=== PATIENT | male | born 1945 | race Caucasian/White ===

== ENCOUNTER 2020-03-20 08:08 | Outpatient (CLI) | payer MEDICARE, BC, SELFPAY ==
--- NOTE | ~2020-03-20 | CT_ITS ---
EXAMINATION:CT chest high resolution wo ga DATE: 03/20/2020 08:43 INDICATION: Interstitial lung disease. TECHNIQUE: Computed tomography (CT) of the chest was performed without intravenous contrast. Automate d exposure control and iterative reconstruction technique were employed. The dose-length product (DLP ) was 241.50 mGy-cm. COMPARISON: Chest CT 12/11/2018 FINDINGS: There is severe emphysema. There are widespread peripheral reticular opacities in the lungs . There is honeycombing in the lungs bilaterally with a lower lung predominance. There is a 6 mm nodu le in left lower lobe. There is a 4 mm nodule left major fissure. There is a 6 mm nodule in right mid dle lobe. There is a 4 mm nodule in right upper lobe. No pleural effusion. The heart size is normal. There are coronary artery calcifications. There are changes of coronary bypass grafting. No pericardi al effusion. There is mild bilateral gynecomastia. There are changes of cholecystectomy. There is a 2 .0 cm cyst in left kidney. There is thoracic dextroscoliosis and mild spondylosis. IMPRESSION: 1. Stable severe diffuse lung disease, likely a combination of emphysema and chronic interstitial kenyetta g disease in a pattern of usual interstitial pneumonia (UIP). 2. Stable pulmonary nodules, consistent with granulomatous disease. Reviewed, dictated and finalized at location A. IMPRESSION: 1. Stable severe diffuse lung disease, likely a combination of emphysema and ch ronic interstitial lung disease in a pattern of usual interstitial pneumonia (U IP). 2. Stable pulmonary nodules, consistent with granulomatous disease.
== END 2020-03-20 08:09 | disposition home or self-care (01) ==
PROVIDERS: PCP Internal Medicine; Visit Provider Nurse Practitioner Family
DX: J98.4 Other disorders of lung (principal); R91.8 Other nonspecific abnormal finding of lung field
CPT/HCPCS: 71250

== ENCOUNTER → 2020-11-02 14:52 | Outpatient (CLI) | payer MEDICARE, SELFPAY ==
--- NOTE | ~2020-11-02 | XR_ITS ---
XR hand BI arthritis min 3V DATE: 11/02/2020 15:17 INDICATION: Rheumatoid arthritis TECHNIQUE: 4 views of each hand COMPARISON: 03/22/2007 bilateral hands FINDINGS: There is mild osteoarthritis at the first carpometacarpal joint and second and third metaca rpophalangeal as well as interphalangeal joints of the right hand. Mild osteoarthritic arthritis at the left first carpometacarpal joint, third metacarpophalangeal and some interphalangeal joints. No fracture, dislocation, erosive change, periosteal reaction or bone destruction of either hand is n oted. IMPRESSION: Polyarticular mild osteoarthritis Reviewed, dictated and finalized at location A.
--- NOTE | ~2020-11-02 | XR_ITS ---
XR foot RT standing 2V DATE: 11/02/2020 15:17 INDICATION: Rheumatoid arthritis TECHNIQUE: Standing AP and lateral views COMPARISON: None FINDINGS: There is prominent hallux valgus and bunion deformity. Diffuse osteopenia. No fracture, dislocation, periosteal reaction or bone destruction. Anterior and posterior tibial artery calcifications. IMPRESSION: Osteopenia Prominent hallux valgus and bunion deformity Reviewed, dictated and finalized at location A.
--- NOTE | ~2020-11-02 | XR_ITS ---
XR foot LT standing 2V DATE: 11/02/2020 15:17 INDICATION: Rheumatoid arthritis TECHNIQUE: AP and lateral standing views COMPARISON: None FINDINGS: Anterior and posterior tibial and dorsalis pedis artery calcifications. Osteopenia. Pes planus. Plantar calcaneal enthesopathy. There is mild osteoarthritis at the first metatarsophalangeal joint. No fracture or dislocation, periosteal reaction or bone destruction is detected. IMPRESSION: Pes planus Osteopenia Plantar calcaneal enthesopathy Mild osteoarthritis at first metatarsophalangeal joint Reviewed, dictated and finalized at location A.
== END ==
PROVIDERS: PCP Internal Medicine; Visit Provider Internal Medicine
DX: M06.9 Rheumatoid arthritis, unspecified (principal); M19.041 Primary osteoarthritis, right hand; M19.042 Primary osteoarthritis, left hand; M77.32 Calcaneal spur, left foot; M19.072 Primary osteoarthritis, left ankle and foot; M85.872 Other specified disorders of bone density and structure, left ankle and foot; M20.11 Hallux valgus (acquired), right foot; M85.871 Other specified disorders of bone density and structure, right ankle and foot
CPT/HCPCS: 73130; 73620

== ENCOUNTER 2021-04-11 09:48 | Outpatient (CLI) | payer MEDICARE, SELFPAY ==
--- NOTE | ~2021-04-11 | CT_ITS ---
EXAMINATION: CT chest high resolution wo co DATE: 04/11/2021 10:26 INDICATION: Interstitial pulmonary disease TECHNIQUE: Computed tomography (CT) of the chest was performed without intravenous contrast. The dose -length product (DLP) was 225.82 mGy-cm. Automated exposure control and iterative reconstruction tech nique were employed. COMPARISON: 03/20/2020 FINDINGS: Again noted are widespread peripheral reticular opacities. Areas of honeycombing are presen t with a lower lung zone predominance, right greater than left. There is severe emphysema. There is n o pleural effusion or pneumothorax. The previously described 4 mm nodule of the left lower lobe is le ss apparent than on the comparison examination. There is a stable 6 mm nodule of the right middle lob e. No new pulmonary nodules are identified. The lungs are free of acute focal airspace opacities. Mil d bilateral gynecomastia is noted. No pathologically enlarged thoracic lymph nodes are identified. Th e heart size is normal. Changes of coronary artery bypass grafting are noted. The gallbladder is surg ically absent. There is a 2 cm cyst of the left kidney. There are bridging osteophytes at multiple le vels in the spine, consistent with diffuse idiopathic skeletal hyperostosis (DISH). IMPRESSION: 1. Stable chronic interstitial lung disease in a pattern of usual interstitial pneumonia (UIP) and em physema. Reviewed, dictated and finalized at location B. D PACKER IMPRESSION: 1. Stable chronic interstitial lung disease in a pattern of usual interstitial pneumonia (UIP) and emphysema.
== END 2021-04-11 09:49 | disposition home or self-care (01) ==
LOC: ANHIMG 09:54
PROVIDERS: PCP Internal Medicine; Visit Provider Nurse Practitioner Family
DX: J84.9 Interstitial pulmonary disease, unspecified (principal)
CPT/HCPCS: 71250

== ENCOUNTER 2021-08-13 14:54 | Emergency (ER) | payer MEDICARE, SELFPAY ==
[2021-08-13 15:12] VITALS: BP 123/74; PULSE 110; RESP 14; TEMP 37.1; O2SAT 97
[2021-08-13 15:32] LABS: Basophils Percent Auto 0.4 % (0.2-1.2); Eosinophils Absolute Auto 0.1 K/mm3 (0-0.3); Eosinophils Percent Auto 1.6 % (0-4.4); Hematocrit 42.8 % (42.0-52.0); Hemoglobin 14.3 g/dL (14.0-18.0); Immature Granulocyte Absolute 0.03 K/mm3 (0.00-0.031); Immature Granulocyte Percent A 0.4 % (0-0.5); Lymphocytes Absolute Auto 1.28 K/mm3 (0.9-3.2); Lymphocytes Percent Auto 15.6 % (18.3-44.2); Mean Corpuscular HGB Conc 33.4 g/dl (32-36); Mean Corpuscular Hemoglobin 39.4 pg (26-34); Mean Corpuscular Volume 117.9 fl (80-100); Mean Platelet Volume 10.4 fl (7.4-10.4); Monocytes Absolute Auto 0.8 K/mm3 (0.1-0.6); Monocytes Percent Auto 9.6 % (2.6-8.5); Neutrophils Percent Auto 72.4 % (45.5-73.1); Platelet Count Result 241 k/mm3 (150-375); Red Blood Count 3.63 M/mm3 (4.6-6.20); Red Cell Distribution Width 15.3 % (11.5-14.5); White Blood Count 8.2 K/mm3 (4.5-10.0)
[2021-08-13 15:42] LABS: Alanine Aminotransferase 20 U/L (4-50); Albumin Level 4.3 g/dL (3.5-5.1); Alkaline Phosphatase 43 U/L (38-126); Anion Gap 7 mmol/L (8-16); Aspartate Amino Transferase 33 U/L (17-59); Bilirubin,Total 0.9 mg/dL (0.2-1.3); Blood Urea Nitrogen 16 mg/dL (9-20); Calcium 8.1 mg/dL (8.4-10.2); Carbon Dioxide 23 mmol/L (22-30); Chloride 107 mmol/L (98-107); Estimated Glomerular Filt Rate > 60; Glucose 135 mg/dL (65-110); Lipase 22 U/L (23-300); Potassium 3.8 mmol/L (3.4-5.0); Sodium 137 mmol/L (137-145)
--- NOTE | 2021-08-13 16:46 | ED.ABDPAIN ---
HPI - Abdominal Pain General Chief Complaint: Abdominal Pain Stated Complaint: battling diverticultis Time Seen by Provider: 08/13/21 16:45 History of Present Illness HPI narrative: 76-year-old male presents the emergency room complaining of diarrhea has been present for 10 days. Patient states that he was given Levaquin for a presumptive sinus infection approximately 3 weeks ago. Following the completion of the course of Levaquin, patient began complaining of left lower quadrant pain with diarrhea. Patient called his PCP and was crisp prescribed courses of Cipro and Flagyl. Patient states the diarrhea has increased in severity and number of occurrences daily denies blood in the stool. Related Data Home Medications Medication Instructions Recorded Confirmed alendronate 70 mg tablet 70 mg PO WEEKLY 06/30/19 04/18/21 aspirin 81 mg tablet,delayed 81 mg PO DAILY 06/30/19 04/18/21 release cetirizine 10 mg capsule PO 06/30/19 04/18/21 dextromethorphan-guaifenesin 30 1 tablet PO Q12H 06/30/19 04/18/21 mg-600 mg tablet extended [id number] hr finasteride 5 mg tablet 5 mg PO DAILY 06/30/19 04/18/21 fluoxetine 20 mg capsule 20 mg PO DAILY 06/30/19 04/18/21 fluticasone furoate 50 INHALATION 06/30/19 04/18/21 mcg/actuation blister powder for inhalation lorazepam 1 mg tablet 1 mg PO DAILY PRN 06/30/19 04/18/21 ramelteon 8 mg tablet 8 mg PO ONCE 06/30/19 04/18/21 simvastatin 20 mg tablet 20 mg PO DAILY 06/30/19 04/18/21 testosterone cypionate 200 mg/mL 200 mg IM MONTHLY 06/30/19 04/18/21 intramuscular kit topiramate 50 mg tablet 50 mg PO BID 06/30/19 04/18/21 tramadol 50 mg tablet 50 mg PO Q6H PRN 06/30/19 04/18/21 calcium [calcium citrate] PO 07/27/20 04/18/21 carboxymethyl 0.5 %-glycerin 1 1 drp EACH EYE Q2-4H PRN 07/27/20 04/18/21 %-polysorb 80 0.5 %-PF eye dropperette cholecalciferol (vitamin D3) 125 125 mcg PO DAILY 07/27/20 04/18/21 mcg (5,000 unit) capsule cyanocobalamin (vitamin B-12) 500 500 mcg PO DAILY 07/27/20 04/18/21 mcg tablet latanoprost 0.005 % eye drops 1 drp EACH EYE QPM 07/27/20 04/18/21 tacrolimus 0.1 % topical ointment See Rx Instructions .ROUTE .COMPLEX 07/27/20 04/18/21 Allergies Allergy/AdvReac Type Severity Reaction Status Date / Time Cephalosporins Allergy Mild RASH Verified 04/18/21 13:02 cephalexin Allergy Unknown unk Verified 04/18/21 13:02 Penicillins Allergy Unknown unk Verified 04/18/21 13:02 Sulfa (Sulfonamide Allergy Unknown unk Verified 04/18/21 13:02 Antibiotics) sulfanilamide Allergy Unknown unk Verified 04/18/21 13:02 Review of Systems Review of Systems: CONSTITUTIONAL: Denies fever, chills, or sweats. EYES: Denies visual changes, redness, or discharge. ENT: Denies rhinorrhea, congestion, sore throat, or otalgia. CARDIOVASCULAR: Denies chest pain, palpitations, or edema. RESPIRATORY: Denies cough or dyspnea. GASTROINTESTINAL: Reports lower abdominal pain, diarrhea, occasional nausea GENITOURINARY: Denies dysuria or hematuria. SKIN: Denies rash or itching. MUSCULOSKELETAL: Denies back pain, joint pain, or myalgia. NEUROLOGIC: Denies headache, numbness, dizziness, or weakness. PSYCHIATRIC: Denies anxiety or depression. [facility] Past Medical History Medical History Anxiety CAD (coronary artery disease) Depression Diverticulosis Headache Heart attack Heart disease ILD (interstitial lung disease) Rheumatoid arthritis Skin cancer Tobacco abuse Surgical History Surgical History H/O hemorrhoidectomy H/O hernia repair H/O knee surgery History of appendectomy History of quadruple bypass Hx of cholecystectomy Family History Family History Mother Diabetes mellitus Glaucoma Cerebrovascular accident Sibling Diabetes mellitus Cancer Heart disease Hypertension Dementia Acute myoc
[2021-08-13 17:26] LABS: Add Urine Microscopic? YES; Appearance Urine Clear (Clear); Bilirubin Urine 1+ (Negative); Blood Urine Negative (Negative); Color Urine Amber (Yellow); Glucose Urine UA Negative (Negative); Ketones Urine 1+ mg/dL (Negative); Leukocyte Esterase Ur Trace LEU/UL (Negative); Mucus Urine Rare /lpf; Nitrate Urine Negative (Negative); Protein Urine Negative (Negative); RBC Urine 0-2 /hpf (0-2); Squamous Epithelial Cell Urine Rare /hpf (Few); WBC Urine 0-3 /hpf
[2021-08-13 17:39] LABS: Specific Grav Ur 1.033 (1.001-1.035)
[2021-08-13] MEDS: ONDANSETRON INJ 4 MG/2 ML VIAL IV PUSH (17:45)
[2021-08-13] MEDS: SODIUM CHLORIDE 0.9% IV 1,000 ML 999 ML IV CONT (17:45)
[2021-08-13] MEDS: DICYCLOMINE HCL INJ 20 MG/2 ML VIAL IM (18:01)
--- NOTE | 2021-08-13 19:14 | PC.NURSE ---
Pt given PO challenge. Report relief of s/s
== END 2021-08-13 19:48 | disposition home or self-care (01) ==
PROVIDERS: Emergency Medicine; Emergency Provider Nurse Practitioner Family; PCP Internal Medicine
DX: R19.7 Diarrhea, unspecified (principal); I25.10 Atherosclerotic heart disease of native coronary artery without angina pectoris; I25.2 Old myocardial infarction; J84.9 Interstitial pulmonary disease, unspecified; M06.9 Rheumatoid arthritis, unspecified; F32.A Depression, unspecified; F41.9 Anxiety disorder, unspecified; Z85.828 Personal history of other malignant neoplasm of skin; Z87.891 Personal history of nicotine dependence
CPT/HCPCS: 36415; 80053; 81001; 83690; 85025; 96361; 96372; 96374; 99284; J0500; J2405; J7030

== ENCOUNTER 2021-10-27 14:04 | Outpatient (CLI) | payer MEDICARE, SELFPAY ==
--- NOTE | ~2021-10-27 | CT_ITS ---
EXAMINATION: CT sinus wo con DATE: 10/27/2021 14:30 INDICATION: Chronic sinusitis TECHNIQUE: Computed tomography (CT) of the paranasal sinuses was performed without intravenous contra st. The dose-length product was 325.47 mGy-cm. Automated exposure control and iterative reconstructio n technique were employed. COMPARISON: CT dated 01/30/2018 FINDINGS: There is mild mucosal thickening of the maxillary sinuses. No air-fluid levels. No signific ant mucoperiosteal reaction. There is rightward nasal septal deviation. Ostiomeatal units are patent. IMPRESSION: 1. Mild maxillary sinus disease. Reviewed, dictated and finalized at location A.
== END 2021-10-27 14:05 | disposition home or self-care (01) ==
PROVIDERS: PCP Internal Medicine; Visit Provider Otolaryngology
DX: R09.82 Postnasal drip (principal); J34.89 Other specified disorders of nose and nasal sinuses; R09.81 Nasal congestion; J34.3 Hypertrophy of nasal turbinates; J34.2 Deviated nasal septum; J32.0 Chronic maxillary sinusitis
CPT/HCPCS: 70486

== ENCOUNTER 2021-11-23 12:22 | Outpatient (CLI) | payer MEDICARE, SELFPAY ==
--- NOTE | 2021-11-23 12:30 | ECG_ITS ---
Measurements Intervals [place] Rate: 85 P: 65 WA: 199 QRS: -3 QRSD: 95 T: 31 QT: 363 QTc: 432 Interpretive Statements SINUS RHYTHM MINOR RV CONDUCTION ABNORMALITY BORDERLINE ECG NO PREVIOUS ECG AVAILABLE FOR COMPARISON Electronically Signed On 11-24-2021 16:27:09 CDT by Michel Aldana M.D.
== END 2021-11-23 12:23 | disposition home or self-care (01) ==
LOC: ANHSURGERY 12:31
PROVIDERS: PCP Internal Medicine; Visit Provider Otolaryngology
DX: F17.210 Nicotine dependence, cigarettes, uncomplicated (principal); Z01.818 Encounter for other preprocedural examination; R94.31 Abnormal electrocardiogram [ECG] [EKG]
CPT/HCPCS: 93005

== ENCOUNTER 2021-12-01 01:03 | Day surgery (SDC) | payer MEDICARE, SELFPAY ==
[2021-11-20 14:52] VITALS: BMI 26.2
--- NOTE | 2021-11-20 15:12 | PC.NURSE ---
Report to the Outpatient Waiting Room, entrance under the green pavilion located off [facility], at time _0600_ on date _12/01/21_. OR Time: _0730_. - You and your visitor will be asked a series of questions to screen for COVID 19 for your protection. - Only one visitor is allowed at this time. - The patient visitor is requested to leave or wait in car when not with patient. - A mask is required within the hospital. Patients may have clear liquids (water, carbonated beverages, clear teas, apple juice) until 3 hours prior to surgery (0430 AM)with a maximum of 20 ounces. - No food from midnight until time of surgery Take the following medications with a SIP of water the morning of surgery: _LORAZEPAM, PREDNISONE, SPIRIVA INHALER, EYE DROPS, NASAL SPRAY, TRAMADOL IF NEEDED_ Medications to discontinue - _ASPIRIN PER DR. REED'S INSTRUCTIONS__ Please no make-up, nail azeri, hairspray, perfume, deodorant, or body powder the day of surgery. No jewelry (including any body piercings) or valuables the day of surgery, leave them at home. Please take a shower or bath the night before, or the morning of, surgery with an antibacterial soap. Wear comfortable, loose fitting clothing. - Jewelry must be removed prior to entering the operating room. Rings and piercings that are not removed may be cut off. - The hospital will not accept responsibility for valuables. - Please leave all valuables, including medications, at home the day of surgery. If you are going home after surgery, a licensed dedicated intermodal truck driver must drive you home. - NO public transportation without another adult. - We recommend that an adult stay with you for 24 hours following discharge. - We also recommend that you do not drive, make important decision, drink alcoholic beverages, or take any drugs that were not prescribed by your health care provider for at least 24 hours after your discharge time. Follow any additional instructions given to you from your surgeon. If you or anyone in your household have experienced Covid symptoms in the past week, please notify your surgeon or the nurse liaison at the phone number below for possible testing. Telephone instructions given to ___PT and asked if any additional questions and then verbalized understanding. Patient advised to call surgeon office or pre surgery nurse liaison [phone] if any additional questions.
--- NOTE | 2021-11-30 16:36 | PM.IMHP ---
H&P: HPI History of Present Illness Date/Time: 11/30/21 16:36 Chief Complaint: Chronic sinusitis facial pressure pain postnasal drainage Narrative: Patient presents for planned surgical procedure no change in symptoms no change in history Review of Systems Review of Systems: All systems reviewed & are unremarkable except as noted in HPI and below PMFSH Past Medical History Medical History Anxiety CAD (coronary artery disease) Chronic obstructive pulmonary disease Chronic sinusitis Depression Diverticulosis Headache Heart attack Heart disease ILD (interstitial lung disease) Rheumatoid arthritis Skin cancer Tobacco abuse Surgical History Surgical History H/O hemorrhoidectomy H/O hernia repair H/O knee surgery History of appendectomy History of quadruple bypass Hx of cholecystectomy Family History Family History Mother Diabetes mellitus Glaucoma Cerebrovascular accident Hypertension Heart disease Sibling Diabetes mellitus Cancer Heart disease Hypertension Dementia Acute myocardial infarction Alcoholism Depression Father Acute myocardial infarction Family history of respiratory disorder Malignant neoplasm of prostate Alcoholism Grandparent Cerebrovascular accident Glaucoma Grandparent Cerebrovascular accident Other Family history of cardiovascular disease Family history of malignant neoplasm of kidney Social History Social History Smoking packs per day: 0.75 Smoking cigarettes per day: 15.0 Years smoked: 50 Smoking pack-years: 37.50 Smoking status: Current every day smoker Tobacco type: cigarettes Second hand tobacco smoke exposure: Yes Smoking end date: 06/03/18 Alcohol intake: never Substance use: never Substance use type: does not use Spiritual care concerns: No Meds Home Medications and Allergies Home Medications Medication Instructions Recorded Confirmed Type alendronate 70 mg tablet (Fosamax) 70 mg PO WEEKLY 06/30/19 11/20/21 History aspirin 81 mg tablet,delayed 81 mg PO QAM 06/30/19 11/20/21 History release (Ecotrin Low Strength) cetirizine 10 mg capsule (Zyrtec) 10 mg PO QAM 06/30/19 11/20/21 History dextromethorphan-guaifenesin 30 1 tablet PO Q12H 06/30/19 11/20/21 History mg-600 mg tablet extended hr (Mucinex DM) finasteride 5 mg tablet 5 mg PO QAM 06/30/19 11/20/21 History fluoxetine 20 mg capsule 20 mg PO HS 06/30/19 11/20/21 History lorazepam 1 mg tablet See Rx Instructions .Route .COMPLEX 06/30/19 11/20/21 History ramelteon 8 mg tablet (Rozerem) 8 mg PO HS 06/30/19 11/20/21 History simvastatin 20 mg tablet 20 mg PO HS 06/30/19 11/20/21 History topiramate 50 mg tablet 50 mg PO BID 06/30/19 11/20/21 History tramadol 50 mg tablet 50 mg PO Q6H PRN Pain 06/30/19 11/20/21 History calcium [calcium citrate] 2 tab-cap PO HS 07/27/20 11/20/21 History cholecalciferol (vitamin D3) 125 125 mcg PO HS 07/27/20 11/20/21 History mcg (5,000 unit) capsule cyanocobalamin (vitamin B-12) 500 500 mcg PO HS 07/27/20 11/20/21 History mcg tablet (Vitamin B-12) latanoprost 0.005 % eye drops 1 drp EACH EYE QPM 07/27/20 11/20/21 History hydroxychloroquine 200 mg tablet 200 mg PO BID #180 tabs 08/24/21 11/20/21 Rx (Plaquenil) mupirocin 2 % topical ointment 1 applic topical BID #22 grams 10/03/21 11/20/21 Rx albuterol sulfate 90 mcg/actuation See Rx Instructions .Route 10/19/21 11/20/21 Rx aerosol inhaler .COMPLEX 1 month #8.5 grams carboxymethylcellulose sodium 1 % 2 drp EACH EYE BID PRN Dry Eye(S) 11/20/21 11/20/21 History eye liquid gel drops prednisone 1 mg tablet 1 mg PO DAILY 11/20/21 11/20/21 History tacrolimus 0.1 % topical ointment 1 applic topical BID 11/20/21 11/20/21 Histo
[2021-12-01] VITALS (10 sets, daily range): BP systolic 101–146; BP diastolic 52–88; PULSE 74–87; RESP 12–20; TEMP 36.3–36.6; O2SAT 92–100
--- NOTE | 2021-12-01 06:41 | WPDANESEPPF ---
Anes - Initial Pre Proc Eval Procedure: Operation Date: 12/01/21 07:45 Proposed Procedures p Image Guided Bilateral Maxillary Antrostomy - Johny Zuniga MD Date/Time: 12/01/21 06:41 Surgeon: Johny Zuniga MD Pre Op Diagnosis: chronic sinusitis Patient Data Age: 76 Gender: M Height: 1.68 m Weight: 73.63 kg Allergies Allergy/AdvReac Type Severity Reaction Status Date / Time Cephalosporins Allergy Mild RASH Verified 11/20/21 14:37 cephalexin Allergy Unknown Hives Verified 11/20/21 14:37 Penicillins Allergy Unknown STATES WAS Verified 11/20/21 14:37 TOLD NOT TO TAKE PCN DUE TO KEFLEX REACTION Sulfa (Sulfonamide Allergy Unknown Rash Verified 11/20/21 14:37 Antibiotics) sulfanilamide Allergy Unknown Rash Verified 11/20/21 14:37 Home Medications Medication Instructions Recorded Confirmed Type alendronate 70 mg tablet (Fosamax) 70 mg PO WEEKLY 06/30/19 11/20/21 History aspirin 81 mg tablet,delayed 81 mg PO QAM 06/30/19 11/20/21 History release (Ecotrin Low Strength) cetirizine 10 mg capsule (Zyrtec) 10 mg PO QAM 06/30/19 11/20/21 History dextromethorphan-guaifenesin 30 1 tablet PO Q12H 06/30/19 11/20/21 History mg-600 mg tablet extended [id number] hr (Mucinex DM) finasteride 5 mg tablet 5 mg PO QAM 06/30/19 11/20/21 History fluoxetine 20 mg capsule 20 mg PO HS 06/30/19 11/20/21 History lorazepam 1 mg tablet See Rx Instructions .Route .COMPLEX 06/30/19 11/20/21 History ramelteon 8 mg tablet (Rozerem) 8 mg PO HS 06/30/19 11/20/21 History simvastatin 20 mg tablet 20 mg PO HS 06/30/19 11/20/21 History topiramate 50 mg tablet 50 mg PO BID 06/30/19 11/20/21 History tramadol 50 mg tablet 50 mg PO Q6H PRN Pain 06/30/19 11/20/21 History calcium [calcium citrate] 2 tab-cap PO HS 07/27/20 11/20/21 History cholecalciferol (vitamin D3) 125 125 mcg PO HS 07/27/20 11/20/21 History mcg (5,000 unit) capsule cyanocobalamin (vitamin B-12) 500 500 mcg PO HS 07/27/20 11/20/21 History mcg tablet (Vitamin B-12) latanoprost 0.005 % eye drops 1 drp EACH EYE QPM 07/27/20 11/20/21 History hydroxychloroquine 200 mg tablet 200 mg PO BID #180 tabs 08/24/21 11/20/21 Rx (Plaquenil) mupirocin 2 % topical ointment 1 applic topical BID #22 grams 10/03/21 11/20/21 Rx albuterol sulfate 90 mcg/actuation See Rx Instructions .Route 10/19/21 11/20/21 Rx aerosol inhaler .COMPLEX 1 month #8.5 grams carboxymethylcellulose sodium 1 % 2 drp EACH EYE BID PRN Dry Eye(S) 11/20/21 11/20/21 History eye liquid gel drops prednisone 1 mg tablet 1 mg PO DAILY 11/20/21 11/20/21 History tacrolimus 0.1 % topical ointment 1 applic topical BID 11/20/21 11/20/21 History testosterone cypionate 200 mg/mL See Rx Instructions .Route .COMPLEX 11/20/21 11/20/21 History intramuscular oil tiotropium bromide 18 mcg capsule 1 cap inhalation DAILY 11/20/21 11/20/21 History with inhalation device (Spiriva with HandiHaler) fluticasone propionate 50 See Rx Instructions .Route 11/24/21 Rx mcg/actuation nasal .COMPLEX #48 mL spray,suspension Patient hx anesthesia problems: none Family hx anesthesia problems: none Results Review: All pre-operative results and documents have been reviewed as part of the pre-operative evaluation. [facility] Past Medical History Medical History Anxiety CAD (coronary artery disease) Chronic obstructive pulmonary disease Chronic sinusitis Depression Diverticulosis Headache Heart attack Heart disease ILD (interstitial lung disease) Rheumatoid arthritis Skin cancer Tobacco abuse Surgical History Surgical History H/O hemorrhoidectomy H/O hernia repair H/O knee surgery History of appendectomy History of quadruple bypass Hx of cholecystectomy Family History Family History Mother Diabetes mellitus [place]
[2021-12-01] MEDS: LACTATED RINGERS 1,000 ML 30 ML IV CONT (06:47)
[2021-12-01 06:53] LABS: Glucose Point of Care 128 mg/dl (65-105)
--- NOTE | 2021-12-01 07:14 | WPDHPUPDATE1 ---
History and Physical Update Update Date/Time: 12/01/21 07:14 History and Physical has been reviewed, including an updated exam of the patient. There are NO changes in the patient's condition. Risks, benefits, and alternatives have been discussed and questions answered. Patient agrees to proceed with procedure.
[2021-12-01] MEDS: CLINDAMYCIN 900 MG/D5W 50 ML 900 MG/50 ML PIGGYBACK 50 MG IVPB (08:09)
[2021-12-01] MEDS: OXYMETAZOLINE HCL 0.05% NAS 15 ML BTL (*BKC) 1 SPRAY NASAL (08:32)
[2021-12-01 09:13] LABS: Glucose Point of Care 131 mg/dl (65-105)
[2021-12-01] MEDS: fentaNYL CITRATE INJ (*CRX) 100 MCG/2 ML VIAL 25 MCG IV PUSH (09:14)
--- NOTE | 2021-12-01 09:18 | P.OP_ITS ---
Procedure Note - Detailed Date of Procedure 12/01/21 Pre-op Diagnosis chronic sinusitis Post-op Diagnosis Same Procedure Performed Bilateral endoscopic image guided maxillary antrostomies. Surgeon Johny Zuniga MD Anesthesia General Indications See above Findings Thickened mucosa the bilateral maxillary sinuses Description of Procedure Patient identified consent verified. Patient brought operating room time-out p erformed. General anesthesia induced endotracheal tube secured taped left lower lip. Second time-out performed. Image guidance initiated and confirmed. Afrin-soaked pledgets placed the passages allowed to sit for 5 minutes. Patient prepped and draped. Afrin-soaked pledgets removed 0 degree endoscope utilized maxillary antrostomies completed with caudal elevator, double ball tip probe, straight through cut, and backbiter as well as image guided microdebrider. Image guidance was used to confirm the location the maxillary sinuses bilateral nasal passages suction the posterior choana, this was a bilateral sinus procedure. There were no complications blood loss about 20 cc less than 25. Care the patient given over to Anesthesiology I performed all dictated portions. No complications patient taken to PACU. Estimated Blood Loss 20 Drains No Packing No Pathology None sent Complications No immediate complications Condition Stable Disposition PACU
== END 2021-12-01 11:35 | disposition home or self-care (01) ==
PROVIDERS: PCP Internal Medicine; Visit Provider Otolaryngology
PROC: (CPT 31256; principal; 2021-12-01 07:45)
DX: J32.9 Chronic sinusitis, unspecified (principal); I25.10 Atherosclerotic heart disease of native coronary artery without angina pectoris; I25.2 Old myocardial infarction; J44.9 Chronic obstructive pulmonary disease, unspecified; M06.9 Rheumatoid arthritis, unspecified; J84.9 Interstitial pulmonary disease, unspecified; F41.9 Anxiety disorder, unspecified; F32.A Depression, unspecified; Z95.1 Presence of aortocoronary bypass graft; F17.210 Nicotine dependence, cigarettes, uncomplicated; Z79.82 Long term (current) use of aspirin; Z79.51 Long term (current) use of inhaled steroids
CPT/HCPCS: 31256; 61782; 82948; 93005; A9270; J2250; J2270; J2405; J2704; J3010; J7120

== ENCOUNTER 2022-02-01 13:53 | Outpatient (CLI) | payer MEDICARE, SELFPAY | END 2022-02-01 13:54 | disposition home or self-care (01) | LOC: ANHAUDIO 13:54 | PROVIDERS: PCP Internal Medicine; Referring Provider Otolaryngology; Visit Provider Otolaryngology | DX: H90.3 Sensorineural hearing loss, bilateral (principal) | CPT/HCPCS: 92557; 92567 ==

== ENCOUNTER 2022-03-30 14:17 | Outpatient (CLI) | payer MEDICARE, SELFPAY ==
--- NOTE | ~2022-03-30 | DEXA_ITS ---
Bone Density Report Name: VENU CHAPARRO Age: 76 Sex: Male Ethnicity: White Date of : 1945 Indication: screening for osteoporosis; cancer; rheumatoid arthritis; Referring Provider: TAIWO*, SUSAN Pratt Study: Bone densitometry was performed. Exam Date: March 30, 2022 Accession number: [id number] Bone Density: Region BMD T-score Z-score Classification AP Spine(L1-L4) 1.161 0.6 1.7 Normal Femoral Neck (Left) 0.845 -0.6 0.7 Normal Total Hip (Left) 1.012 -0.1 0.7 Normal Femoral Neck (Right) 0.891 -0.3 1.0 Normal Total Hip (Right) 1.023 -0.1 0.7 Normal Total Hip Mean 1.017 -0.1 0.7 Normal World Health Organization criteria for BMD impression classify patients as: Normal (T-score at or above -1.0), Osteopenia (T-score between -1.0 and -2.5), or Osteoporosis (T-score at or below -2.5). 10-year Fracture Risk: FRAX not reported because: All T-scores for Spine Total, Hip Total, Femoral Neck at or above -1.0 Treated for osteoporosis Clinical Information Provided by Patient: Smokes Has rheumatoid arthritis Is being treated for osteoporosis Has used the following medications: Fosamax (i.e. alendronate), Vitamin D, Calcium Has the following medical conditions: Cancer Patient maximum height was 67 Drinks caffeinated beverages Impression: The patient has normal bone mass. The patient has risk factors, including: smoking. Discussion: It is important to ask patients whether they are taking their medications and to encourage continued and appropriate compliance with their osteoporosis therapies to reduce fracture risk. It is also important to review their risk factors and encourage appropriate calcium and vitamin D intakes, exercise, fall prevention and other lifestyle measures. Follow-Up: Consider repeating this study in 2 years to reassess this patient's status, or sooner if there is some new clinical indication. Reported by: KOBI on 03/30/2022 2:36:00 PM. Reviewed, dictated and finalized at location [facility] GARCIA
== END 2022-03-30 14:18 | disposition home or self-care (01) ==
PROVIDERS: PCP Internal Medicine; Visit Provider Internal Medicine
DX: M19.90 Unspecified osteoarthritis, unspecified site (principal); M81.0 Age-related osteoporosis without current pathological fracture
CPT/HCPCS: 77080

== ENCOUNTER 2022-04-17 14:09 | Outpatient (CLI) | payer MEDICARE, SELFPAY ==
--- NOTE | ~2022-04-17 | CT_ITS ---
EXAMINATION: CT chest high resolution wo ct DATE: 04/17/2022 14:31 INDICATION: Interstitial lung disease, dyspnea on exertion, tobacco use TECHNIQUE: Computed tomography (CT) of the chest was performed without intravenous contrast. The dose -length product (DLP) was 203.25 mGy-cm. 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 COMPARISON: 04/11/2021 FINDINGS: There is severe emphysema. Widespread peripheral reticular opacities persist without signif icant change. Areas of honeycombing with a lower lung zone predominance are not significantly changed . There is a stable 6 mm nodule of the right middle lobe. No pleural effusion or pneumothorax. No pat hologically enlarged thoracic lymph nodes are identified. The heart size is normal. Changes of perez ry artery bypass grafting are noted. There is mild bilateral gynecomastia. There are bridging osteoph ytes at multiple levels in the spine, consistent with diffuse idiopathic skeletal hyperostosis (DISH) . There is a 2.3 cm cyst of the left kidney upper pole. The gallbladder is surgically absent. IMPRESSION: 1. Stable chronic interstitial lung disease in a pattern of usual interstitial pneumonia (UIP) and em physema. Reviewed, dictated and finalized at location [facility]. [facility] IMPRESSION: 1. Stable chronic interstitial lung disease in a pattern of usual interstitial pneumonia (UIP) and emphysema.
== END 2022-04-17 14:10 | disposition home or self-care (01) ==
PROVIDERS: PCP Internal Medicine; Visit Provider Nurse Practitioner Family
DX: J84.9 Interstitial pulmonary disease, unspecified (principal); Z87.891 Personal history of nicotine dependence
CPT/HCPCS: 71250

== ENCOUNTER 2022-06-13 13:31 | Outpatient (CLI) | payer MEDICARE, SELFPAY ==
--- NOTE | ~2022-06-13 | MR_ITS ---
EXAMINATION: MR foot LT wo/w con, MR foot RT wo/w con DATE: 06/13/2022 16:06 INDICATION: Rheumatoid arthritis with bilateral foot pain TECHNIQUE: 1. Magnetic resonance imaging (MRI) of the left foot was performed without and with 14 mL Multihance intravenous contrast. Sequences included axial, sagittal and coronal T1-weighted FSE, sagittal fluid sensitive FSE STIR, axial T1-weighted FS FSE, and postcontrast axial, sagittal and coronal T1-weighte d FS FSE. 2. MRI of the right foot was performed without and with 14 mL Multihance intravenous contrast utilizi ng the same contrast bolus. Sequences included axial, sagittal and coronal T1-weighted FSE, sagittal fluid sensitive FSE STIR, axial T1-weighted FS FSE, and postcontrast axial, sagittal and coronal T1-w eighted FS FSE. COMPARISON: Left and right foot radiographs dated 11/02/2020 FINDINGS: Left foot: Mild hallux valgus. Normal bone marrow signal with no reactive edema, fracture or pathologic marrow r eplacing process. Mild osteoarthritis characterized by nonuniform joint space narrowing and/or small marginal osteophytes at the first metatarsophalangeal and several tarsal metatarsal and interphalange al joints. No erosions. There is increased enhancing soft tissue density partially replacing the norm al fat signal at the sinus Tarsi surrounding the otherwise intact appearing ligaments at the sinus Ta rsi. Physiologic amount fluid in the joint spaces with no other enhancing synovitis. The visualized p ortions of the stabilizing ligaments of the ankle, the Lisfranc ligament complex and the collateral l igament complex at the metatarsophalangeal and interphalangeal joints appear normal. Thickening and i ncreased signal of the central component of the proximal plantar aponeurosis with associated small to moderate-sized plantar calcaneal spur consistent with likely chronic enthesopathy without tear or en hancement to suggest an inflammatory enthesitis. The visualized portions of the flexor and extensor t endons are normal with no evident enhancing tenosynovitis. There is scattered mild fatty atrophy of s ome of the intrinsic musculature of the foot which is within normal limits for age. Mild subcutaneous edema about the ankle and extending over the dorsum of the foot. Right foot: Mild hallux valgus which appears significantly less severe than on the prior radiographs which may be due to weightbearing on the radiographs was posted nonweightbearing MR imaging. Normal bone marrow s ignal with no reactive edema, fracture or pathologic marrow replacing process. The distribution of mi ld osteoarthritis at the first metatarsophalangeal and several tarsal metatarsal and interphalangeal joints. No erosions. Physiologic amount fluid in the joint spaces with no other enhancing synovitis. The sinus Tarsi is unremarkable. The visualized portions of the stabilizing ligaments of the ankle, t he Lisfranc ligament complex and the collateral ligament complex at the metatarsophalangeal and inter phalangeal joints appear normal. Less severe mild enthesopathy at the central component of the planta r aponeurosis also without tear or enhancement. The visualized portions of the flexor and extensor te ndons are normal with no evident enhancing tenosynovitis. There is scattered mild fatty atrophy of so me of the intrinsic musculature of the foot which is within normal limits for age. Mild subcutaneous edema about the ankle and extending over the dorsum of the foot. IMPRESSION: 1. Increased enhancing soft tissue replacing normal fat signal at the sinus Tarsi of the left but not the right foot. This would be consistent with synovitis in the setting of rheumatoid arthritis with differential including other inflammatory arthritides, gout, ankylosing arthritis or prior trauma. 2. Bilateral enthesopathy of the central component of the plantar aponeurosis, right greater than lef t. No enhancement to s
== END 2022-06-13 13:32 | disposition home or self-care (01) ==
PROVIDERS: PCP Internal Medicine; Visit Provider Internal Medicine
DX: M06.9 Rheumatoid arthritis, unspecified (principal); M79.671 Pain in right foot; M79.672 Pain in left foot
CPT/HCPCS: 73720; A9577

== ENCOUNTER 2022-08-01 15:54 | Emergency (ER) | payer MEDICARE, SELFPAY ==
[2022-08-01 16:03] VITALS: BP 121/75; PULSE 105; RESP 18; TEMP 37.1; O2SAT 97
[2022-08-01 16:10] VITALS: BP 121/75; PULSE 105; RESP 18; TEMP 37.1; O2SAT 97
--- NOTE | 2022-08-01 16:26 | ED.URI ---
HPI - URI/Sore Throat General Chief Complaint: Upper Respiratory Infection Stated Complaint: SINUS DRAINAGE Time Seen by Provider: 08/01/22 16:11 Source: patient and RN notes reviewed Mode of arrival: ambulatory Limitations: no limitations History of Present Illness HPI Narrative: 77-year-old male with chronic sinusitis presents with concern for copious thick sinus drainage, cough. Reports general malaise, fatigue, chills. Reports he has been using sinus rinses and getting multi colored sputum from his sinuses. He was treated in June with Levaquin in June for sinusitis. He reports he had a pulmonary workup 1 week ago at [facility] and did not have an infection or pneumonia at that time MD elicited complaint: cough, nasal congestion and sinus pain Related Data Home Medications Medication Instructions Recorded Confirmed albuterol sulfate 90 mcg/actuation 2 inh inhalation DIRECTED 08/01/22 08/01/22 aerosol inhaler azelastine 137 mcg (0.1 %) nasal 137 mcg intranasal DIRECTED 08/01/22 08/01/22 spray aerosol cyclosporine 0.05 % eye drops in a 1 drp ophthalmic (eye) DIRECTED 08/01/22 08/01/22 dropperette (Restasis) finasteride 5 mg tablet 5 mg PO DIRECTED 08/01/22 08/01/22 fluoxetine 20 mg capsule 20 mg PO DAILY 08/01/22 08/01/22 fluticasone propionate 50 50 mcg intranasal DAILY 08/01/22 08/01/22 mcg/actuation nasal spray,suspension hydroxychloroquine 200 mg tablet 200 mg PO DAILY 08/01/22 08/01/22 latanoprost 0.005 % eye drops 1 drp ophthalmic (eye) DAILY 08/01/22 08/01/22 lorazepam 1 mg tablet 1 mg PO DIRECTED 08/01/22 08/01/22 mupirocin 2 % topical ointment 1 applic topical DIRECTED 08/01/22 08/01/22 ramelteon 8 mg tablet 8 mg PO DAILY 08/01/22 08/01/22 simvastatin 20 mg tablet 20 mg PO DAILY 08/01/22 08/01/22 testosterone cypionate 200 mg/mL 200 mg IM WEEKLY 08/01/22 08/01/22 intramuscular oil tiotropium bromide 18 mcg capsule 18 mcg inhalation DIRECTED 08/01/22 08/01/22 with inhalation device (Spiriva with HandiHaler) topiramate 50 mg tablet 50 mg PO DAILY 08/01/22 08/01/22 Allergies Allergy/AdvReac Type Severity Reaction Status Date / Time Cephalosporins Allergy Mild RASH Verified 08/01/22 16:02 cephalexin Allergy Unknown Hives Verified 08/01/22 16:02 Penicillins Allergy Unknown STATES WAS Verified 08/01/22 16:02 TOLD NOT TO TAKE PCN DUE TO KEFLEX REACTION Sulfa (Sulfonamide Allergy Unknown Rash Verified 08/01/22 16:02 Antibiotics) sulfanilamide Allergy Unknown Rash Verified 08/01/22 16:02 Review of Systems Review of Systems: CONSTITUTIONAL: Reports malaise, chills EYES: Denies visual changes, redness, or discharge. ENT: Reports rhinorrhea, congestion, sinus pain. Denies otalgia and sore throat. CARDIOVASCULAR: Denies chest pain, palpitations, or edema. RESPIRATORY: Reports productive cough. Denies dyspnea. GASTROINTESTINAL: Denies abdominal pain, nausea, vomiting, diarrhea SKIN: Denies rash or itching. MUSCULOSKELETAL: Denies myalgia. NEUROLOGIC: Denies headache. All systems reviewed & are unremarkable except as noted in HPI and below PMFSH Past Medical History Medical History Anxiety CAD (coronary artery disease) Chronic obstructive pulmonary disease Chronic sinusitis Depression Diverticulosis Foot pain, bilateral Headache Heart attack Heart disease ILD (interstitial lung disease) Rheumatoid arthritis Skin cancer Tobacco abuse Surgical History Surgical History H/O hemorrhoidectomy H/O hernia repair H/O knee surgery History of appendectomy History of quadruple bypass Hx of cholecystectomy Family History Family History Mother Diabetes mellitus Glaucoma Cerebrovascular accident Hypertension Heart disease Sibling Diabetes mellitus Cancer Heart dise
== END 2022-08-01 16:51 | disposition home or self-care (01) ==
PROVIDERS: Nurse Practitioner Family; Emergency Provider Nurse Practitioner; PCP Internal Medicine
DX: J32.9 Chronic sinusitis, unspecified (principal); I25.10 Atherosclerotic heart disease of native coronary artery without angina pectoris; J44.9 Chronic obstructive pulmonary disease, unspecified; F32.A Depression, unspecified; F41.9 Anxiety disorder, unspecified; F17.210 Nicotine dependence, cigarettes, uncomplicated; Z85.828 Personal history of other malignant neoplasm of skin; Z20.822 Contact with and (suspected) exposure to COVID-19
CPT/HCPCS: 87426; 87804; 99213; C9803; G0463

== ENCOUNTER 2022-11-01 12:39 | Outpatient (CLI) | payer MEDICARE, SELFPAY ==
--- NOTE | ~2022-11-01 | US_ITS ---
EXAMINATION: US carotid duplex BI DATE: 11/01/2022 13:23 INDICATION: Right carotid bruit. TECHNIQUE: Grayscale, color Doppler, and pulsed Doppler images of the cervical carotid arteries were obtained. The degree of vessel stenosis is placed in one of the following categories: normal, <50%, 5 0-69%, >=70% but less than near-occlusion, near-occlusion, or total occlusion. Note that percent sten osis relative to normal distal artery lumen diameter is indirectly measured from velocity measurement s as described by Jeremy, et al. Radiology 2003; 229:340-346. COMPARISON: Ultrasound 09/10/2016 FINDINGS: RIGHT: The right common carotid artery (CCA) peak systolic velocity (PSV) is 93 cm/s. The right internal car otid artery (ICA) PSV is 78 cm/s. The right ICA end-diastolic velocity (EDV) is 22 cm/s. The right IC A/CCA PSV ratio is 0.8. Grayscale and color Doppler images yield an estimate of <50% diameter reducti on from plaque in the ICA. There is antegrade flow in the right vertebral artery. LEFT: The left CCA PSV is 101 cm/s. The left ICA PSV is 63 cm/s. The left ICA EDV is 20 cm/s. The left ICA/ CCA PSV ratio is 0.6. Grayscale and color Doppler images yield an estimate of <50% diameter reduction from plaque in the ICA. There is antegrade flow in the left vertebral artery. IMPRESSION: 1. <50% stenosis in the right internal carotid artery. 2. <50% stenosis in the left internal carotid artery. Reviewed, dictated and finalized at location A.
== END 2022-11-01 12:40 | disposition home or self-care (01) ==
PROVIDERS: PCP Internal Medicine; Visit Provider Internal Medicine Cardiovascular Disease
DX: R09.89 Other specified symptoms and signs involving the circulatory and respiratory systems (principal); I65.23 Occlusion and stenosis of bilateral carotid arteries
CPT/HCPCS: 93880

== ENCOUNTER 2023-01-28 13:39 | Outpatient (CLI) | payer MEDICARE, SELFPAY ==
--- NOTE | ~2023-01-28 | XR_ITS ---
Right foot Technique: AP, oblique, and lateral views were obtained. Clinical History: Pain Findings: No acute fracture or dislocation is seen. There is hallux valgus with mild degenerative samaria nge at the first MTP joint region. Soft tissues are unremarkable. Impression: Hallux valgus with mild degenerative change at the first MTP joint region. Reviewed, dictated and finalized at location . Impression: Hallux valgus with mild degenerative change at the first MTP joint region.
--- NOTE | ~2023-01-28 | XR_ITS ---
XR_[id number] DATE: 01/28/2023 14:05 INDICATION: Right foot pain TECHNIQUE: 4 weightbearing views COMPARISON: None FINDINGS: Moderate plantar calcaneal enthesopathy without associated erosive change or periostitis. No fracture, dislocation, periosteal reaction or bone destruction is detected. IMPRESSION: Plantar calcaneal enthesopathy Reviewed, dictated and finalized at Location [facility]. Reviewed, dictated and finalized at location B.
== END 2023-01-28 13:40 | disposition home or self-care (01) ==
PROVIDERS: PCP Internal Medicine; Visit Provider Internal Medicine
DX: M77.32 Calcaneal spur, left foot (principal); M20.11 Hallux valgus (acquired), right foot; M19.071 Primary osteoarthritis, right ankle and foot
CPT/HCPCS: 73630

== ENCOUNTER 2023-02-10 10:14 | Emergency (ER) | payer MEDICARE, SELFPAY ==
--- NOTE | ~2023-02-10 | XR_ITS ---
XR hand LT min 3V DATE: 02/10/2023 10:54 INDICATION: Numbness and tingling in first and second digits following injury TECHNIQUE: 4 views COMPARISON: 11/02/2020 bilateral hands FINDINGS: Polyarticular mild osteoarthritis. No fracture or dislocation, periosteal reaction or bone destruction is detected. IMPRESSION: Mild polyarticular osteoarthritis Reviewed, dictated and finalized at location A.
[2023-02-10 10:39] VITALS: BP 120/71; PULSE 89; RESP 16; TEMP 36.8; O2SAT 97
--- NOTE | 2023-02-10 10:57 | PC.NURSE ---
Patient states he is having some weakness to the left hand/wrist. patient denies any injury and states he woke up like this . weakness and numbness localized to left wrist and hand.
--- NOTE | 2023-02-10 12:53 | ED.UPPEXIN ---
HPI - Extremity Injury (Upper) General Chief Complaint: Extremity Injury, Upper Stated Complaint: hand discomfort Time Seen by Provider: 02/10/23 12:00 History of Present Illness HPI narrative: This is a 77-year-old male, with left wrist weakness. The patient states last night, he fell asleep in his chair, leaning on his left elbow. When he woke this morning he noticed the left wrist was weak and somewhat numb. He denies other weakness/numbness, chest pain, loss of consciousness or other complaints. Related Data Home Medications Medication Instructions Recorded Confirmed albuterol sulfate 90 mcg/actuation 2 inh inhalation DIRECTED 08/01/22 08/01/22 aerosol inhaler azelastine 137 mcg (0.1 %) nasal 137 mcg intranasal DIRECTED 08/01/22 08/01/22 spray aerosol cyclosporine 0.05 % eye drops in a 1 drp ophthalmic (eye) DIRECTED 08/01/22 08/01/22 dropperette (Restasis) finasteride 5 mg tablet 5 mg PO DIRECTED 08/01/22 08/01/22 fluticasone propionate 50 50 mcg intranasal DAILY 08/01/22 08/01/22 mcg/actuation nasal spray,suspension latanoprost 0.005 % eye drops 1 drp ophthalmic (eye) DAILY 08/01/22 08/01/22 lorazepam 1 mg tablet 1 mg PO DIRECTED 08/01/22 08/01/22 mupirocin 2 % topical ointment 1 applic topical DIRECTED 08/01/22 08/01/22 ramelteon 8 mg tablet 8 mg PO DAILY 08/01/22 08/01/22 simvastatin 20 mg tablet 20 mg PO DAILY 08/01/22 08/01/22 testosterone cypionate 200 mg/mL 200 mg IM WEEKLY 08/01/22 08/01/22 intramuscular oil topiramate 50 mg tablet 50 mg PO DAILY 08/01/22 08/01/22 tramadol 50 mg tablet 50 mg PO Q6H PRN 09/11/22 09/11/22 alendronate 70 mg tablet (Fosamax) 70 mg PO WEEKLY 10/23/22 aspirin 81 mg tablet,delayed 81 mg PO DAILY 10/23/22 release (Adult Aspirin Regimen) calcium citrate 200 mg 1 tablet PO DAILY 10/23/22 calcium-vitamin D3 3.125 mcg (125 unit) tablet fluoxetine 20 mg capsule 40 mg PO DAILY 10/23/22 prednisone 1 mg tablet 1 mg PO .mwf 10/23/22 Allergies Allergy/AdvReac Type Severity Reaction Status Date / Time Cephalosporins Allergy Mild RASH Verified 01/22/23 14:29 cephalexin Allergy Unknown Hives Verified 01/22/23 14:29 Penicillins Allergy Unknown STATES WAS Verified 01/22/23 14:29 TOLD NOT TO TAKE PCN DUE TO KEFLEX REACTION Sulfa (Sulfonamide Allergy Unknown Rash Verified 01/22/23 14:29 Antibiotics) sulfanilamide Allergy Unknown Rash Verified 01/22/23 14:29 Review of Systems Review of Systems: CONSTITUTIONAL: Denies fever, chills, or sweats. CARDIOVASCULAR: Denies chest pain, palpitations, or edema. RESPIRATORY: Denies cough or dyspnea. GASTROINTESTINAL: Denies abdominal pain, nausea, vomiting, or diarrhea. SKIN: Denies rash or itching. MUSCULOSKELETAL: Denies back pain, joint pain, or myalgia. NEUROLOGIC: Left hand weakness denies headache, numbness, dizziness. PSYCHIATRIC: Denies anxiety or depression. [facility] Past Medical History Medical History Anxiety CAD (coronary artery disease) Chronic obstructive pulmonary disease Chronic sinusitis Depression Diverticulosis Foot pain, bilateral Headache Heart attack Heart disease ILD (interstitial lung disease) Rheumatoid arthritis Skin cancer Tobacco abuse Surgical History Surgical History H/O hemorrhoidectomy H/O hernia repair H/O knee surgery History of appendectomy History of quadruple bypass Hx of cholecystectomy Family History Family History Mother Diabetes mellitus Glaucoma Cerebrovascular accident Hypertension Heart disease Sibling Diabetes mellitus Cancer Heart disease Hypertension Dementia Acute myocardial infarction Alcoholism Depression Father Acute myocardial infarction Family history of respiratory disorder Malignant neoplasm of prostate Alcoholism
[2023-02-10 13:17] VITALS: BP 113/57; PULSE 82; RESP 16; TEMP 36.6; O2SAT 97
== END 2023-02-10 13:18 | disposition home or self-care (01) ==
PROVIDERS: Emergency Provider Preventive Medicine Aerospace Medicine; PCP Internal Medicine
DX: G56.32 Lesion of radial nerve, left upper limb (principal); F17.210 Nicotine dependence, cigarettes, uncomplicated; F41.9 Anxiety disorder, unspecified; I25.10 Atherosclerotic heart disease of native coronary artery without angina pectoris; J44.9 Chronic obstructive pulmonary disease, unspecified; F32.A Depression, unspecified; K57.90 Diverticulosis of intestine, part unspecified, without perforation or abscess without bleeding; I25.2 Old myocardial infarction
CPT/HCPCS: 73130; 99283

== ENCOUNTER 2023-04-05 12:17 | Emergency (ER) | payer MEDICARE, SELFPAY ==
[2023-04-05 12:35] VITALS: BP 100/65; PULSE 109; RESP 16; TEMP 37.2; O2SAT 94
--- NOTE | 2023-04-05 13:04 | ED.URI ---
HPI - URI/Sore Throat General Chief Complaint: Upper Respiratory Infection Stated Complaint: Sinus Infection;Fever;Headache Time Seen by Provider: 04/05/23 13:04 Source: patient and RN notes reviewed Mode of arrival: ambulatory Limitations: no limitations History of Present Illness HPI Narrative: 77 y/o male with hx interstitial lung disease presented for c/o nasal congestion, headache, fever/chills onset yesterday. Temp up to 101 last night. Denies cough, sob, wheezing, or vomiting. Not taking anything for symptoms. Completed a 20 day taper course of prednisone one week ago and prior to that he completed Levaquin for similar symptoms. MD elicited complaint: cough Related Data Home Medications Medication Instructions Recorded Confirmed albuterol sulfate 90 mcg/actuation 2 inh inhalation DIRECTED 08/01/22 04/05/23 aerosol inhaler azelastine 137 mcg (0.1 %) nasal 137 mcg intranasal DIRECTED 08/01/22 04/05/23 spray aerosol cyclosporine 0.05 % eye drops in a 1 drp ophthalmic (eye) DIRECTED 08/01/22 04/05/23 dropperette (Restasis) finasteride 5 mg tablet 5 mg PO DIRECTED 08/01/22 04/05/23 fluticasone propionate 50 50 mcg intranasal DAILY 08/01/22 04/05/23 mcg/actuation nasal spray,suspension latanoprost 0.005 % eye drops 1 drp ophthalmic (eye) DAILY 08/01/22 04/05/23 lorazepam 1 mg tablet 1 mg PO DIRECTED 08/01/22 04/05/23 ramelteon 8 mg tablet 8 mg PO DAILY 08/01/22 04/05/23 simvastatin 20 mg tablet 20 mg PO DAILY 08/01/22 04/05/23 testosterone cypionate 200 mg/mL 200 mg IM WEEKLY 08/01/22 04/05/23 intramuscular oil topiramate 50 mg tablet 50 mg PO DAILY 08/01/22 04/05/23 tramadol 50 mg tablet 50 mg PO Q6H PRN Sleep 09/11/22 04/05/23 alendronate 70 mg tablet (Fosamax) 70 mg PO WEEKLY 10/23/22 04/05/23 aspirin 81 mg tablet,delayed 81 mg PO DAILY 10/23/22 04/05/23 release (Adult Aspirin Regimen) calcium citrate 200 mg 1 tablet PO DAILY 10/23/22 04/05/23 calcium-vitamin D3 3.125 mcg (125 unit) tablet fluoxetine 20 mg capsule 40 mg PO DAILY 10/23/22 04/05/23 prednisone 1 mg tablet 1 mg PO .mwf 10/23/22 04/05/23 cholecalciferol (vitamin D3) 125 125 mcg PO DAILY 04/05/23 04/05/23 mcg (5,000 unit) tablet (Vitamin D3) mecobalamin (vitamin B12) 500 mcg 500 mcg PO DAILY 04/05/23 04/05/23 chewable tablet tacrolimus 0.1 % topical ointment 1 applic topical BID 04/05/23 04/05/23 triamcinolone acetonide 0.1 % 1 applic topical BID 04/05/23 04/05/23 topical cream Allergies Allergy/AdvReac Type Severity Reaction Status Date / Time Cephalosporins Allergy Mild RASH Verified 04/05/23 12:32 cephalexin Allergy Unknown Hives Verified 04/05/23 12:32 Penicillins Allergy Unknown STATES WAS Verified 04/05/23 12:32 TOLD NOT TO TAKE PCN DUE TO KEFLEX REACTION Sulfa (Sulfonamide Allergy Unknown Rash Verified 04/05/23 12:32 Antibiotics) sulfanilamide Allergy Unknown Rash Verified 04/05/23 12:32 Review of Systems Review of Systems: CONSTITUTIONAL: Endorses malaise, chills, sweats, fever EYES: Denies visual changes, redness, or discharge ENT: Reports rhinorrhea, congestion, denies otalgia, sore throat CARDIOVASCULAR: Denies chest pain, palpitations, edema RESPIRATORY: Reports cough, post nasal drainage. Denies dyspnea GASTROINTESTINAL: Denies abdominal pain, nausea, vomiting, diarrhea SKIN: Denies rash or itching MUSCULOSKELETAL: Endorses myalgia NEUROLOGIC: Endorses headache PMFSH Past Medical History Medical History Anxiety CAD (coronary artery disease) Chronic obstructive pulmonary disease Chronic sinusitis Depression Diverticulosis Foot pain, bilateral Headache Heart attack Heart disease ILD (interstitial lung disease) Rheumatoid arthritis Skin cancer Tobacco abuse Surgical History Surgical History H/O hemorrhoidectomy H/O hernia repair H/O
== END 2023-04-05 13:56 | disposition home or self-care (01) ==
PROVIDERS: Emergency Provider Nurse Practitioner Family; PCP Internal Medicine
DX: J06.9 Acute upper respiratory infection, unspecified (principal); Z20.822 Contact with and (suspected) exposure to COVID-19; Z87.891 Personal history of nicotine dependence; I25.10 Atherosclerotic heart disease of native coronary artery without angina pectoris; J44.9 Chronic obstructive pulmonary disease, unspecified; I25.2 Old myocardial infarction; M06.9 Rheumatoid arthritis, unspecified; F41.9 Anxiety disorder, unspecified; F32.A Depression, unspecified; Z85.828 Personal history of other malignant neoplasm of skin; Z95.1 Presence of aortocoronary bypass graft
CPT/HCPCS: 87426; 87804; 99213; C9803; G0463

== ENCOUNTER 2023-04-09 11:44 | Inpatient (IN) | payer MEDICARE, SELFPAY ==
[2023-04-09] VITALS (39 sets, daily range): BP systolic 104–118; BP diastolic 51–78; PULSE 100–116; RESP 12–32; TEMP 36.4–36.9; O2SAT 87–100; BMI 25.0
--- NOTE | ~2023-04-09 | CT_ITS ---
EXAMINATION: CTA chest PE protocol DATE: 04/09/2023 21:23 INDICATION: elevated d-dimer, increased O2 requirement, tachy TECHNIQUE: Computed tomography angiography (CTA) of the chest was performed with 100 mL Omnipaque-350 intravenous contrast timed to evaluate the pulmonary arteries. Coronal maximum intensity projection 3D-reconstructions were created by the technologist. The dose-length product (DLP) was 357.00 mGy-cm. Automated exposure control and iterative reconstruction technique were employed. COMPARISON: 04/17/2022. FINDINGS: Lung parenchyma and airways: Severe emphysematous change. UIP pattern of interstitial lung disease. 7 mm lingular nodule, new since the prior study. Stable right middle lobe nodule. Pleura: Unremarkable. Thoracic inlet, axillae and chest wall: Unremarkable. Thoracic aorta: Normal. Mediastinum: Normal. Heart and pericardium: Cardiomegaly. Status post CABG. Coronary artery calcifications: Moderate. Upper abdomen: Status post cholecystectomy. Simple left upper pole cyst. Bones: No acute osseous finding. Pulmonary arteries: Study quality: Motion, beam hardening and quantum mottle limited evaluation of th e segmental and subsegmental arteries. No central or occlusive segmental pulmonary emboli detected. IMPRESSION: Limited evaluation, such that small nonocclusive segmental or more distal subsegmental branch emboli could be missed. No CT evidence of acute central or occlusive segmental pulmonary embolus. 7 mm lingular pulmonary nodule, recommend CT follow-up at 6-12 months Reviewed, dictated and finalized at location K. [facility] IMPRESSION: Limited evaluation, such that small nonocclusive segmental or more distal subse gmental branch emboli could be missed. No CT evidence of acute central or occlu sive segmental pulmonary embolus. 7 mm lingular pulmonary nodule, recommend CT follow-up at 6-12 months
--- NOTE | ~2023-04-09 | XR_ITS ---
EXAMINATION: XR chest 1V portable INDICATION: Shortness of breath TECHNIQUE: Portable AP chest at 1216 hours COMPARISON: 01/30/2018 FINDINGS: The lungs are hyperinflated. Median sternotomy wires and mediastinal surgical clips are see n, likely from prior coronary artery bypass grafting. There are interstitial and airspace opacities w ith a mid and lower lung zone predominance. IMPRESSION: 1. Interstitial and airspace opacities with a mid and lower lung zone predominance, consistent with p ulmonary edema versus pneumonia versus atelectasis. Reviewed, dictated and finalized at location L. [facility] IMPRESSION: 1. Interstitial and airspace opacities with a mid and lower lung zone predomina nce, consistent with pulmonary edema versus pneumonia versus atelectasis.
--- NOTE | 2023-04-09 11:46 | ECG_ITS ---
Measurements Intervals [place] Rate: 109 P: 52 MO: 168 QRS: -12 QRSD: 93 T: 30 QT: 344 QTc: 464 Interpretive Statements SINUS TACHYCARDIA VENTRICULAR PREMATURE COMPLEX POSSIBLE LEFT ATRIAL ENLARGEMENT INCOMPLETE RIGHT BUNDLE BRANCH BLOCK ABNORMAL ECG COMPARED TO ECG 11/23/2021 12:42:41 SINUS TACHYCARDIA NOW PRESENT Electronically Signed On 04-09-2023 12:21:09 END [facility] [employer]ING [facility]MENT by Luis Christianson D.O.
[2023-04-09 12:44] LABS: Basophils Percent Auto 0.3 % (0.2-1.2); Eosinophils Absolute Auto 0.2 K/mm3 (0-0.3); Eosinophils Percent Auto 1.8 % (0-4.4); Hematocrit 32.7 % (42.0-52.0); Hemoglobin 10.6 g/dL (14.0-18.0); Immature Granulocyte Absolute 0.06 K/mm3 (0.00-0.031); Immature Granulocyte Percent A 0.6 % (0-0.5); Lymphocytes Absolute Auto 0.82 K/mm3 (0.9-3.2); Lymphocytes Percent Auto 8.9 % (18.3-44.2); Mean Corpuscular HGB Conc 32.4 g/dl (32-36); Mean Corpuscular Hemoglobin 37.2 pg (26-34); Mean Corpuscular Volume 114.7 fl (80-100); Mean Platelet Volume 12.6 fl (7.4-10.4); Monocytes Absolute Auto 0.6 K/mm3 (0.1-0.6); Monocytes Percent Auto 6.3 % (2.6-8.5); Neutrophils Absolute Auto 7.6 K/mm3 (1.3-6.7); Neutrophils Percent Auto 82.1 % (45.5-73.1); Nucleated Red Blood Cells Absolute Auto 0.1 K/mm3 (0.0-0.012); Nucleated Red Blood Cells Perc 0.9 % (0.0-0.2); Platelet Count Result 172 k/mm3 (150-375); Red Blood Count 2.85 M/mm3 (4.6-6.20); Red Cell Distribution Width 21.4 % (11.5-14.5); White Blood Count 9.3 K/mm3 (4.5-10.0)
[2023-04-09 12:53] LABS: Alanine Aminotransferase 23 U/L (6-50); Albumin Level 3.7 g/dL (3.5-5.1); Alkaline Phosphatase 46 U/L (38-126); Anion Gap 3 mmol/L (8-16); Aspartate Amino Transferase 21 U/L (17-59); Bilirubin,Total 0.9 mg/dL (0.2-1.3); Blood Urea Nitrogen 20 mg/dL (9-20); Calcium 8.3 mg/dL (8.4-10.2); Carbon Dioxide 27 mmol/L (22-30); Chloride 104 mmol/L (98-107); Estimated CRCL calculation 63 ml/min; Estimated Glomerular Filt Rate > 60; Glucose 164 mg/dL (65-110); Potassium 3.9 mmol/L (3.4-5.0); Sodium 134 mmol/L (137-145)
[2023-04-09] MEDS: IPRATROPIUM BR 0.02% INH SOLN 0.5 MG/2.5 ML VIAL INHALATION ×2 (13:08→20:57)
[2023-04-09] MEDS: ALBUTEROL SULFATE NEB 2.5 MG/3 ML INH INHALATION ×2 (13:08→20:57)
[2023-04-09 13:23] LABS: Anisocytosis 3+ (NORMAL); Macrocytosis 1+ (NORMAL); Platelet Estimate Adequate (Adequate); Schistocytes None Seen (NORMAL)
[2023-04-09] MEDS: methylPREDNISolone SOD SUCC 125 MG VIAL IV PUSH (13:29)
--- NOTE | 2023-04-09 13:45 | ED.SOB ---
HPI - SOB/Dyspnea General Chief Complaint: Shortness of Breath/Dyspnea Stated Complaint: short of breath Time Seen by Provider: 04/09/23 12:37 History of Present Illness HPI Narrative: Pt presents with worsening sob over the last 6 days. Pt went to [facility] 4 days ago and started on levaquin. Pt says he has been having intermittent fevers in spite of antibiotics. Pt has dry non productive cough. Pt has copd and i s on 3 L oxygen at night but has been satting in the 60's without oxygen today. Pt n 3 L now and sat mid 90's. Pt says he has been on several rounds oif levaquin over the last several months. Pt also complete a course of steroids recently. Pt also recently diagnosed with interstial lung disease. Related Data Home Medications Medication Instructions Recorded Confirmed albuterol sulfate 90 mcg/actuation 2 inh inhalation DIRECTED 08/01/22 04/09/23 aerosol inhaler azelastine 137 mcg (0.1 %) nasal 137 mcg intranasal DIRECTED 08/01/22 04/09/23 spray aerosol cyclosporine 0.05 % eye drops in a 1 drp ophthalmic (eye) BID 08/01/22 04/09/23 dropperette (Restasis) finasteride 5 mg tablet 5 mg PO DAILY 08/01/22 04/09/23 fluticasone propionate 50 50 mcg intranasal DAILY 08/01/22 04/09/23 mcg/actuation nasal spray,suspension latanoprost 0.005 % eye drops 1 drp ophthalmic (eye) QHS 08/01/22 04/09/23 lorazepam 1 mg tablet 1 mg PO DIRECTED 08/01/22 04/09/23 ramelteon 8 mg tablet 8 mg PO QHS 08/01/22 04/09/23 simvastatin 20 mg tablet 20 mg PO DAILY 08/01/22 04/09/23 testosterone cypionate 200 mg/mL 200 mg IM [id number] 08/01/22 04/09/23 intramuscular oil topiramate 50 mg tablet 50 mg PO BID 08/01/22 04/09/23 tramadol 50 mg tablet 50 mg PO Q6H PRN Sleep 09/11/22 04/09/23 alendronate 70 mg tablet (Fosamax) 70 mg PO WEEKLY 10/23/22 04/09/23 aspirin 81 mg tablet,delayed 81 mg PO DAILY 10/23/22 04/09/23 release (Adult Aspirin Regimen) fluoxetine 20 mg capsule 40 mg PO DAILY 10/23/22 04/09/23 prednisone 1 mg tablet 1 mg PO QMWF 10/23/22 04/09/23 cholecalciferol (vitamin D3) 125 125 mcg PO DAILY 04/05/23 04/09/23 mcg (5,000 unit) tablet (Vitamin D3) mecobalamin (vitamin B12) 500 mcg 500 mcg PO DAILY 04/05/23 04/09/23 chewable tablet tacrolimus 0.1 % topical ointment 1 applic topical BID 04/05/23 04/09/23 triamcinolone acetonide 0.1 % 1 applic topical BID 04/05/23 04/09/23 topical cream calcium citrate-vitamin D3 2 tablet PO DAILY 04/09/23 04/09/23 levofloxacin 500 mg tablet 500 mg PO DAILY 04/09/23 04/09/23 Allergies Allergy/AdvReac Type Severity Reaction Status Date / Time Cephalosporins Allergy Mild RASH Verified 04/09/23 11:45 cephalexin Allergy Unknown Hives Verified 04/09/23 11:45 Penicillins Allergy Unknown STATES WAS Verified 04/09/23 11:45 TOLD NOT TO TAKE PCN DUE TO KEFLEX REACTION Sulfa (Sulfonamide Allergy Unknown Rash Verified 04/09/23 11:45 Antibiotics) sulfanilamide Allergy Unknown Rash Verified 04/09/23 11:45 Review of Systems Review of Systems: All systems reviewed & are unremarkable except as noted in HPI and below PMFSH Past Medical History Medical History Anxiety CAD (coronary artery disease) Chronic obstructive pulmonary disease Chronic sinusitis Depression Diverticulosis Foot pain, bilateral Headache Heart attack Heart disease ILD (interstitial lung disease) Rheumatoid arthritis Skin cancer Tobacco abuse Surgical History Surgical History H/O hemorrhoidectomy H/O hernia repair H/O knee surgery History of appendectomy History of quadruple bypass Hx of cholecystectomy Family History Family History Mother Diabetes mellitus Glaucoma Cerebrovascular accident Hypertension Heart disease Sibling Diabetes mellitus Cancer Heart disease Hypert
[2023-04-09 15:40] LABS: Lactic Acid Reflex 1.3 mmol/L (0.7-2.0)
--- NOTE | 2023-04-09 17:01 | ADMGEN ---
This patient, Andre Huizar, was admitted to 2 Medical Room 260-01. Patient/family oriented to hospital policies and general routines including ID bracelet, bed and alarms, visiting hours, pain management, procedures, bathroom and other care routines, personal items, smoking policy, room service/diet, and visiting hours. Information on how to activate the Rapid Response Team has been discussed. Patient/Family are encouraged to report perceived risks to care and to ask questions if they do not understand what they are told or what they should do.
--- NOTE | 2023-04-09 18:28 | PM.IMHP ---
H&P: HPI History of Present Illness Date/Time: 04/09/23 18:28 Chief Complaint: SOB, Fever Narrative: 77 y/o M presents here with SOB and fever with PMH of COPD, interstitial lung disease, rheumatoid arthritis, prediabetes, CAD, and former smoker. Patient presents here with shortness of breath and fever that has been worsening over the last 6 days. Initially seen at [facility] on 04/05 the for these symptoms. patient was started on Levaquin, has taken 4 days worth of course without improvement in shortness of breath or fever. Also having chills and Had episode of palpitations/gasping for air when attempting to shower yesterday. States he has been on several rounds of Levaquin over the last few months. Reports decreased oxygen saturation at home, lowest seen was 60% on room air. Has intermittently used home inhalers, not regularly. Arrived 88% on room air, placed on 3L NC with improvement in saturation. Has history of COPD and interstitial lung disease, follows pulmonology at [facility] with last appointment in February. at this appointment he had a pulmonary function test done, hypoxia seen with exertion and not observed at rest. Currently uses home O2 at night and occasionally with exertion. States that he has hx recurrent sinusitis, had sinus surgery without resolution of recurrent infections and followed with ENT prior. Denies hemoptysis, chest pain, lower extremity swelling, nausea, vomiting, or diarrhea. Review of Systems Review of Systems: All systems reviewed & are unremarkable except as noted in HPI and below PMFSH Past Medical History Medical History Anxiety CAD (coronary artery disease) Chronic obstructive pulmonary disease Chronic sinusitis Depression Diverticulosis Foot pain, bilateral Headache Heart attack Heart disease ILD (interstitial lung disease) Rheumatoid arthritis Skin cancer Tobacco abuse Surgical History Surgical History H/O hemorrhoidectomy H/O hernia repair H/O knee surgery History of appendectomy History of quadruple bypass Hx of cholecystectomy Family History Family History Mother Diabetes mellitus Glaucoma Cerebrovascular accident Hypertension Heart disease Sibling Diabetes mellitus Cancer Heart disease Hypertension Dementia Acute myocardial infarction Alcoholism Depression Father Acute myocardial infarction Family history of respiratory disorder Malignant neoplasm of prostate Alcoholism Grandparent Cerebrovascular accident Glaucoma Grandparent Cerebrovascular accident Other Family history of cardiovascular disease Family history of malignant neoplasm of kidney Social History Social History (Updated 04/10/23 @ 00:22 by Lizzy Dailey APRN) Social History: Caffeine-Coffee daily Currently lives at home with his . Surrogate decision maker Aurora Huizar, spouse. Code Status: Full Code. Smoking packs per day: 0.50 Smoking cigarettes per day: 10.0 Years smoked: 50 Smoking pack-years: 25.00 Smoking status: Former smoker Tobacco type: cigarettes Second hand tobacco smoke exposure: Yes Smoking end date: 06/03/18 Alcohol intake: never Substance use: never Substance use type: painkillers Other substance usage details: tramadol Lack of Transportation: No Lack of Food: Never True Current Housing: I Have Housing Concerned About Future Housing: No Difficulty Paying Gas/Electric Bills: No Difficulty Paying for Meds: No Currently Unemployed: No Education: Master's Degree or Higher Difficulty w/ Childcare or Family Care: No Living arrangements: with family Spiritual care concerns: No Meds Home Medications and Allergies Home Medications Medication Instructions Recorded Confirmed Type albuterol sulfate 9
[2023-04-09 20:13] LABS: NT Pro B Type Natriuretic Pept 3040 pg/mL (19.9-100)
[2023-04-09 20:41] LABS: D Dimer 0.81 ug/mL (<0.48)
[2023-04-09] MEDS: TOPIRAMATE 25 MG TABLET 50 MG PO (20:48)
[2023-04-09] MEDS: LATANOPROST 0.005% OP SOLN 2.5 ML BTL 1 DROP EACH EYE (20:48)
[2023-04-09] MEDS: LORazepam (*CRX) 1 MG TABLET PO (20:48)
[2023-04-09] MEDS: cycloSPORINE 0.4 ML OPHTH SOLUTION 1 DROP EACH EYE (20:49)
[2023-04-09] MEDS: ACETAMINOPHEN 500 MG TABLET 1000 MG PO (20:51)
[2023-04-09 23:14] LABS: MRSA (PCR) NOT DETECTED (NOT DETECTE)
[2023-04-10] VITALS (18 sets, daily range): BP systolic 103–125; BP diastolic 54–60; PULSE 94–118; RESP 17–20; TEMP 36.7–37; O2SAT 92–99
--- NOTE | 2023-04-10 | ECHO_ITS ---
Patient Info Name: Andre Huizar Age: 77 years : 1945 Gender: Male Ht: 66 in Wt: 155 lbs BSA: 1.82 m2 HR: 101 bpm BP: 103 / 54 mmHg Heart Rhythm: Sinus Rhythm, Tachycardia Technical Quality: Fair Exam Date: 04/10/2023 2:48 PM Exam Location: Echo Lab Patient Status: Inpatient Admit Date: 04/10/2023 Staff Ordering Physician: Lizzy Dailey APRN Firewood Cutter: Ally August RDCS Attending Provider: Nancy Barclay DO Referring Physician: Asim VALENCIA; Exam Type: CA echo doppler color flow Study Info Indications - copd sob elevated bnp Complete two-dimensional, color flow and Doppler transthoracic echocardiogram is performed. Summary 1. Complete two-dimensional, color flow and Doppler transthoracic echocardiogram is performed. 2. Left ventricular chamber dimension is normal. 3. Left ventricular systolic function is normal, estimated at 65-70%. 4. The left ventricular diastolic function is grade I diastolic dysfunction. 5. Right ventricular systolic function is normal. 6. Flattening of the ventricular septum in mid to late diastole consistent with right ventricular volume overload. 7. Left atrial chamber dimension is mildly enlarged. 8. Right atrial chamber dimension is mildly enlarged. 9. There is mild mitral valve regurgitation. 10. There is moderate tricuspid valve regurgitation. 11. Pulmonary hypertension, estimated pulmonary arterial systolic pressure is 58 mmHg. Left Ventricle Left ventricular chamber dimension is normal. Left ventricular systolic function is normal, estimated at 65-70%. There is no increased left ventricular wall thickness. The left ventricular diastolic function is grade I diastolic dysfunction. Right Ventricle Flattening of the ventricular septum in mid to late diastole consistent with right ventricular volume overload. Right ventricular chamber dimension is normal. Right ventricular systolic function is normal. Left Atria Left atrial chamber dimension is mildly enlarged. Right Atria Right atrial chamber dimension is mildly enlarged. Atrial Septum Intact interatrial septum visualized by color flow imaging. Aortic Valve The aortic valve is probable trileaflet. There is no aortic valve stenosis. There is no aortic valve regurgitation. There is mild aortic valve calcification. Pulmonic Valve The pulmonic valve is not well visualized. There is trace pulmonic regurgitation. Mitral Valve There is mild mitral valve regurgitation. The mitral valve annulus is mildly calcified. Tricuspid Valve There is moderate tricuspid valve regurgitation. Pulmonary hypertension, estimated pulmonary arterial systolic pressure is 58 mmHg. Pericardium/Pleural There is no pericardial effusion. Inferior Vena Cava Normal inferior vena cava with >50% collapse upon inspiration consistent with normal right atrial pressure, 3 mmHg. Aorta The aortic root size at the sinus of Valsalva is normal. Left Ventricular Outflow Tract Name Value Normal LVOT 2D LVOT Diameter 2.0 cm LVOT Doppler LVOT Peak Gradient 7 mmHg LVOT Mean Gradient 4 mmHg LVOT VTI 23 cm LVOT VTI/AV VTI Rat
[2023-04-10] MEDS: IPRATROPIUM BR 0.02% INH SOLN 0.5 MG/2.5 ML VIAL INHALATION ×4 (02:26→21:39)
[2023-04-10] MEDS: ALBUTEROL SULFATE NEB 2.5 MG/3 ML INH INHALATION ×4 (02:26→21:39)
[2023-04-10 05:27] LABS: Estimated CRCL calculation 63 ml/min; Estimated Glomerular Filt Rate > 60
[2023-04-10 07:30] LABS: Hematocrit 30.9 % (42.0-52.0); Hemoglobin 9.6 g/dL (14.0-18.0); Immature Platelet Fraction Pct 10.7 % (0.9-11.2); Mean Corpuscular HGB Conc 31.1 g/dl (32-36); Mean Corpuscular Hemoglobin 36.6 pg (26-34); Mean Corpuscular Volume 117.9 fl (80-100); Platelet Count Result 152 k/mm3 (150-375); Red Blood Count 2.62 M/mm3 (4.6-6.20); Red Cell Distribution Width 22.3 % (11.5-14.5); White Blood Count 3.7 K/mm3 (4.5-10.0)
[2023-04-10 07:34] LABS: Anion Gap 8 mmol/L (8-16); Blood Urea Nitrogen 24 mg/dL (9-20); Calcium 8.3 mg/dL (8.4-10.2); Carbon Dioxide 24 mmol/L (22-30); Chloride 103 mmol/L (98-107); Glucose 263 mg/dL (65-110); Potassium 3.8 mmol/L (3.4-5.0); Sodium 135 mmol/L (137-145)
[2023-04-10] MEDS: ASPIRIN 81 MG ENTERIC TABLET PO (08:49)
[2023-04-10] MEDS: predniSONE 1 MG TABLET PO (08:50)
[2023-04-10] MEDS: SIMVASTATIN 20 MG TABLET PO (08:50)
[2023-04-10] MEDS: NICOTINE (*PBKC) 14 MG PATCH 1 PATCH TRANSDERM (08:51)
[2023-04-10] MEDS: TOPIRAMATE 25 MG TABLET 50 MG PO ×2 (08:51→17:20)
[2023-04-10] MEDS: FINASTERIDE 5 MG TABLET PO (08:52)
[2023-04-10] MEDS: LORazepam (*CRX) 0.5 MG TABLET PO ×3 (08:52→17:20)
[2023-04-10] MEDS: ENOXAPARIN 40 MG/0.4 ML SYRINGE SUB-Q (08:53)
--- NOTE | 2023-04-10 12:02 | PM.IMPN ---
Progress Note: A&P Assessment and Plan (1) Shortness of breath: Code(s): R06.02 - Shortness of breath Status: Acute (2) Rheumatoid arthritis: Qualifiers: Rheumatoid arthritis location: unspecified site Rheumatoid factor presence: unspecified presence Qualified Code(s): M06.9 - Rheumatoid arthritis, unspecified Code(s): M06.9 - Rheumatoid arthritis, unspecified Status: Acute (3) Chronic obstructive pulmonary disease: Code(s): J44.9 - Chronic obstructive pulmonary disease, unspecified Status: Acute Plan Problem List 1. shortness of breath DD: Pneumonia, COPD exacerbation, PE, CHF, worsening ILD hold on continuing fluoroquinolone since not improving, Vanc (pharm to dose) Testing for possible pathogens ordered. MRSA - negative Sputum culture Urine legionella antigen Urine pneumococcal antigen Mycoplasma IgM PFTs - 02/14/23: O2 okay at rest on RA, O2 falls to hypoxemic levels w/increase in pulse rate (97 ->106) with exercise consider consult to ID pharmacy or pulmonology if patient condition does not improve albuterol/atrovent Q6H PRN last pulm visit on 02/14/23 w/[facility]. - discussed prescribing O2, pt considered. now on 3L at night and with exertion. - palliative care offered given depression and decreased appetite r/t chronic conditions. awaiting patient decision, provide referral if he would like to proceed - was not interested in Ofev medication, was discussed previously. - smoking cessation, has quit. Continue to refrain from smoking. - follow-up in 6 months for repeat spirometry, oxygen assessment, and DLCO. discussed pulmonary rehab d-dimer: 0.81, cut off for age adjustment 0.75. obtain CT PE. CT PE 1. Limited evaluation, such that small nonocclusive segmental or more distal subsegmental branch emboli could be missed. No CT evidence of acute central or occlusive segmental pulmonary embolus. 2. 7 mm lingular pulmonary nodule, recommend CT follow-up at 6-12 months BNP: elevated, 3040 with no prior. last echo in 2019: normal left ventricular systolic function, no focal wall motion abnormalities, normal left ventricular size, EF 65%. Mitral valve leaflets appear mildly thickened, mild mitral valve regurgitation. repeat ECHO pending 2. rheumatoid arthritis continue prednisone 1 mg MWF home Plaquenil resumed - liver function panel ordered 3. COPD Hold home inhalers albuterol/atrovent Q6H PRN on O2 3/L this morning, but will titrate Home Meds/Chronic Conditions - Testosterone injections held. - All other home medications reviewed and resumed. Diet: Regular GI Prophylaxis: not indicated DVT Prophylaxis: SCDs, enoxaparin 40 Lines: pIV Code Status: Full Code Subjective Date/time seen: 04/10/23 12:02 Interval history: Patient admitted for shortness of breath and fever that has been worsening over the last 6 days.Patient started on Levaquin after being seen at the [facility] and taken 4 days worth of course without improvement in shortness of breath or fever. States he has been on several rounds of Levaquin over the last few months. He has been struggling with recurrent infections since December and feels he may have allergic triggers. He has seen a [facility] specialists in the past and ENT for which he has had several sinus surgeries with no relief. Has intermittently used home inhalers, not regularly. Has history of COPD and interstitial lung disease, follows pulmonology at [facility] with last appointment in February. Currently uses home O2 at night and occasionally with exertion. Denies hemoptysis, chest pain, lower extremity swelling, nausea, vomiting, or diarrhea. He does report some intermittent mid abdomen pain right at the umbilicus. No pain on palpation this morning. May evaluate liver function panel as he is anemic and reports occasional abdominal pain, although this could be related to diet, meds, infection. Rev
--- NOTE | 2023-04-10 14:44 | PCCCNOTE ---
On 04/10/23, the student, [Dada Mcduffie ], provided care and completed [facility] documentation on this patient. I have reviewed the student's documentation and agree with the findings.
[2023-04-10] MEDS: cefTRIAXone 2 GM/NS 100 ML 2 GM/100 ML BAG IVPB (15:56)
--- NOTE | 2023-04-10 16:11 | PHAR ---
PHARMACY VERIFIED HOME MED: *USE FROM HOME* Ramelteon 8 mg tablet TAKE 1 TABLET BY MOUTH AT BEDTIME
[2023-04-10] MEDS: cycloSPORINE 0.4 ML OPHTH SOLUTION 1 DROP EACH EYE (20:44)
[2023-04-10] MEDS: FLUoxetine HCL 20 MG CAPSULE 40 MG PO (20:45)
[2023-04-10] MEDS: ACETAMINOPHEN 500 MG TABLET 1000 MG PO (20:45)
[2023-04-10] MEDS: LORazepam (*CRX) 1 MG TABLET PO (20:45)
[2023-04-10] MEDS: LATANOPROST 0.005% OP SOLN 2.5 ML BTL 1 DROP EACH EYE (20:47)
[2023-04-11] VITALS (20 sets, daily range): BP systolic 110–116; BP diastolic 57–59; PULSE 97–119; RESP 16–20; TEMP 36.4–36.9; O2SAT 90–98
[2023-04-11] MEDS: ALBUTEROL SULFATE NEB 2.5 MG/3 ML INH INHALATION ×4 (02:37→21:28)
[2023-04-11] MEDS: IPRATROPIUM BR 0.02% INH SOLN 0.5 MG/2.5 ML VIAL INHALATION ×4 (02:37→21:27)
[2023-04-11 05:11] LABS: Hematocrit 29.3 % (42.0-52.0); Hemoglobin 9.2 g/dL (14.0-18.0); Immature Platelet Fraction Pct 10.2 % (0.9-11.2); Mean Corpuscular HGB Conc 31.4 g/dl (32-36); Mean Corpuscular Hemoglobin 36.2 pg (26-34); Mean Corpuscular Volume 115.4 fl (80-100); Mean Platelet Volume 12.3 fl (7.4-10.4); Platelet Count Result 161 k/mm3 (150-375); Red Blood Count 2.54 M/mm3 (4.6-6.20); Red Cell Distribution Width 22.3 % (11.5-14.5); White Blood Count 7.4 K/mm3 (4.5-10.0)
[2023-04-11] MEDS: diphenhydrAMINE HCl CAP 25 MG CAPSULE PO (08:18)
[2023-04-11] MEDS: CHOLECALCIFEROL 1,000 UNITS TABLET 5000 UNITS PO (09:41)
[2023-04-11] MEDS: TOPIRAMATE 25 MG TABLET 50 MG PO ×2 (09:41→17:55)
[2023-04-11] MEDS: ASPIRIN 81 MG ENTERIC TABLET PO (09:41)
[2023-04-11] MEDS: FINASTERIDE 5 MG TABLET PO (09:42)
[2023-04-11] MEDS: LORazepam (*CRX) 0.5 MG TABLET PO ×3 (09:42→17:55)
[2023-04-11] MEDS: NICOTINE (*PBKC) 14 MG PATCH 1 PATCH TRANSDERM (09:42)
[2023-04-11] MEDS: HYDROXYCHLOROQUINE SULFATE 200 MG TABLET PO ×2 (09:42→17:55)
[2023-04-11] MEDS: CYANOCOBALAMIN 500 MCG TABLET PO (09:42)
[2023-04-11] MEDS: FLUTICASONE PROPIONATE 0.05% NA SPR 16 GM BTL (*BKC) 1 SPRAY NASAL (09:43)
[2023-04-11] MEDS: cefTRIAXone 2 GM/NS 100 ML 2 GM/100 ML BAG IVPB (09:43)
[2023-04-11] MEDS: cycloSPORINE 0.4 ML OPHTH SOLUTION 1 DROP EACH EYE ×2 (09:44→20:46)
--- NOTE | 2023-04-11 11:07 | PC.NURSE ---
On 04/11/23, the student, [Denny Trevizo], provided care and completed [facility] documentation on this patient. I have reviewed the student's documentation and agree with the findings.
--- NOTE | 2023-04-11 14:42 | PM.IMPN ---
Progress Note: A&P Assessment and Plan (1) Shortness of breath: Code(s): R06.02 - Shortness of breath Status: Acute (2) Rheumatoid arthritis: Qualifiers: Rheumatoid arthritis location: unspecified site Rheumatoid factor presence: unspecified presence Qualified Code(s): M06.9 - Rheumatoid arthritis, unspecified Code(s): M06.9 - Rheumatoid arthritis, unspecified Status: Acute (3) Chronic obstructive pulmonary disease: Code(s): J44.9 - Chronic obstructive pulmonary disease, unspecified Status: Acute Plan Problem List 1. shortness of breath DD: Pneumonia, COPD exacerbation, PE, CHF, worsening ILD transitioned to Rocephin after discussing with ID pharm, this will provide better coverage and has low risk of allergic reaction Testing for possible pathogens ordered. MRSA - negative Sputum culture Urine legionella antigen Urine pneumococcal antigen Mycoplasma IgM PFTs - 02/14/23: O2 okay at rest on RA, O2 falls to hypoxemic levels w/increase in pulse rate (97 ->106) with exercise albuterol/atrovent Q6H PRN last pulm visit on 02/14/23 w/[facility]. - discussed prescribing O2, pt considered. now on 3L at night and with exertion. - palliative care offered given depression and decreased appetite r/t chronic conditions. awaiting patient decision, provide referral if he would like to proceed - was not interested in Ofev medication, was discussed previously. - smoking cessation, has quit. Continue to refrain from smoking. - follow-up in 6 months for repeat spirometry, oxygen assessment, and DLCO. Recommend pulmonary rehab outpatient to gain strength CT PE 1. Limited evaluation, such that small nonocclusive segmental or more distal subsegmental branch emboli could be missed. No CT evidence of acute central or occlusive segmental pulmonary embolus. 2. 7 mm lingular pulmonary nodule, recommend CT follow-up at 6-12 months BNP: elevated, 3040 with no prior. last echo in 2019: normal left ventricular systolic function, no focal wall motion abnormalities, normal left ventricular size, EF 65%. Mitral valve leaflets appear mildly thickened, mild mitral valve regurgitation. repeat ECHO pending report 2. rheumatoid arthritis continue prednisone 1 mg MWF home Plaquenil resumed 3. COPD Hold home inhalers albuterol/atrovent Q6H PRN on O2 3/L this morning, but will titrate Home Meds/Chronic Conditions - Testosterone injections held. - All other home medications reviewed and resumed. Diet: Regular GI Prophylaxis: not indicated DVT Prophylaxis: SCDs, enoxaparin 40 Lines: pIV Code Status: Full Code Subjective Date/time seen: 04/11/23 14:42 Interval history: Patient admitted for shortness of breath and fever that has been worsening over the last 6 days. Patient started on Levaquin after being seen at the [facility] and taken 4 days worth of course without improvement in shortness of breath or fever. States he has been on several rounds of Levaquin over the last few months. He has been struggling with recurrent infections since December and feels he may have allergic triggers. 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 Has intermittently used home inhalers, not regularly. Has history of COPD and interstitial lung disease, follows pulmonology at [facility] with last appointment in February. Currently uses home O2 at night and occasionally with exertion. Denies hemoptysis, chest pain, lower extremity swelling, nausea, vomiting, or diarrhea. He does report some intermittent mid abdomen pain right at the umbilicus. No pain on palpation this morning. He was nervous about the change to Rocephin but had lengthy conversation about low risk, offered Benadryl prior. He tolerated 2 doses fine. Awaiting his ECHO report, and monitor response to antibiotic therapy. He is full of questions, but very s
[2023-04-11] MEDS: SIMVASTATIN 20 MG TABLET PO (17:55)
[2023-04-11] MEDS: ACETAMINOPHEN 500 MG TABLET 1000 MG PO (20:46)
[2023-04-11] MEDS: FLUoxetine HCL 20 MG CAPSULE 40 MG PO (20:46)
[2023-04-11] MEDS: LORazepam (*CRX) 1 MG TABLET PO (20:47)
[2023-04-11] MEDS: LATANOPROST 0.005% OP SOLN 2.5 ML BTL 1 DROP EACH EYE (20:47)
[2023-04-12] VITALS (15 sets, daily range): BP systolic 105–107; BP diastolic 52–59; PULSE 87–115; RESP 16–20; TEMP 36.4–36.7; O2SAT 93–95
[2023-04-12] MEDS: IPRATROPIUM BR 0.02% INH SOLN 0.5 MG/2.5 ML VIAL INHALATION ×3 (03:14→13:26)
[2023-04-12] MEDS: ALBUTEROL SULFATE NEB 2.5 MG/3 ML INH INHALATION ×3 (03:15→13:26)
[2023-04-12 06:26] LABS: Hemoglobin 9.3 g/dL (14.0-18.0); Mean Corpuscular HGB Conc 32.1 g/dl (32-36); Mean Corpuscular Hemoglobin 36.9 pg (26-34); Mean Corpuscular Volume 115.1 fl (80-100); Mean Platelet Volume 11.6 fl (7.4-10.4); Platelet Count Result 184 k/mm3 (150-375); Red Blood Count 2.52 M/mm3 (4.6-6.20); Red Cell Distribution Width 22.2 % (11.5-14.5); White Blood Count 7.3 K/mm3 (4.5-10.0)
[2023-04-12 06:41] LABS: Alanine Aminotransferase 31 U/L (6-50); Albumin Level 3.3 g/dL (3.5-5.1); Alkaline Phosphatase 47 U/L (38-126); Anion Gap 4 mmol/L (8-16); Aspartate Amino Transferase 26 U/L (17-59); Bilirubin,Total 0.6 mg/dL (0.2-1.3); Blood Urea Nitrogen 25 mg/dL (9-20); Calcium 8.7 mg/dL (8.4-10.2); Carbon Dioxide 31 mmol/L (22-30); Chloride 104 mmol/L (98-107); Estimated CRCL calculation 56 ml/min; Estimated Glomerular Filt Rate > 60; Glucose 152 mg/dL (65-110); Potassium 3.7 mmol/L (3.4-5.0); Sodium 139 mmol/L (137-145)
[2023-04-12 08:11] LABS: Folic Acid 11.2 ng/mL (2.76->20)
[2023-04-12] MEDS: TOPIRAMATE 25 MG TABLET 50 MG PO (10:00)
[2023-04-12] MEDS: FINASTERIDE 5 MG TABLET PO (10:00)
[2023-04-12] MEDS: LORazepam (*CRX) 0.5 MG TABLET PO ×2 (10:00→13:47)
[2023-04-12] MEDS: CHOLECALCIFEROL 1,000 UNITS TABLET 5000 UNITS PO (10:00)
[2023-04-12] MEDS: ASPIRIN 81 MG ENTERIC TABLET PO (10:00)
[2023-04-12] MEDS: HYDROXYCHLOROQUINE SULFATE 200 MG TABLET PO (10:00)
[2023-04-12] MEDS: cycloSPORINE 0.4 ML OPHTH SOLUTION 1 DROP EACH EYE (10:01)
[2023-04-12] MEDS: diphenhydrAMINE HCl CAP 25 MG CAPSULE PO (10:01)
[2023-04-12] MEDS: NICOTINE (*PBKC) 14 MG PATCH 1 PATCH TRANSDERM (10:01)
[2023-04-12] MEDS: FLUTICASONE PROPIONATE 0.05% NA SPR 16 GM BTL (*BKC) 1 SPRAY NASAL (10:01)
[2023-04-12] MEDS: CYANOCOBALAMIN 500 MCG TABLET PO (10:01)
[2023-04-12] MEDS: cefTRIAXone 2 GM/NS 100 ML 2 GM/100 ML BAG IVPB (10:04)
[2023-04-12] MEDS: predniSONE 1 MG TABLET PO (10:11)
--- NOTE | 2023-04-12 13:20 | PCOTNOTE ---
Spoke with pt. and spouse, who declined need for occupational therapy evaluation and services at this time. Pt. and spouse aware of benefits of therapy services and are in agreement to request services if appropriate. Nursing aware. Will contact hospitalist for cancelation of orders.
--- NOTE | 2023-04-12 14:15 | PC.NURSE ---
On 04/12/23, the student, [Denny Trevizo], provided care and completed [facility] documentation on this patient. I have reviewed the student's documentation and agree with the findings.
--- NOTE | 2023-04-12 15:37 | PM.DS ---
DS: Admitting Diagnosis Discharge Date 04/12/23 Admitting Diagnosis shortness of breath DS: Discharge Diagnosis Discharge Diagnosis (1) Shortness of breath: Code(s): R06.02 - Shortness of breath Status: Acute (2) Chronic obstructive pulmonary disease: Code(s): J44.9 - Chronic obstructive pulmonary disease, unspecified Status: Acute Plan Problem List 1. shortness of breath DD: Pneumonia, COPD exacerbation, PE, CHF, worsening ILD CXR showed interstitial and airspace opacities with a mid and lower lung zone predominance, consistent with pulmonary edema versus pneumonia versus atelectasis. treated for pneumonia given recent respiratory infections, clinical picture of SOB and evening fevers discharged on 10 day course of cefdinir 300 BID as he was improving on rocephin, WBC stable Testing for possible pathogens ordered. MRSA - negative Sputum culture - unable to obtain Urine legionella antigen - pending Urine pneumococcal antigen - pending Mycoplasma IgM - pending will go home with his own portable oxygen. refused O2 home evaluation, but not able to sat above 80 on room air. Recommend he stay at 3/L NC and follow up with his paster supervisor outpatient for monitoring and adjustments. - follow-up in 6 months for repeat spirometry, oxygen assessment, and DLCO. Recommend pulmonary rehab outpatient to gain strength CT PE 1. Limited evaluation, such that small nonocclusive segmental or more distal subsegmental branch emboli could be missed. No CT evidence of acute central or occlusive segmental pulmonary embolus. 2. 7 mm lingular pulmonary nodule, recommend CT follow-up at 6-12 months repeat ECHO unchanged from 2019 2. rheumatoid arthritis continue prednisone 1 mg MWF home Plaquenil resumed 3. COPD resume home inhalers continue home oxygen at 3/L nasal canula [facility] to arrange for PT and evaluation DS: Summary Hospital Course Hospital Course: Patient is a 77 YO male admitted for shortness of breath and fever that has been worsening over the last 6 days. Patient started on Levaquin after being seen at the [facility] and taken 4 days worth of course without improvement in shortness of breath or fever. States he has been on several rounds of Levaquin over the last few months. He has been struggling with recurrent infections since December and feels he may have allergic triggers. 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 Has intermittently used home inhalers, not regularly. Has history of COPD and interstitial lung disease, follows pulmonology at [facility] with last appointment in February. Currently uses home O2 at night and occasionally with exertion. He will go home needing 3/L nasal cannula. Denies hemoptysis, chest pain, lower extremity swelling, nausea, vomiting, or diarrhea. CXR showed interstitial and airspace opacities with a mid and lower lung zone predominance, consistent with pulmonary edema versus pneumonia versus atelectasis. ECHO showed no changes from 2019. Clinical picture improving with antibiotics, treating for pneumonia. Continues to deny intermittent abdominal pain. Encouraged to follow up with primary and get scheduled colonoscopy. He tolerated Rocephin without issues, will d/c on cefdinir 10 day course total. He will have home health arranged for PT and strengthening. He is stable for d/c home today with his . Status at Discharge Functional status at discharge: uses cane/walker Overall status at discharge: patient is not back to baseline Time Spent with Patient Time attestation: Total time spent providing and/or coordinating discharge services: Exam Narrative: General: comfortable and no acute distress HENMT: Normal nares present Mouth: Yes dry mucous membranes Eyes: appearance normal, both eyes and all related structures Sclera: sclerae normal Pupils: Equal, round and reactive pupils pres
[2023-04-13 00:06] LABS: Pneumococcal Antigen Urine Not Detected (Not Detected)
[2023-04-14 02:20] LABS: Legionella pneumophila Ag Ur Not Detected (Not Detected)
[2023-04-15 14:03] LABS: Mycoplasma IgM Antibody Titer 597 U/mL (<770)
== END 2023-04-12 15:40 | disposition home health service (06) | DRG 190 ==
LOC: ANHED 15:35 → ANH2MED 16:41
PROVIDERS: Student in an Organized Health Care Education/Training Program; Admitting Provider Student in an Organized Health Care Education/Training Program; Emergency Provider Emergency Medicine; PCP Internal Medicine; Visit Provider Nurse Practitioner
DX: J44.0 Chronic obstructive pulmonary disease with (acute) lower respiratory infection (principal); J18.9 Pneumonia, unspecified organism; J44.1 Chronic obstructive pulmonary disease with (acute) exacerbation; M06.9 Rheumatoid arthritis, unspecified; R73.03 Prediabetes; I25.10 Atherosclerotic heart disease of native coronary artery without angina pectoris; K57.90 Diverticulosis of intestine, part unspecified, without perforation or abscess without bleeding; Z87.891 Personal history of nicotine dependence; Z85.828 Personal history of other malignant neoplasm of skin; Z90.49 Acquired absence of other specified parts of digestive tract; Z95.1 Presence of aortocoronary bypass graft
CPT/HCPCS: 36415; 71045; 71275; 80048; 80053; 80076; 82565; 82607; 82746; 83605; 83880; 85025; 85027; 85055; 85380; 86738; 87449; 87641; 87899; 93005; 93306; 94640; 96365; 96366; 96372; 96375; 97161; 99285; A9270; G0378; J0696; J1650; J2930; J3370; Q9967

== ENCOUNTER 2023-09-18 12:41 | Outpatient (CLI) | payer MEDICARE, SELFPAY ==
--- NOTE | 2023-09-18 | ECHO_ITS ---
Patient Info Name: Andre Huizar Age: 78 years : 1945 Gender: Male Ht: 66 in Wt: 148 lbs BSA: 1.78 m2 HR: 96 bpm BP: 106 / 61 mmHg Heart Rhythm: Tachycardia Technical Quality: Good Exam Date: 09/18/2023 1:11 PM Exam Location: Echo Lab Patient Status: Outpatient Admit Date: 09/18/2023 Staff Ordering Physician: JosephBailee MD Custom Frame Assembler: Nicolle Garza RDCS Attending Provider: MelbaBailee MD Exam Type: CA echo doppler color flow Study Info Indications - sob Complete two-dimensional, color flow and Doppler transthoracic echocardiogram is performed. Summary 1. Complete two-dimensional, color flow and Doppler transthoracic echocardiogram is performed. 2. 'D shaped' septum in both systole and diastole consistent with right ventricular volume and pressure overload. 3. Left ventricular chamber dimension is normal. 4. Left ventricular systolic function is normal, estimated at 60-65%. 5. There is no increased left ventricular wall thickness. 6. The left ventricular diastolic function is grade I diastolic dysfunction. 7. Left atrial chamber dimension is mildly enlarged. 8. The mitral valve annulus is mildly calcified. 9. There is mild mitral valve regurgitation. 10. There is moderate tricuspid valve regurgitation. 11. Severe pulmonary hypertension, estimated pulmonary arterial systolic pressure is 64 mmHg. 12. There is mild pulmonic regurgitation. Left Ventricle 'D shaped' septum in both systole and diastole consistent with right ventricular volume and pressure overload. Left ventricular chamber dimension is normal. Left ventricular systolic function is normal, estimated at 60-65%. There is no increased left ventricular wall thickness. The left ventricular diastolic function is grade I diastolic dysfunction. Right Ventricle Right ventricular chamber dimension is normal. Right ventricular systolic function is normal. Left Atria Left atrial chamber dimension is mildly enlarged. Right Atria Right atrial chamber dimension is normal. Atrial Septum Intact interatrial septum visualized by color flow imaging. Aortic Valve The aortic valve is trileaflet. There is mild aortic valve sclerosis. There is no aortic valve stenosis. There is trace aortic valve regurgitation. Pulmonic Valve The pulmonic valve is normal. There is no pulmonic valve stenosis. There is mild pulmonic regurgitation. Mitral Valve There is no mitral valve stenosis. There is mild mitral valve regurgitation. The mitral valve annulus is mildly calcified. Tricuspid Valve The tricuspid valve leaflets are normal. There is no significant tricuspid valve stenosis. There is moderate tricuspid valve regurgitation. Severe pulmonary hypertension, estimated pulmonary arterial systolic pressure is 64 mmHg. Pericardium/Pleural The pericardium appears normal. There is no pericardial effusion. Inferior Vena Cava Normal inferior vena cava with >50% collapse upon inspiration consistent with normal right atrial pressure, 10 mmHg. Aorta The aortic root size at the sinus of Valsalva is normal. Left Ventricular Outflow Tract Name Value Normal LVOT 2D LVOT Diameter 2.2 cm LVOT Doppler LVOT Peak Gradient
== END 2023-09-18 12:42 | disposition home or self-care (01) ==
PROVIDERS: PCP Internal Medicine; Visit Provider Internal Medicine Pulmonary Disease
DX: R06.02 Shortness of breath (principal); I27.20 Pulmonary hypertension, unspecified; I08.3 Combined rheumatic disorders of mitral, aortic and tricuspid valves
CPT/HCPCS: 93306

== ENCOUNTER 2023-11-26 13:30 | Outpatient (RCR) | payer MEDICARE, SELFPAY ==
[2023-10-18 15:29] VITALS: BP 100/56; PULSE 101; RESP 16; O2SAT 97
[2023-10-18 15:57] VITALS: PULSE 97
== END 2024-01-31 10:24 | disposition home or self-care (01) ==
LOC: ANHCPREHAB 13:30
PROVIDERS: PCP Internal Medicine; Visit Provider Internal Medicine Pulmonary Disease
DX: J84.9 Interstitial pulmonary disease, unspecified (principal)
CPT/HCPCS: 94625; G0239

== ENCOUNTER 2024-04-13 12:39 | Outpatient (CLI) | payer MEDICARE, SELFPAY ==
[2024-04-13 13:12] LABS: Basophils Percent Auto 0.3 % (0.2-1.2); Eosinophils Percent Auto 0.4 % (0-4.4); Hematocrit 30.1 % (42.0-52.0); Hemoglobin 9.4 g/dL (14.0-18.0); Immature Granulocyte Absolute 0.02 K/mm3 (0.00-0.031); Immature Granulocyte Percent A 0.3 % (0-0.5); Immature Reticulocyte Fraction 11.2 % (3.0-15.9); Lymphocytes Absolute Auto 0.49 K/mm3 (0.9-3.2); Lymphocytes Percent Auto 7.1 % (18.3-44.2); Mean Corpuscular HGB Conc 31.2 g/dl (32-36); Mean Corpuscular Hemoglobin 36.9 pg (26-34); Mean Platelet Volume 12.4 fl (7.4-10.4); Monocytes Absolute Auto 0.3 K/mm3 (0.1-0.6); Monocytes Percent Auto 4.9 % (2.6-8.5); Red Blood Count 2.55 M/mm3 (4.6-6.20); Red Cell Distribution Width 19.7 % (11.5-14.5); Reticulocyte Hemoglobin Conten 35.2 pg (28.2-36.6); Reticulocyte Percent 2.28 % (0.7-4.3); Reticulocytes Absolute 0.06 10^6/uL (0.02-0.10); White Blood Count 6.9 K/mm3 (4.5-10.0)
[2024-04-13 13:15] LABS: Immature Platelet Fraction Pct 8.4 % (0.9-11.2); Platelet Count Result 214 k/mm3 (150-375)
[2024-04-13 15:28] LABS: Alanine Aminotransferase 14 U/L (6-50); Albumin Level 4.7 g/dL (3.5-5.1); Alkaline Phosphatase 43 U/L (38-126); Anion Gap 8 mmol/L (4-12); Aspartate Amino Transferase 19 U/L (17-59); Blood Urea Nitrogen 29 mg/dL (9-20); Calcium 9.2 mg/dL (8.4-10.2); Carbon Dioxide 28 mmol/L (22-30); Chloride 100 mmol/L (98-107); Estimated Glomerular Filt Rate > 60; Glucose 180 mg/dL (65-110); Potassium 4.8 mmol/L (3.4-5.0); Sodium 136 mmol/L (137-145)
[2024-04-13 15:33] LABS: Immunoglobulin A 86 mg/dL (70-400); Immunoglobulin G 928 mg/dL (700-1600); Immunoglobulin M 183 mg/dL (40-230)
[2024-04-13 15:56] LABS: Thyroid Stimulating Hormone 0.643 uIU/mL (0.465-4.680)
[2024-04-13 16:27] LABS: Erythrocyte Sedimentation Rate 16 mm/hr (0-20)
[2024-04-13 16:32] LABS: Folic Acid 8.8 ng/mL (2.76->20)
[2024-04-15 03:43] LABS: Haptoglobin 29 mg/dL (43-212)
[2024-04-15 04:04] LABS: Protein, Total 6.5 g/dL (6.1-8.1)
[2024-04-15 16:29] LABS: Albumin 4.3 g/dL (3.8-4.8); Alpha 1 Globulin 0.3 g/dL (0.2-0.3); Alpha 2 Globulin 0.6 g/dL (0.5-0.9); Beta 1 Globulin 0.3 g/dL (0.4-0.6); Gamma Globulin 0.9 g/dL (0.8-1.7)
== END 2024-04-13 12:40 | disposition home or self-care (01) ==
LOC: ANHLAB 12:40
PROVIDERS: Internal Medicine; PCP Internal Medicine; Visit Provider Internal Medicine Hematology & Oncology
DX: D64.9 Anemia, unspecified (principal); R76.8 Other specified abnormal immunological findings in serum
CPT/HCPCS: 36415; 80053; 82607; 82746; 82784; 83010; 83883; 84155; 84165; 84443; 85025; 85046; 85055; 85652

== ENCOUNTER 2024-07-11 08:50 | Emergency (ER) | payer MEDICARE, SELFPAY ==
[2024-07-11 09:11] VITALS: BP 114/52; PULSE 107; RESP 18; TEMP 37.3; O2SAT 98
--- NOTE | 2024-07-11 09:23 | ED.URI ---
HPI - URI/Sore Throat General Chief Complaint: Upper Respiratory Infection Stated Complaint: SORE THROAT/DRAINAGE/SOB/FEVER Time Seen by Provider: 07/11/24 09:15 Source: patient and family Mode of arrival: ambulatory Limitations: no limitations History of Present Illness HPI Narrative: Andre is a 79-year-old male patient presenting to the clinic today with complaints of sore throat, nasal drainage, fever, and shortness of breath times 1-2 days. His has COVID at home. Patient has extensive history. Is wearing 3 L of O2. States he is not short of breath more than normal. Denies any chest pain. MD elicited complaint: fever, cough, sore throat and nasal congestion Related Data Home Medications ?Medication ?Instructions ?Recorded ?Confirmed ?Last Taken ?Type albuterol sulfate 90 mcg/actuation 2 inh inhalation DIRECTED 08/01/22 03/25/24 Unknown History aerosol inhaler finasteride 5 mg tablet 5 mg PO DAILY 08/01/22 03/25/24 Unknown History fluticasone propionate 50 50 mcg intranasal DAILY 08/01/22 03/25/24 Unknown History mcg/actuation nasal spray,suspension latanoprost 0.005 % eye drops 1 drp ophthalmic (eye) QHS 08/01/22 03/25/24 Unknown History lorazepam 1 mg tablet 1 mg PO DIRECTED 08/01/22 03/25/24 Unknown History ramelteon 8 mg tablet 8 mg PO QHS 08/01/22 03/25/24 Unknown History simvastatin 20 mg tablet 20 mg PO DAILY 08/01/22 03/25/24 Unknown History testosterone cypionate 200 mg/mL 200 mg IM [id number] 08/01/22 03/25/24 04/02/23 History intramuscular oil topiramate 50 mg tablet 50 mg PO BID 08/01/22 03/25/24 Unknown History tramadol 50 mg tablet 50 mg PO Q6H PRN Pain 09/11/22 03/25/24 Unknown History fluoxetine 20 mg capsule 40 mg PO DAILY 10/23/22 03/25/24 Unknown History cholecalciferol (vitamin D3) 125 125 mcg PO DAILY 04/05/23 03/25/24 Unknown History mcg (5,000 unit) tablet (Vitamin D3) tacrolimus 0.1 % topical ointment 1 applic topical BID 04/05/23 03/25/24 Unknown History triamcinolone acetonide 0.1 % 1 applic topical BID 04/05/23 03/25/24 Unknown History topical cream calcium citrate-vitamin D3 2 tablet PO DAILY 04/09/23 03/25/24 Unknown History aspirin 325 mg tablet,delayed 325 mg PO DAILY 05/16/23 03/25/24 Unknown History release (Ecotrin) cetirizine 10 mg tablet (Zyrtec) 10 mg PO DAILY PRN 11/06/23 03/25/24 Unknown History dextromethorphan-guaifenesin 30 2 tablet PO Q12H 11/06/23 03/25/24 Unknown History mg-600 mg tablet extended hr (Mucinex DM) mecobalamin (vitamin B12) 500 mcg 500 mcg PO DAILY 11/06/23 03/25/24 Unknown History chewable tablet mycophenolate mofetil 500 mg tablet PO 11/06/23 03/25/24 Unknown History prednisone 5 mg tablet 5 mg PO DIRECTED 11/06/23 03/25/24 Unknown History ubrogepant 100 mg tablet (Ubrelvy) 100 mg PO ONCE PRN 11/06/23 03/25/24 Unknown History Allergies Allergy/AdvReac Type Severity Reaction Status Date / Time cephalexin Allergy Mild Hives Verified 07/11/24 09:04 Cephalosporins Allergy Mild RASH Verified 07/11/24 09:04 Sulfa (Sulfonamide Allergy Mild Rash Verified 07/11/24 09:04 Antibiotics) sulfanilamide Allergy Mild Rash Verified 07/11/24 09:04 Penicillins Allergy Unknown STATES WAS Verified 07/11/24 09:04 TOLD NOT TO TAKE PCN DUE TO KEFLEX REACTION Review of Systems Review of Systems: Pertinent positives per HPI. Patient denies any fever, chills, rash, headache, visual changes, dizziness, cough, shortness of breath, chest pain, palpitations, nausea, vomiting, diarrhea, constipation, abdominal pain, or any urinary issues. ON LICENSE OF [facility] Past Medical History Medical History Anxiety CAD (coronary artery disease) Chronic obstructive pulmonary disease Chronic sinusitis Depression Diverticulosis Foot pain, bilateral Headache Heart attack Heart disease ILD (interstitial lung disease) Rheumatoid arthritis Skin cancer Tobacco abuse Surgical History Surgical History H/O knee surgery H/O hemorrhoidectomy Hx of cholecystectomy H/O hernia repair History of quadruple bypass History of appendectomy Family History Family History Mother Diabetes mellitus Glaucoma Cerebrovascular accident Hypertension Heart disease Sibling Diabetes mellitus Cancer Heart disease Hypertension Dementia Acute myocardial infarction Alcoholism Depression Father Acute myocardial infarction Family history of respiratory disorder Malignant neoplasm of prostate Alcoholism Grandparent Cerebrovascular accident Glaucoma Grandparent Cerebrovascular accident Other Family history of cardiovascular disease Family history of malignant neoplasm of kidney Social History Social History Social History: Caffeine-Coffee daily Currently lives at home with his . Surrogate decision maker Aurora Huizar, spouse. Code Status: Full Code. Smoking packs per day: 1 Smoking cigarettes per day: 20.0 Years smoked: 57 Smoking pack-years: 57.00 Smoking status: Former smoker Tobacco type: cigarettes Second hand tobacco smoke exposure: No Smoking end date: 06/03/18 Alcohol intake: never Substance use: never Substance use type: painkillers Other substance usage details: tramadol Lack of Transportation: No Lack of Food: Never True Current Housing: I Have Housing Concerned About Future Housing: No Difficulty Paying Gas/Electric Bills: No Difficulty Paying for Meds: No Currently Unemployed: No Education: Master's Degree or Higher Difficulty w/ Childcare or Family Care: No Living arrangements: with family Spiritual care concerns: No Comments At the time of my signature, I reviewed and agree with the nursing past medical, surgical, social, and family history. There is no relevant family history pertinent to the patient complaint. Exam Narrative: General: Well-developed, well nourished, in no apparent distress Head: Normocephalic, atraumatic Eyes: Pupils equally round and reactive to light bilaterally, EOM intact, sclera and conjunctive clear, no discharge, lids normal Ears: TMs intact and clear, ear canals clear, no drainage, grossly hearing normal. Nose: Nares patent, clear nasal discharge, no inflammation, no sinus tenderness. Mouth: Oral pharynx red without lesions or masses, good dentition, MMM. Postnasal drip Neck: Supple, trachea midline, no enlargement of anterior or posterior cervical nodes, no thyroid masses or goiter palpable. Cardio: Regular rate and rhythm, s1 and s2 normal, no murmur appreciated. Resp: Clear to auscultation bilaterally, no rhonchi, rales, wheezing or rubs Course Course Emergency Course: Portions of this record may have been created with voice recognition software. Level of Care: Express Care Visit Vital Signs Vital signs: Vital Signs Temperature 37.3 C 07/11/24 09:11 Pulse Rate 107 H 07/11/24 09:11 Respiratory Rate 18 07/11/24 09:11 Blood Pressure 114/52 L 07/11/24 09:11 Pulse Oximetry 98 07/11/24 09:11 Oxygen Delivery Nasal Cannula 07/11/24 09:11 Oxygen Flow Rate 4 07/11/24 09:11 Temperature 37.3 C 07/11/24 09:11 Pulse Rate 107 H 07/11/24 09:11 Respiratory Rate 18 07/11/24 09:11 Blood Pressure 114/52 L 07/11/24 09:11 Pulse Oximetry 98 07/11/24 09:11 Oxygen Delivery Nasal Cannula 07/11/24 09:11 Oxygen Flow Rate 4 07/11/24 09:11 Vital signs reviewed MDM - URI/Sore Throat MDM Narrative Medical decision making narrative: At the time of visit patient is resting comfortably on the exam table. Patient appears to be nontoxic. Labs: COVID testing was positive in the clinic today. Plan: Patient has COVID-19. Prescription for Paxlovid was sent to the pharmacy. Explained to patient that he needs to hold his Ubrelvy and simvastatin while taking this medication and he voiced understanding. Supportive measures were discussed with the patient and they voiced understanding discharge instructions and agrees to treatment plan. Return precautions reviewed Differential Diagnosis Differential diagnosis: Likely upper respiratory infection, otitis media, sinusitis, viral infection, bronchitis, influenza, pharyngitis and other (COVID) Discharge Plan Discharge Clinical Impression: COVID-19 Patient Disposition: Home, Self-Care Condition: Stable Instructions: Antibiotic Form, How to Recover from COVID-19 at Home (ED) Additional Instructions: COVID testing is positive in the clinic today. Take Paxlovid as prescribed Hold taking simvastatin and Ubrelvy as this interacts with the PACS lobe it Increase fluids and stay well hydrated Tylenol/motrin for pain/fever Flonase and OTC antihistamines as directed Vicks vapor rub to open sinuses Sinus rinses for congestion Cepacol spray, cough drops, throat lozenges, warm tea with honey/lemon, gargle salt water to soothe throat BRAT diet for diarrhea Clear liquids x 24 hours then advance as tolerated for nausea/vomiting Go to the ED if you develop a worsening in your condition- high fever not controlled by Tylenol or Motrin, dehydration, weakness, lethargy, shortness of breath, or chest pain. Follow up with your PCP in 3-5 days if symptoms persist. Patient Language: Setswana Prescriptions: New Paxlovid 300 mg (150 mg x 2)-100 mg tablets,dose pack See Rx Instructions PO .COMPLEX Qty: 30 0RF Rx Instructions: take TWO 150 mg tablets of nirmatrelvir with ONE 100 mg tablet of ritonavir twice daily for 5 days No Action latanoprost 0.005 % drops 1 drp ophthalmic (eye) QHS Rx Instructions: EACH EYE simvastatin 20 mg tablet 20 mg PO DAILY lorazepam 1 mg tablet 1 mg PO DIRECTED Rx Instructions: 1 mg 1/2 tablet x 3 daily and 1 tablet at bedtime testosterone cypionate 200 mg/mL oil 200 mg IM [id number] Rx Instructions: 2 times a month albuterol sulfate 90 mcg/actuation HFA aerosol inhaler 2 inh INHALATION DIRECTED fluticasone propionate 50 mcg/actuation spray,suspension 50 mcg INTRANASAL DAILY finasteride 5 mg tablet 5 mg PO DAILY topiramate 50 mg tablet 50 mg PO BID ramelteon 8 mg tablet 8 mg PO QHS fluoxetine 20 mg capsule 40 mg PO DAILY triamcinolone acetonide 0.1 % Cream 1 applic TOPICAL BID tacrolimus 0.1 % Ointment 1 applic TOPICAL BID cholecalciferol (vitamin D3) [Vitamin D3] 125 mcg (5,000 unit) Tablet 125 mcg PO DAILY aspirin [Ecotrin] 325 mg tablet,delayed release (DR/EC) 325 mg PO DAILY prednisone 5 mg tablet 5 mg PO DIRECTED mycophenolate mofetil 500 mg tablet PO cetirizine [Zyrtec] 10 mg tablet 10 mg PO DAILY PRN Mucinex DM 30-600 mg tablet extended release 12 hr 2 tablet PO Q12H Ubrelvy 100 mg tablet 100 mg PO ONCE PRN Rx Instructions: as a single dose; may repeat once in >=2 hours after first dose if needed mecobalamin (vitamin B12) 500 mcg tablet,chewable 500 mcg PO DAILY levofloxacin 500 mg tablet 500 mg PO DAILY Qty: 5 0RF albuterol sulfate [Ventolin HFA] 90 mcg/actuation HFA aerosol inhaler 1 inh inhalation Q4H PRN (Reason: shortness of breath or wheezing) 30 Days Qty: 8.5 2RF tramadol 50 mg tablet 50 mg PO Q6H PRN (Reason: Pain) calcium citrate-vitamin D3 500 units/400 mg tablet 2 tablet PO DAILY azelastine 137 mcg (0.1 %) aerosol,spray 137 mcg INTRANASAL BID Qty: 30 3RF tiotropium bromide [Spiriva with HandiHaler] 18 mcg capsule, w/inhalation device See Rx Instructions .ROUTE .COMPLEX Qty: 90 3RF Dose Instruction: USE 2 INHALATIONS TO INHALE THE CONTENTS OF 1 CAPSULE DAILY (PUNCTURE CAPSULE USING DEVICE INSTRUCTED) Rx Instructions: USE 2 INHALATIONS TO INHALE THE CONTENTS OF 1 CAPSULE DAILY (PUNCTURE CAPSULE USING DEVICE INSTRUCTED) Follow-up/Referrals: Kumar,Carrington rPatt MD [Primary Care Provider] - Time of Disposition: 09:26 Quality NIHSS Nursing Documentation ED NIHSS nursing documentation: reviewed/agree
[2024-07-11 09:25] LABS: EDCOVIDSCREEN Positive (Negative); EDINFLUASCREEN Negative (Negative); EDINFLUBSCREEN Negative (Negative)
[2024-07-11 10:11] LABS: EDCOVIDSCREEN Positive (Negative)
== END 2024-07-11 09:28 | disposition home or self-care (01) ==
PROVIDERS: Emergency Provider Nurse Practitioner Family; PCP Internal Medicine
DX: U07.1 COVID-19 (principal); I25.10 Atherosclerotic heart disease of native coronary artery without angina pectoris; J44.9 Chronic obstructive pulmonary disease, unspecified; I25.2 Old myocardial infarction; J84.9 Interstitial pulmonary disease, unspecified; M06.9 Rheumatoid arthritis, unspecified; F41.9 Anxiety disorder, unspecified; F32.A Depression, unspecified; Z87.891 Personal history of nicotine dependence; Z95.1 Presence of aortocoronary bypass graft; Z85.828 Personal history of other malignant neoplasm of skin
CPT/HCPCS: 87426; 87804; 99213; G0463

== ENCOUNTER 2024-10-21 00:38 | Day surgery (SDC) | payer MEDICARE, SELFPAY ==
[2024-10-20 15:00] VITALS: BMI 23.8
--- NOTE | ~2024-10-21 | BM_ITS ---
EXAMINATION: CCL bone marrow asp w bx diag ORDER COMPLETED DATE: 10/22/2024 10:06 INDICATION: Chronic anemia TECHNIQUE: A time-out was performed to verify the patient's name, date of , and procedure to b e performed. The procedure including the risks and benefits was discussed with the patient. Risks dis cussed included bleeding, infection, nerve injury and allergic reaction. The patient understood the r isks and agreed to proceed. The skin overlying the right posterior iliac spine was prepped and draped in usual sterile fashion. Anesthetic was administered with 1% lidocaine subcutaneously. Moderate co nscious sedation was achieved with 50 mcg fentanyl IV and 1 mg of Versed IV. An 11 gauge needle was i nserted into the right ilium with fluoroscopic guidance. Bone marrow was aspirated. An 8 gauge needle was then inserted into the right ilium with fluoroscopic guidance. A core bone marrow biopsy was obt ained. The needle was removed and the entry site was cleaned and dressed. There were no immediate co mplications. A total of 9 fluoroscopic images were recorded. Fluoroscopy exposure time was 0.1 minute s. Total DAP was 58.3 mGycm^2 FINDINGS: Real-time fluoroscopy demonstrates the biopsy needle tip overlying the right posterior tiffany c spine. IMPRESSION: 1. Successful fluoroscopic guided bone marrow aspiration. 2. Successful fluoroscopic guided bone marrow biopsy. Reviewed, dictated and finalized at location A.
--- OUTSIDE RECORDS SUMMARY | 2024-10-21 00:40 | XMS_ITS | Encounter Summary ---
Author Organization [facility] Address [address] [place] [address] Phone Care Team Providers Care Agricultural Crop Farm Manager Name Role Phone Carrington Heath MD Primary Care Provider Encounter Details Date Type Department Care Team (Latest Contact Info) Description 03/20/2023 Orders Only [facility] Scanning, Provider Social History Tobacco Use Types Packs/Day Years Used Date Smoking Tobacco: Former Cigarettes 0.5 52 0 12/31/1965 - 12/31/2017 Smokeless Tobacco: Never Alcohol Use Standard Drinks/Week Comments No 0 (1 standard drink = 0.6 oz pur e alcohol) Sex and Gender Information Value Date Recorded Sex Assigned at Not on file Legal Sex 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 Gender Identity Not on file Sexual Orientation Not on file documented as of this encounter Plan of Treatment Not on file documented as of this encounter Procedures Procedure Name Priority Date/Time Associated Diagnosis Comments PULMONARY - RESULT SCAN 03/20/2023 documented in this encounter Results * PULMONARY - RESULT SCAN (03/20/2023) Anatomical Region Laterality Modality Other us Provider Scanning Final Result documented in this encounter Visit Diagnoses Not on filedocumented in this encounter Care Teams Agricultural Crop Farm Manager Relationship Specialty Start Date End Date Carrington Heath MD PCP - General 08/31/16 documented as of this encounter
--- OUTSIDE RECORDS SUMMARY | 2024-10-21 00:40 | XMS_ITS | Patient Health Record ---
Author Organization [facility] ([address]) Address [address] [place] [address] Care Team Providers Care Courseware Developer Name Role Phone Carrington Heath MD Primary Care Provider Juana Tay Unavailable [phone] Mignon Carr Unavailable Unavailable [facility], Provider Unavailable Unavailab le Allergies Allergen (clinical drug ingredient) Drug/Non Drug Allergy documented on EMR Reaction Allergy Type Onset Date Status cephalexin Cephalexin hives Drug Allergy Activ e penicillin G Penicillin G Potassium rash Drug Allergy Active sulfamethoxazole / trimethoprim Sulfamethoxazole- Trimethoprim other reaction Drug Allergy Active Results Component Value Reference Range Notes S. PNEUMONIAE IGG AB, 23 SER OTYPES, S Reviewed date:12/30/2023 02:55:39 PM Interpretation:Normal Performing Lab:MY, [facility], [address] [place], [place], [address] Ankit Reyez M.D. Ph.D. Notes/Report: NON-FASTING FASTING:YES FASTING: YES INTERPRETATION Unable to quantitate serotype 20 (20) due to nonlinear dilution response of patient sample. Overall interpretation of pneumococcal antibody serology panel can be based on the reported 22 serotypes. Evaluation of the immune response following pneumococcal vaccination can be assessed by measuring serotype-specific Streptococcus pneumonia IgG antibodies. Either of the following conditions is consistent with a normal response to Streptococcus pneumonia vaccination: 1. When comparing pre and post-vaccination samples, antibody concentrations increased by at least 2-fold for either >50% of serotypes in children <6 years of age or >70% of serotypes for individuals >6 years of age. 2. In either a pre- or post-vaccination sample, antibody concentrations >=1.0 mcg/mL for either >50% of serotypes for children <6 years of age or >70% of serotypes for individuals >6 years of age. Results >=1.0 mcg/mL or those showing a >=2-fold change are consistent with an immune response, but are not necessarily sufficient to provide protection against infection. ADDITIONAL INFORMATION This test was developed and its performance characteristics determined by [facility] in a manner consistent with CLIA requirements. This test has not been cleared or approved by the U.S. Food and Drug Administration. SEROTYPE 1 (1) 0.8 >=1.0 mcg/mL SEROTYPE 2 (2) 11.2 >=1.0 mcg/mL SEROTYPE 3 (3) 0.7 >=1.0 mcg/mL SEROTYPE 4 (4) 4.7 >=1.0 mcg/mL SEROTYPE 5 (5) 0.3 >=1.0 mcg/mL SEROTYPE 8 (8) 7.2 >=1.0 mcg/mL SEROTYPE 9N (9) 18.2 >=1.0 mcg/mL SEROTYPE 12F (12) 0.2 >=1.0 mcg/mL SEROTYPE 14 (14) 22.5 >=1.0 mcg/mL SEROTYPE 17F (17) 5.3 >=1.0 mcg/mL SEROTYPE 19F (19) 20.9 >=1.0 mcg/mL SEROTYPE 20 (20) >=1.0 mcg/mL No result available due to non-linear dilution response for this serotype. See Interpretation. SEROTYPE 22F (22) 3.3 >=1.0 mcg/mL SEROTYPE 23F (23) 20.0 >=1.0 mcg/mL SEROTYPE 6B (26) 72.4 >=1.0 mcg/mL SEROTYPE 10A (34) 0.8 >=1.0 mcg/mL SEROTYPE 11A (43) 6.0 >=1.0 mcg/mL SEROTYPE 7F (51) 4.4 >=1.0 mcg/mL SEROTYPE 15B (54) 1.4 >=1.0 mcg/mL SEROTYPE 18C (56) 4.3 >=1.0 mcg/mL SEROTYPE 19A (57) 25.7 >=1.0 mcg/mL SEROTYPE 9V (68) 13.5 >=1.0 mcg/mL SEROTYPE 33F (70) 3.2 >=1.0 mcg/mL H. INFLUENZAE TYPE B AB Reviewed date:01/02/2024 08:13:48 AM Interpretation:Abnormal Performing Lab:[email or web address], [employer],, [address] [place], [address] Carolyn Velazquez MD,PhD,KARINA Notes/Report: NON-FASTING FASTING:NO FASTING: NO HAEMOPHILUS INFLUENZA TYPE B ANTIBODY (IGG) 0.56 REFERENCE RANGE: > or = 1.00 mcg/mL INTERPRETIVE CRITERIA: <0.15 mcg/mL Nonprotective Antibody Level 0.15 - 0.99 mcg/mL Indeterminate for protective antibody > or = 1.00 mcg/mL Protective Antibody Level IgG antibody to polyribosylribitol phosphate (PRP), the capsular polysaccharide of Haemophilus influenzae type b, is measured in micrograms/mL (mcg/mL), based on correlations with a reference Arnav radioimmunoprecipitation assay (BRENNAN). The exact level of antibody needed for protection from infection has not been clarified; values ranging from 0.15 mcg/mL to 1.00 mcg/mL have been reported. A four-fold increase in the PRP IgG antibody level between pre-vaccination and post-vaccination sera is considered evidence of effective immunization. H. INFLUENZAE TYPE B AB Reviewed date:05/07/2024 01:10:49 PM Interpretation:Abnormal Performing Lab:[email or web address], [employer],, [address] [place], [address] Carolyn Velazquez MD,PhD,KARINA Notes/Report: NON-FASTING HAEMOPHILUS INFLUENZA TYPE B ANTIBODY (IGG) 0.62 REFERENCE RANGE: > or = 1.00 mcg/mL INTERPRETIVE CRITERIA: <0.15 mcg/mL Nonprotective Antibody Level 0.15 - 0.99 mcg/mL Indeterminate for protective antibody > or = 1.00 mcg/mL Protective Antibody Level IgG antibody to polyribosylribitol phosphate (PRP), the capsular polysaccharide of Haemophilus influenzae type b, is measured in micrograms/mL (mcg/mL), based on correlations with a reference Arnav radioimmunoprecipitation assay (BRENNAN). The exact level of antibody needed for protection from infection has not been clarified; values ranging from 0.15 mcg/mL to 1.00 mcg/mL have been reported. A four-fold increase in the PRP IgG antibody level between pre-vaccination and post-vaccination sera is considered evidence of effective immunization. Reason For Referral No Information Medications Medication SIG (Take, Route, Frequency, Duration) Notes Start Date End Date Status ALBUTEROL (EQV-VENTOLIN HFA) 90 mcg/inh 2 puff(s) inhaled every 6 hours Active SPIRIVA HANDIHALER 18 mcg 1 cap(s) inhaled once a day Active ZYRTEC 10 mg 1 tab(s) orally once a day Active FLUTICASONE NASAL 50 mcg/inh 1 spray(s) in each nostril once a day Active VITAMIN D3 1250 mcg 1 cap(s) orally once a week Active AZELASTINE NASAL 137 mcg/inh 2 spray(s) intranasally 2 times a day for 30 days Active FINASTERIDE 5 mg 1 tab(s) orally once a day Active VITAMIN D3 1250 mcg 1 cap(s) orally once a week for 56 days Active Azelastine HCl 137 MCG/SPRAY 2 spray(s) intranasally 2 times a day for 30 days Active Spiriva HandiHaler 18 MCG 1 cap(s) inhaled once a day Active Vitamin D3 1250 MCG 1 CAP(S) ORALLY ONCE A WEEK for 56 DAYS *Please review and pick correct strength-formula tion from [employer] options. If intended option is not shown, discontinue and re-order from Quick Search* Active Fluticasone Propionate 50 MCG/ACT 1 spray(s) in each nostril once a day Active ZyrTEC Allergy 10 MG 1 tab(s) orally once a day Active ASPIRIN 81 mg 1 cap(s) orally every 24 hours Active NURTEC ODT 75 mg 1 tab(s) orally once Active TESTOSTERONE CYPIONATE cypionate 200 mg/mL as directed intramuscularly twice monthly Active MUCINEX DM 30 mg-600 mg 2 tablets orally daily Active TRIAMCINOLONE TOPICAL 0.1% 1 andria applied topically 2 times a day Active TACROLIMUS TOPICAL 0.1% 1 andria applied topically 2 times a day Active LATANOPROST OPHTHALMIC 0.005% 1 gtt in each eye once a day (in the evening) Active RESTASIS 0.05% 1 gtt in each affected eye twice a day Active OXYGEN CONCENTRATOR 3 LITER Active ROZEREM 8 mg 1 tab(s) orally once a day (at bedtime) Active SIMVASTATIN 20 mg 1 tab(s) orally once a day (in the evening) Active IPRATROPIUM NASAL 42 mcg/inh 2 spray(s) intranasally 3 times a day for 90 days Active PREDNISONE 1 mg 1 tab(s) orally once a day 1 tablet on M,W,F Active FLUOXETINE 40 mg 1 cap(s) orally once a day Active FLUoxetine HCl 40 MG 1 cap(s) orally once a day Active LORAZEPAM 1 mg 1 tab(s) orally 3 times a day 1/2 tablet 3x daily and 1 tablet at bedtime Active TRAMADOL 50 mg 1 tab(s) orally every 6 hours Active TOPIRAMATE 50 mg 1 tab(s) orally 2 times a day Active TOPIRAMATE 50 mg 1 cap(s) orally twice a day Not-Taking Mucinex DM 30-600 MG 2 tablets orally daily Active Topiramate ER 50 MG 1 cap(s) orally twice a day Not-Taking Immunizations Vaccine Route Administration Date Status Comme nts NOC Pneumovax 23 IM Intramuscular 08/08/2023 Administered NOC PedvaxHIB IM Intramuscular 07/22/2023 Administered NOC PedvaxHIB IM Intramuscular 03/02/2024 Administered Social History Tobacco Use: Social History Observation Description Date Details (start date - stop date) Former Smoker NA - NA Tobacco Control (Standard) Question Answer Notes Tobacco use: Former smoker How long has it been since you last smoked? 6-12 months Problems Problem Type SNOMED Code ICD Code Onset Dates Problem Status W/U Status Risk Notes Problem Vitamin D deficiency (00939677) Vitamin D deficiency, unspecified (E55.9) Active confirmed Problem Allergic rhinitis caused by pollen (disorder) (51211179) Allergic rhinitis due to pollen (J30.1) Active confirmed Problem Chronic rhinitis (96507679) Chronic rhinitis (J31.0) Active confirmed Problem Chronic sinusitis (62205414) Chronic sinusitis, unspecified (J32.9) Active confirmed Problem Hypertrophy of nasal turbinates (23379978) Hypertrophy of nasal turbinates (J34.3) Active confirmed Problem Chronic obstructive pulmonary disease (42645149) Chronic obstructive pulmonary disease, unspecified (J44.9) Active confirmed Problem Allergic rhinitis caused by animal hair and dander (051657911689567 ) Allergic rhinitis due to animal (cat) (dog) hair and dander (J30.81) Active confirmed Problem Chronic sinusitis (79694099) Other chronic sinusitis (J32.8) Active confirmed Vital Signs Blood pressure diastolic 56 mm Hg 03/02/2024 Rep eat HR: 94 Oximetry 97 % 03/02/2024 Repeat HR: 94 Height 66 in 03/02/2024 Repeat HR: 94 Blood pressure systolic 110 mm Hg 03/02/2024 Repe at HR: 94 Weight 155.2 lbs 03/02/2024 Repeat HR: 94 BMI 25.05 kg/m2 03/02/2024 Repeat HR: 94 Encounters Encounter Location Date Provider Diagnosis [address] [address] 11/16/2023 Provider [facility] [address] [address] 03/02/2024 Juana Arora Chronic sinusitis, unspecified J32.9 ; Vitamin D deficiency, unspecified E55.9 ; Allergic rhinitis due to pollen J30.1 ; Allergic rhinitis due to animal (cat) (dog) hair and dander J30.81 ; Chronic obstructive pulmonary disease, unspecified J44.9 and Encounter for immunization Z23 [address] [address] 12/23/2023 Juana Arora [address] [address] 12/23/2023 Juana Arora Chronic sinusitis, unspecified J32.[address] [address] 07/01/2024 Juana Arora Assessments Encounter Date Diagnosis (ICD Code) Assessment Notes Treatment Notes Treatment Clinical Notes Section Notes 12/23/2023 Chronic sinusitis, unspecified (ICD-10 - J32.9) 03/02/2024 Vitamin D deficiency, unspecified (ICD-10 - E55.9) Prior work-up showed low vitamin D, started supplementation with 50,000 IU/week x 8 weeks, followed with 5,000 IU/day x 4 weeks. Repeat vitamin D now within normal range 03/02/2024 Chronic sinusitis, unspecified (ICD-10 - J32.9) Andre reports frequent sinus infections, states he feels he is always sick. He has required 4-5 courses of oral antibiotics in the past 12 months for sinusitis, also had pneumonia in April meeting F criteria for modified PIDD work-up. - PIDD work-up showed inadequate protection to streptococcal pneumoniae and haemophilus influenzae. Recommend booster with Pneumovax and HiB booster, which Andre received. Repeat titers now show adequate protection to streptococcal pneumoniae, still inadequate protection to haemophilus influenzae, however. Due to this, recommend additional HiB booster. Will recheck titers in 4-6 weeks. If still inadequate protection, consider SADNI. - Andre also has a history of sinus surgery, performed by Dr. Zuniga in 2021. Records requested last visit, not obtained yet. One infection noted in the last 8 months. - Follow-up in two months for laboratory review 03/02/2024 Allergic rhinitis due to pollen (ICD-10 - J30.1) Andre endorses upper airway symptoms concerning for [...] to this, continue Zyrtec and Flonase, also continue Astelin BID. Previously trialed ipratropium bromide without benefit. - Consider follow-up with Dr. Zuniga, ENT, who Andre has not seen in the last year. - Modified PIDD work-up ordered, see plans above 03/02/2024 Allergic rhinitis due to animal (cat) (dog) hair and dander (ICD-10 - J30.81) See plan above 03/02/2024 Chronic obstructive pulmonary disease, unspecified (ICD-10 - J44.9) Andre has been diagnosed with COPD and interstitial lung disease by his tour production supervisor, Dr. Carr. He is also seen at [facility] for management of ILD. He reports having annual PFTs, CT scans and chest X-RAYs completed. Dr. Carr referred him here for allergy evaluation, see plan above. - Andre is wearing 3 L of oxygen for today's visit, reports he had pneumonia in April and has been on oxygen at all times since then. - Continue close management by his various pulmonologists 03/02/2024 Encounter for immunization (ICD-10 - Z23) See above 12/23/2023 Other 01/28/2024 Other 03/02/2024 Other Plan Of Treatment Pending Test Test Name Order Date HAEMOPHILUS INFLUENZAE B ANTIBODY, IGG 0 03/02/2024 Insurance Providers Payer Name Payer Address Payer Phone Subscriber Number Group Number Insured Name Patient Relationship to Insured Coverage Start Date Coverage End Date [employer] [address] [address] [place] [address] [id number] Self - patient is the insured Medical (General) History Medical History History ICD Code COPD ILD Rheumatoid Arthiritis Glaucoma Surgical History Surgery Date(Month/Year) appendectomy 1963 quadruple bypass surgery 1977 gallbladder removed hemorrhoid surgery 2010 Hospitalization History Reason Date(Month/Year) penumonia 04/09/23 infection 2018
--- OUTSIDE RECORDS SUMMARY | 2024-10-21 00:40 | XMS_ITS | Clinical Summary ---
Author Organization [facility] Address [address] [place] [address] Care Team Providers Care Sports Manager Name Role Phone Unavailable Primary Care Provider Unavailabl e Source Comments [facility],non-owned Affiliates and Associated Physician Practices is amultiple site organization consisting of ambulatory clinics and hospital sitesin [place], [place], [place] and [place]. This disclosure is being madepursuant to the Care Everywhere program and may not contain all information available regarding this patient. Last updated 18.[facility] Social History Tobacco Use Types Packs/Day Years Used Date Smoking Tobacco: Never Assessed Sex and Gender Information Value Date Recorded Sex Assigned at Not on file Legal Sex Male 1:22 PM CDT Gender Identity Not on file Sexual Orientation Not on file Plan of Treatment Health Maintenance Due Date Last Done Comments HEPATITIS C SCREENING [birth year]/29/1963 DTAP/TDAP/TD VACCINES (1 - Tdap) 1966 PNEUMOCOCCAL VACCINE 50+ (1 of 1 - PCV) 1997 ZOSTER VACCINE (1 of 2) 1997 Respiratory Syncytial Virus (RSV) Vaccine Pt: or over 60 yrs (1 - 1-dose 75+ series) 2022 COVID-19 VACCINE ( - season) 2024 09/11/2021, 02/14/2021 DEPRESSION SCREENING 2024 MEDICARE AWV CALENDAR YEAR 2024 INFLUENZA VACCINE (Season Ended) 2025 04/02/2023, 03/20/2022, 03/03/2021, Additional history exists HEPATITIS B VACCINE Aged Out No longe r eligible based on patient's age to complete this topic HIB VACCINE Aged Out No longer eligi ble based on patient's age to complete this topic HPV VACCINE Aged Out No longer eligi ble based on patient's age to complete this topic MENINGOCOCCAL (Group B) VACCINE SHARED DECISION-MAKING Aged Out No longer eligible based on patient's age to complete this topic MENINGOCOCCAL GROUPS A/C/Y/W VACCINE Aged Out No longer eligible based on patient's age to complete this topic Insurance [employer] MEDICARE ADV HMO & PPO
--- OUTSIDE RECORDS SUMMARY | 2024-10-21 00:40 | XMS_ITS | Encounter Summary ---
Author Organization [facility] Address [address] [place] [address] Phone Care Team Providers Care Welding Machine Operator Name Role Phone Carrington Heath MD Primary Care Provider Encounter Details Date Type Department Care Team (Latest Contact Info) Description 09/27/2023 Orders Only [facility] Scanning, Provider Social History Tobacco Use Types Packs/Day Years Used Date Smoking Tobacco: Former Cigarettes 0.5 52 0 12/31/1965 - 12/31/2017 Smokeless Tobacco: Never Alcohol Use Standard Drinks/Week Comments No 0 (1 standard drink = 0.6 oz pur e alcohol) Sex and Gender Information Value Date Recorded Sex Assigned at Not on file 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 Gender Identity Not on file Sexual Orientation Not on file documented as of this encounter Plan of Treatment Not on file documented as of this encounter Procedures Procedure Name Priority Date/Time Associated Diagnosis Comments CARDIOLOGY DOCUMENT SCAN 09/27/2023 documented in this encounter Results * Cardiology Document Scan (09/27/2023) Anatomical Region Laterality Modality Other us Provider Scanning CV CARDIAC SERVICES PROCEDURES Final Result documented in this encounter Visit Diagnoses Not on filedocumented in this encounter Care Teams Welding Machine Operator Relationship Specialty Start Date End Date Carrington Heath MD PCP - General 08/31/16 documented as of this encounter
--- OUTSIDE RECORDS SUMMARY | 2024-10-21 00:41 | XMS_ITS ---
Author Organization [facility] ([address]) Address [address] [place] [address] Care Team Providers Care Deboning Team Leader Name Role Phone Carrington Heath MD Primary Care Provider Juana Tay Unavailable [phone] Mignon Carr Unavailable REASON FOR VISIT Chronic [...] lung disease, managed by Dr. Carr and [facility] Pulmonology. Has X-RAYS and CT scans completed annually. Medications Medication SIG (Take, Route, Frequency, Duration) Notes Start Date End Date Status ROZEREM 8 mg 1 tab(s) orally once a day (at bedtime) Active VITAMIN D3 1250 mcg 1 cap(s) orally once a week for 56 days Active SIMVASTATIN 20 mg 1 tab(s) orally once a day (in the evening) Active IPRATROPIUM NASAL 42 mcg/inh 2 spray(s) intranasally 3 times a day for 90 days Active TOPIRAMATE 50 mg 1 [...] times a day for 30 days Active VITAMIN D3 1250 mcg [...] times a day for 30 days Active Vitamin D3 1250 MCG [...] a day (in the evening) Active Ipratropium Laotto 0.06 % 2 spray(s) intranasally 3 times a day for 90 days Active Topiramate ER 50 MG [...] Active Encounters Encounter Location Date Provider Diagnosis [facility] [address] [place] [address] 12/23/2023 Juana Arora Hypertrophy of nasal turbinates [...] COPD and interstitial lung disease by his disability coordinator, Dr. Carr. He is also seen at [facility] for management of ILD. He reports having [...] 2 times a day for 30 days VITAMIN D3 1250 mcg 1 [...] sinusitis, also had pneumonia in April meeting [facility] criteria for modified PIDD work-up. - PIDD [...] COPD and interstitial lung disease by his disability coordinator, Dr. Carr. He is also seen at [facility] for management of ILD. He reports having [...] Notes * Andre CHAPARRODOB:1945 (79 yo M)Acc No.[id number]:12/23/2023 Progress Notes Patient: Andre EDDY Provider: Lennie Arora DNP SENIOR BRANCH MANAGER-C :1945 A ge:78 Y S ex:Male Date:12/23/2023 Address:[address] [id number] Pcp:Carrington Heath MD Subjective: * Chief Complaints: [...] lung disease, managed by Dr. Carr and [facility] Pulmonology. Has X-RAYS and CT scans completed annually.. * HPI: * Introduction: I had the pleasure of seeing A santiago Chaparro, a 78-year-old male with complex past medical history of ILD, rheumatoid arthritis, and COPD who returns in consultation with his disability coordinator, Dr. Carr, for laboratory review. He is with his for today's visit. Andre has a complex history of COPD and interstitial lung disease, currently managed by Dr. Carr, as well as a team of pulmonologists at [facility]. He has been experiencing nasal congestion, drainage [...] Carr, as well as a team at [facility] for management of his interstitial lung disease. [...] day (in the evening) , Taking Ipratropium Laotto 0.06 % Solution 2 spray(s) intranasally 3 [...] Examination: G eneral examination: General appearance: p oni, well-developed, well-nourished, male, in no apparent distress, [...] COPD and interstitial lung disease by his disability coordinator, Dr. Carr. He is also seen at [facility] for management of ILD. He reports having [...] W/PT OR RE, G8482 FLU IMMUNIZE ORDER/ADMIN, 46141 HIB, [address] Single or Combination * Preventive Medicine: Counseling: [...] Management) * Billing Information: * Visit Code: 51893 Office Visit, Est Pt., Level 4. Modifiers: 25 * Procedure Codes: G8427 DOC MEDS VERIFIED W/PT OR RE. G8482 FLU IMMUNIZE ORDER/ADMIN. 45241 NOC PedvaxHIB. 56887 Immunization Administration (one vaccine). * Electronic signature of Juana Arora DNP, MONET-C on 10/21/2024 at 12:41 AM CDT Sign off status: Pending * Provider: A nna M Hagnauer, DNP SENIOR BRANCH MANAGER-C Date: 0 12/23/2023 Generated for Lesley loja/Jairo/Mahogany on: 0 10/21/2024 12:41 AM CDT History and Physical Notes * HPI (History of Present Illness) Category Sub-Category Detail Notes Category Not es *Introduction I had the pleasure o f seeing Andre Chaparro, a 78-year-old male with complex past medical history of ILD, rheumatoid arthritis, and COPD who returns in consultation with his disability coordinator, Dr. Carr, for laboratory review. He is with his for today's visit. Andre has a complex history of COPD and interstitial lung disease, currently managed by Dr. Carr, as well as a team of pulmonologists at [facility]. He has been experiencing nasal congestion, drainage [...] Carr, as well as a team at [facility] for management of his interstitial lung disease. [...]
--- OUTSIDE RECORDS SUMMARY | 2024-10-21 00:41 | XMS_ITS | Data Portability ---
Author Organization [place] [facility] [employer], Main Office Address [address] [place] [address] Assessment No assessment recorded. Plan of Treatment Reminders Order Date Submit Date Provider Last Modified By Organization Details Last Modified Time Details Appointments None recorded . Lab HbA1c (hemoglo bin A1c), blood 025 09/18/19 [email or web address] [employer] [facility], [address], [address], [place], [address], 5 13:18:28 lipid panel, serum 025 09/18/19 25 [email or web address] [employer] [facility], [address], [place], [address], 5 13:18:27 CMP, serum or plasma 025 09/18/19 25 [email or web address] [employer] [facility], [address], [address], [place], [address], 5 13:18:27 CBC w/ auto diff 025 09/18/19 25 [employer] [facility], [address], [address], [place], [address], 5 13:18:27 Referral None recorded . Procedures None recorded . Surgeries None recorded . Imaging None recorded . Medication Orders None recorded . Patient TargetsNo targets recorded. Patient Instructions Encounter Date Encounter Id Patient Instructions Last Modified By Organization Details Last Modified Time 03/19/2024 [id number] Follow-up examination for coronary artery disease, hypertension, hyperlipidemia, type 2 diabetes as well as pulmonary fibrosis likely secondary to his underlying rheumatoid arthritis. Has had some recent blood work which showed some abnormalities of immunoglobulins. Will set up with Hematology for further evaluation of this. Had slight elevation of kappa light chains as well as some increase in beta microglobulin. Will continue on current medications. Already has a follow-up appointment several months. Will recheck back in six weeks. Additional Orders - Directives - Recommendations 1. Hematology consult up at [facility] for abnormal immunoprotein is in the blood with elevated kappa light chains Follow Up: 6 Weeks Approximate Date: 04/30/2024 Portions of the record may have been created with voice recognition software. Occasional wrong-word or qxudq-n-[id number] substitutions may have occurred due to the inherent limitations of voice recognition software. Read the chart carefully and recognize, using context, where substitutions have occurred. [email or web address] Not available 03/19/2024 15:57:58 05/20/2024 [id number] Follow-up for coronary artery disease, essential hypertension, hyperlipidemia, rheumatoid arthritis, pulmonary fibrosis all clinically stable. No blood required at this time. Will continue observation follow-up in two months Follow Up: 2 Months Approximate Date: 07/19/2024 Portions of the record may have been created with voice recognition software. Occasional wrong-word or sderl-n-zhvb substitutions may have occurred due to the inherent limitations of voice recognition software. Read the chart carefully and recognize, using context, where substitutions have occurred. Created: Carrington Heaht M.D. 05.20.2024 10:57 AM [email or web address] Not available 05/20/2024 11:58:13 09/17/2024 [id number] Follow-up perez ry artery disease, essential hypertension, hyperlipidemia, type 2 diabetes idiopathic pulmonary fibrosis. Check blood work consisting of CBC, CMP, lipid and hemoglobin A1c. Continue on his current medications await the right heart catheterization Follow Up: 4 Months Approximate Date: 01/15/2025 Portions of record are template driven. When necessary additional context will be provided. Additionally some portions have been created with voice recognition software. Occasional wrong-word or qmdok-x-ztit substitutions may have occurred due to the inherent limitations of voice recognition software. Read the chart carefully and recognize, using context, where substitutions may have occurred. Created: Carrington Heath M.D. 09.17.2024 03:07 PM [email or web address] Not available 09/17/2024 16:07:33 Reason for Referral None Reported. Results Created Date Observation Date Name Description Value Unit Range Abnormal Flag Note LastModifiedBy Organization Detail LastModifiedTime 02/18/20 24 02/25/2024 PROTE IN ELECT ROPHO RESIS AND KAPPA /MORGAN DA LIGHT CHAIN S, SERUM protein, total 6.1 g/dL 6.1-8. [address], [address], 02/25/2024 23:04:13 02/18/20 24 02/25/2024 PROTE IN ELECT ROPHO RESIS AND KAPPA /MORGAN DA LIGHT CHAIN S, SERUM albumin 4.1 g/dL 3.8-4. [address], [address], 02/25/2024 23:04:13 02/18/20 24 02/25/2024 PROTE IN ELECT ROPHO RESIS AND KAPPA /MORGAN DA LIGHT CHAIN S, SERUM alpha 1 globulin 0.3 g/dL 0.2-0. [address], [address], 02/25/2024 23:04:13 02/18/20 24 02/25/2024 PROTE IN ELECT ROPHO RESIS AND KAPPA /MORGAN DA LIGHT CHAIN S, SERUM alpha 2 globulin 0.5 g/dL 0.5-0. [address], [address], 02/25/2024 23:04:13 02/18/20 24 02/25/2024 PROTE IN ELECT ROPHO RESIS AND KAPPA /MORGAN DA LIGHT CHAIN S, SERUM beta 1 globulin 0.3 g/dL 0.4-0. 6 low Not Available [address], [address], 02/25/2024 23:04:13 02/18/20 24 02/25/2024 PROTE IN ELECT ROPHO RESIS AND KAPPA /MORGAN DA LIGHT CHAIN S, SERUM beta 2 globulin 0.2 g/dL 0.2-0. 5 Not Available [facility] [address], [address], 02/25/2024 23:04:13 02/18/20 24 02/25/2024 PROTE IN ELECT ROPHO RESIS AND KAPPA /MORGAN DA LIGHT CHAIN S, SERUM gamma globulin 0.8 g/dL 0.8-1. 7 Not Available [facility] [address] [address] [place], [address], 02/25/2024 23:04:13 02/18/20 24 02/25/2024 PROTE IN ELECT ROPHO RESIS AND KAPPA /MORGAN DA LIGHT CHAIN S, SERUM interpretati on SEE NOTE Elect ropho retic studi es revea led that one or more fract ions were outsi de the refer ence inter kimberly. Pleas e inter pret these resul ts withi n the rui xt of all clini mirian and labor atory data avail able. Not Available [address] [address] [place], [address], 02/25/2024 23:04:13 02/18/20 24 02/25/2024 PROTE IN ELECT ROPHO RESIS AND KAPPA /MORGAN DA LIGHT CHAIN S, SERUM kappa 209 mg/dL 176-44 3 Not Available [address] [address] [place], [address], 02/25/2024 23:04:13 02/18/20 24 02/25/2024 PROTE IN ELECT ROPHO RESIS AND KAPPA /MORGAN DA LIGHT CHAIN S, SERUM lambda 91 mg/dL 91-240 Not Available [facility] [address] [address] [place], [address], 02/25/2024 23:04:13 02/18/20 24 02/25/2024 PROTE IN ELECT ROPHO RESIS AND KAPPA /MORGAN DA LIGHT CHAIN S, SERUM kappa/lambda ratio 2.30 1.29-2 .55 This assay provi dionna a measu remen t of the total kappa and the total lambd a light chain s, ie., the amoun t of free (unat tache d) light chain in circu latio n and the amoun t of light chain linke d to heavy chain in intac t immun oglob ulin molec ules. Assay s for serum free light chain only, kappa and lambd a with ratio , may be more usefu l in evalu ating and manag ing light chain gammo pathi es inclu ding those assoc iated with myelo ma, lymph oprol ifera tive disor ders, and amylo idosi s. Not Available [facility] [address] [address] [place], [address], 02/25/2024 23:04:13 02/18/20 24 02/25/2024 LD LD 145 U/L 120-25 0 normal Not Available [facility] [address] [place], [address], 02/25/2024 23:04:14 02/18/20 24 02/25/2024 KAPPA /MORGAN DA LIGHT CHAIN , FREE W/RAT IO,RA ND URINE kappa light chain, free, urine 84.35 mg/L <=32.9 0 high Not Available [facility] [address] [address] [place], [address], 02/25/2024 23:04:14 02/18/20 24 02/25/2024 KAPPA /MORGAN DA LIGHT CHAIN , FREE W/RAT IO,RA ND URINE lambda light chain, free, urine 13.61 mg/L <=3.79 high Not Available [address] [address] [place], [address], 02/25/2024 23:04:14 02/18/20 24 02/25/2024 KAPPA /MORGAN DA LIGHT CHAIN , FREE W/RAT IO,RA ND URINE kappa/lambda , free ratio 6.20 <=8.69 If free light chain resul ts do not agree with other clini mirian or labor atory findi ngs, repea t testi ng on a dilut ed sampl e to rule out antig en exces s may be reque sted. Not Available [facility] [address] [address] [place], [address], 02/25/2024 23:04:14 02/18/20 24 02/25/2024 IMMUN OFIXA TION, URINE jose interpretati on No monoc lonal immun oglob ulin detec case. The suppl ier of the testi ng reage nts for this assay has gilman ed. Detec tion of small monoc lonal prote ins may vary by test syste m. Not Available [facility] [address] [place], [address], 02/25/2024 23:04:15 02/18/20 24 02/25/2024 BETA 2 MICRO GLOBU SONU, SERUM beta 2 microglobuli n, serum 2.95 mg/L < or = 2.51 high Not Available [facility] [address] [address], [place], [address], 02/25/2024 23:04:15 01/20/20 MRI, lumba r spine , w/o contr ast [facility] [address] [address] Patien t Name: ANDRE HUIZAR Access ion #: [id number] Sex: M : 1945 7 Dictat ed By: Anali Leone [facility] Physic haley: STEPHANIE HEATH [facility] Physic haley: STEPHANIE HEATH CE Exam Date: 2023 13:05 PM Exam Name: MRI L SPINE WO Admitt ing Diagno sis(es ): CLINIC AL INFORM ATION: 78 years old, Male; lbp. TECHNI QUE: Multis equenc e multip lanar MRI images of the lumbar spine were obtain ed withou t contra st. COMPAR SHAILESH: No prior dedica case imagin g of the lumbar spine was availa ble for compar shailesh at the time of dictat ion. Correl ation made to CT of the abdome n and pelvis dated 2019. INTERP RETATI ON: Straig htenin g of the normal lumbar lordos is. No signif icant spondy lolist hesis Verteb ral body height s are mainta ined. Zone Maintenance Technician ior elemen ts are intact . There is abnorm al, diffus e T1 and T2 hypoin tense signal throug hout the visual ized osseou s struct ures. Visual ized spinal cord and cauda equina are within normal limits . The conus medull hernando is approp riate in signal at the T12-L1 level. Parasp inal soft tissue s are unrema rkable . Partia lly visual ized cyst in the left kidney incide ntally noted. L1-L2: Disc desicc ation. No signif icant spinal canal or neural forami nal stenos is. L2-L3: Disc desicc ation with mild diffus e disc bulge mildly indent ing the ventra l aspect of the thecal sac. No signif icant spinal canal stenos is. Facet hypert rophy with mild bilate ral neural forami nal stenos es. L3-L4: Disc desicc ation with mild-t o-mode rate disc space narrow ing and diffus e disc bulge causin g mild-t o-mode rate spinal canal stenos is. Facet hypert rophy and encroa chment of the neural forami na by the disc bulge contri butes to modera te left and modera te to severe right neural forami nal stenos es. Possib le superi mposed right forami nal disc protru tova. L4-L5: Disc desicc ation with modera te to severe disc space narrow ing. Diffus e disc bulge causin g mild indent ation of the ventra l aspect of the Page 1 [facility] [address] [place] [address] Patien t Name: ANDRE HUIZAR Access ion #: [id number] Sex: M : 1945 7 Dictat ed By: Anali rodriguez Attend ing Physic haley: MELVIN VILLARREAL Physic haley: STEPHANIE HEATH Exam Date: 2023 13:05 PM Exam Name: MRI L SPINE WO Admitt ing Diagno sis(es ): thecal sac and mild spinal canal stenos is. Partia l efface ment of the latera l recess es. Facet hypert rophy and encroa chment of the neural forami na by the disc bulge contri butes to severe bilate ral neural forami nal stenos es. L5-S1: Disc desicc ation with modera te to severe disc space narrow ing and diffus e disc bulge mildly indent ing the ventra l aspect of the thecal sac. No signif icant spinal canal stenos is. Partia l efface ment of the latera l recess es by the disc bulge. Facet hypert rophy and encroa chment of the neural forami na by the disc bulge contri butes to severe bilate ral neural forami nal stenos es. IMPRES TOVA: 1. Degene rative disc diseas e and facet diseas e in the lumbar spine with associ ated spinal canal, subart icular , and neural forami nal stenos es as detail ed above. 2. Straig htenin g of the normal lumbar lordos is. No acute fractu re or spondy lolist hesis. 3. Diffus markie abnorm al marrow signal , may be seen with extens wendy red marrow hyperp lasia/ reconv ersion . Diffus e marrow infilt ration from multip le myelom a, lympho ma, leukem ia, myelof ibrosi s, or mastoc ytosis could also have a simila r appear ance. Correl ation with clinic al findin gs and labora melissa findin gs recomm ended. 4. Additi onal findin gs as detail ed above Electr onical ly Signed by: Anali rodriguez at 2023 12:51: 18 PM Page 2 [facility] (Imaging) [address] [place], [address], 01/20/2024 17:43:42 05/05/20 24 05/04/2024 XR, knee No observ ation record ed. Not Available 2023 17:04:36 Result Notes None recorded. Problems Name Problem SNOMED Code Status Onset Date Resolution Date Notes Provider Name and Address Organization Details Recorded Time Diverticu litis of colon 248927948 Active Not Available [employer] 3 13:33:48 Bronchiec tasis 43888977 Active Not Available [facility] 3 13:33:48 Acute sinusitis 06786436 Active 2021 Not Available [employer] 3 13:33:48 Blood glucose outside reference range 698859877 Active Not Available [facility] 3 13:33:48 Insomnia 122316042 Active Not Available [facility] 3 13:33:48 Asthma 053703726 Active Not Available [employer] 3 13:33:48 Prolapsed lumbar intervert ebral disc 577812778 Active 2017 Not Available [employer] 3 13:33:48 Gastroeso phageal reflux disease 831045557 Active 2021 Not Available [employer] 3 13:33:48 Osteoarth ritis of knee 743002019 Active Not Available [employer] 3 13:33:48 Pure hyperchol esterolem ia 527414226 Active Not Available [facility] 3 13:33:48 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 136295769 Active Not Available [facility] 3 13:33:48 Disorder of prostate 11952023 Active 2021 Not Available [employer] 3 13:33:48 Current tear of medial cartilage AND/OR meniscus of knee Active Not Available [employer] 3 13:33:48 Depressiv e disorder 35540544 Active Not Available [employer] 3 13:33:48 Chronic pain syndrome 762732030 Active 2020 Not Available [employer] 3 13:33:48 Osteoarth ritis 439037418 Active 2021 Not Available [employer] 3 13:33:48 Umbilical hernia 905452727 Active Not Available [facility] 3 13:33:48 Macrocyto sis 860936926 Active 2021 Not Available [facility] 3 13:33:48 Chronic sinusitis 41428468 Active 2021 Not Available [employer] 3 13:33:48 Coronary artery bypass graft occlusion 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 3 13:33:48 Chronic recurrent sinusitis 213959353 Active 2021 Not Available [facility] 3 13:33:48 Migraine with aura 9473215 Active Not Available [facility] 3 13:33:48 Anxiety 16119855 Active 2021 Not Available [facility] 3 13:33:48 Disorder of cardiovas cular system 88803475 Completed Not Available [facility] 3 06:03:43 Coronary arteriosc lerosis 26504715 Active Not Available [facility] 3 13:33:48 Essential hypertens ion 88443041 Active 2016 Not Available [facility] 3 13:33:48 Derangeme nt of knee 56747374 Active Not Available [facility] 3 13:33:48 Rheumatoi d arthritis 98213312 Active Not Available [facility] 3 13:33:48 Varicose veins of lower extremity 44993905 Active Not Available [facility] 3 13:33:48 Diabetes mellitus 49635776 Completed Not Available [facility] 3 06:03:44 Maxillary sinusitis 00857723 Active Not Available [facility] 3 13:33:48 Fibrosis of lung 67405209 Active 2022 Not Available [facility] 3 13:33:48 Anemia 359119088 Active 2022 Not Available [facility] 3 13:33:48 Low back strain 964910983 Active 2022 Not [address] [facility] 3 13:33:48 Pneumonia 254564639 Active 2022 Carrington Heath MD [address], [facility] [address], [place], [address] , [facility] [employer] [facility] 3 15:22:19 Diarrhea 85043305 Active 2022 Sharla Ortiz CMA null, [place] [facility] 3 17:17:30 Left foot drop 59683357699 9105 Active 2022 Carrington Heath MD [address], [address], [place], [address] , [place] [facility] 3 15:29:07 Low back pain 283579779 Active 2023 Rachna Gerson bustamante, [place] [facility] 4 15:21:51 Idiopathi c pulmonary fibrosis 175876043 Active 2023 Carrington Heath MD [address], [address], [place], [address] , [place] [facility] 4 15:42:54 Urinary tract infectiou s disease 72177258 Active 2023 Carrington Heath MD [address], [address], [place], [address] , [place] [facility] 4 16:55:31 Left side sciatica 37851309189 9104 Active 2023 Carrington Heath MD [address], [address], [place], [address] , [place] [facility] 4 15:55:40 Pain of hip region 44127177 Active 2023 Sharla Ortiz COST MANAGER null, [place] [facility] 4 12:30:10 Serum total protein outside reference range 964292684 Active 2023 Carrington Heath MD [address], [address], [place], [address] , [place] [facility] 4 15:34:08 Laborator y test result abnormal 989783171 Active 2023 Rachna Delacruzalden bustamante, [facility] 4 16:42:49 COVID-19 044033974 Active 2024 Carrington Heath MD [address], [address], [place], [address] , [place] [facility] 5 11:21:06 Type 2 diabetes mellitus 92225236 Active 2024 Carrington Heath MD [address] [facility], [facility] [address], [place], [address] , [facility] [email or web address]) 5 16:00:48 Problem Notes None recorded. Procedures Surgical History Date Name Laterality Status Provider Name and Address Organization Details Recorded Time 4 Medicare Wellness CPT Code, subsequent completed Mariann Elena RN [facility] [employer] [facility] 08/06/2023 14:57:50 3 Medicare Wellness CPT Code, subsequent completed Mariann Elena RN [facility] [employer] [facility] 08/03/2022 15:22:27 Imaging Results Imaging Date Name Status LastModified by Organiz ation Details LastModified Time 01/20/2024 MRI, lumbar spine, w/o contrast completed [email or web address] [place] [address] (Imaging) [address] [place], [address], 01/20/2024 17:43:42 05/04/2024 XR, knee [place] [address] Information no t available 05/13/2024 17:04:36 Procedure Notes None recorded. Medical Equipment None Reported. Allergies Allergen ID Allergen Name Allergen Category Reaction Reaction Severity Criticality Documentation Date Start Date Code Code System Note Provider Name and Address Organization Details Recorded Time 68345 Substance with sulfonami de structure and antibacte rial mechanism of action (substanc e) medicatio n rash Not available Not available 08/01/2022 86798 8003 SNOMED Not Available Replaced by [facility] 3 06:14:41 75887 Product containin g penicilli n (product) medicatio n rash Not available Not available 08/01/2022 06807 8001 SNOMED Not Available [facility] 3 06:14:41 13636 Keflex medicatio n rash Not available Not available 08/01/202223752 7 RxNorm Not Available Replaced by [facility] 3 06:14:41 Medications Name Sig Start Date Stop Date Status Note LastModified by Organization Details LastModified Time Prescript ion - Prior Authoriza tion Request active [employer] DENIAL FOR TESTOSTE TABATHA INJECTIO N Not Available Not Available Not Available fluoxetin e 40 mg capsule TAKE 1 CAPSULE BY MOUTH EVERY DAY active Not Available Not Available No t Available cyclobenz aprine 10 mg tablet Take 1 tablet three times daily active Not Available Not Available No t Available latanopro st 0.005 % eye drops INSTILL 1 DROP INTO BOTH EYES AT BEDTIME active Not Available Not Available No t Available clotrimaz ole 10 mg tim Take 1 tablet 5 times a day by oral route. active Not Available Not Available No t Available metformin 500 mg tablet Take 1 tablet twice a day by oral route. active Not Available Not Available No t Available prednison e 10 mg tablet TAKE 1 TAB BY MOUTH FOR 4 DAYS, HALF A TAB FOR 3 DAYS 08/03 completed Not Available Not Available Not Available doxycycli ne hyclate 100 mg capsule TAKE 1 CAPSULE BY MOUTH TWICE A DAY 08/05 completed Not Available Not Available Not Available clindamyc in HCl 300 mg capsule Take 1 capsule every 6 hours by oral route for 10 days. active Not Available Not Available No t Available clarithro mycin 250 mg tablet TAKE 1 TAB BY MOUTH EVERY 12 HOURS FOR 5 DAYS STOP HYDROXYC HLOROQUI NE AND SIMVASTA TIN WHILE USING. 01/10 completed Not Available Not Available Not Available Topamax 25 mg tablet Take 1 tablet twice a day by oral route. [facility] 10-10-15 to 11-08-18 pharmacy notified Not Available Not Available Not Available azithromy nigel 250 mg tablet TAKE 2 TABLETS BY MOUTH TODAY, THEN TAKE 1 TABLET DAILY FOR 4 DAYS 05/30 completed Not Available Not Available Not Available ofloxacin 0.3 % eye drops 05/30 completed Not Available Not Available Not Available valacyclo vir 1 gram tablet TAKE 1 GRAM TABLET ONCE A DAY BY MOUTH active Not Available Not Available No t Available clarithro mycin 500 mg tablet TAKE 1 TABLET BY MOUTH EVERY 12 HOURS FOR 10 DAYS 08/05 completed Not Available Not Available Not Available hydrocodo ne 5 mg-acetam inophen 325 mg tablet TAKE 1 TABLET BY MOUTH FOUR TIMES DAILY NEEDED 09/17 completed Not Available Not Available Not Available Elidel 1 % topical cream active Not Available Not Available Not Available prednison e 20 mg tablet TAKE 3 TABS DAILY FOR 5 DAYS, 2 TABS DAILY FOR 5 DAYS, THEN 1 TAB DAILY FOR 5 DAYS. TAKE WITH FOOD. 08/05 completed Not Available Not Available Not Available alendrona te 70 mg tablet TAKE 1 TABLET BY MOUTH ONCE WEEKLY 08/05 completed Not Available Not Available Not Available prednison e 5 mg tablet PLEASE SEE ATTACHED FOR DETAILED DIRECTIO NS active Not Available Not Available No t Available metronida zole 250 mg tablet active Not Available Not Available No t Available atenolol 25 mg tablet Take 1 tablet every day by oral route. 10/22 completed Not Available Not Available Not Available clindamyc in HCl 150 mg capsule Take 1 capsule every 6 hours by oral route. active Not Available Not Available No t Available diphenoxy late-atro pine 2.5 mg-0.025 mg tablet TAKE ONE TABLET EVERY 6 HOURS NEEDED FOR DIARRHEA 08/05 completed Not Available Not Available Not Available Minocin 100 mg capsule Take 1 capsule every day by oral route. 08/28 completed Not Available Not Available Not Available Zyrtec 10 mg tablet Take 1 tablet every day by oral route. 2015 active Not Available Not Available Not Avai lable metronida zole 500 mg tablet TAKE 1 TABLET 3 TIMES A DAY BY ORAL ROUTE. active Not Available Not Available No t Available azathiopr ine 50 mg tablet Take 1 tablet twice a day by oral route. 12/11 completed Not Available Not Available Not Available Ultracet 37.5 mg-325 mg tablet Take 1 tablet every 4 hours by oral route. 2012 active Not Available Not Available Not Avai lable ciproflox acin 500 mg tablet TAKE 1 TABLET BY MOUTH TWICE A DAY active Not Available Not Available No t Available aspirin 81 mg tablet,de layed release Take 1 tablet every day by oral route. active Not Available Not Available No t Available doxycycli ne monohydra te 100 mg tablet 08/03 completed Not Available Not Available Not Available tramadol 50 mg tablet TAKE 1 TAB WITH OTC TYLENOL BY MOUTH 4 TIMES A DAY NEEDED FOR PAIN CONTROL active Not Available Not Available No t Available triamcino lone acetonide 0.1 % topical cream 08/05 completed Not Available Not Available Not Available mycopheno late mofetil 500 mg tablet TAKE 2 TABLETS BY MOUTH TWICE A DAY active Not Available Not Available No t Available triflurid ine 1 % eye drops INSTILL ONE DROP INTO LEFT EYE EVERY TWO HOURS WHILE AWAKE active Not Available Not Available No t Available oxycodone -acetamin ophen 5 mg-325 mg tablet 04/12 completed Not Available Not Available Not Available alprazola m 0.5 mg tablet TAKE 1 TABLET BY MOUTH NEEDED BEFORE PROCEDUR E. active Not Available Not Available No t Available lancets accu chek lancets to test blood sugars daily 2021 active Not Available Not Available Not Avai lable prednisol one acetate 1 % eye drops,chanda pension 05/30 completed Not Available Not Available Not Available cyanocoba evgeny (vit B-12) 500 mcg tablet Take 1 tablet every day by oral route. active Not Available Not Available No t Available dicyclomi ne 20 mg tablet TAKE 1 TABLET BY MOUTH TWICE A DAY 08/05 completed Not Available Not Available Not Available prednison e 1 mg tablet 1 MG ORALLY DAILY 08/05 completed Not Available Not Available Not Available baclofen 10 mg tablet TAKE 1 TABLET BY MOUTH FOUR TIMES A DAY 10/09 completed Not Available Not Available Not Available prednison e 2.5 mg tablet PLEASE SEE ATTACHED FOR DETAILED DIRECTIO NS 08/05 completed Not Available Not Available Not Available simvastat in 20 mg tablet take one tablet by mouth daily active Not Available Not Available No t Available erythromy nigel 5 mg/gram (0.5 %) eye ointment APPLY A SMALL AMOUNT AT BEDTIME NEEDED active Not Available Not Available No t Available tacrolimu s 0.1 % topical ointment PLEASE SEE ATTACHED FOR DETAILED DIRECTIO NS active Not Available Not Available No t Available tobramyci n 0.3 % eye drops 08/28 completed Not Available Not Available Not Available clotrimaz ole-betam ethasone 1 %-0.05 % topical cream APPLY TO AFFECTED AREA TWICE A DAY IN THE MORNING AND IN THE EVENING FOR 2 WEEKS active Not Available Not Available No t Available olopatadi ne 0.1 % eye drops Instill 1 drop twice a day by ophthalm ic route. 01/17 completed Not Available Not Available Not Available omeprazol e 20 mg capsule,d elayed release Take 1 capsule every day by oral route. 02/02 completed Not Available Not Available Not Available acetamino phen 300 mg-codein e 60 mg tablet TAKE 1 TABLET BY MOUTH EVERY 6 HOURS active Not Available Not Available No t Available mupirocin 2 % topical ointment APPLY TOPICALL Y TWICE DAILY 08/05 completed Not Available Not Available Not Available furosemid e 20 mg tablet TAKE 1 TABLET BY MOUTH EVERY DAY. TAKE A WHOLE OR HALF TAB DAILY UNTIL WEIGHT DECREASE S 5LBS active Not Available Not Available No t Available ergocalci ferol (vitamin D2) 1,250 mcg (50,000 unit) capsule 01/17 completed Not Available Not Available Not Available lorazepam 1 mg tablet TAKE 1/2 TABLET BY MOUTH 3 TIMES A DAY AND 1 TABLET AT BEDTIME active Not Available Not Available No t Available azelastin e 137 mcg (0.1 %) nasal spray SPRAY 2 SPRAYS INTRANAS ALLY TWICE A DAY active Not Available Not Available No t Available hydroxych loroquine 200 mg tablet 200 MG ORALLY TWICE A DAY 12/11 completed Not Available Not Available Not Available testoster one cypionate 200 mg/mL intramusc ular oil INJECT 1 ML INTRAMUS CULARLY EVERY OTHER WEEK active Not Available Not Available No t Available levofloxa nigel 500 mg tablet TAKE 1 TABLET BY MOUTH EVERY DAY FOR 10 DAYS 09/17 completed Not Available Not Available Not Available levofloxa nigel 750 mg tablet Take 1 tablet every day by oral route. 08/05 completed Not Available Not Available Not Available methylpre dnisolone 4 mg tablets in a dose pack TAKE 6 TABLETS ON DAY 1 DIRECTED ON PACKAGE AND DECREASE BY 1 TAB EACH DAY FOR A TOTAL OF 6 DAYS 04/28 completed Not Available Not Available Not Available albuterol sulfate HFA 90 mcg/actua tion aerosol inhaler TAKE 1 PUFF BY MOUTH EVERY 4 HOURS NEEDED FOR SHORTNES S OF BREATH/W HEEZING active Not Available Not Available No t Available ipratropi um bromide 42 mcg (0.06 %) nasal spray SPRAY 2 SPRAYS INTO EACH NOSTRIL 3 TIMES DAILY FOR 3 DAYS active Not Available Not Available No t Available ondansetr on 4 mg disintegr ating tablet DISSOLVE 1 TABLET ON TONGUE EVERY 8 HOURS 08/05 completed Not Available Not Available Not Available cefdinir 300 mg capsule 08/05 completed Not Available Not Available Not Available fluoxetin e 20 mg capsule TAKE ONE CAPSULE BY MOUTH ONCE DAILY 12/07 completed Not Available Not Available Not Available fluticaso ne propionat e 50 mcg/actua tion nasal spray,chanda pension 2 SPRAY INTRANAS AL TWICE A DAY INTO EACH NOSTRIL active Not Available Not Available No t Available doxycycli ne hyclate 100 mg tablet Take 1 tablet twice a day by oral route. active Not Available Not Available No t Available Ambien 10 mg tablet Take 1 tablet every day by oral route at bedtime. 02/26 completed Not Available Not Available Not Available finasteri de 5 mg tablet TAKE 1 TABLET BY MOUTH EVERY DAY active Not Available Not Available No t Available naproxen 500 mg tablet Take 1 tablet twice a day by oral route. 02/02 completed Not Available Not Available Not Available oxycodone 5 mg tablet TAKE 1 TABLET BY MOUTH EVERY 12 HOURS NEEDED FOR PAIN 04/12 completed Not Available Not Available Not Available neomycin 3.5 mg/g-poly myxin B 10,000 unit/g-de xameth 0.1 % eye oint active Not Available Not Available Not Available Calcium Citrate + D 315 mg-5 mcg (200 unit) tablet Take 1 tablet every day by oral route. 2017 active Not Available Not Available Not Avai lable Blood Glucose Test strips one touch ultra test strips test once daily 08/30 completed Not Available Not Available Not Available Mucinex 600 mg tablet, extended release Take 1 tablet every 12 hours by oral route. active Not Available Not Available No t Available Vitamin D3 25 mcg (1,000 unit) tablet Take 1 tablet every day by oral route. 03/04 completed Not Available Not Available Not Available cyclobenz aprine 5 mg tablet PLEASE SEE ATTACHED FOR DETAILED DIRECTIO NS 09/17 completed Not Available Not Available Not Available Restasis 0.05 % eye drops in a dropperet te INSTILL 1 DROP INTO BOTH EYES TWICE A DAY 03/19 completed Not Available Not Available Not Available moxifloxa nigel 0.5 % eye drops PLEASE SEE ATTACHED FOR DETAILED DIRECTIO NS 08/05 completed Not Available Not Available Not Available minocycli ne 100 mg tablet Take 1 tablet every day by oral route. 12/06 completed Not Available Not Available Not Available Systane (propylen e glycol) 0.4 %-0.3 % eye drops as directed 2012 active Not Available Not Available Not Avai lable topiramat e 50 mg tablet TAKE 1 TABLET BY MOUTH TWICE A DAY active Not Available Not Available No t Available Spiriva with [employer] r 18 mcg and inhalatio n capsules Inhale 2 capsules 4 times a day by inhalati on route. active Not Available Not Available No t Available Mucinex DM 30 mg-600 mg tablet,ex tended release 12 hr Take 1 tablet every 12 hours by oral route. active Not Available Not Available No t Available sildenafi l (pulmonar y hypertens ion) 20 mg tablet TAKE 1 TABLET BY MOUTH EVERY DAY active Not Available Not Available No t Available ramelteon 8 mg tablet TAKE 1 TABLET AT BEDTIME 2024 active Not Available Not Available Not Avai lable Clobex 0.05 % topical spray active Not Available Not Available Not Available blood-glu cose meter accu chek meter to test blood sugars daily 08/30 completed Not Available Not Available Not Available hydroxych loroquine 09/26 completed Not Available Not Available Not Available calcium citrate malate-vi t D3 daily 03/04 completed Not Available Not Available Not Available Reclast 5 mg/100 mL intraveno us piggyback ANNUAL INFUSION S 12/11 completed Not Available Not Available Not Available cholecalc iferol (vitamin D3) 1,250 mcg (50,000 unit) capsule TAKE 1 CAPSULE BY MOUTH ONCE A WEEK 56 DAYS active Not Available Not Available No t Available OneTouch Delica Lancets 33 gauge ONE TOUCH DELICA 33 GAUGE EXTRA FINE LANCETS TEST ONCE DAILY 02/02 completed Not Available Not Available Not Available Zirgan 0.15 % eye gel active Not Available Not Available Not Available Vitamin D3 125 mcg (5,000 unit) tablet Take 1 tablet every day by oral route. 2017 active Not Available Not Available Not Avai lable Vimovo 500 mg-20 mg tablet,im mediate and delay release Take 1 tablet twice a day by oral route. 08/28 completed Not Available Not Available Not Available Atrapro Hydrogel topical active Not Available Not Available Not Available prednison e 2 mg tablet,de layed release Take 1 tablet every day by oral route. 09/26 completed Not Available Not Available Not Available Luzu 1 % topical cream active Not Available Not Available Not Available Anoro Ellipta 62.5 mcg-25 mcg/actua tion powder for inhalatio n Inhale 1 puff every day by inhalati on route. 03/04 completed Not Available Not Available Not Available Spiriva Respimat 2.5 mcg/actua tion solution for inhalatio n Inhale 2 puffs every day by inhalati on route. 08/05 completed Not Available Not Available Not Available tadalafil 20 mg tablet (pulmonar y hypertens ion) TAKE 1 TABLET BY MOUTH EVERY OTHER DAY NEEDED 02/02 completed Not Available Not Available Not Available Accu-Chek Guide Glucose Meter ACCUCHEK METER TO TEST BLOOD SUGARS DAILY active Not Available Not Available No t Available Refresh Optive Jaime-3 (PF) 0.5 %-1 %-0.5 % eye drops in a dropperet te daily 08/05 completed Not Available Not Available Not Available Fluzone High-Dose (PF) 180 mcg/0.5 mL intramusc ular syringe TO BE ADMINIST ERED BY truedash FOR IMMUNIZA TION 10/22 completed Not Available Not Available Not Available Trelegy Ellipta 100 mcg-62.5 mcg-25 mcg powder for inhalatio n INHALE 1 PUFF BY MOUTH EVERY 24 HOURS 10/09 completed Not Available Not Available Not Available OneTouch Ultra Blue Test Strip USE TO TEST BLOOD SUGAR ONCE DAILY DX E11.9 08/29 completed Not Available Not Available Not Available Fluzone High-Dose (PF) 180 mcg/0.5 mL intramusc ular syringe TO BE ADMINIST ERED BY truedash FOR IMMUNIZA TION 08/02 completed Not Available Not Available Not Available Ubrelvy 100 mg tablet TAKE 1 TABLET (100 MG) BY ORAL ROUTE ONCE MAY REPEAT DOSE ONCE AFTER 2 HOURS IF NEEDED, NOT TO EXCEED 200 MG IN 24 HOURS active Not Available Not Available No t Available Flowflex COVID-19 Antigen Home Test kit USE DIRECTED 10/09 completed Not Available Not Available Not Available Paxlovid 300 mg (150 mg x 2)-100 mg tablets in a dose pack Take two of the 150mg tablets and one of the 100mg tablets twice daily for five days 09/17 completed Not Available Not Available Not Available latanopro st (PF) 0.005 % eye drops in a dropperet te INSTILL 1 DROP INTO AFFECTED EYE(S) BY OPHTHALM IC ROUTE ONCE DAILY INTHE EVENING active Not Available Not Available No t Available Vitals Date Recorded Body height Provider Name an d Address Organization Details Last Updated DateTime 02/11/2024 165.1 cm Carrington Heath MD [address] [facility], [facility] [address], [place], [address], [facility] [employer] 02/11/2024 16:28:58 Date Recorded Body height Body mass index (BMI) Body weight Heart rate Body temperature Oxygen saturation Oxygen saturation in Arterial blood by Pulse oximetry Inhaled oxygen flow rate Systolic blood pressure Diastolic blood pressure Provider Name and Address Organization Details Last Updated DateTime 4 165.1 cm 25.8 kg/m2 78449.8 2 g 104 /min 97 [degF] 96 % 96 % 3 L/min 118 mm[Hg] 60 mm[Hg] HARIKA Agrawal [facility] [employer] 4 15:26:57 Date Recorded Body height Body mass index (BMI) Body weight Heart rate Body temperature Oxygen saturation Oxygen saturation in Arterial blood by Pulse oximetry Inhaled oxygen flow rate Systolic blood pressure Diastolic blood pressure Provider Name and Address Organization Details Last Updated DateTime 4 165.1 cm 25.1 kg/m2 98630.4 5 g 104 /min 97 [degF] 95 % 95 % 4 L/min 116 mm[Hg] 58 mm[Hg] Grazyna Wellington [facility] [employer] 4 15:54:12 Date Recorded Body height Body weight Heart rate Body temperature Oxygen saturation Oxygen saturation in Arterial blood by Pulse oximetry Inhaled oxygen flow rate Systolic blood pressure Diastolic blood pressure Provider Name and Address Organization Details Last Updated DateTime 4 165.1 cm 19271.7 8 g 98 /min 97 [degF] 97 % 97 % 4 L/min 112 mm[Hg] 60 mm[Hg] HARIKA Agrawal [place] - [facility] [employer] 4 11:34:45 Date Recorded Body height Body mass index (BMI) Body weight Heart rate Body temperature Oxygen saturation Oxygen saturation in Arterial blood by Pulse oximetry Inhaled oxygen flow rate Systolic blood pressure Diastolic blood pressure Provider Name and Address Organization Details Last Updated DateTime 5 165.1 cm 25 kg/m2 25166.6 5 g 101 /min 97 [degF] 99 % 99 % 4 L/min 118 mm[Hg] 60 mm[Hg] Grazyna [place] - [facility] [employer] 5 15:38:39 Social History Question Answer Notes LastModified by Organization Details LastModified Time Tobacco Smoking Status Current Every Day Smoker Not Available [facility] 08/01/[facility] 05:54:01 Do You Have An Advance Directive? No They Are Working On It Information not available 08/06/2023 Are You Blind Or Do You Have Difficulty Seeing? No [email or web address] Information not available 08/06/2023 Are You Deaf Or Do You Have Serious Difficulty Hearing? Yes [email or web address] Information not available 08/03/2022 What Type Of Diet Are You Following? REGULAR [id number] Information not available 08/01/2022 Have There Been Any Changes To Your Family Or Social Situation? Yes [email or web address] Information not available 08/06/2023 What Is The Fluoride Status Of Your Home? Unknown [email or web address] Information not available 08/03/2022 Are There Any Guns Present In Your Home? Yes [id number] [id number] Information not available 08/01/2022 Do You Use Insect Repellent Routinely? Yes MIGRATION.[id number] [id number] Information not available 08/01/2022 Where Do You Live? [place]House MIGRATION.[id number] [id number] Information not available 08/01/2022 Guns Present In The Home? Yes [email or web address] Information not available 08/06/2023 Are You Able To Care For Yourself? Yes [email or web address] Information not available 08/06/2023 Are You Blind Or Do Yo Have Difficulty Seeing? No Information not available 08/06/2023 Are You Deaf Or Do You Have Serious Difficulty Hearing? Yes [email or web address] Information not available 08/06/2023 Live Alone Of With Others? With Others [email or web address] Information not available 08/06/2023 Do You Have A Medical Power Of Director Of Instruction? No [email or web address].[id number] [id number] Information not available 08/01/2022 What Was The Date Of Your Most Recent Tobacco Screening? 08/06/2023 [email or web address] Information not available 08/06/2023 Do You Have Any Pets? Yes MIGRATION.[id number] [id number] Information not available 08/01/2022 What Is Your Relationship Status? MIGRATION.0301 [id number] Information not available 08/01/2022 Do You Use Your Seat Belt Or Car Seat Routinely? Yes MIGRATION.0301 [id number] Information not available 08/01/2022 Do You Have Smoke And Carbon Monoxide Detectors In Your Home? Yes MIGRATION.0301 [id number] Information not available 08/01/2022 At What Age Did You Start Smoking Tobacco? 18 Has Quit In Between Several Times [email or web address].[id number] [id number] Information not available 08/01/2022 How Much Tobacco Do You Smoke? 0.5 PPD MIGRATION.0301 [id number] Information not available 08/01/2022 Do You Use Sunscreen Routinely? Yes MIGRATION.0301 [id number] Information not available 08/01/2022 Have You Recently Traveled Abroad? No MIGRATION.0301 [id number] Information not available 08/01/2022 Do You Have Difficulty Walking Or Climbing Stairs? No MIGRATION.0301 [id number] Information not available 08/01/2022 Do You Have Any Dietary Restrictions? No MIGRATION.0301 [id number] Information not available 08/01/2022 Sex: Unknown Functional Status Question Answer Note LastModified by Organizat ion Details LastModified Time What is your level of alcohol consumption? None [email or web address] Information not available 08/06/2023 Do you have transportation difficulties? No [id number] Information not available 08/01/2022 Are you able to walk? YESWOREST MIGRATION.[id number] Information not available 08/01/2022 Do you have difficulty doing errands alone? No MIGRATION.[id number] Information not available 08/01/2022 Are you able to care for yourself? Yes MIGRATION.[id number] Information not available 08/01/2022 Do you have difficulty dressing or bathing? No MIGRATION.[id number] Information not available 08/01/2022 What is your exercise level? None bad back MIGRATION.[id number] Information not available 08/01/2022 Mental Status Question Answer Note LastModified by Organizat ion Details LastModified Time Do you have difficulty concentrating, remembering or making decisions? No [id number] Information not available 08/01/2022 Family History Nothing Reported Notes:Mother 80 yea rs old Father 85 years old 7 Brothers 2 Living 3 Sisters 2 Living Mother Hx: DM, CVA, HTN Father Hx: ASHD Sister Hx: (1) one has dementia Brother Hx: DM (1) , ASHD (1) , Ca of Kidney (1) , Suicide (2) Infirmities(1) Medical History Condition Response NERVE DISEASE N BLINDNESS N RHEUMATIC FEVER N KIDNEY STONES N BLADDER PROBLEMS N OTHER # 1 N POLIO N LUNG DISEASE/DISORDER N RADIATION / CHEMOTHERAPY N COPD Y Other # 2 N BLOOD DISEASES N SURGERY N EAR OR HEARING PROBLEMS N MUMPS N BOWEL PROBLEMS N DEPRESSION (INCLUDING POST ) Y STROKE/TIA N ULCERS N BENIGN PROSTATIC HYPERPLASIA Y MEASLES N MYOCARDIAL INFARCTION N OBESITY N GERD/NAUSEA N ANEURYSM N URINARY/BLADDER/KIDNEY PROBLEMS N INPATIENT PSYCH CARE N CORONARY ARTERY DISEASE (CAD) Y ADDICTION CONCERNS N Impotence N ENDOMETRIOSIS N USE OF BLOOD THINNERS N SKIN PROBLEMS N GASTROINTESTINAL DISORDER N PERIPHERAL VASCULAR DISEASE N MUSCLE,JOINT OR BONE PROBLEMS N GASTROINTESTINAL BLEEDING N BLOOD CLOTS N ASTHMA Y CATARACTS N ERECTILE DYSFUNCTION N VARICOSITIES Y GI PROBLEMS Y Low Testosterone N INFERTILITY N AIDS/HIV N LIVER DISEASE N MALE HYPOGONADISM N HYPERTENSION Y Deficiency N ANXIETY DISORDER Y BLOOD TRANSFUSION N ANEMIA/BLOOD DISORDER N CHRONIC EAR INFECTIONS N BRONCHITIS N TUBERCULOSIS N GLAUCOMA N DIVERTICULITIS N SLEEP APNEA N CHICKENPOX N INFECTIOUS DISEASE N PROSTATE N HEART ARRHYTHMIA N INSOMNIA Y HIGH CHOLESTEROL / HYPERLIPIDEMIA Y EYE PROBLEMS N HYPERTHYROIDISM N NEUROLOGICAL PROBLEMS N EDEMA N CHRONIC PAIN SYNDROME N HYPOTHYROIDISM N CONSTIPATION N CAROTID BLOCKAGE N BACK / NECK PROBLEMS N HAVE YOU BEEN HOSPITALIZED OR SEEN IN [facility] IN THE PAST YEAR ? N ATHEROSCLEROSIS N BREAST PROBLEMS N DIALYSIS N ECZEMA N OSTEOPOROSIS N ARTHRITIS Y NO SIGNIFICANT PAST MEDICAL HISTORY N APPENDICITIS N DIABETES, TYPE Y BAD TEETH N ENT N HEARTBURN / REFLUX N AUTISM SPECTRUM DISORDER (ASD) N HEPATITIS / LIVER DISEASE N PULMONARY DISEASE N GOUT N SLEEP DISORDER N ALZHEIMER'S DISEASE N Brain Problems N DEMENTIA N HERPES N SEIZURES/EPILEPSY N HEADACHES/MIGRAINES N VASCULAR DISEASE N PACEMAKER N Blood Disorder N DIZZINESS N HEART DISEASE/HEART PROBLEMS Y KIDNEY DISEASE N MULTIPLE SCLEROSIS N CANCER: SPECIFY N CARDIAC ARRHYTHMIA N ANESTHESIA COMPLICATIONS N ATRIAL FIBRILLATION N Gall Stones N PULMONARY EMBOLISM N AUTOIMMUNE DISEASE N Immunizations Vaccine Type Date Status Note Provider Nam e and Address Organization Details Recorded Time influenza, unspecified formulation 2 completed Grazyna Slecka null, [facility] [employer] [facility] 08/03/2022 15:17:25 influenza, unspecified formulation 3 completed Grazyna Slecka null, [facility] [employer] [facility] 04/11/2023 17:23:26 Influenza, adjuvanted, trivalent, PF 4 completed HARIKA Agrawal null, [facility] [employer] [facility] 03/16/2024 15:43:54 SARS-COV-2 (COVID-19) vaccine, UNSPECIFIED 1 completed Not Available Replaced by [facility] 08/01/2022 06:14:18 Influenza, high-dose, trivalent, PF 7 completed Not Available Replaced by [facility] 08/01/2022 06:14:19 Influenza, high-dose, trivalent, PF 3 completed Not Available Replaced by [facility] 08/01/2022 06:14:19 COVID-19, mRNA, LNP-S, PF, 30 mcg/0.3 mL dose 2 completed Not Available Replaced by [facility] 08/01/2022 06:14:19 Influenza, split virus, quadrivalent, preservative 1 completed Not Available Replaced by [facility] 08/01/2022 06:14:19 COVID-19, mRNA, LNP-S, PF, 30 mcg/0.3 mL dose 1 completed Not Available Replaced by [facility] 08/01/2022 06:14:19 SARS-COV-2 (COVID-19) vaccine, UNSPECIFIED 1 completed Not Available Replaced by [facility] 08/01/2022 06:14:19 Pneumococcal conjugate PCV 13 5 completed Not Available [facility] 08/01/2022 06:14:20 Pneumococcal conjugate PCV 13 5 completed Not Available [facility] 08/01/2022 06:14:20 Influenza, high-dose, quadrivalent, PF 0 completed Not Available [facility] 08/01/2022 06:14:20 Influenza, high-dose, trivalent, PF 8 completed Not Available [facility] 08/01/2022 06:14:20 Influenza, high-dose, trivalent, PF 5 completed Not Available [facility] 08/01/2022 06:14:20 Influenza, high-dose, trivalent, PF 4 completed Not Available Replaced by [facility] 08/01/2022 06:14:20 pneumococcal polysaccharide PPV23 3 completed Not Available [facility] 08/01/2022 06:14:21 Pneumococcal conjugate PCV20, polysaccharide NFG187 conjugate, adjuvant, PF 4 completed HARIKA Agrawal, [place] [employer] [facility] 05/20/2024 14:02:28 Past Encounters Encounter ID Performer Location Encounter Start Date Encounter Closed Date Diagnosis/Indication Diagnosis SNOMED-CT Code Diagnosis ICD10 Code Diagnosis Note [id number] Carrington Heath MD [facility] Internal [facility] [place] [facility] [employer] [address], [place] [address] 08/02/2020 00:00:00 08/02/2020 16:57:44 [id number] Carrington Heath MD [facility] [place] [facility] [place] [address] [address] 10/04/2020 00:00:00 10/04/2020 15:26:45 [id number] Carrington Heath MD [facility] Internal [place] [address] [place] [address] [place] [address] 12/06/2020 00:00:00 12/06/2020 15:30:15 [id number] Carrington Heath MD [facility] Internal [place] [address] [place] [address] [place] [address] 01/31/2021 00:00:00 01/31/2021 14:39:22 [id number] Carrington Heath MD [facility] Internal [place] [address] [place] [address] [place] [address] 05/30/2021 00:00:00 05/30/2021 16:41:38 [id number] Carrington Heath MD [facility] Internal [place] [address] [place] [address] [place] [address] 08/15/2021 00:00:00 08/15/2021 11:15:19 [id number] Carrington Heath MD [facility] Internal [facility] [place] [address] [place] [address] [place] [address] 09/26/2021 00:00:00 09/26/2021 16:09:26 [id number] Carrington Heath MD [facility] Internal Med [place] [address] [place] [address] [place] [address] 02/02/2022 00:00:00 02/02/2022 16:11:16 [id number] Carrington Heath MD [facility] Internal Med [place] [address] [place] [address] [place] [address] 08/03/2022 14:45:59 08/03/2022 16:02:18 Adult health examination 210361261 Z00.00 Screening for disorder 884304022 Z13.9 Coronary arteriosclerosis 46682587 I25.10 Essential hypertension 62971390 I10 Pure hypercholesterolemia 418852764 E78.00 Type 2 lito betes mellitus without complication 694207860 E11.9 Rheumatoid arthritis 698 98494 M06.9 Fibrosis of lung 0621230 1 J84.10 [id number] Carrington Heath MD [facility] [facility] [place] [address] [place] [address] [place] [address] 10/09/2022 14:56:21 12/06/2022 16:50:05 [id number] Carrington Heath MD [facility] [place] [address] [place] [address] y , [place] [address] 12/07/2022 14:38:56 12/07/2022 15:16:55 Coronary arteriosclerosis 06975553 I25.10 Essential hypertension 56361581 I10 Pure hypercholesterolemia 981514109 E78.00 Type 2 lito betes mellitus without complication 881703445 E11.9 Chronic pain syndrome 37 0276787 G89.4 Bronchiectasis 77173369 J47.9 [id number] Carrington Heath MD [facility] Internal Med [facility] 24 [address] [facility], [facility] 24 [place] [address] 01/10/2023 11:14:58 01/10/2023 11:51:41 Acute sinusitis 86230616 J01.90 [id number] Carrington Heath MD [facility] Internal Med [address] [place] [address] 03/12/2023 14:22:47 03/12/2023 15:07:17 Coronary arteriosclerosis 95563942 I25.10 Essential hypertension 67507177 I10 Pure hypercholesterolemia 661127365 E78.00 Type 2 lito betes mellitus without complication 239563267 E11.9 Fibrosis of lung 0671854 1 J84.10 Disorder of prostate 302 56073 N42.9 [id number] Carrington Heath MD [facility] Internal Med [address] [place] [address] 04/16/2023 14:53:38 04/16/2023 15:40:18 Pneumonia 276264010 J18.9 Coronary arteriosclerosis 58159425 I25.10 Essential hypertension 38116958 I10 Pure hypercholesterolemia 200397464 E78.00 [id number] Carrington Heath MD [facility] [address] [place] [address] [place] [address] 05/14/2023 14:33:43 05/14/2023 15:42:11 Coronary arteriosclerosis 97186572 I25.10 Essential hypertension 08386735 I10 Pure hypercholesterolemia 336649534 E78.00 Fibrosis of lung 2916243 1 J84.10 Left foot drop 396690465 1 61981 M21.570 [id number] Carrington Heath MD [facility] Internal [facility] [place] [address] [facility] y , [place] [address] 06/07/2023 14:23:07 06/07/2023 15:23:54 Coronary arteriosclerosis 27124305 I25.10 Pure hypercholesterolemia 531291770 E78.00 Rheumatoid arthritis 698 17540 M06.9 Type 2 lito betes mellitus without complication 370895842 E11.9 Asthma 055760568 J45.90 [id number] Carrington Heath MD [facility] Internal [facility] [place] [address] [facility] y , [place] [address] 08/06/2023 14:49:05 08/07/2023 08:40:31 Adult health examination 833935320 Z00.00 Screening for disorder 191991121 Z13.9 Coronary arteriosclerosis 24830264 I25.10 Essential hypertension 15887796 I10 Fibrosis of lung 7381276 1 J84.10 Pure hypercholesterolemia 968330361 E78.00 Type 2 lito betes mellitus without complication 747151313 E11.9 Rheumatoid arthritis 698 80202 M06.9 [id number] Carrington Heath MD [facility] Internal [facility] [place] [address] [place] [address] y , [place] [address] 10/15/2023 14:57:00 10/15/2023 15:53:51 Coronary arteriosclerosis 94238763 I25.10 Essential hypertension 90440350 I10 Pure hypercholesterolemia 682170957 E78.00 Type 2 lito betes mellitus without complication 699508285 E11.9 Hereditary hemochromatosis 70998232 E83.110 Idiopathic pulmonary fibrosis 691964394 J84.344 [id number] Carrington Heath MD [facility] [place] [address] [place] [address] [place] [address] 12/12/2023 15:13:20 12/12/2023 16:04:22 Left side sciatica 9896804348 63360 M54.32 Coronary arteriosclerosis 24798608 I25.10 Essential hypertension 61334825 I10 Type 2 lito betes mellitus without complication 940586974 E11.9 Pure hypercholesterolemia 823164508 E78.00 Fibrosis of lung 4839371 1 J84.10 [id number] Carrington Heath MD [facility] [place] [address] [facility] y , [place] [address] 02/11/2024 15:07:51 02/11/2024 16:29:39 [id number] Carrington Heath MD [facility] [place] [address] [facility] , [place] [address] 03/19/2024 15:15:51 03/19/2024 16:12:28 Coronary arteriosclerosis 54297022 I25.10 Essential hypertension 27763062 I10 Pure hypercholesterolemia 088300753 E78.00 Rheumatoid arthritis 698 20336 M06.9 Idiopathic pulmonary fibrosis 513840598 J84.521 [id number] Carrington Heath MD [facility] Primary [facility] 101 [facility] 140 [place] [address] 04/28/2024 15:28:19 04/28/2024 16:48:46 [id number] Carrington Heath MD [facility] Internal Med [facility] 24 [address]43 [facility] 24 [place] [address] 05/20/2024 11:25:09 05/20/2024 14:52:39 Coronary arteriosclerosis 18229423 I25.10 Essential hypertension 52546123 I10 Idiopathic pulmonary fibrosis 269411491 J84.112 Pure hypercholesterolemia 033866842 E78.00 Rheumatoid arthritis 698 48051 M06.9 [id number] Carrington Heath MD [facility] 101 [facility] 140 [place] [address] 09/17/2024 15:21:57 09/17/2024 16:14:45 Coronary arteriosclerosis 72548308 I25.10 Essential hypertension 22077455 I10 Idiopathic pulmonary fibrosis 498960268 J84.112 Pure hypercholesterolemia 868278208 E78.00 Type 2 lito betes mellitus 53709149 E11.9 Health Concerns Section Related Observation LastModified by Organization Detai ls LastModified Time None Recorded Concern Status LastModified by Organization Details LastModified Time None Recorded Advance Directives Directive N: they are working on it Payers Encounter Date Sequence Insurance Name Policy Number Policy Miller Covered Member ID Miller Member ID Guarantor Name 02/11/2024 1 [employer] (MEDICARE REPLACEMENT/A DVANTAGE - PPO) Andre Huizar [id number] Andre Huizar 03/19/2024 1 [employer] (MEDICARE REPLACEMENT/A DVANTAGE - PPO) Andre Huizar [id number] Andre Huizar 04/28/2024 1 [employer] (MEDICARE REPLACEMENT/A DVANTAGE - PPO) Andre Huizar [id number] Andre Huizar 05/20/2024 1 [employer] (MEDICARE REPLACEMENT/A DVANTAGE - PPO) Andre Huizar [id number] Andre Huizar 09/17/2024 1 [employer] (MEDICARE REPLACEMENT/A DVANTAGE - PPO) Andre Mosher Bhupendra [id number] Andre Nomi Bhupendra Notes Date Note Type Note Provider Name and Address Organization Details Recorded Time 03/19/2024 text/html Patient Name: Tien kaur BhupendraDate Of Service: March ( 03.19.2024 ): 1945 Age: 78 There has been approximately a 2 lb weight gain since 12/12/2023. This represents approximately a 1.3% change in weight. Weight change attributable to lifestyle changes. Vital Signs:Blood Pressure: Sitting Rt. Arm 187/60Pulse: Sitting 100 /min and RegularRespiratory Rate: 16Height 65 in or 1.7 mWeight 155 lb or 70.3 kgBMI 25.8Temperature: 97 F or 36.1 CPulse Oximetry: 96 % at rest on no oxygen Chief Complaint: Addressed in HPI Problems or conditions discussed in the HPI were the only ones reviewed during the encounter.Only social and family history addressed in the HPI were reviewed during this encounter. Attendant(s): WifeConstitutional and Systemic Symptoms:none, chills, night sweats, anorexia, weight loss, weight gain, generalized fatigue, myalgia and arthralgia Medication Reconciliation: from medication list. Zalyjjcawri26/01/2023: Carotid doppler <50% stenosis 04-10-2023: Echocardiogram left ventricular ejection fraction 65-70%. Right ventricular systolic function normal. The right atrial chamber is mildly enlarged. There is mild mitral valve regurgitation. There is mild tricuspid regurgitation. Pulmonary hypertension estimated at 58 mmHg. 01-20-2024: MRI of the lumbar spine shows multiple decrease in disc height with some mild in dentition on the ventral thecal sac with zbki-hr-pgbyvjdu stenosis noted at multiple levels. No suggestion of any serious lesions that require possible surgical intervention. History of Present Illness #1. Coronary Artery Disease: There has been no change in frequency - duration - intensity in frequency, duration or intensity of chest pain. Other Complaints: none The frequency of anginal attacks is several times per week. Additional Symptoms: none Therapy reviewed regarding cardiovascular management includes Aspirin Ec and Zocor #2. Essential Hypertension: Stage: Stage I Interval Neurological Complaints dizziness. No shortness of breath, orthopnea or cardiovascular symptoms. No other symptoms related to end organ damage. Pressure has been under excellent control. Currently normal. No other end organ symptoms or findings. Therapy reviewed regarding management of hypertension and includes salt restriction. #3. Type II Hypercholesterolaemia: Currently taking medication and tolerating well. No interval complaints of any muscle pain or arthralgia. No significant liver changes with medications. Last lipid panel: excellent control. Therapy reviewed regarding treatment of cholesterol management and include diet and Zocor. #4. Type II Diabetes: Has had no polyuria polyphagia or polydipsia. Has had no hypoglycemic like responses. No new history of any numbness, tingling, weakness or visual problems. No nausea, anorexia or other constitutional symptoms. There has been no foot problems or non healing lesions. The last HAIC was [facility] HAIC: 6.0 Calculated MB mg%. CGM: No. Average blood sugars unknown. Checking sugars : several times a week. Medication Types Include: diet Secondary complications include none. Macro-vascular complications include ASHD. Therapy reviewed regarding diabetic management and include diet only Compliance: excellent Renal Protection: not required at this stage Lipid management: statins Urinary microalbumin: A1 . Ophthalmological: has seen eye doctor within the last year. Control: Below 6.2 #5. Hx of rheumatoid arthritis. Currently stable. No additional joint swelling or deformities noted. Synovial thickening as noted below. Physical activity status unchanged. Followed by Antisqueak Chalker: Yes. Tolerating medications well. Medications currently consistent of Prednisone. Active Medication ListFinasteride 5 MG (TABLET - ORAL) QdAspirin Ec 81 MG TABLET, DELAYED RELEASE One DailyProzac 40 MG CAPSULE One DailyAtivan 1 MG (TABLET - ORAL) One Half Tab. Three Times A Day And One Tab. At HsFlonase 0.05 MG/SPRAY Two Sprays Each Nostril Once DailyZocor 20 MG (TABLET - ORAL) Once DailyPrednisone 5 MG TABLET One Tablet Daily With Option To Increase To 15 Mg DailyTopamax 50 MG (CAPSULE - ORAL) Twcie A DayZyrtec 10 MG (TABLET - ORAL) One Daily For AllergiesUltram 50 MG (TABLET - ORAL) Four Times A DayTacrolimus 0.1% (OINTMENT - TOPICAL) Twice A Day As NeededVitamin D D3 5000 Units DailyRefresh Tears Optive Jaime 3 One Drop Three Times A DayLatanoprost Daily Each Eye At NightUbrelvy As Needed For MigraineMucinex Dm One Twice A DayVentolin Hfa 2 Puffs Four Times A Day As NeededVitamin B12 DailyCaltrate Plus D3 DailyRozerem 8 MG (TABLET - ORAL) One @ HsTestosterone 200 MG/ ML (INJECTABLE - INJECTION) One Ml Q 2 WeeksSpiriva 18 UG CAPSULE Once Daily Adverse Drug Reactions ReviewedSulfa Drugs Hives RashKeflex RashPenicillin Rash Vaccination and Immunization( ) 2012- PNEUMOVAX( ) 2023- INFLUENZA(X) 2014- PREVNAR 13 GC PREVNAR 20 Needed(X) 2020- COVID LOGIC DEVICES Surgical Jnyjtxs6039-19 Qorpkhzxcodzjnrjy7079-4 3 Lap Tpnmgryyyjcertk6162-96 Umbilical Fwwdpy7598-47 SWGQ3710-62 Appendectomy Preventative Testing( ) 02/18/2024 Albumin 4.1 G/DL( ) 08/30/2023 Ophthalmology( ) 08/19/2023 HAIC 6.0 % OF TOTAL HGB H( ) 03/26/2023 PSA 0.60 NG/ML N 03/26/2025( ) 03/26/2023 Micro Albumin 0.4 MG/DL N(X) 04/17/2022 LDCT 04/17/2023( ) 03/30/2022 DEXA Scan (Normal)( ) 03/17/2021 Optometry( ) 03/20/2020 CT Thorax(X) 07/13/2016 Colonoscopy (5 Years) 07/13/2021 Social HistorySmoking Hx: 3 of cigarettes per day for 20 years. Quit 1996Drinking Hx: 6 Cups of coffee per day, < 6 cans of soft drinksper day.Exercise: WeeklySexual Hx: Sexually Active Family HistoryMother 80 years oldFather 85 years old7 Brothers 2 Living3 Sisters 2 LivingMother Hx: DM, CVA, HTNFather Hx: ASHDSister Hx: Infant (1) one has dementiaBrother Hx: DM (1) , ASHD (1) , Ca of Kidney (1) , Suicide (2) Infirmities(1) Carrington Heath MD [address] [facility], [facility] [address], [place], [address], [place] [employer] 03/19/2024 15:58:12 05/20/2024 text/html Patient Name: Tien kaur ReiterDate Of Service: Saturday ( 05.20.2024 ): 1945 Age: 78 There has been approximately a 5 lb weight gain since 03/19/2024. This represents approximately a 3.2% change in weight. Weight change attributable to lifestyle changes. Vital Signs:Blood Pressure: Sitting Rt. Arm 112/60Pulse: Sitting 98 /min and RegularRespiratory Rate: 18Height 65 in or 1.7 mWeight 160 lb or 72.6 kgBMI 26.6Temperature: 97 F or 36.1 CPulse Oximetry: 97 % at rest on oxygen Chief Complaint: Addressed in HPI Problems or conditions discussed in the HPI were the only ones reviewed during the encounter.Only social and family history addressed in the HPI were reviewed during this encounter. Attendant(s): WifeConstitutional and Systemic Symptoms:none Medication Reconciliation: from medication list. Kxpsdkgbaus40/01/2023: Carotid doppler <50% stenosis 04-10-2023: Echocardiogram left ventricular ejection fraction 65-70%. Right ventricular systolic function normal. The right atrial chamber is mildly enlarged. There is mild mitral valve regurgitation. There is mild tricuspid regurgitation. Pulmonary hypertension estimated at 58 mmHg. 01-20-2024: MRI of the lumbar spine shows multiple decrease in disc height with some mild in dentition on the ventral thecal sac with agsb-om-zugvvdqv stenosis noted at multiple levels. No suggestion of any serious lesions that require possible surgical intervention. History of Present Illness #1. Coronary Artery Disease: There has been no change in frequency - duration - intensity in frequency, duration or intensity of chest pain. Other Complaints: none The frequency of anginal attacks is none at all. Additional Symptoms: none Therapy reviewed regarding cardiovascular management includes Aspirin Ec and Zocor #2. Essential Hypertension: Stage: Stage I Interval Neurological Complaints no headaches, dizziness, weakness, visual changes, ataxia, aphasia and apraxia. No shortness of breath, orthopnea or cardiovascular symptoms. No other symptoms related to end organ damage. Pressure has been under excellent control. Currently normal. No other end organ symptoms or findings. Therapy reviewed regarding management of hypertension and includes salt restriction. #3. Type II Hypercholesterolaemia: Currently taking medication and tolerating well. No interval complaints of any muscle pain or arthralgia. No significant liver changes with medications. Last lipid panel: fair control. Therapy reviewed regarding treatment of cholesterol management and include diet and Zocor. #4. Hx of rheumatoid arthritis. Currently stable. No additional joint swelling or deformities noted. Synovial thickening as noted below. Physical activity status unchanged. Followed by Antisqueak Chalker: Yes. Tolerating medications well. Medications currently consistent of Prednisone. #5. History of idiopathic pulmonary fibrosis etiology which cords by definition unknown. The patient has had no change in overall exercise tolerance although has become quite weak with ambulatory skills and exertional tolerance as well as with balance at times. Consider seeing the patient up with physical therapy to work with strengthening and helping with balance therapy.: Active Medication ListFinasteride 5 MG (TABLET - ORAL) QdAspirin Ec 81 MG TABLET, DELAYED RELEASE One DailyProzac 40 MG CAPSULE One DailyAtivan 1 MG (TABLET - ORAL) One Half Tab. Three Times A Day And One Tab. At HsFlonase 0.05 MG/SPRAY Two Sprays Each Nostril Once DailyZocor 20 MG (TABLET - ORAL) Once DailyPrednisone 5 MG TABLET One Tablet Daily With Option To Increase To 15 Mg DailyTopamax 50 MG (CAPSULE - ORAL) Twcie A DayZyrtec 10 MG (TABLET - ORAL) One Daily For AllergiesUltram 50 MG (TABLET - ORAL) Four Times A DayTacrolimus 0.1% (OINTMENT - TOPICAL) Twice A Day As NeededVitamin D D3 5000 Units DailyRefresh Tears Optive Jaime 3 One Drop Three Times A DayLatanoprost Daily Each Eye At NightUbrelvy As Needed For MigraineMucinex Dm One Twice A DayVentolin Hfa 2 Puffs Four Times A Day As NeededVitamin B12 DailyCaltrate Plus D3 DailyRozerem 8 MG (TABLET - ORAL) One @ HsTestosterone 200 MG/ ML (INJECTABLE - INJECTION) One Ml Q 2 WeeksSpiriva 18 UG CAPSULE Once Daily Adverse Drug Reactions ReviewedSulfa Drugs Hives RashKeflex RashPenicillin Rash Vaccination and Immunization( ) 2012- PNEUMOVAX( ) 2023- INFLUENZA(X) 2014-08 PREVNAR 13 GC PREVNAR 20 Needed(X) 2020- COVDigitalTangible Surgical Akuolpv0890-28 Cneegmvlifgijyqxr3753-0 3 Lap Wofxglzpebxzwwx9819-36 Umbilical Fqdxco4756-83 AJKH5296-48 Appendectomy Preventative Testing( ) 03/09/2024 Optometry( ) 02/18/2024 Albumin 4.1 G/DL( ) 08/30/2023 Ophthalmology( ) 08/19/2023 HAIC 6.0 % OF TOTAL HGB H( ) 03/26/2023 PSA 0.60 NG/ML N 03/26/2025( ) 03/26/2023 Micro Albumin 0.4 MG/DL N(X) 04/17/2022 LDCT 04/17/2023( ) 03/30/2022 DEXA Scan (Normal)( ) 03/20/2020 CT Thorax(X) 07/13/2016 Colonoscopy (5 Years) 07/13/2021 Social HistorySmoking Hx: 3 of cigarettes per day for 20 years. Quit 1996Drinking Hx: 6 Cups of coffee per day, < 6 cans of soft drinksper day.Exercise: WeeklySexual Hx: Sexually Active Family HistoryMother 80 years oldFather 85 years old7 Brothers 2 Living3 Sisters 2 LivingMother Hx: DM, CVA, HTNFather Hx: ASHDSister Hx: Infant (1) one has dementiaBrother Hx: DM (1) , ASHD (1) , Ca of Kidney (1) , Suicide (2) Infirmities(1) Carrington Heath MD [address] [facility], [address], [place], [address], [place] [employer] 05/20/2024 11:58:28 09/17/2024 text/html Patient Name: Tien kaur ReiterDate Of Service: September ( 09.17.2024 ): 1945 Age: 79 There has been approximately a 9.5 lb weight loss since 05/20/2024. This represents approximately a 5.9% change in weight. Weight change attributable to lifestyle changes. Vital Signs:Blood Pressure: Sitting Rt. Arm 118/60Pulse: Sitting 100 /min and RegularRespiratory Rate: 22Height 65 in or 1.7 mWeight 150.5 lb or 68.3 kgBMI 25.0Temperature: 97 F or 36.1 CPulse Oximetry: 99 % at rest on oxygen 4 liters Chief Complaint: Addressed in HPI Problems or conditions discussed in the HPI were the only ones reviewed during the encounter.Only social and family history addressed in the HPI were reviewed during this encounter. Attendant(s): WifeConstitutional and Systemic Symptoms:generalized fatigue Medication Reconciliation: from medication list. Grwcnvmuxbj63/01/2023: Carotid doppler <50% stenosis 04-10-2023: Echocardiogram left ventricular ejection fraction 65-70%. Right ventricular systolic function normal. The right atrial chamber is mildly enlarged. There is mild mitral valve regurgitation. There is mild tricuspid regurgitation. Pulmonary hypertension estimated at 58 mmHg. 01-20-2024: MRI of the lumbar spine shows multiple decrease in disc height with some mild in dentition on the ventral thecal sac with spmb-sp-ivptyxpk stenosis noted at multiple levels. No suggestion of any serious lesions that require possible surgical intervention. History of Present Illness #1. Coronary Artery Disease: There has been no change in frequency - duration - intensity in frequency, duration or intensity of chest pain. Other Complaints: shortness of breath The frequency of anginal attacks is none at all. Additional Symptoms: none Therapy reviewed regarding cardiovascular management includes Aspirin Ec and Zocor #2. Essential Hypertension: Stage: Stage I Interval Neurological Complaints no headaches, dizziness, weakness, visual changes, ataxia, aphasia and apraxia. No shortness of breath, orthopnea or cardiovascular symptoms. No other symptoms related to end organ damage. Pressure has been under excellent control. Currently normal. No other end organ symptoms or findings. Therapy reviewed regarding management of hypertension and includes salt restriction and weight loss. #3. Type II Hypercholesterolaemia: Currently taking medication and tolerating well. No interval complaints of any muscle pain or arthralgia. No significant liver changes with medications. Last lipid panel: fair control. Therapy reviewed regarding treatment of cholesterol management and include diet and Zocor. #4. Type II Diabetes: Has had no polyuria polyphagia or polydipsia. Has had no hypoglycemic like responses. No new history of any numbness, tingling, weakness or visual problems. No nausea, anorexia or other constitutional symptoms. There has been no foot problems or non healing lesions. The last HAIC was none done recently. CGM: No. Average blood sugars unknown. Checking sugars : several times a week. Medication Types Include: diet Secondary complications include none. Macro-vascular complications include none. Therapy reviewed regarding diabetic management and include diet only Compliance: excellent Renal Protection: not required at this stage Lipid management: statins Urinary microalbumin: A1 . Ophthalmological: has seen eye doctor within the last year. Control: Good Control 6.2 - 7.0 #5. History of fibrosis of the lung probably is a complication of his rheumatoid arthritis etc.. Pulmonary is wanting to consider doing a right heart sided heart catheterization to check pulmonary pressures. Clinically stable at this time. Seems to be doing fairly well considering. Does have some peripheral edema consistent with some right-sided heart failure.: Active Medication ListFinasteride 5 MG (TABLET - ORAL) QdAspirin Ec 81 MG TABLET, DELAYED RELEASE One DailyProzac 40 MG CAPSULE One DailyAtivan 1 MG (TABLET - ORAL) One Half Tab. Three Times A Day And One Tab. At HsFlonase 0.05 MG/SPRAY Two Sprays Each Nostril Once DailyZocor 20 MG (TABLET - ORAL) Once DailyPrednisone 5 MG TABLET One Tablet Daily With Option To Increase To 15 Mg DailyTopamax 50 MG (CAPSULE - ORAL) Twcie A DayZyrtec 10 MG (TABLET - ORAL) One Daily For AllergiesUltram 50 MG (TABLET - ORAL) Four Times A DayTacrolimus 0.1% (OINTMENT - TOPICAL) Twice A Day As NeededVitamin D D3 5000 Units DailyRefresh Tears Optive Jaime 3 One Drop Three Times A DayLatanoprost Daily Each Eye At NightUbrelvy As Needed For MigraineMucinex Dm One Twice A DayVentolin Hfa 2 Puffs Four Times A Day As NeededVitamin B12 DailyCaltrate Plus D3 DailyRozerem 8 MG (TABLET - ORAL) One @ HsTestosterone 200 MG/ ML (INJECTABLE - INJECTION) One Ml Q 2 WeeksSpiriva 18 UG CAPSULE Once Daily Adverse Drug Reactions ReviewedSulfa Drugs Hives RashKeflex RashPenicillin Rash Vaccination and Immunization( ) 2012- PNEUMOVAX( ) 2023- INFLUENZA(X) 2014- PREVNAR 13 GC PREVNAR 20 Needed(X) 2020- COVID LOGIC DEVICES Surgical Dnrtkez1756-04 Wjdyqchpkhshenzhj3759-0 3 Lap Wwtqhkvlsjeevxd3043-94 Umbilical Malpua4924-69 MVEO6151-23 Appendectomy Preventative Testing( ) 08/03/2024 Ophthalmology( ) 06/18/2024 Optometry( ) 02/18/2024 Albumin 4.1 G/DL( ) 08/19/2023 HAIC 6.0 % OF TOTAL HGB H( ) 03/26/2023 PSA 0.60 NG/ML N 03/26/2025( ) 03/26/2023 Micro Albumin 0.4 MG/DL N(X) 04/17/2022 LDCT 04/17/2023( ) 03/30/2022 DEXA Scan (Normal)( ) 03/20/2020 CT Thorax(X) 07/13/2016 Colonoscopy (5 Years) 07/13/2021 Social HistorySmoking Hx: 3 of cigarettes per day for 20 years. Quit 1996Drinking Hx: 6 Cups of coffee per day, < 6 cans of soft drinksper day.Exercise: WeeklySexual Hx: Sexually Active Family HistoryMother 80 years oldFather 85 years old7 Brothers 2 Living3 Sisters 2 LivingMother Hx: DM, CVA, HTNFather Hx: ASHDSister Hx: Infant (1) one has dementiaBrother Hx: DM (1) , ASHD (1) , Ca of Kidney (1) , Suicide (2) Infirmities(1) Carrington Heath MD [address] [facility], [address], [place], [address], [place] [facility] 09/17/2024 16:07:51
--- OUTSIDE RECORDS SUMMARY | 2024-10-21 00:41 | XMS_ITS | CONTINUITY OF CARE DOCUMENT ---
Author Name freedom loja Address Unknown Organization [facility] Address [address] [place] [address] [address] [place] [address] Phone [phone] Care Team Providers Care Spiral Weaver Name Role Phone freedom loja Unavailable Unavailable
--- OUTSIDE RECORDS SUMMARY | 2024-10-21 00:41 | XMS_ITS | Clinical Summary ---
Author Organization [facility] Alireza Rahman Address [address] [place] [address] Care Team Providers Care Chicken Cleaner Name Role Phone Carrington Heath MD Primary Care Provider [phone] Allergies Active Allergy Reactions Criticality Noted Date Comments Cephalexin Hives,Rash High 10/06/2008 Penicillins Rash Medium 03/08/2023 Sulfa (Sulfonamide Antibiotics) Rash Medium 10/06/2008 Sulfamethoxazole-Trimet hoprim Other (See Comments) Low 08/16/2023 Lesions on genitals Medications FLUoxetine (PROzac) 20 mg capsule Take 1 Capsule (20 mg) by mouth daily. 90 Capsule 3 3 2:35 PM CDT 05/04/20 22 Active aspirin (ECOTRIN EC) 81 mg Tablet, Delayed Release (E.C.) Take 81 mg by mouth daily. Active ramelteon (ROZEREM) 8 mg Tablet Take 8 mg by mouth daily at bedtime. Active cetirizine (ZyrTEC) 10 mg tablet Take 10 mg by mouth daily. Active predniSONE (DELTASONE) 5 mg tablet Take 5 mg by mouth daily. Active fluticasone propionate (FLOVENT DISKUS) 50 mcg/actuation Disk with Device Take 1 Puff by inhalation daily. Active mycophenolate mofetil (CELLCEPT) 500 mg tablet Take 1,500 mg by mouth 2 times daily. Active topiramate (TOPAMAX) 50 mg tablet Take 50 mg by mouth 2 times daily. Active traMADoL (ULTRAM) 50 mg tablet Take 50 mg by mouth every 6 hours as needed for Pain. Active finasteride (PROSCAR) 5 mg tablet Take 5 mg by mouth daily. Active dextromethorph an-guaiFENesin (MUCINEX DM) 30-600 mg Tablet Sustained Release 12HR Take 1 Tablet by mouth every 12 hours. Active testosterone cypionate (DEPO-TESTOSTE TABATHA) 200 mg/mL Oil Inject 200 mg by intramuscular injection one time only. Active azelastine (ASTELIN) 137 mcg/actuation nasal spray Administer 2 Sprays in each nostril 2 times daily. Active ubrogepant (Ubrelvy) 100 mg tablet Take 100 mg by mouth one time only. Active cycloSPORINE (RESTASIS) 0.05 % emulsion 1 Drop 2 times daily. Active LATANOPROST OP by Ophthalmic route. Active tiotropium (SPIRIVA) 18 mcg capsule Take 18 mcg by inhalation daily. Active albuterol (VENTOLIN INHALATION) Take by inhalation. Active tacrolimus (PROTOPIC) 0.1 % Ointment Apply to affected area 2 times daily. Active cyanocobalamin (VITAMIN B-12) 500 mcg tablet Take 500 mcg by mouth daily. Active azaTHIOprine (IMURAN) 50 mg tablet Take 50 mg by mouth daily. Active CHOLECALCIFERO L, VITAMIN D3, ORAL Take by mouth daily. 50,000 IU- 1 tab 1x a week for 4 weeks then 5,000 IU 1x a day for 4 weeks Active CALCIUM CITRATE-VITAMI N D3 ORAL Take by mouth daily. Calcium-400mg, D3-500 IU Active simvastatin (ZOCOR) 20 mg tablet Take 1 Tablet (20 mg) by mouth daily at bedtime. 90 Tablet 1 5 2:01 PM CDT 07/02/19 25 Active simvastatin (ZOCOR) 20 mg tablet Take 1 Tablet (20 mg) by mouth daily. 90 Tablet 1 07/02/19 25 Active valACYclovir (VALTREX) 1 gram tablet Take 1 Gram by mouth daily. 06/22/19 25 Active LORazepam (ATIVAN) 1 mg tabletIndicati ons:Anxiety state Take 1 tablet by mouth 30 minutes prior to Biopsy. 1 Tablet 10/15/19 25 Active LORazepam (ATIVAN) 1 mg tablet Take 1 mg by mouth every 6 hours as needed for Anxiety. 025 Discontinu ed(Alterna te therapy prescribed ) triamcinolone acetonide (KENALOG) 0.1 % Cream Apply to affected area 2 times daily. 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 Encounters Date Type Department Care Team Description 10/14/2024 Refill [facility] Oncology and Hematology [facility] [address] [place] [address] Gilmar Cassidy MD Anxiety state (Primary Dx) 10/14/2024 Telephone [facility] Oncology and Hematology [facility] [address] [place] [address] Gilmar Cassidy MD Anxiety 10/13/2024 2:00 PM CDT Office Visit [facility] Oncology and Hematology [facility] [address] [place] [address] Gilmar Cassidy MD Chronic anemia (Primary Dx) 08/19/2024 External Device Data ST[facility] ABSTRACTION Provider, Abstract 08/08/2024 External Device Data [facility] ABSTRACTION Provider, Abstract 08/08/2024 External Device Data [facility] ABSTRACTION Provider, Abstract from Last 3 Months Family History Medical History Relation Name Comments No Known Problems Brother 1 Uterine Cancer Brother 2 Diabetes Brother 3 Heart Disease Brother 3 Prostate Cancer Brother 4 No Known Problems Brother 5 No Known Problems Brother 6 No Known Problems Brother 7 COPD Father Heart Disease Father Diabetes Mother Stroke Mother No Known Problems Sister 1 Cancer Sister 2 Stomach Cancer Sister 2 No Known Problems Sister 3 Relation Name Status Comments Brother 1 Brother 2 Brother 3 Brother 4 Alive Brother 5 Brother 6 Brother 7 Father Mother Sister 1 Sister 2 Sister 3 Social History Tobacco Use Types Packs/Day Years Used Date Smoking Tobacco: Former Cigarettes 2 40 Q uit: 08/01/2021 Tobacco Cessation:Counseling Given: Not Answered Alcohol Use Standard Drinks/Week Comments Not Currently 0 (1 standard drink = 0.6 oz pur e alcohol) once a year or so Sex and Gender Information Value Date Recorded Sex Assigned at Not on file Legal Sex Male 3:27 PM CDT Gender Identity Not on file Sexual Orientation Not on file Last Filed Vital Signs Vital Sign Reading Time Taken Comments Blood Pressure 111/60 10/13/2024 2:09 PM CDT Pulse 107 10/13/2024 2:09 PM CDT Temperature 36.9 C (98.5 F) 10/13/2024 2:09 PM CDT Respiratory Rate 15 10/13/2024 2:09 PM CDT Oxygen Saturation 94% 10/13/2024 2:09 PM CDT Inhaled Oxygen Concentration - - Weight 67 kg (147 lb 12.8 oz) 10/13/2024 2:09 PM CDT Height 167.6 cm (5' 6 ) 04/13/2024 11:30 AM SPORTS MEDICINE SPECIALIST Body Mass Index 23.86 04/13/2024 11:30 AM SPORTS MEDICINE SPECIALIST Plan of Treatment Upcoming Encounters Date Type Department Care Team (Late st Contact Info) Description 10/29/2024 11:30 AM CDT Office Visit [facility] Oncology and Hematology [facility] [address] [facility] [address] [place] [address] Gilmar Cassidy MD [address] [facility] [address] [place] [address] Health Maintenance Due Date Last Done Comments DIABETES ANNUAL FOOT EXAM 1965 DIABETES ANNUAL RETINAL EXAM 1965 DIABETES MICROALBUMIN ANNUAL SCREEN 1965 LDL CHOLESTEROL ANNUAL 1965 DTAP/TDAP/TD VACCINES (1 - Tdap) 1966 Lung Cancer Screening 1997 ZOSTER VACCINE (1 of 2) 1997 DIABETES HBA1C Q 6 MONTHS 07/31/2018 01/28/2018 RSV VACCINE (60+ or ) (1 - 1-dose 75+ series) 2022 PNEUMOCOCCAL VACCINE 50+ YEARS Completed 0 08/10/2014, 08/01/2014, 04/17/2013 INFLUENZA VACCINE Completed 03/14/2024, , 03/04/2020, Additional history exists Procedures Procedure Name Priority Date/Time Associated Diagnosis Comments IMMUNOFIXATION Routine 09/22/2024 1:27 PM CDT CBC WITH DIFFERENTIAL Routine 09/22/2024 1:27 PM CDT VITAMIN B12 AND FOLATE Routine 1:27 PM CDT Chronic anemia PROTEIN ELECTROPHORESIS W/REFLEX,SERUM Routine 09/22/2024 1:27 PM CDT Elevated serum immunoglobulin free light chains KAPPA/LAMBDA LIGHT CHAINS Routine 09/22/2024 1:27 PM CDT Elevated serum immunoglobulin free light chains IRON, TIBC, AND PERCENT SATURATION Routine 09/22/2024 1:27 PM CDT Chronic anemia IMMUNOGLOBULINS IGG IGA IGM Routine 09/22/2024 1:27 PM CDT Elevated serum immunoglobulin free light chains FERRITIN Routine 09/22/2024 1:27 PM CDT Chronic anemia from Last 3 Months Results * VITAMIN B12 AND FOLATE (09/22/2024 1:27 PM CDT) Pathologist [facility] VITAMIN B12 525 200 - 1100 pg/mL [facility] FOLATE, SERUM 8.7 ng/mL [facility] Comment: Reference Range Low: <3.4 Borderline: 3.4-5.4 Normal: >5.4 FASTING:NO FASTING: NO Test Performed at: [facility] [id number] [place] [phone] Jona George MD Blood 09/22/2024 1:27 PM CDT 09/22/2024 1:28 PM CDT us Gilmar Cassidy MD CHEMISTRY ORDERABLES Final Resu lt [facility] [phone] [facility] [address] [place] [address] * IMMUNOFIXATION (09/22/2024 1:27 PM CDT) [facility] IMMUNOFIXATION INTER [facility] Comment: Normal pattern. No monoclonal proteins detected. FASTING:NO FASTING: NO Test Performed at: [facility] [address], [place] [address] Jona George MD 09/22/2024 1:27 PM CDT 09/22/2024 1:28 PM CDT Gilmar Cassidy MD CHEMISTRY ORDERABLES Final Resu lt Performing Organization Address [facility]/ZIP Co de Phone Number [facility] [phone] [facility] [place] [address] * KAPPA/LAMBDA, FREE LIGHT CHAINS (09/22/2024 1:27 PM CDT) KAPPA FREE LIGHT CHAIN 17.1 3.3 - 19.4 mg/L [facility] LAMBDA FREE LIGHT CHAIN 11.5 5.7 - 26.3 mg/L [facility] KAPPA/LAMBDA LIGHT CHAIN RATIO 1.49 0.26 - 1.65 [facility] Comment: Free kappa/lambda ratio in serum of normal individuals is 0.26-1.65. Excess production of free kappa or lambda chains can alter this ratio. Monoclonal free light chains are found in serum of patients with multiple myeloma, Waldenstrom's macroglobulinemia, mu-heavy chain disease, primary amyloidosis, light chain deposition disease, monoclonal gammopathy of undetermined significance, and lymphoproliferative disorders. Measurement of free light chain concentration in serum is useful for diagnosis, prognosis, monitoring disease activity and following response to therapy of these disorders. FASTING:NO FASTING: NO Test Performed at: [facility] [address], [place] [address] Jona George MD Blood 09/22/2024 1:27 PM CDT 09/22/2024 1:28 PM CDT us Gilmar Cassidy MD CHEMISTRY ORDERABLES Final Resu lt [facility] [phone] [facility] [address] [place] [address] * (ABNORMAL) IRON, TIBC, AND PERCENT SATURATION (09/22/2024 1:27 PM CDT) [facility] IRON 211(H) 50 - 180 mcg/dL [facility] TIBC 224(L) 250 - 425 mcg/dL (calc) [facility] IRON % SATURATION 94(H) 20 - 48 % (calc) [facility] Comment: FASTING:NO FASTING: NO Test Performed at: [facility] [address] Jona George MD Blood 09/22/2024 1:27 PM CDT 09/22/2024 1:28 PM CDT Gilmar Cassidy MD CHEMISTRY ORDERABLES Final Resu lt [facility] [phone] [facility] [address] * (ABNORMAL) CBC WITH DIFFERENTIAL (09/22/2024 1:27 PM CDT) [facility] WBC 8.6 3.8 - 10.8 Thousand/u L [facility] RBC 2.02(L) 4.20 - 5.80 Million/uL [facility] HEMOGLOBIN 7.5(L) 13.2 - 17.1 g/dL [facility] HEMATOCRIT 22.9(L) 38.5 - 50.0 % [facility] MCV 113.4(H) 80.0 - 100.0 fL [facility] MCH 37.1(H) 27.0 - 33.0 pg [facility] MCHC 32.8 32.0 - 36.0 g/dL [facility] Comment: For adults, a slight decrease in the calculated MCHC value (in the range of 30 to 32 g/dL) is most likely not clinically significant; however, it should be interpreted with caution in correlation with other red cell parameters and the patient's clinical condition. RDW 19.6(H) 11.0 - 15.0 % [facility] PLATELETS 190 140 - 400 Thousand/u L [facility] MPV 13.0(H) 7.5 - 12.5 fL [facility] NEUTROPHIL ABSOLUTE 7,645 1,500 - 7,800 cells/uL [facility] LYMPHOCYTE ABSOLUTE 421(L) 850 - 3,900 cells/uL [facility] MONOCYTE ABSOLUTE 456 200 - 950 cells/uL [facility] EOSINOPHIL ABSOLUTE 52 15 - 500 cells/uL [facility] BASOPHILS ABSOLUTE 26 0 - 200 cells/uL [facility] NEUTROPHIL 88.9 % [facility] LYMPHOCYTES 4.9 % [facility] MONOCYTE 5.3 % [facility] EOSINOPHILS 0.6 % [facility] BASOPHILS 0.3 % [facility] Comment: FASTING:NO FASTING: NO Test Performed at: [facility] [address] [place] [phone] Jona George MD 09/22/2024 1:27 PM CDT 09/22/2024 1:28 PM CDT us Gilmar Cassidy MD HEMATOLOGY ORDERABLES Final Res ult [facility] [phone] [facility] [address] * IMMUNOGLOBULINS IGG IGA IGM (09/22/2024 1:27 PM CDT) IGA 70 70 - 320 mg/dL [facility] IGG 790 600 - 1540 mg/dL [facility] IGM 111 50 - 300 mg/dL [facility] Comment: FASTING:NO FASTING: NO Test Performed at: [facility] [address] [facility] [place] [address] Jona George MD Blood 09/22/2024 1:27 PM CDT 09/22/2024 1:28 PM CDT us Gilmar Cassidy MD CHEMISTRY ORDERABLES Final Resu lt [facility] [phone] [facility] [address] [facility] [place] [address] * (ABNORMAL) PROTEIN ELECTROPHORESIS W/REFLEX,SERUM (09/22/2024 1:27 PM CDT) TOTAL PROTEIN 6.1 6.1 - 8.1 g/dL [facility] ALBUMIN SPE 4.0 3.8 - 4.8 g/dL [facility] ALPHA 1 GLOBULIN SPE 0.3 0.2 - 0.3 g/dL [facility] ALPHA 2 GLOBULIN SPE 0.5 0.5 - 0.9 g/dL [facility] Beta 1 Globulin 0.3(L) 0.4 - 0.6 g/dL [facility] Beta 2 Globulin 0.2 0.2 - 0.5 g/dL [facility] GAMMA GLOBULIN 0.8 0.8 - 1.7 g/dL [facility] ABNORMAL PROTEIN BAND SPE 0.1(H) NONE DETECTED g/dL [facility] SPE INTERP [facility] Comment: Poorly defined band (possible M-spike) migrating in the gamma region. Consider serum immunofixation to rule out a monoclonal protein if clinically indicated. FASTING:NO FASTING: NO Test Performed at: [facility] [address] [facility] [place] [address] Jona George MD Blood 09/22/2024 1:27 PM CDT 09/22/2024 1:28 PM CDT us Gilmar Cassidy MD CHEMISTRY ORDERABLES Final Resu lt [facility] [phone] [facility] [address] [place] [address] [place] [address] * FERRITIN (09/22/2024 1:27 PM CDT) FERRITIN 250 24 - 380 ng/mL [facility] Comment: Test Performed at: [facility] [address] [place] [address] Jona George MD Blood 09/22/2024 1:27 PM CDT 09/22/2024 1:28 PM CDT us Gilmar Cassidy MD CHEMISTRY ORDERABLES Final Resu lt [facility] [phone] [facility] [address] [place] [address] from Last 3 Months Insurance RX Mineralist Medicare Part D [facility] [facility] Care Teams Chicken Cleaner Relationship Specialty Start Date End Date Carrington Heath MD [address] [facility] [address] [place] [address] PCP - General Internal Medicine 04/13/24
--- OUTSIDE RECORDS SUMMARY | 2024-10-21 00:41 | XMS_ITS | Encounter Summary ---
Author Organization [facility] Address [address] [place] [address] Phone Care Team Providers Care Surgical Services Tech Name Role Phone Carrington Heath MD Primary Care Provider Encounter Details Date Type Department Care Team (Latest Contact Info) Description 10/16/2023 Orders Only [facility] Scanning, Provider Social History Tobacco Use Types Packs/Day Years Used Date Smoking Tobacco: Former Cigarettes 0.5 52 0 12/31/1965 - 12/31/2017 Smokeless Tobacco: Never Alcohol Use Standard Drinks/Week Comments No 0 (1 standard drink = 0.6 oz pur e alcohol) Sex and Gender Information Value Date Recorded Sex Assigned at Not on file Legal Sex Male 9:04 PM EDI COORDINATOR Gender Identity Not on file Sexual Orientation Not on file documented as of this encounter Plan of Treatment Not on file documented as of this encounter Procedures Procedure Name Priority Date/Time Associated Diagnosis Comments CARDIOLOGY DOCUMENT SCAN 024 10:37 AM CDT documented in this encounter Results * Cardiology Document Scan (10/16/2023 10:37 AM CDT) Anatomical Region Laterality Modality Other us Provider Scanning CV CARDIAC SERVICES PROCEDURES Final Result documented in this encounter Visit Diagnoses Not on filedocumented in this encounter Care Teams Surgical Services Tech Relationship Specialty Start Date End Date Carrington Heath MD PCP - General 08/31/16 documented as of this encounter
--- OUTSIDE RECORDS SUMMARY | 2024-10-21 00:41 | XMS_ITS | Continuity of Care Document ---
Author Organization [employer] Address [address] [place] [address] Dr [address] [place] [phone] Phone Care Team Providers Care Development Rep Name Role Phone Ryan Cruz Unavailable Unavailable Procedures Procedure Date Office/outpatient Visit, Est Office/outpatient Visit, Est Fundus Photography W/ Report Visual Field Examination(s) Vision Svcs Frames Purchases Progressive Lens, Polycarb Tint Photochromatic, Polycarb 9 Anti-reflective Coating Tax - Medical Eye Exam & Treatment Refraction Eye Exam Established Pt Office/outpatient Visit, Est Eye Exam Established Pt Office/outpatient Visit, Est Office/outpatient Visit, Est Office/outpatient Visit, Est Fundus Photography W/ Report Eye Exam Established Pt Visual Field Examination(s) Office/outpatient Visit, Est Eye Exam & Treatment Refraction Office/outpatient Visit, Est Office/outpatient Visit, Est Office/outpatient Visit, Est Vision Svcs Frames Purchases Progressive Lens, Polycarb Tint Photochromatic, Polycarb 7 Anti-reflective Coating Polycarb Lens Per Lens Eye Exam & Treatment Refraction Fundus Photography W/ Report Advance Directives Directive Yes / No Effective Date File Name No Information Encounters Encounter Description Practice Location Reason(s) For Visit Diagnoses Date Provider Providers Copied on Encounter Office/outpat ient Visit, [facility], [address], [place], [place], [id number], tel:[phone] [facility] No Information 0-201 0 Nancy Davis. [facility] , [address], [place], [place], [facility], [place]. tel:[phone] Office/outpat ient Visit, [facility], [address] [place] [address] [address], [place], [place], [address], tel:[phone] [facility] No Information 6-201 0 Nancy Davis. [facility] [address], [address], [place], [place], [facility], [place]. tel:[phone] Referring Provider: Suad Edmond [facility] [address], [place], [facility]. tel:[phone] [facility], [address] [place] [address] [address], [place], [place], [address], [place] tel:[phone] [facility] No Information 6-201 0 Nancy Davis. [facility] [address], [address], [place], [facility], [place]. tel:[phone] Referring Provider: Suad Edmond [facility] [address], [place], [facility]. tel:[phone] [facility], [address] [place] [address] [address], [place], [place], [address], [place] tel:[phone] [facility] No Information Nov-2 3-200 9 [facility] [employer] . [address] [facility], [address], [place], [place], [address], [place]. tel:[phone] Referring Provider: Ryan Hogue, [address] [facility] [address], [place], [address]. tel:[phone] ayers Provider: Arabella Wang, [address] [facility], [place], [address]. tel:[phone] [facility], [address], [place], [place], [address], [place] tel:[phone] [facility] No Information Oct-2 2-200 9 Nancy Davis. [address] [facility] , [address], [place], [facility], [place]. tel:[phone] [facility], [address], [place], [place], [address], [place] tel:[phone] [facility] No Information Sep-1 8-200 9 Granados OD Juan M. [address] [facility] , [address], [place], [facility], [place]. tel:[phone] Office/outpat ient Visit, [facility], [address] [place] [address] [address], [place], [place], [address], [place] tel:[phone] [facility] No Information Aug-0 7-200 9 Granados OD Juan M. [address] [facility] , [address], [place], [address], [place]. tel:[phone] [facility], [address] [place] [address] [address], [place], [place], [address], [place] tel:[phone] [facility] No Information Ravi-3 1-200 9 Granados OD Juan M. [address] [facility] , [address], [place], [address], [place]. tel:[phone] Office/outpat ient Visit, [facility], [address], [place], [place], [address], [place] tel:[phone] [facility] No Information 8200 9 Nancy Davis. [address] , [address], [place], [facility], [place]. tel:[phone] Office/outpat ient Visit, [facility], [address], [place], [place], [address], [place] tel:[phone] [facility] No Information 9200 9 Nancy Davis. [address] , [address], [place], [facility], [place]. tel:[phone] Office/outpat ient Visit, [facility], [address], [place], [place], [address], [place] tel:[phone] [facility] No Information 9 Granados OD Juan M. [address] , [address], [place], [facility], [place]. tel:[phone] Referring Provider: Juan M Hogue, [facility] [address], [place], [facility]. tel:[phone] [facility], [address], [place], [place], [address], [place] tel:[phone] [facility] No Information 200 8 Nancy Davis. [address] , [address], [place], [facility], [place]. tel:[phone] [facility], [address], [place], [place], [address], [place] tel:[phone] [facility] No Information 7200 8 Nancy Davis. [address] [facility] , [address], [place], [facility], [place]. tel:[phone] Referring Provider: Ryan Hogue, [address] [facility] [address], [place], [address]. tel:[phone] Office/outpat ient Visit, [facility], [address] [place] [address] [address], [place], [place], [address], [place] tel:[phone] [facility] No Information Dec-2 3-200 8 Doisy Edward. [address] [facility] , [address], [place], [facility], [place]. tel:[phone] [facility], [address] [place] [address] [address], [place], [place], [address], [place] tel:[phone] [facility] [place] No Information Jun-2 1-200 8 Doi Edward. [address] , [address], [place], [facility], . tel:[phone] Office/outpat ient Visit, [facility], [address] [place] [address] [address], [place], [place], [address], [place] tel:[phone] [facility] No Information Nov-1 0-200 7 Granados OD Juan M. [address] , [address], [place], [address], [place]. tel:[phone] Office/outpat ient Visit, [facility], [address] [place] [address] [address], [place], [place], [address], [place] tel:[phone] [facility] No Information Oct-2 9-200 7 [facility]. [address] [facility], [address], [place], [place], [address], [place]. tel:[phone] Office/outpat ient Visit, [facility], [address] [place] [address] [address], [place], [place], [address], [place] tel:[phone] [facility] No Information Oct-2 7-200 7 Granados OD Juan M. [address] , [address], [place], [address], [place]. tel:[phone] [facility], [address], [place], [place], [address], [place] tel:[phone] [facility] No Information 3200 7 [facility] [employer] . [address] [facility], [address], [place], [place], [address], [place]. tel:[phone] Referring Provider: Ryan Hogue, [address] [place] [address] [address], [place], [address]. tel:[phone] ayers Provider: Arabella Wang, [address] [facility], [place], [address]. tel:[phone] [facility], [address], [place], [place], [address], [place] tel:[phone] [facility] No Information 7 Nancy Davis. [address] [place] [address] , [address], [place], [address], [place]. tel:[phone] Referring Provider: Ryan Hogue [facility] [address], [place], [address]. tel:[phone] Family History Family Member Type Diagnosis Age At Onset No Information Payers Payer name Insurance type Covered republican ID Authoriza tion(s) No Information Social History Type Description Quantity Date Captured Comments Sex Male Smoking Status No Information Chief Complaint And Reason For Visit No Information Reason For Referral Reason For Referral No Information History Of Present Illness Encounter Date Complaint History Of Prese nt Illness No Information Functional Status Date Functional Assessmen t No Information Instructions Date Instruction Additional Infor mation No Information Assessments Type Assessment Date No Information Patient Care Teams Name Effective Dates (start - stop) Status Members No Information
--- OUTSIDE RECORDS SUMMARY | 2024-10-21 00:41 | XMS_ITS | Encounter Summary ---
Author Organization [facility] Address [address] [place] [address] Phone Care Team Providers Care Water Engineer Name Role Phone Carrington Heath MD Primary Care Provider Encounter Details Date Type Department Care Team (Latest Contact Info) Description 09/20/2023 Orders Only [facility] Scanning, Provider Social History Tobacco Use Types Packs/Day Years Used Date Smoking Tobacco: Former Cigarettes 0.5 52 0 12/31/1965 - 12/31/2017 Smokeless Tobacco: Never Alcohol Use Standard Drinks/Week Comments No 0 (1 standard drink = 0.6 oz pur e alcohol) Sex and Gender Information Value Date Recorded Sex Assigned at Not on file Legal Sex Male 9:04 PM [employer] Gender Identity Not on file Sexual Orientation Not on file documented as of this encounter Plan of Treatment Not on file documented as of this encounter Procedures Procedure Name Priority Date/Time Associated Diagnosis Comments CARDIOLOGY DOCUMENT SCAN 09/20/2023 documented in this encounter Results * Cardiology Document Scan (09/20/2023) Anatomical Region Laterality Modality Other us Provider Scanning CV CARDIAC SERVICES PROCEDURES Final Result documented in this encounter Visit Diagnoses Not on filedocumented in this encounter Care Teams Water Engineer Relationship Specialty Start Date End Date Carrington Heath MD PCP - General 08/31/16 documented as of this encounter
--- OUTSIDE RECORDS SUMMARY | 2024-10-21 00:41 | XMS_ITS ---
Author Organization [employer] [facility] [place] ([address]) Address [address] [place] [address] Care Team Providers Care Window Display Designer Name Role Phone Carrington Heath MD Primary Care Provider Juana Tay Unavailable [phone] Mignon Carr Unavailable REASON FOR VISIT Chronic [...] lung disease, managed by Dr. Carr and [facility] Pulmonology. Has X-RAYS and CT scans [...] times a day for 30 days Active FLUoxetine HCl 40 MG 1 cap(s) orally onc e a day Active LORazepam 1 MG 1 tab(s) orally 3 times a day 1/2 tablet 3x daily and 1 tablet at bedtime Active Rozerem 8 MG 1 tab(s) orally once a day (at bedtime) Active Simvastatin 20 MG 1 tab(s) orally once a day (in the evening) Active Ipratropium [place] 0.06 % 2 spray(s) intranasally 3 times a day for 90 days Active Topiramate 50 MG 1 tab(s) orally 2 times a day Active Hydroxychloroquine Sulfate 200 MG 1 tab(s) orally twice a day Active predniSONE 1 MG 1 tab(s) orally once a day 1 tablet on M,W,F Active Alendronate Sodium 70 MG 1 tab(s) [...] once a week for 56 days Active Spiriva HandiHaler 18 MCG [...] Active Encounters Encounter Location Date Provider Diagnosis [facility] [address] [place] [address] 01/28/2024 Juana Arora Hypertrophy of nasal turbinates [...] COPD and interstitial lung disease by his softball player, Dr. Carr. He is also seen at [facility] for management of ILD. He reports [...] sinusitis, also had pneumonia in April meeting [facility] criteria for modified PIDD work-up. - [...] COPD and interstitial lung disease by his softball player, Dr. Carr. He is also seen at [facility] for management of ILD. He reports [...] Notes * Andre CHAPARRODOB:1945 (79 yo M)Acc No.[id number]:01/28/2024 Progress Notes Patient: Andre EDDY Provider: Lennie Arora DNP ANIMAL HANDLER-C :1945 A ge:78 Y S ex:Male Date:01/28/2024 Address:[address] [id number] Pcp:Carrington Heath MD Subjective: * Chief Complaints: [...] lung disease, managed by Dr. Carr and [facility] Pulmonology. Has X-RAYS and CT scans completed annually.. * HPI: * Introduction: I had the pleasure of seeing A santiago Chaparro, a 78-year-old male with complex past medical history of ILD, rheumatoid arthritis, and COPD who returns in consultation with his softball player, Dr. Carr, for laboratory review. He is with his for today's visit. Andre has a complex history of COPD and interstitial lung disease, currently managed by Dr. Carr, as well as a team of pulmonologists at [facility]. He has been experiencing nasal congestion, [...] Carr, as well as a team at [facility] for management of his interstitial lung [...] , Notes to Pharmacist: 1 tablet on ,W,, Taking FLUOXETINE 40 mg capsule 1 cap(s) [...] day (in the evening) , Taking Ipratropium [place] 0.06 % Solution 2 spray(s) intranasally 3 times a day , Taking Azelastine HCl 137 MCG/SPRAY Solution 2 spray(s) intranasally 2 times a day , Taking Vitamin D3 1250 MCG CAPSULE 1 CAP(S) ORALLY ONCE A WEEK , Notes to Pharmacist: *Please review and pick correct strength-formulation from Aylaspan options. 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 Carr. He is also seen at [facility] for management of ILD. He reports [...] W/PT OR RE, G8482 FLU IMMUNIZE ORDER/ADMIN, [address] H[place], [address] Single or Combination * Preventive Medicine: Counseling: [...] Management) * Billing Information: * Visit Code: 39455 Office Visit, Est Pt., Level 4. Modifiers: 25 * Procedure Codes: G8427 DOC MEDS VERIFIED W/PT OR RE. G8482 FLU IMMUNIZE ORDER/ADMIN. 24604 NOC PedvaxHIB. 33906 Immunization Administration (one vaccine). * Electronic signature of Juana Arora DNP, ANIMAL HANDLER-C on 10/21/2024 at 12:41 AM CDT Sign off status: Pending * Provider: Lennie Arora DNP [employer]C Date: 01/28/2024 Generated for Lesley loja/Jairo/Mahogany on: 0 10/21/2024 12:41 AM CDT History and Physical Notes * HPI (History of Present Illness) Category Sub-Category Detail Notes Category Not es *Introduction I had the pleasure o f seeing Andre Chaparro, a 78-year-old male with complex past medical history of ILD, rheumatoid arthritis, and COPD who returns in consultation with his softball player, Dr. Carr, for laboratory review. He is with his for today's visit. Andre has a complex history of COPD and interstitial lung disease, currently managed by Dr. Carr, as well as a team of pulmonologists at [facility]. He has been experiencing nasal congestion, [...] Carr, as well as a team at [facility] for management of his interstitial lung [...]
--- OUTSIDE RECORDS SUMMARY | 2024-10-21 00:41 | XMS_ITS | Clinical Summary ---
Author Organization [facility] [address] Address [address] [place] [address] Care Team Providers Care Inside B2B Sales Name Role Phone Carrington Heath MD Primary Care Provider Allergies Active Allergy Reactions Criticality Noted Date Comments Cephalexin Rash Medium 10/06/2008 Penicillins Rash Medium 03/08/2023 Sulfa (Sulfonamide Antibiotics) Rash Medium 11/2008 Sulfamethoxazole-Trimethoprim Other (See comments) Low 08/16/2023 Medications simvastatin (ZOCOR) 20 mg tablet Take 1 tablet (20 mg total) by mouth nightly Active aspirin 81 mg tablet Take 1 tablet (81 mg total) by mouth every morning Active ramelteon (ROZEREM) 8 mg tabletIndicatio ns:Sleep-Onset Insomnia Take 1 tablet (8 mg total) by mouth nightly Active LORazepam (ATIVAN) 1 mg tablet Take 0.5 tablets (0.5 mg total) by mouth 3 (three) times a day Active fluticasone (FLONASE) 50 mcg/actuation nasal spray Administer 2 sprays into each nostril every morning Active traMADol (ULTRAM) 50 mg tablet Take 1 tablet (50 mg total) by mouth every 6 (six) hours as needed for pain Active alendronate (FOSAMAX) 70 mg tabletIndicatio ns:usually takes on Saturday Take 1 tablet (70 mg total) by mouth every 7 days Take in the morning with a full glass of water, on an empty stomach, and do not take anything else by mouth or lie down for the next 30 min. Active latanoprost (XALATAN) 0.005 % ophthalmic solution Administer 1 drop into both eyes nightly Active albuterol HFA (PROVENTIL HFA,VENTOLIN HFA,PROAIR HFA) 90 mcg/actuation inhaler Inhale 2 puffs as needed for wheezing Activ e tacrolimus (PROTOPIC) 0.1 % ointment Apply 1 application topically 2 (two) times a day Active cholecalciferol (VITAMIN D-3) 1,000 unit Take 1 tablet/capsule (1,000 Units total) by mouth daily before dinner Active finasteride (PROSCAR) 5 mg tablet Take 1 tablet (5 mg total) by mouth daily 5 07/20/19 19 Active testosterone cypionate (DEPO-TESTOTERO NE) 200 mg/mL injection INJECT 1 ML INTRAMUSCULARLY EVERY OTHER WEEK 07/18/19 20 Active cetirizine (ZyrTEC) 10 mg tablet 10/07/19 09 Active guaifenesin/dex tromethorphan (MUCINEX DM ORAL) Take 600 mg by mouth Take 2 tablets daily Active cyanocobalamin (Vitamin B-12) 500 mcg tabletIndicatio ns:Prevention of Vitamin B12 Deficiency Take 1 tablet (500 mcg total) by mouth daily Active predniSONE (DELTASONE) 5 mg tablet Take 1 tablet (5 mg) by mouth daily 01/12/20 21 Active Spiriva with HandiHaler 18 mcg per inhalation capsule 11/24/19 21 Active hydrOXYchloroQU INE (PLAQUENIL) 200 mg tablet Take 1 tablet (200 mg total) by mouth 2 (two) times a day 01/23/20 21 Active blood-glucose meter [facility] Accu-Chek Guide Glucose Meter ACCUCHEK METER TO TEST BLOOD SUGARS DAILY Active lancets [facility] Accu-Chek Softclix Lancets USE TO TEST BLOOD SUGARS DAILY Active blood glucose diagnostic (glucose blood) strip Blood Glucose Test strips accu chek test strips test blood sugars daily Active calcium citrate-vitamin D3 (CITRACAL+D) 315 mg-5 mcg (200 unit) per tablet Calcium Citrate + D 315 mg-5 mcg (200 unit) tablet Take 1 tablet every day by oral route. 03/04/20 18 Active rimegepant (Nurtec ODT) tablet,disinteg rating Take 1 tablet (75 mg total) by mouth daily as needed (migraine) Do not take more than one dose in 24 hours. 16 tablet 01/10/20 22 Active Additional Information Patient not taking.Reported on 08/17/2024 azelastine (ASTELIN) 137 mcg (0.1 %) nasal spray azelastine 137 mcg (0.1 %) nasal spray aerosol SPRAY 1 SPRAY INTO EACH NOSTRIL EVERY DAY TO TWICE A DAY Active cycloSPORINE (RESTASIS) 0.05 % ophthalmic emulsion Restasis 0.05 % eye drops in a dropperette INSTILL 1 DROP INTO BOTH EYES TWICE A DAY Active guaiFENesin ER (Mucinex) 600 mg 12 hr tablet Mucinex 600 mg tablet, extended release Take 1 tablet every 12 hours by oral route. Active FLUoxetine (PROzac) 40 mg capsule Take by mouth daily 12/08/19 23 Active mupirocin (BACTROBAN) 2 % ointment Apply topically 2 (two) times a day 01/12/20 23 Active cyclobenzaprine (FLEXERIL) 10 mg tablet Take 1 tablet (10 mg total) by mouth 3 (three) times a day Active moxifloxacin (VIGAMOX) 0.5 % ophthalmic solution Active carboxymethyl-g xt-hxee75-BC (Refresh Optive Jaime-3, PF,) 0.5-1-0.5 % dropperette daily 01/18/20 18 Active peg 400-propylene glycol (Systane, propylene glycoL,) 0.4-0.3 % ophthalmic solution as directed 04/17/20 13 Active ipratropium (ATROVENT) 42 mcg (0.06 %) nasal spray every 8 hours Acti ve ubrogepant (Ubrelvy) 100 mg tablet TAKE 1 TABLET (100 MG) BY ORAL ROUTE ONCE MAY REPEAT DOSE ONCE AFTER 2 HOURS IF NEEDED, NOT TO EXCEED 200 MG IN 24 HOURS Active zoledronic huvp-chflgqpK-i ater (zoledronic acid) 5 mg/100 mL piggyback Active mycophenolate mofetil (CELLCEPT) 500 mg tablet Take 2 tablets (1,000 mg total) by mouth 2 (two) times a day 10/02/19 24 Active topiramate (TOPAMAX) 50 mg tabletIndicatio ns:Migraine with aura and without status migrainosus, not intractable TAKE 1 TABLET TWICE DAILY 180 tablet 3 11/08/19 24 Active metroNIDAZOLE (FLAGYL) 500 mg tablet TAKE 1 TABLET 3 TIMES A DAY BY ORAL ROUTE. 12/12/19 24 Active valACYclovir (VALTREX) 1 gram tablet Take by mouth daily 06/22/19 25 Active Active Problems Problem Noted Date Diagnosed Date Left hand weakness 08/16/2023 Reactive depression 02/15/2023 UIP (usual interstitial pneumonitis) 02/14/2023 Tobacco use 09/12/2022 Former smoker 09/19/2021 Migraine with aura and witho ut status migrainosus, not intractable 01/25/2020 Assessment & Plan (01/24/2021 2:22 PM CDT): Patient continues on topiramate 50 mg b.i.d. for migraine with aura prophylaxis with good tolerability and successful reduction in headache frequency and severity. He is requesting renewal of medication at this time. I have renewed his topiramate 50 mg b.i.d. for the upcoming year. He will follow-up in neurology clinic in 1 year or sooner on an as-needed basis. Assessment & Plan (01/25/2020 3:13 PM CDT): Patient continues on topiramate 50 mg b.i.d. for migraine prophylaxis with good symptomatic relief and good tolerability. He has only experience for migraine headaches over the past year each of which was symptomatic leaves with supplemental kuvx-awu-rlsgfwo acetaminophen. I have renewed his topiramate 50 mg b.i.d., and I will plan on seeing him back on a yearly or as needed basis. Chronic midline low back pain 08/15/2019 Coronary artery disease invo lving [place] coronary artery of [place] heart without angina pectoris 08/13/2018 Hyperlipidemia associated with type 2 diabetes m kathia 08/13/2018 Lumbar stenosis with neurogenic claudication 02/2018 Overview (01/09/2018): Added automatically from request for surgery [id number] Right carotid bruit 08/31/2016 Overview (10/26/2016): Right carotid bruit Centrilobular emphysema 08/08/2015 Overview (09/06/2016): Chronic obstructive pulmonary disease, unspecified Type 2 diabetes mellitus 08/08/2015 Overview (09/06/2016): Mixed hyperlipidemia due to type 2 diabetes mellitus History of coronary artery bypass surgery 2015 Overview (09/06/2016): Hx of CABG Essential hypertension 08/08/2015 Overview (09/06/2016): Essential hypertension Rheumatoid arthritis 08/08/2015 Overview (09/06/2016): Rheumatoid arthritis, involving unspecified site, unspecified rheumatoid factor presence Resolved Problems Problem Noted Date Diagnosed Date Resolved Date ILD (interstitial lung disease) 08/15/2019 09/01/2023 Preoperative cardiovascular examination 08/13/2018 09/19/2021 Current smoker 08/08/2015 09/19/2021 Overview (09/06/2016): Smoker Encounters Date Type Department Care Team Description 08/17/2024 2:00 PM CDT Office Visit [facility] [address] [place] [address] Sadaf Sanches NP Coronary artery disease involving [place] coronary artery of [place] heart without angina pectoris (Primary Dx) from Last 3 Months Surgical History Surgery Date Site/Laterality Comments CHOLECYSTECTOMY APPENDECTOMY HEMORROIDECTOMY CORONARY ARTERY BYPASS GRAFT 1996 - 06/02/1997 HERNIA REPAIR CATARACT EXTRACTION 2020 Medical History Medical History Date Comments COPD (chronic obstructive pulmonary disease) (HC C) Lumbar stenosis Chronic interstitial lung disease (HCC) Bronchiectasis (HCC) Rheumatoid arthritis (HCC) CAD (coronary artery disease) Dyslipidemia Myocardial infarct, old Diabetes mellitus (HCC) diet con trolled Glaucoma Anxiety Skin cancer Migraine Cataract surgery Depression Heart disease Emphysema of lung (HCC) COPD Autoimmune disease R.A. Family History Medical History Relation Name Comments Diabetes Brother 1 Heart attack Brother 1 Diabetes Brother 2 Roby Suicide Completion Brother 2 Roby No Known Problems Brother 3 Suicide Completion Brother 4 Cancer Brother 5 [place] Stroke Brother 6 Hypertension Brother 7 Gaetano V Alcohol abuse Brother 8 Jose Francisco Alcohol abuse Father Cole Heart attack Father Cole Prostate cancer Father Cole Diabetes Mother [place] Hypertension Mother [place] Stroke Mother [place] Cancer Sister 1 Jacki Dementia Sister 2 Bad water Sister 3 Relation Name Status Comments Brother 1 Brother 2 Roby Brother 3 Brother 4 Brother 5 Abran Brother 6 Brother 7 Gaetano V Alive Brother 8 Jose Francisco Alive Father Cole Mother Eveline Sister 1 Jacki Sister 2 Sister 3 Social History Tobacco Use Types Packs/Day Years Used Date Smoking Tobacco: Former Cigarettes 0.5 52 0 12/31/1965 - 12/31/2017 Smokeless Tobacco: Never Tobacco Cessation:Counseling Given: Not Answered Alcohol Use Standard Drinks/Week Comments No 0 (1 standard drink = 0.6 oz pur e alcohol) Sex and Gender Information Value Date Recorded Sex Assigned at Not on file Legal Sex Male 9:[address] RADIO TECHNICIAN Gender Identity Not on file Sexual Orientation Not on file Obstetrics History Last Filed Vital Signs Vital Sign Reading Time Taken Comments Blood Pressure 98/50 08/17/2024 2:12 PM CDT Pulse 82 08/17/2024 2:12 PM CDT Temperature 36.8 C (98.2 F) 05/04/2024 2:[address] RADIO TECHNICIAN Respiratory Rate 18 05/04/2024 2:[address] RADIO TECHNICIAN Oxygen Saturation 97% 08/17/2024 2:12 PM CDT Inhaled Oxygen Concentration - - Weight 67.6 kg (149 lb) 08/17/2024 2:12 PM CDT Height 167.6 cm (5' 6 ) 08/17/2024 2:12 PM CDT Body Mass Index 24.05 08/17/2024 2:12 PM CDT Plan of Treatment Health Maintenance Due Date Last Done Comments Albumin Creatinine Ratio, Urine 1947 Depression Screening 1947 Fall Risk Assessment 1947 Hepatitis C Screening 1945 Dilated Eye Exam 1947 Foot Exam 1947 DTaP/Tdap/Td Vaccine (1 - Tdap) 1958 Hepatitis B Screening 1965 Zoster Vaccine (1 of 2) 1966 Lung Cancer Screening 1997 Abdominal Aortic Aneurysm (A AA) Screen 2012 Well Visit 65+ 2012 Hemoglobin A1C 07/31/2018 01/28/2018 Lipid Panel 09/12/2023 09/11/2022, 09/01, 04/04/2020, Additional history exists eGFR 08/28/2024 08/29/2023, 01/28/2018 Pneumococcal vaccine 65+ Completed 015, 08/01/2014, 04/17/2013 Influenza Vaccine Completed 03/14/2024, , 03/20/2022, Additional history exists Procedures Procedure Name Priority Date/Time Associated Diagnosis Comments EGFR STAT 08/29/2023 2:00 PM CDT UIP (usual interstitial pneumonitis) (HCC) LIPID PANEL Routine 09/11/2022 HEMOGLOBIN A1C Routine 01/28/2018 4:36 PM CDT Preop testing from Last 3 Months or Most Recently Relevant to Health Maintenance Results * eGFR (08/29/2023 2:00 PM CDT) eGFR 71 >=60 mL/min/1. 73 m2 Comment: Interpretive Data Reference Interval Normal >/= 90 mL/min/1.73m2 Mildly decreased* 60 - 89 mL/min/1.73m2 Mildly to moderately decreased 45 - 59 mL/min/1.73m2 Moderately to severely decreased 30 - 44 mL/min/1.73m2 Severely decreased 15 - 29 mL/min/1.73m2 Kidney Failure < 15 mL/min/1.73m2 *Relative to young adult level Estimated glomerular filtration rate is determined by the 2020 CKD-EPI equation recommended by the National Kidney Foundation (A Unifying Approach to GFR Estimation: Recommendations of the NKF-ASK Task Force on Reassessing the Inclusion of Race in Diagnosing Kidney Disease, JASN 2020). The CKD-EPI equation should not be used for patients with unstable renal function and has not been validated in children and those over 70. Current interpretive data was last reviewed 2021. Blood 08/29/2023 2:00 PM CDT 08/29/2023 2:20 PM CDT us Bailee Ruiz MD LAB BLOOD ORDERABLES Final R esult [facility] [address] [address] [facility] Department [place] [address] * Lipid panel (09/11/2022) SCRIBED Cholesterol, Total 85 <200 [facility] SCRIBED HDL 52 >40 [facility] SCRIBED LDL 20 <100 [facility] SCRIBED Triglycerides 51 <150 [facility] Blood Historical Provider LAB BLOOD ORDERABLES Tori l Result Performing Organization Address City/[facility]/ZIP Co de Phone Number [facility] * (ABNORMAL) Hemoglobin A1c (01/28/2018 4:36 PM CDT) Hgb A1C 6.2(H) 4.0 - 5.6 % [facility] Estimated Average Glucose 131 mg/dL [facility] Comment: The ADA recommends reporting an estimated Average Glucose (eAG) with all Hemoglobin A1c results using the equation derived from a study of 507 normal and diabetic adults. Minority populations were underrepresented and children were not included. (Diabetes Care 31:4416-1546, 2008). The eAG is not equivalent to a fasting glucose. Blood specimen (specimen) 01/28/2018 4:36 PM CDT 01/28/2018 4:36 PM CDT Narrative [facility] - 01/28/2018 5:09 PM CDT Sadaf Marques NP LAB BLOOD ORDERABLES Fin al Result [facility] [address] Department [place] [address] from Last 3 Months or Most Recently Relevant to Health Maintenance Insurance [employer] CHOICE MEDICARE PPO [employer]ICE MEDICARE PPO [employer] MEDICARE PPO Care Teams Inside B2B Sales Relationship Specialty Start Date End Date Carrington Heath MD PCP - General 08/31/16
--- OUTSIDE RECORDS SUMMARY | 2024-10-21 00:41 | XMS_ITS | Referral Summary ---
Author Organization [facility] [address] [place] [address] [address] [place] [address] Care Team Providers Care Agile Qa Tester Name Role Phone Carrington Heath MD Primary Care Provider Encounters Date Type Department Care Team Description 08/17/2024 2:00 PM CDT Office Visit [facility] Cardiology [address] [place] [address] Sadaf Sanches NP Coronary artery disease involving [place] coronary artery of [place] heart without angina pectoris (Primary Dx) from Last 3 Months Allergies Active Allergy Reactions Criticality Noted Date [...] a day 01/23/20 21 Active blood-glucose meter [facility] Accu-Chek Guide Glucose Meter ACCUCHEK METER TO TEST BLOOD SUGARS DAILY Active lancets [facility] Accu-Chek Softclix Lancets USE TO TEST BLOOD [...] (VIGAMOX) 0.5 % ophthalmic solution Active carboxymethyl-g qc-rdff57-AF (Refresh Optive Jaime-3, PF,) 0.5-1-0.5 % dropperette [...] 200 MG IN 24 HOURS Active zoledronic gfku-kttsmznA-w ater (zoledronic acid) 5 mg/100 mL piggyback [...] of which was symptomatic leaves with supplemental hytc-iju-vuwojwb acetaminophen. I have renewed his topiramate 50 mg b.i.d., and I will plan on seeing him back on a yearly or as needed basis. Chronic midline low back pain 08/15/2019 Coronary artery disease invo lving [place] coronary artery of [place] heart without angina pectoris 08/13/2018 Hyperlipidemia associated with type 2 diabetes m kathia 08/13/2018 Lumbar stenosis with neurogenic claudication 02/2018 Overview (01/09/2018): Added automatically from request for surgery [id number] Right carotid bruit 08/31/2016 Overview (10/26/2016): Right [...] Current smoker 08/08/2015 09/19/2021 Overview (09/06/2016): Smoker Social History Tobacco Use Types Packs/Day Years Used Date Smoking Tobacco: Former Cigarettes 0.5 52 0 12/31/1965 - 12/31/2017 Smokeless Tobacco: Never Tobacco Cessation:Counseling Given: Not Answered Alcohol Use Standard Drinks/Week Comments No 0 (1 standard drink = 0.6 oz pur e alcohol) Sex and Gender Information Value Date Recorded Sex Assigned at Not on file Legal Sex Male 9:04 PM 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 Gender Identity Not on file Sexual Orientation Not on file Last Filed Vital Signs Vital Sign Reading Time Taken Comments Blood Pressure 98/50 08/17/2024 2:12 PM CDT Pulse 82 08/17/2024 2:12 PM CDT Temperature 36.8 C (98.2 F) 05/04/2024 2:31 PM PRIVATE WEALTH ADVISOR Respiratory Rate 18 05/04/2024 2:31 PM PRIVATE WEALTH ADVISOR Oxygen Saturation 97% 08/17/2024 2:12 PM CDT Inhaled Oxygen Concentration - - Weight 67.6 kg (149 lb) 08/17/2024 2:12 PM CDT Height 167.6 cm (5' 6 ) 08/17/2024 2:12 PM CDT Body Mass Index 24.05 08/17/2024 2:12 PM CDT Plan of Treatment Not on file Procedures Procedure Name Priority Date/Time Associated Diagnosis [...] LAB BLOOD ORDERABLES Final R esult [facility] Department [place] [address] * Lipid panel (09/11/2022) SCRIBED Cholesterol, Total 85 <200 [facility] SCRIBED HDL 52 >40 [facility] SCRIBED LDL 20 <100 [facility] SCRIBED Triglycerides 51 <150 [facility] Blood Historical Provider LAB BLOOD ORDERABLES Tori l Result Performing Organization Address [facility] de Phone Number [facility] * (ABNORMAL) Hemoglobin A1c (01/28/2018 4:36 PM CDT) Hgb A1C 6.2(H) 4.0 - 5.6 % [facility] Estimated Average Glucose 131 mg/dL [facility] Comment: The ADA recommends reporting an estimated Average Glucose (eAG) with all Hemoglobin A1c results using the equation derived from a study of 507 normal and diabetic adults. Minority populations were underrepresented and children were not included. (Diabetes Care 31:3158-9887, 2008). The eAG is not equivalent to a fasting glucose. Blood specimen (specimen) 01/28/2018 4:36 PM CDT 01/28/2018 4:36 PM CDT Narrative [facility] - 01/28/2018 5:09 PM CDT Sadaf Marques NP LAB BLOOD ORDERABLES Fin al Result Performing Organization Address [facility] Co de Phone Number [facility] [address] Department [place] [address] from Last 3 Months or Most Recently Relevant to Health Maintenance Insurance [employer] CHOICE MEDICARE PPO [employer] MEDICARE PPO Care Teams Agile Qa Tester Relationship Specialty Start Date End Date Carrington Heath MD PCP - General 08/31/16
[2024-10-21 07:45] VITALS: BP 108/62; PULSE 100; RESP 16; TEMP 36.4; O2SAT 100
[2024-10-21 07:59] LABS: Basophils Percent Auto 0.3 % (0.2-1.2); Eosinophils Absolute Auto 0.1 K/mm3 (0-0.3); Hematocrit 23.6 % (42.0-52.0); Immature Granulocyte Absolute 0.04 K/mm3 (0.00-0.031); Immature Granulocyte Percent A 0.6 % (0-0.5); Lymphocytes Absolute Auto 0.78 K/mm3 (0.9-3.2); Mean Corpuscular HGB Conc 29.7 g/dl (32-36); Mean Corpuscular Hemoglobin 35.9 pg (26-34); Mean Platelet Volume 11.9 fl (7.4-10.4); Monocytes Absolute Auto 0.5 K/mm3 (0.1-0.6); Monocytes Percent Auto 7.3 % (2.6-8.5); Neutrophils Absolute Auto 5.6 K/mm3 (1.3-6.7); Neutrophils Percent Auto 78.8 % (45.5-73.1); Nucleated Red Blood Cells Perc 0.8 % (0.0-0.2); Platelet Count Result 175 k/mm3 (150-375); Red Blood Count 1.95 M/mm3 (4.6-6.20); Red Cell Distribution Width 24.1 % (11.5-14.5); White Blood Count 7.1 K/mm3 (4.5-10.0)
[2024-10-21 08:22] LABS: INR 1.2; Prothrombin Time 15.7 Seconds (11.1-14.7)
[2024-10-21 08:25] LABS: Anisocytosis 3+
[2024-10-21 08:26] LABS: Platelet Estimate Adequate (Adequate)
[2024-10-21 08:27] LABS: Ovalocytes 1+; Target Cells 1+
[2024-10-21 08:30] LABS: Hypochromasia 1+
[2024-10-21 08:33] LABS: Schistocytes 1+
[2024-10-21 08:34] LABS: Polychromasia 1+
[2024-10-21 08:35] LABS: Large Platelets Present
--- NOTE | 2024-10-21 09:05 | P.SEDATION_ITS ---
Moderate Sedation Note-Pt Data Patient Data Diagnosis: macrocytic anemia Present Complaint: macrocytic anemia Procedure to be performed/Plan: bone marrow biopsy Allergies Allergy/AdvReac Type Severity Reaction Status Date / Time cephalexin Allergy Mild Hives Verified 10/21/24 07:42 Cephalosporins Allergy Mild RASH Verified 10/21/24 07:42 Sulfa (Sulfonamide Allergy Mild Rash Verified 10/21/24 07:42 Antibiotics) sulfanilamide Allergy Mild Rash Verified 10/21/24 07:42 Penicillins Allergy Unknown STATES WAS Verified 10/21/24 07:42 TOLD NOT TO TAKE PCN DUE TO KEFLEX REACTION Home Medications ?Medication ?Instructions ?Recorded ?Confirmed ?Type finasteride 5 mg tablet 5 mg PO DAILY 08/01/22 10/20/24 History fluticasone propionate 50 50 mcg intranasal DAILY 08/01/22 10/20/24 History mcg/actuation nasal spray,suspension latanoprost 0.005 % eye drops 1 drp ophthalmic (eye) QHS 08/01/22 10/20/24 History lorazepam 1 mg tablet 1 mg PO DIRECTED 08/01/22 10/21/24 History ramelteon 8 mg tablet 8 mg PO QHS 08/01/22 10/20/24 History simvastatin 20 mg tablet 20 mg PO DAILY 08/01/22 10/20/24 History testosterone cypionate 200 mg/mL 200 mg IM [id number] 08/01/22 10/20/24 History intramuscular oil topiramate 50 mg tablet 50 mg PO BID 08/01/22 10/20/24 History tramadol 50 mg tablet 50 mg PO Q6H PRN Pain 09/11/22 10/20/24 History fluoxetine 20 mg capsule 40 mg PO DAILY 10/23/22 10/20/24 History tacrolimus 0.1 % topical ointment 1 applic topical BID 04/05/23 10/20/24 History triamcinolone acetonide 0.1 % 1 applic topical BID 04/05/23 10/20/24 History topical cream calcium citrate-vitamin D3 2 tablet PO DAILY 04/09/23 10/20/24 History cetirizine 10 mg tablet (Zyrtec) 10 mg PO DAILY PRN allergy symptoms 11/06/23 10/20/24 History dextromethorphan-guaifenesin 30 2 tablet PO Q12H 11/06/23 10/20/24 History mg-600 mg tablet extended [id number] hr (Mucinex DM) prednisone 5 mg tablet 5 mg PO DIRECTED 11/06/23 10/20/24 History tiotropium bromide 18 mcg capsule See Rx Instructions .Route 06/04/24 10/20/24 Rx with inhalation device (Spiriva .COMPLEX #90 caps with HandiHaler) albuterol sulfate 90 mcg/actuation 1 inh inhalation Q4H PRN shortness 09/28/24 10/20/24 Rx aerosol inhaler (Ventolin HFA) of breath or wheezing 1 month #8.5 grams aspirin 81 mg tablet,delayed 81 mg PO DAILY 09/28/24 10/20/24 History release (Adult Low Dose Aspirin) mecobalamin (vitamin B12) 500 mcg 1,000 mcg PO DAILY 09/28/24 10/20/24 History chewable tablet mycophenolate mofetil 500 mg tablet 1,000 mg PO BID 09/28/24 10/20/24 History Sedation/Anesthesia: No previous sedation/anesthesia problems (including family history). [facility] Past Medical History Medical History Foot pain, bilateral Chronic sinusitis Diverticulosis Heart attack CAD (coronary artery disease) Anxiety Heart disease Headache Depression Skin cancer Chronic obstructive pulmonary disease ILD (interstitial lung disease) Rheumatoid arthritis Tobacco abuse Surgical History Surgical History H/O knee surgery H/O hemorrhoidectomy Hx of cholecystectomy H/O hernia repair History of quadruple bypass History of appendectomy Family History Family History Mother Diabetes mellitus Glaucoma Cerebrovascular accident Hypertension Heart disease Sibling Diabetes mellitus Cancer Heart disease Hypertension Dementia Acute myocardial infarction Alcoholism Depression Father Acute myocardial infarction Family history of respiratory disorder Malignant neoplasm of prostate Alcoholism Grandparent Cerebrovascular accident Glaucoma Grandparent Cerebrovascular accident Other Family history of cardiovascular disease Family history of malignant neoplasm of kidney Social History Social History Social History: Caffeine-Coffee daily Currently lives at home with his . Surrogate decision maker Aurora Huizar, spouse. Code Status: Full Code. Smoking packs per day: 1 Smoking cigarettes per day: 20.0 Years smoked: 57 Smoking pack-years: 57.00 Smoking status: Former smoker Tobacco type: cigarettes Second hand tobacco smoke exposure: No Smoking end date: 06/03/18 Alcohol intake: never Substance use: never Substance use type: painkillers Other substance usage details: tramadol Lack of Transportation: No Lack of Food: Never True Current Housing: I Have Housing Concerned About Future Housing: No Difficulty Paying Gas/Electric Bills: No Difficulty Paying for Meds: No Currently Unemployed: No Education: Master's Degree or Higher Difficulty w/ Childcare or Family Care: No Living arrangements: with family Spiritual care concerns: No Mod Sed Physical Exam Physical Exam Pre Procedural Exam: Normal: Appearance, Throat, Lungs, Heart Rate and Heart Rhythm Hours since solid foods: 12 Hours since liquid intake: 12 Mallampati Classification: class II Internal Medicine - PN: Obj Da Vital Signs Vital Signs: Vital Signs - 24 hr 10/21/24 07:45 Temperature 97.6 F Pulse Rate 100 Respiratory Rate 16 Blood Pressure 108/62 Pulse Oximetry 100 Oxygen Delivery Nasal Cannula Oxygen Flow Rate 3 Labs 10/21/24 07:48 Labs: Laboratory Results - last 24 hr 10/21/24 07:48 WBC 7.1 RBC 1.95 L Hgb 7.0 L Hct 23.6 L MCV 121.0 H MCH 35.9 H MCHC 29.7 L RDW 24.1 H Plt Count 175 MPV 11.9 H Immature Gran % (Auto) 0.6 H Neut % (Auto) 78.8 H Lymph % (Auto) 11.0 L Mills % (Auto) 7.3 Eos % (Auto) 2.0 Baso % (Auto) 0.3 Lymph # (Auto) 0.78 L Mills # (Auto) 0.5 Eos # (Auto) 0.1 Baso # (Auto) 0.0 Abs Immat Gran (auto) 0.04 H Absolute Neuts (auto) 5.6 Absolute Nucleated RBC 0.060 H Band Neutrophils % Not Reportable Nucleated RBC % 0.8 H Platelet Estimate Adequate Large Platelets Present Polychromasia 1+ Hypochromasia 1+ Anisocytosis 3+ Target Cells 1+ Ovalocytes 1+ Schistocytes 1+ PT 15.7 H INR 1.2 ASA Classification/Sedation ASA Classification/Sedation ASA Class: III Emergent: No Risks: Risks, benefits and alternatives explained and patient/family accepted plan for sedation. Patient re-evaluated immediately prior to sedation.
[2024-10-21 09:40] VITALS: BP 106/67; PULSE 87; RESP 20; O2SAT 100
[2024-10-21 09:55] VITALS: BP 112/65; PULSE 91; RESP 18; O2SAT 100
[2024-10-21 10:10] VITALS: BP 102/65; PULSE 88; RESP 18; O2SAT 100
[2024-10-21 10:25] VITALS: BP 114/63; PULSE 91; RESP 18; O2SAT 99
[2024-10-21 10:40] VITALS: BP 111/61; PULSE 86; RESP 21; O2SAT 100
== END 2024-10-21 10:55 | disposition home or self-care (01) ==
PROVIDERS: PCP Internal Medicine; Referring Provider Radiology Diagnostic Radiology; Visit Provider Internal Medicine Hematology & Oncology
DX: D53.9 Nutritional anemia, unspecified (principal)
CPT/HCPCS: 36415; 38222; 85025; 85610; 88305; 88311; 88313; J2003; J2250; J3010; J7040

== ENCOUNTER 2024-10-29 12:10 | Outpatient (CLI) | payer MEDICARE, SELFPAY ==
--- OUTSIDE RECORDS SUMMARY | 2024-10-29 12:13 | XMS_ITS | Encounter Summary ---
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
--- OUTSIDE RECORDS SUMMARY | 2024-10-29 12:13 | XMS_ITS | Encounter Summary ---
Author Organization [facility] Address [address] [place] [address] Phone Care Team Providers Care Data Communications Engineer Name Role Phone Carrington Heath MD Primary Care Provider Encounter Details Date Type Department Care Team (Late st Contact Info) Description 10/28/2024 Telephone [place] [id number] [facility] 8th [place] [address] [place] [address] Ana Calhoun, HU Social History Tobacco Use Types Packs/Day Years Used Date Smoking Tobacco: Former Cigarettes 0.5 52 0 12/31/1965 - 12/31/2017 Smokeless Tobacco: Never Alcohol Use Standard Drinks/Week Comments No 0 (1 standard drink = 0.6 oz pur e alcohol) Sex and Gender Information Value Date Recorded Sex Assigned at Not on file 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 PT can be seen in any [facility] or [facility] ILD clinic. Please make sure pt is echeverria of date, times and location. Thank You Ana ----- Message from Surekha Garcia sent at 10/27/2024 12:28 PM CDT ----- Regarding: vm called from # [phone] requesting a call back to reschedule appt documented in this encounter Plan of Treatment Not on file documented as of this encounter Visit Diagnoses Not on filedocumented in this encounter Care Teams Data Communications Engineer Relationship Specialty Start Date End Date Carrington Heath MD PCP - General 08/31/16 documented as of this encounter
--- OUTSIDE RECORDS SUMMARY | 2024-10-29 12:13 | XMS_ITS | Encounter Summary ---
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
--- OUTSIDE RECORDS SUMMARY | 2024-10-29 12:14 | XMS_ITS | Clinical Summary ---
Author Organization [facility] [address] Address [address] [place] [address] Care Team Providers Care Clinical Specialist Vascular Name Role Phone Carrington Heath MD Primary [...] every morning Active ramelteon (ROZEREM) 8 mg tabletIndicati ons:Sleep-Onse t Insomnia Take 1 tablet (8 mg total) [...] for pain Active alendronate (FOSAMAX) 70 mg tabletIndicati ons:usually takes on Saturday Take 1 tablet (70 [...] Inhale 2 puffs as needed for wheezing Active tacrolimus (PROTOPIC) 0.1 % ointment Apply 1 application topically 2 (two) times a day Active cholecalcifero l (VITAMIN D-3) 1,000 unit Take 1 tablet/capsule (1,000 Units total) by mouth daily before dinner Active finasteride (PROSCAR) 5 mg tablet Take 1 tablet (5 mg total) by mouth daily 5 Active testosterone cypionate (DEPO-TESTOTER ONE) 200 mg/mL injection INJECT 1 ML INTRAMUSCULARLY EVERY OTHER WEEK Active cetirizine (ZyrTEC) 10 mg tablet Active guaifenesin/de xtromethorphan (MUCINEX DM ORAL) Take 600 mg by mouth Take 2 tablets daily Active cyanocobalamin (Vitamin B-12) 500 mcg tabletIndicati ons:Prevention of Vitamin B12 Deficiency Take 1 tablet (500 mcg total) by mouth daily Active predniSONE (DELTASONE) 5 mg tablet Take 1 tablet (5 mg) by mouth daily Active Spiriva with HandiHaler 18 mcg per inhalation capsule Active hydrOXYchloroQ UINE (PLAQUENIL) 200 mg tablet Take 1 tablet (200 mg total) by mouth 2 (two) times a day Active blood-glucose meter [facility] Accu-Chek Guide Glucose Meter ACCUCHEK METER TO TEST BLOOD SUGARS DAILY Active lancets [facility] Accu-Chek Softclix Lancets USE TO TEST BLOOD SUGARS DAILY Active blood glucose diagnostic (glucose blood) strip Blood Glucose Test strips accu chek test strips test blood sugars daily Active calcium citrate-vitami n D3 (CITRACAL+D) 315 mg-5 mcg (200 unit) per tablet Calcium Citrate + D 315 mg-5 mcg (200 unit) tablet Take 1 tablet every day by oral route. Active rimegepant (Nurtec ODT) tablet,disinte grating Take 1 tablet (75 mg total) by mouth daily as needed (migraine) Do not take more than one dose in 24 hours. 16 tablet 022 Active Additional Information Patient not taking.Reported on [...] 40 mg capsule Take by mouth daily 023 Active mupirocin (BACTROBAN) 2 % ointment Apply topically 2 (two) times a day 023 Active cyclobenzaprin e (FLEXERIL) 10 mg tablet Take 1 tablet (10 mg total) by mouth 3 (three) times a day Active moxifloxacin (VIGAMOX) 0.5 % ophthalmic solution Active carboxymethyl- xsw-wcqu08-FJ (Refresh Optive Jaime-3, PF,) 0.5-1-0.5 % dropperette daily 018 Active peg 400-propylene glycol (Systane, propylene glycoL,) 0.4-0.3 % ophthalmic solution as directed 013 Active ipratropium (ATROVENT) 42 mcg (0.06 %) nasal spray every 8 hours Acti ve ubrogepant (Ubrelvy) 100 mg tablet TAKE 1 TABLET (100 MG) BY ORAL ROUTE ONCE MAY REPEAT DOSE ONCE AFTER 2 HOURS IF NEEDED, NOT TO EXCEED 200 MG IN 24 HOURS Active zoledronic acid-mannitoL- water (zoledronic acid) 5 mg/100 mL piggyback Active mycophenolate mofetil (CELLCEPT) 500 mg tablet Take 2 tablets (1,000 mg total) by mouth 2 (two) times a day 024 Active metroNIDAZOLE (FLAGYL) 500 mg tablet TAKE 1 TABLET 3 TIMES A DAY BY ORAL ROUTE. 024 Active valACYclovir (VALTREX) 1 gram tablet Take by mouth daily 025 Active topiramate (TOPAMAX) 50 mg tabletIndicati ons:Migraine with aura and without status migrainosus, not intractable TAKE 1 TABLET TWICE DAILY 180 tablet 3 025 Active topiramate (TOPAMAX) 50 mg tabletIndicati ons:Migraine with aura and without status migrainosus, not intractable TAKE 1 TABLET TWICE DAILY 180 tablet 3 024 2024 Discontinued Active Problems Problem Noted Date Diagnosed Date [...] of which was symptomatic leaves with supplemental xudn-ltg-ahxtswv acetaminophen. I have renewed his topiramate 50 mg b.i.d., and I will plan on seeing him back on a yearly or as needed basis. Chronic midline low back pain 08/15/2019 Coronary artery disease invo lving cherokee coronary artery of cherokee heart without angina pectoris 08/13/2018 Hyperlipidemia associated with type 2 diabetes m kathia 08/13/2018 Lumbar stenosis with neurogenic claudication 02/2018 Overview (01/09/2018): Added automatically from request for surgery [id number] Right carotid bruit 08/31/2016 Overview (10/26/2016): Right [...] Encounters Date Type Department Care Team Description 10/28/2024 Telephone [facility] Pulmonary [address] [facility] 8th [place] [address] [place] [address] Ana Calhoun, HU 08/17/2024 2:00 PM CDT Office Visit [facility] [address] [place] [address] Sadaf Sanches NP Coronary artery disease involving cherokee coronary artery of cherokee heart without angina pectoris (Primary Dx) from [...] Suicide Completion Brother 4 Cancer Brother 5 Abran Stroke Brother 6 Hypertension Brother 7 Gaetano V Alcohol abuse Brother 8 Jose Francisco Alcohol abuse Father Cole Heart attack Father Cole Prostate cancer Father Cole Diabetes Mother [place] Hypertension Mother [place] Stroke Mother [place] Cancer Sister 1 Jacki Dementia Sister 2 Bad water Sister 3 Relation Name Status Comments Brother 1 Brother 2 Roby Brother 3 Brother 4 Brother 5 Abran Brother 6 Brother 7 Gaetano V Alive Brother 8 Jose Francisco Alive Father Cole Mother [place] Sister 1 Jacki Sister 2 Sister 3 [...] on file 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 Gender Identity Not on file Sexual Orientation Not on file Obstetrics History Last Filed Vital Signs Vital Sign Reading Time Taken Comments Blood Pressure 98/50 08/17/2024 2:12 PM CDT Pulse 82 08/17/2024 2:12 PM CDT Temperature 36.8 C (98.2 F) 05/04/2024 2:31 PM BALLOON TESTER Respiratory Rate 18 05/04/2024 2:31 PM BALLOON TESTER Oxygen Saturation 97% 08/17/2024 2:12 PM CDT Inhaled Oxygen Concentration - - Weight 67.6 kg (149 lb) 08/17/2024 2:12 PM CDT Height 167.6 cm (5' 6) 08/17/2024 2:12 PM CDT Body Mass Index [...] 2:00 PM CDT 08/29/2023 2:20 PM CDT Bailee Ruiz MD LAB BLOOD ORDERABLES Final R esult Performing Organization Address [facility] Co de Phone Number [facility] [address] Department [place] [address] * Lipid panel (09/11/2022) SCRIBED Cholesterol, Total 85 <200 [facility] SCRIBED HDL 52 >40 [facility] SCRIBED LDL 20 <100 [facility] SCRIBED Triglycerides 51 <150 [facility] Blood Rob Poe MD LAB BLOOD ORDERABLES Tori l Result Performing Organization Address [facility] de Phone Number [facility] * (ABNORMAL) Hemoglobin A1c (01/28/2018 4:36 PM CDT) Hgb A1C 6.2(H) 4.0 - 5.6 % [facility] Estimated Average Glucose 131 mg/dL [facility] Comment: The ADA recommends reporting an estimated Average Glucose (eAG) with all Hemoglobin A1c results using the equation derived from a study of 507 normal and diabetic adults. Minority populations were underrepresented and children were not included. (Diabetes Care 31:8676-1092, 2008). The eAG is not equivalent to a fasting glucose. Blood specimen (specimen) 01/28/2018 4:36 PM CDT 01/28/2018 4:36 PM CDT Narrative [facility] - 01/28/2018 5:09 PM CDT Sadaf Marques NP LAB BLOOD ORDERABLES Fin al Result Performing Organization Address [facility] Co de Phone Number [facility] [address] [place] [address] from Last 3 Months or Most Recently Relevant to Health Maintenance Insurance [employer] CHOICE MEDICARE PPO HU[employer] CHOICE MEDICARE PPO [employer]ICE MEDICARE PPO Care Teams Clinical Specialist Vascular Relationship Specialty Start Date End Date Carrington Heath MD PCP - General 08/31/16
--- OUTSIDE RECORDS SUMMARY | 2024-10-29 12:14 | XMS_ITS ---
Author Organization [employer] [place] ([address]) Address [address] [place] [address] Care Team Providers Care Core Extruder Name Role Phone Carrington Heath MD Primary Care Provider Juana Tay Unavailable [phone] Mignon Carr Unavailable REASON FOR VISIT Chronic [...] lung disease, managed by Dr. Carr and [facility] Pulmonology. Has X-RAYS and CT [...] a day (in the evening) Active Ipratropium [place] 0.06 % 2 spray(s) intranasally 3 times [...] Active Encounters Encounter Location Date Provider Diagnosis [facility] [address] [place] [address] 01/28/2024 Juana Arora Hypertrophy of nasal turbinates [...] COPD and interstitial lung disease by his tactical air control party, Dr. Carr. He is also seen at [facility] for management of ILD. He [...] sinusitis, also had pneumonia in April meeting [facility] criteria for modified PIDD work-up. - [...] COPD and interstitial lung disease by his tactical air control party, Dr. Carr. He is also seen at [facility] for management of ILD. He [...] Notes * Andre CHAPARRODOB:1945 (79 yo M)Acc No.[id number]:01/28/2024 Progress Notes Patient: Andre EDDY Provider: Lennie Arora DNP NET APPLICATIONS DEVELOPER-C :1945 A ge:78 Y S ex:Male Date:01/28/2024 Address:[address] [id number] Pcp:Carrington Heath MD Subjective: * Chief Complaints: [...] lung disease, managed by Dr. Carr and [facility] Pulmonology. Has X-RAYS and CT scans completed annually.. * HPI: * Introduction: HPI: Lennie Chaparro, a 78-year-old male with complex past medical history of ILD, rheumatoid arthritis, and COPD who returns in consultation with his tactical air control party, Dr. Carr, for laboratory review. He is with his for today's visit. Andre has a complex history of COPD and interstitial lung disease, currently managed by Dr. Carr, as well as a team of pulmonologists at [facility]. He has been experiencing nasal [...] Carr, as well as a team at [facility] for management of his interstitial [...] , Notes to Pharmacist: 1 tablet on ,W,F, Taking FLUOXETINE 40 mg capsule 1 cap(s) [...] day (in the evening) , Taking Ipratropium [place] 0.06 % Solution 2 spray(s) intranasally 3 [...] COPD and interstitial lung disease by his tactical air control party, Dr. Carr. He is also seen at [facility] for management of ILD. He [...] W/PT OR RE, G8482 FLU IMMUNIZE ORDER/ADMIN, 49957 HIB, [address] Single or Combination * Preventive Medicine: Counseling: [...] Management) * Billing Information: * Visit Code: 99691 Office Visit, Est Pt., Level 4. Modifiers: 25 * Procedure Codes: G8427 DOC MEDS VERIFIED W/PT OR RE. G8482 FLU IMMUNIZE ORDER/ADMIN. 00543 NOC PedvaxHIB. 90808 Immunization Administration (one vaccine). 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 Carr, for laboratory review. He is with his for today's visit. Andre has a complex history of COPD and interstitial lung disease, currently managed by Dr. Carr, as well as a team of pulmonologists at [facility]. He has been experiencing nasal [...] Carr, as well as a team at [facility] for management of his interstitial [...]
--- OUTSIDE RECORDS SUMMARY | 2024-10-29 12:14 | XMS_ITS | Continuity of Care Document ---
Author Organization [facility] Address [address] [place] [address] Dr Mons[address] [place] [phone] Phone Care Team Providers Care Flight Nurse Name Role Phone Ryan Cruz Unavailable Unavailable [...] Providers Copied on Encounter Office/outpat ient Visit, [facility], [address], [place], [place], [address], tel:[phone] [facility] No Information 0-201 0 Nancy Davis. [facility] , [address], [place], [place], [facility], [place]. tel:[phone] Office/outpat ient Visit, [facility], [address] [place] [address] [address], [place], [place], [address], tel:[phone] [facility] No Information 6-201 0 Nancy Davis. [facility] [address] Pat[address], [address], [place], [place], [facility], [place]. tel:[phone] Referring Provider: Suad Edmond [facility] [address], [place], [facility]. tel:[phone] [facility], [address] [place] [address] [address], [place], [place], [address], [place] tel:[phone] [facility] No Information 6-201 0 Nancy Davis. [facility] [address] Patel, [address], [place], [facility], [place]. tel:[phone] Referring Provider: Suad Edmond [facility] [address], [place], [facility]. tel:[phone] [facility], [address] [place] [address] [address], [place], [place], [address], [place] tel:[phone] [facility] No Information Nov-2 3-200 9 [facility] . [address] [facility], [address], [place], [place], [address], [place]. tel:[phone] Referring Provider: Ryan Hogue, [address] [facility] [address], [place], [address]. tel:[phone] ayers Provider: Arabella Wang, [address] [facility], [place], [address]. tel:[phone] [facility], [address], [place], [place], [address], [place] tel:[phone] [facility] No Information Oct-2 2-200 9 Nancy Davis. [address] [facility] , [address], [place], [facility], [place]. tel:[phone] [facility], [address], [place], [place], [address], [place] tel:[phone] [facility] No Information Sep-1 8-200 9 Granados OD Juan M. [address] [facility] , [address], [place], [facility], [place]. tel:[phone] Office/outpat ient Visit, [facility], [address] [place] [address] [address], [place], [place], [address], [place] tel:[phone] [facility] No Information Aug-0 7-200 9 Granados OD Juan M. [address] [facility] , [address], [place], [address], [place]. tel:[phone] [facility], [address] [place] [address] [address], [place], [place], [address], [place] tel:[phone] [facility] No Information Ravi-3 1-200 9 Granados OD Juan M. [address] [facility] , [address], [place], [address], [place]. tel:[phone] Office/outpat ient Visit, [facility], [address], [place], [place], [address], [place] tel:[phone] [facility] No Information 8200 9 Nancy Davis. [address] , [address], [place], [facility], [place]. tel:[phone] Office/outpat ient Visit, [facility], [address], [place], [place], [address], [place] tel:[phone] [facility] No Information 9200 9 Nancy Davis. [address] , [address], [place], [facility], [place]. tel:[phone] Office/outpat ient Visit, [facility], [address], [place], [place], [address], [place] tel:[phone] [facility] No Information 9 Granados OD Juan M. [address] , [address], [place], [facility], [place]. tel:[phone] Referring Provider: Juan M Hogue, [facility] [address], [place], [facility]. tel:[phone] [facility], [address], [place], [place], [address], [place] tel:[phone] [facility] No Information 200 8 Nancy Davis. [address] , [address], [place], [facility], [place]. tel:[phone] [facility], [address], [place], [place], [address], [place] tel:[phone] [facility] No Information 7200 8 Nancy Davis. [address] [facility] , [address], [place], [facility], [place]. tel:[phone] Referring Provider: Ryan Hogue, [address], [place], [address]. tel:[phone] Office/outpat ient Visit, [facility], [address] [place] [address] [address], [place], [place], [address], [place] tel:[phone] [facility] No Information Dec-2 3-200 8 Doisy Edward. [address] [facility] , [address], [place], [facility], [place]. tel:[phone] [facility], [address] [place] [address] [address], [place], [place], [address], [place] tel:[phone] [facility] [place] No Information Jun-2 1-200 8 Doi Edward. [address] , [address], [place], [facility], . tel:[phone] Office/outpat ient Visit, [facility], [address] [place] [address] [address], [place], [place], [address], [place] tel:[phone] [facility] No Information Nov-1 0-200 7 Granados OD Juna M. [address] , [address], [place], [address], [place]. tel:[phone] Office/outpat ient Visit, [facility], [address] [place] [address] [address], [place], [place], [address], [place] tel:[phone] [facility] No Information Oct-2 9-200 7 [facility] Worthington. [address] [facility], [address], [place], [place], [address], [place]. tel:[phone] Office/outpat ient Visit, [facility], [address] [place] [address] [address], [place], [place], [address], [place] tel:[phone] [facility] No Information Oct-2 7-200 7 Granados OD Juan M. [address] , [address], [place], [address], [place]. tel:[phone] [facility], [address], [place], [place], [address], [place] tel:[phone] [facility] No Information 3200 7 [facility] [employer] . [address] [facility], [address], [place], [place], [address], [place]. tel:[phone] Referring Provider: Ryan Hogue, [address] [place] [address] [address], [place], [address]. tel:[phone] ayers Provider: Arabella Wang, [address] [facility], [place], [address]. tel:[phone] [facility], [address], [place], [place], [address], [place] tel:[phone] [facility] No Information 7 Nancy Davis. [address] [place] [address] , [address], [place], [address], [place]. tel:[phone] Referring Provider: Ryan Hogue [facility] [place] [address], [place], [address]. tel:[phone] Family History Family Member Type Diagnosis Age At Onset No Information Payers Payer name Insurance type Covered alliance party ID Authoriza tion(s) No Information Social History [...]
--- OUTSIDE RECORDS SUMMARY | 2024-10-29 12:14 | XMS_ITS | Encounter Summary ---
Author Organization [facility] Address [address] [facility] [place] [address] Care Team Providers Care Resource Manager Forester Name Role Phone Unavailable Primary Care Provider Unavailabl e Encounter Details Date Type Department Care Team (Late st Contact Info) Description 10/21/2024 Lab Requisition [facility] - Pathology Lab [address] [place] [address] Karsten Guido MD [address] [address] Iron deficiency anemia secondary to blood loss (chronic) Social History Tobacco Use Types Packs/Day Years [...] Procedure Name Priority Date/Time Associated Diagnosis Comments FLOW CYTOMETRY BONE MARROW Routine 10/21/2024 9:00 AM CDT Iron deficiency anemia secondary to blood loss (chronic) documented in this encounter Results * FLOW CYTOMETRY BONE MARROW (10/21/2024 9:00 AM CDT) Case Report Flow Cytometry Case: [id number] Authorizing Provider: Karsten Guido MD Collected: 10/21/2024 09:00 AM Ordering Location: [facility] - Received: 10/21/2024 03:37 PM Pathology Lab Pathologist: Nida Navarrete MD Specimen: Bone Marrow 10/22/2024 10:28 AM CDT [facility] Final Diagnosis Bone marrow, flow cytometric immunophenotypic analysis: - No evidence of a monoclonal B-cell population or increase in blasts - See interpretation 10/22/2024 10:28 AM [facility] PATHOLOGY LAB at 1028 CDT Flow Cytometry Interpretation Viability: 80% B-cells: polytypic, kappa:lambda ratio 1.5:1 Blasts: 2.5% of events Numerous erythroid progenitors are present. Plasma cells: no definitive population is identified. A bone marrow aspirate smear prepared from the flow cytometry specimen has been reviewed for manager quality compliance purposes. 10/22/2024 10:28 AM [facility] PATH[facility] LAB Flow Cytometry Results Differential Result Comment Flow Cell Count /uL 246,000 Total Viability % 80.0 Lymphocytes % 14 Dim CD45 Region % 25 Monocytes % 5 Granulocytes % 55 10/22/2024 10:28 AM [facility] PATH[facility] Reason for test Iron deficiency anemia secondary to blood loss (chronic) 280.0 10/22/2024 10:28 AM [facility] PATH[facility] Client Specimen ID # [id number] 10/22/2024 10:28 AM [facility] PATH[facility] LAB Number of markers 17 were performed. A-2 Flow CD10 A-3 Flow CD13 A-5 Flow CD20 A-13 Flow CD117 A-14 FLOW CD138 A-16 Flow CD117 A-1 Flow CD5 A-4 Flow CD19 A-6 Flow CD33 A-7 Flow CD34 A-8 Flow CD45 A-11 Flow CD38 A-12 Flow CD56 A-15 Flow CD41 A-17 Flow CD42b A-18 Flow PV162c A-9 Scott+CD19+ A-10 Lambda+CD19+ 10/22/2024 10:28 AM [facility] PATH[facility] LAB Pathologist Location at [facility] 10/22/2024 10:28 AM [facility] PATH[facility] LAB Disclaimer Test performed at [facility], [address] [place] [address], [address]. *The established laboratory minimum viability is 70%. Values below the minimum may result in the failure to find an abnormal population of cells. This test was developed and its performance characteristics determined by the Flow Cytometry Laboratory. It has not been cleared by the [place] Food and Drug Administration (FDA). The FDA has determined that such clearance or approval is not necessary. This test is used for clinical purposes. It should not be regarded as investigational or for research. This laboratory is regulated under the Clinical Laboratory Improvement Amendments of 1998 (CLIA) as a qualified to perform high complexity clinical testing. 10/22/2024 10:[address] [facility] Embedded Images 10:[address] [facility] Pathology/Cytolo gy BONE MARROW SPECIMEN / Unknown 10/21/2024 9:00 AM CDT 10/21/2024 3:37 PM CDT Karsten Guido MD LAB - PATHOLOGY/CYTOLOGY ORDERAB LES Final Result [facility] LAB [address] [facility] [place] [address], [facility] [phone] documented in this encounter Visit Diagnoses Diagnosis Iron deficiency anemia secondary to blood loss (chronic) documented in this encounter
--- OUTSIDE RECORDS SUMMARY | 2024-10-29 12:14 | XMS_ITS | Encounter Summary ---
Author Organization [facility] Address [address] [place] [address] Care Team Providers Care Features Reporter Name Role Phone Carrington Haeth MD Primary Care Provider [phone] Encounter Details Date Type Department Care Team (Late st Contact Info) Description 10/27/2024 External Device Data [facility] ABSTRACTION Provider, Abstract NO ADDRESS ON FILE Social History Tobacco Use Types Packs/Day Years Used Date Smoking Tobacco: Former Cigarettes 2 40 Q uit: 08/01/2021 Alcohol Use Standard Drinks/Week Comments Not Currently 0 (1 standard drink = 0.6 oz pur e alcohol) once a year or so Sex and Gender Information Value Date Recorded Sex Assigned at Not on file Legal Sex Male 3:27 PM CDT Gender Identity Not on file Sexual Orientation Not on file documented as of this encounter Plan of Treatment Upcoming Encounters Date Type Department Care Team (Late st Contact Info) Description 11/12/2024 4:30 PM CDT Telephone Check Up [facility] Oncology and Hematology - Nate [address] [facility] [address] [place] [address] Gilmar Cassidy MD [address] [facility] [address] [place] [address] documented as of this encounter Visit Diagnoses Not on filedocumented in this encounter Care Teams Features Reporter Relationship Specialty Start Date End Date Carrington Heath MD [address] [facility] [address] [place] [address] PCP - General Internal Medicine 11/11/24 documented as of this encounter
--- OUTSIDE RECORDS SUMMARY | 2024-10-29 12:14 | XMS_ITS | Patient Health Record ---
Author Organization [employer] [facility] [address]) Address [address] [place] [address] Care Team Providers Care Sizing Machine Operator Name Role Phone Carrington Heath MD Primary Care Provider Juana Tay Unavailable [phone] Mignon Carr Unavailable Unavailable [facility], Provider Unavailable [...] Reviewed date:12/30/2023 02:55:39 PM Interpretation:Normal Performing Lab:[place], [facility], [address] [place], [place], [address] Ankit Reyez M.D. Ph.D. Notes/Report: NON-FASTING FASTING:YES [...] developed and its performance characteristics determined by [facility] in a manner consistent with CLIA [...] AB Reviewed date:01/02/2024 08:13:48 AM Interpretation:Abnormal Performing Lab:[facility],, [address] [place], [address] Carolyn Velazquez MD,PhD,KARINA Notes/Report: NON-FASTING FASTING:NO FASTING: [...] AB Reviewed date:05/07/2024 01:10:49 PM Interpretation:Abnormal Performing Lab:[facility], [facility],, [address] [place], [address] Carolyn Velazquez MD,PhD,KARINA Notes/Report: NON-FASTING HAEMOPHILUS INFLUENZA [...] review and pick correct strength-formula tion from [employer] options. If intended option is not shown, [...] Route Administration Date Status Comme nts NOC PedvaxHIB IM Intramuscular 07/22/2023 Administered NOC PedvaxHIB IM Intramuscular 03/02/2024 Administered NOC Pneumovax 23 IM Intramuscular 08/08/2023 Administered Social History Tobacco Use: Social History Observation Description Date Details (start date - stop date) Former Smoker NA - NA Tobacco Control (Standard) Question Answer Notes Tobacco use: Former smoker How long has it been since you last smoked? 6-12 months Problems Problem Type SNOMED Code ICD Code Onset Dates Problem Status W/U Status Risk Notes Problem Vitamin D deficiency (40120758) Vitamin D deficiency, unspecified (E55.9) Active confirmed Problem Allergic rhinitis caused by pollen (disorder) (83001785) Allergic rhinitis due to pollen (J30.1) Active confirmed Problem Chronic rhinitis (01575223) Chronic rhinitis (J31.0) Active confirmed Problem Chronic sinusitis (42239932) Chronic sinusitis, unspecified (J32.9) Active confirmed Problem Hypertrophy of nasal turbinates (01753434) Hypertrophy of nasal turbinates (J34.3) Active confirmed Problem Chronic obstructive pulmonary disease (12702736) Chronic obstructive pulmonary disease, unspecified (J44.9) Active confirmed Problem Allergic rhinitis caused by animal hair and dander (409340942019469 ) Allergic rhinitis due to animal (cat) (dog) hair and dander (J30.81) Active confirmed Problem Chronic sinusitis (38392240) Other chronic sinusitis (J32.8) Active confirmed Vital [...] 94 Encounters Encounter Location Date Provider Diagnosis [address] [address] 11/16/2023 Provider [facility] [address] [address] 03/02/2024 Juana Arora Chronic sinusitis, unspecified J32.9 ; Vitamin D deficiency, unspecified E55.9 ; Allergic rhinitis due to pollen J30.1 ; Allergic rhinitis due to animal (cat) (dog) hair and dander J30.81 ; Chronic obstructive pulmonary disease, unspecified J44.9 and Encounter for immunization Z23 [address] [address] 12/23/2023 Juana Arora [address] [address] 12/23/2023 Juana Arora Chronic sinusitis, unspecified J32.[address] [address] 07/01/2024 Juana Arora Assessments Encounter Date Diagnosis [...] COPD and interstitial lung disease by his cloth dye range operator, Dr. Carr. He is also seen at [facility] for management of ILD. He reports [...] Coverage End Date [employer] [address] [address] [place] [address] [id number] BhupendraAndre Self - patient is the insured Medical (General) History Medical History History ICD Code COPD ILD Rheumatoid Arthiritis Glaucoma Surgical History Surgery Date(Month/Year) appendectomy 1963 quadruple bypass surgery 1977 gallbladder removed hemorrhoid surgery 2010 Hospitalization History Reason Date(Month/Year) penumonia 04/09/23 infection 2018
--- OUTSIDE RECORDS SUMMARY | 2024-10-29 12:14 | XMS_ITS | Encounter Summary ---
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
--- OUTSIDE RECORDS SUMMARY | 2024-10-29 12:14 | XMS_ITS | Referral Summary ---
Author Organization [facility] [address] [facility] [address] Address [address] [place] [address] Care Team Providers Care Mortgage Sales Manager Name Role Phone Carrington Heath MD Primary Care Provider Encounters Date Type Department Care Team Description 10/28/2024 Telephone [facility] Pulmonary [address] [facility] 8th [place] [address] [place] [phone] Ana Calhoun RN 08/17/2024 2:00 PM CDT Office Visit [facility] Cardiology [address] [place] [address] Sadaf Sanches NP Coronary artery disease involving [place] coronary artery of [place] heart without angina pectoris (Primary Dx) from [...] (5 mg total) by mouth daily 5 019 Active testosterone cypionate (DEPO-TESTOTER ONE) 200 mg/mL injection INJECT 1 ML INTRAMUSCULARLY EVERY OTHER WEEK 020 Active cetirizine (ZyrTEC) 10 mg tablet 009 Active guaifenesin/de xtromethorphan (MUCINEX DM ORAL) Take 600 mg by mouth Take 2 tablets daily Active cyanocobalamin (Vitamin B-12) 500 mcg tabletIndicati ons:Prevention of Vitamin B12 Deficiency Take 1 tablet (500 mcg total) by mouth daily Active predniSONE (DELTASONE) 5 mg tablet Take 1 tablet (5 mg) by mouth daily 021 Active Spiriva with HandiHaler 18 mcg per inhalation capsule 021 Active hydrOXYchloroQ UINE (PLAQUENIL) 200 mg tablet Take 1 tablet (200 mg total) by mouth 2 (two) times a day 021 Active blood-glucose meter [facility] Accu-Chek Guide Glucose Meter ACCUCHEK METER TO TEST BLOOD SUGARS DAILY Active lancets [facility] Accu-Chek Softclix Lancets USE TO TEST BLOOD SUGARS DAILY Active blood glucose diagnostic (glucose blood) strip Blood Glucose Test strips accu chek test strips test blood sugars daily Active calcium citrate-vitami n D3 (CITRACAL+D) 315 mg-5 mcg (200 unit) per tablet Calcium Citrate + D 315 mg-5 mcg (200 unit) tablet Take 1 tablet every day by oral route. 018 Active rimegepant (Nurtec ODT) tablet,disinte grating Take [...] (VIGAMOX) 0.5 % ophthalmic solution Active carboxymethyl- alx-mjdv50-JB (Refresh Optive Jaime-3, PF,) 0.5-1-0.5 % dropperette [...] mouth 2 (two) times a day Active metroNIDAZOLE (FLAGYL) 500 mg tablet TAKE 1 TABLET 3 TIMES A DAY BY ORAL ROUTE. Active valACYclovir (VALTREX) 1 gram tablet Take by mouth daily Active topiramate (TOPAMAX) 50 mg tabletIndicati ons:Migraine [...] of which was symptomatic leaves with supplemental uodf-lsh-xgpxpdm acetaminophen. I have renewed his topiramate 50 mg b.i.d., and I will plan on seeing him back on a yearly or as needed basis. 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 Gender Identity Not on file Sexual Orientation Not on file Last Filed Vital Signs Vital Sign Reading Time Taken Comments Blood Pressure 98/50 08/17/2024 2:12 PM CDT Pulse 82 08/17/2024 2:12 PM CDT Temperature 36.8 C (98.2 F) 05/04/2024 2:31 PM PROPERTY COORDINATOR Respiratory Rate 18 05/04/2024 2:31 PM PROPERTY COORDINATOR Oxygen Saturation 97% 08/17/2024 2:12 PM CDT [...] MD LAB BLOOD ORDERABLES Final R esult [facility] Department [place] [address] * Lipid panel (09/11/2022) SCRIBED Cholesterol, Total 85 <200 [facility] SCRIBED HDL 52 >40 [facility] SCRIBED LDL 20 <100 [facility] SCRIBED Triglycerides 51 <150 [facility] Blood Rob Poe MD LAB BLOOD ORDERABLES Tori l Result Performing Organization Address [facility] Co de Phone Number [facility] * (ABNORMAL) Hemoglobin A1c (01/28/2018 4:36 PM CDT) Hgb A1C 6.2(H) 4.0 - 5.6 % [facility] Estimated Average Glucose 131 mg/dL [facility] Comment: The ADA recommends reporting an estimated Average Glucose (eAG) with all Hemoglobin A1c results using the equation derived from a study of 507 normal and diabetic adults. Minority populations were underrepresented and children were not included. (Diabetes Care 31:6367-9062, 2008). The eAG is not equivalent to a fasting glucose. Blood specimen (specimen) 01/28/2018 4:36 PM CDT 01/28/2018 4:36 PM CDT Narrative [facility] - 01/28/2018 5:09 PM CDT Sadaf Marques NP LAB BLOOD ORDERABLES Fin al Result [facility] [address] [place] [address] from Last 3 Months or Most Recently Relevant to Health Maintenance Insurance [employer] MEDICARE PPO [employer] MEDICARE PPO [employer] MEDICARE PPO Care Teams Mortgage Sales Manager Relationship Specialty Start Date End Date Carrington Heath MD PCP - General 08/31/16
--- OUTSIDE RECORDS SUMMARY | 2024-10-29 12:14 | XMS_ITS | Encounter Summary ---
Author Organization [facility] Address [address] [place] [address] Phone Care Team Providers Care Chief Engineering Division Name Role Phone Carrington Heath MD Primary [...] on file Legal Sex Male 9:04 PM JERSEY KNITTER Gender Identity Not on file Sexual Orientation [...] on filedocumented in this encounter Care Teams Chief Engineering Division Relationship Specialty Start Date End Date Carrington Heath MD PCP - General 08/31/16 documented as of this encounter
--- OUTSIDE RECORDS SUMMARY | 2024-10-29 12:14 | XMS_ITS | Encounter Summary ---
Author Organization [facility] Address [address] [place] [address] Care Team Providers Care Wet Process Miller Head Name Role Phone Unavailable Primary Care Provider Unavailabl e Encounter Details Date Type Department Care Team (Late st Contact Info) Description 10/22/2024 Lab Requisition [facility] - Pathology Lab [address] [place] [address] Karsten Guido MD [address] [address] Illness, unspecified Social History Tobacco Use Types Packs/Day Years [...] Procedure Name Priority Date/Time Associated Diagnosis Comments BONE MARROW BIOPSY (STL) Routine 10/21/2024 9:00 AM CDT Illness, unspecified documented in this encounter Results * BONE MARROW BIOPSY (STL) (10/21/2024 9:00 AM CDT) Case Report Bone Marrow Patholog y Report Case: [id number] Authorizing Provider: Karsten Guido MD Collected: 10/21/2024 09:00 AM Ordering Location: [facility] - Received: 10/22/2024 05:00 PM Pathology Lab Pathologist: Nida Navarrete MD Specimens: A) - Bone Marrow Clot B) - Bone Marrow Core 10/23/2024 3:26 PM CDT [facility] Final Diagnosis Bone marrow, aspirate, clot section, and core biopsy: - Hypercellular marrow with trilineage dyspoiesis and no increase in blasts - Ring sideroblasts identified - No evidence of lymphoma or a plasma cell dyscrasia - See description Peripheral blood smear: - Macrocytic anemia - See description 10/23/2024 3:26 PM [facility] at 1526 CDT AP Comment Overall, the bone marrow specimen is hypercellular for age with trilineage dyspoiesis and no increase in blasts. Ring sideroblasts are frequently noted. Non-clonal causes of dysplastic morphology and ring sideroblasts should first be excluded, but if they are, and/or if a cytogenetic/molecular abnormality is detected, this process is best classified as a low-grade myelodysplastic syndrome (MDS), such as MDS with multilineage dysplasia and ring sideroblasts. Correlation with clinical findings and relevant cytogenetic/molecular testing is required for further classification. 10/23/2024 3:26 PM [facility] Peripheral Smear Description CBC Data: WBC - 7.1, Hgb - 7, MCV - 121, MCHC - 29.7, and Platelets - 175. Manual Differential Count (100 cells): 88% neutrophils, 8% lymphocytes, 3% monocytes, and 1% eosinophils. Leukocyte number: normal. Granulocyte morphology: normal. Lymphocyte morphology: normal. Erythrocyte number: decreased. Erythrocyte morphology: macrocytic. Anisopoikilocytosis: mild. Polychromasia: mild. Platelet number: normal. Platelet morphology: normal. 10/23/2024 3:26 PM [facility] Bone Marrow Aspirate Differential count (200 cells): 50.5% maturing myeloid precursors, 47% erythroid progenitors, 0.5% monocytes, 1.5% eosinophils, 0.5% lymphocytes, and 0.5% plasma cells. Specimen quality: adequate. Spicules: present. Trilineage Hematopoiesis: present. Myeloid:Erythroid ratio: 1.1:1. Myeloid Maturation: dyspoietic with hypogranular cytoplasm. Erythroid Maturation: dyspoietic with megaloblastic changes and occasional fine cytoplasmic vacuoles. Megakaryocyte morphology: hypolobate. Storage iron (by special stain): adequate. Sideroblastic iron (by special stain): ring sideroblasts present. Control is appropriately reactive. 10/23/2024 3:26 PM [facility] Bone Marrow Core Biopsy and Clot Section Description Specimen quality: The decalcified bone marrow core biopsy is adequate for evaluation. Cellularity: hypercellular, nearly 100%. Trilineage Hematopoiesis: present. Myeloid to Erythroid ratio: decreased, erythroid hyperplasia. Myeloid maturation and localization: normal. Erythroid maturation and localization: megaloblastic. Megakaryocyte number: increased and hypolobate. Megakaryocyte distribution: small, loose clusters. Lymphoid aggregates: few, very small. Core biopsy iron (by special stain): ring sideroblasts are identified. Clot section marrow particles: present. Clot section morphology: similar to core biopsy. Clot section iron (by special stain): frequent ring sideroblasts are seen. Immunohistochemistry is performed on the core biopsy to further define the cellular populations in the context of their architectural distribution. All controls are appropriately reactive. CD34 shows that blasts comprise less than 5% of the marrow cellularity, and CD117 similarly confirms no increase in immaturity. Myeloperoxidase and e-cadherin confirm an erythroid hyperplasia, with e-cadherin demonstrating the megaloblastic erythroid progenitors. CD20 and CD3 show scattered B-cells and T-cells, respectively, including within the few small lymphoid aggregates. CD138 shows less than 5% plasma cells that are negative for CD56 and mixed in expression of kappa and lambda light chains. 10/23/2024 3:26 PM [facility] Flow Cytometry Summary Concurrent flow cytometry ([id number]) shows no evidence of a monoclonal B-cell population or increase in blasts. 10/23/2024 3:26 PM [facility] Clinical History 79 year old man with macrocytic anemia and elevated serum light chains. 10/23/2024 3:26 PM [facility] Materials Received Received are 22 slides labeled [id number] along with a copy of the outside pathology report. [place] [address]. All original materials are returned to the referring institution, along with a copy of our final report. 10/23/2024 3:26 PM [facility] Pathologist Location at [facility] 10/23/2024 3:26 PM [facility] Disclaimer The performance characteristics of all immunohistochemical and indirect immunofluorescence stains (if any) cited in this report were determined by the Histopathology Laboratory of [facility]. Some of these tests were developed by our own laboratory and have not been cleared or approved by the US Food and Drug Administration. The FDA does not require this test to go through premarket FDA review. These tests are used for clinical purposes. They should not be regarded as investigational or for research. This laboratory is certified under the Clinical Laboratory Improvement Amendments (CLIA) as qualified to perform high complexity clinical laboratory testing. This case has been personally reviewed and interpreted by the attending (teaching) pathologist. 10/23/2024 3:26 PM CDT [facility] Embedded Images 10/23/2024 3:26 PM CDT [facility] Pathology/Cytology BONE MARROW SPECIMEN / Unknown 10/21/2024 9:00 AM CDT 10/22/2024 5:00 PM CDT Miscellaneous samples (specimen) BONE MARROW SPECIMEN / Unknown 10/21/2024 9:00 AM CDT 10/22/2024 5:00 PM CDT us Karsten Guido MD LAB - PATHOLOGY/CYTOLOGY ORDERAB LES Final Result [facility] [address] [facility] [place] [address], [facility] [phone] documented in this encounter Visit Diagnoses Diagnosis Illness, unspecified documented in this encounter
--- OUTSIDE RECORDS SUMMARY | 2024-10-29 12:14 | XMS_ITS | Clinical Summary ---
Author Organization [facility] Address [address] [place] [address] Care Team Providers Care Automotive General Sales Manager Name Role Phone Unavailable Primary Care Provider Unavailabl e Source Comments [facility],non-owned Affiliates and Associated Physician Practices is amultiple site organization consisting of ambulatory clinics and hospital sitesin [place], [place], [place] and [place]. This disclosure is being madepursuant to the Care Everywhere program and may not contain all information available regarding this patient. Last updated 18.[facility] Encounters Date Type Department Care Team Description 10/22/2024 Lab Requisition [facility] - Pathology Lab [facility] [place] [address] Karsten Guido MD Illness, unspecified 10/21/2024 Lab Requisition [facility] - Pathology Lab [facility] [place] [address] Karsten Guido MD Iron deficiency anemia secondary to blood loss (chronic) from Last 3 Months Social History Tobacco Use Types Packs/Day Years [...] - 1-dose 75+ series) 2022 COVID-19 VACCINE (3 - 2024-25 season) 2024 09/11/2021, 02/14/2021 DEPRESSION SCREENING 2024 [...] on patient's age to complete this topic Procedures Procedure Name Priority Date/Time Associated Diagnosis Comments BONE MARROW BIOPSY (STL) Routine 10/21/2024 9:00 AM CDT Illness, unspecified FLOW CYTOMETRY BONE MARROW Routine 10/21/2024 9:00 AM CDT Iron deficiency anemia secondary to blood loss (chronic) from Last 3 Months Results * FLOW CYTOMETRY BONE MARROW (10/21/2024 9:00 AM CDT) Case Report Flow Cytometry Case: [id number] Authorizing Provider: Karsten Guido MD Collected: 10/21/2024 09:00 AM Ordering Location: [facility] - Received: 10/21/2024 03:37 PM Pathology Lab Pathologist: Nida Navarrete MD Specimen: Bone Marrow 10/22/2024 10:28 AM CDT [facility] Final Diagnosis Bone marrow, flow cytometric immunophenotypic analysis: - No evidence of a monoclonal B-cell population or increase in blasts - See interpretation 10/22/2024 10:28 AM CDT [facility] at 1028 CDT Flow Cytometry Interpretation Viability: 80% B-cells: polytypic, kappa:lambda ratio 1.5:1 Blasts: 2.5% of events Numerous erythroid progenitors are present. Plasma cells: no definitive population is identified. A bone marrow aspirate smear prepared from the flow cytometry specimen has been reviewed for quality process engineer purposes. 10/22/2024 10:28 AM [facility] Flow Cytometry Results Differential Result Comment Flow Cell Count /uL 246,000 Total Viability % 80.0 Lymphocytes % 14 Dim CD45 Region % 25 Monocytes % 5 Granulocytes % 55 10/22/2024 10:28 AM [facility] Reason for test Iron deficiency anemia secondary to blood loss (chronic) 280.0 10/22/2024 10:28 AM [facility] Client Specimen ID # [id number] 10/22/2024 10:28 AM [facility] Number of markers 17 were performed. A-2 Flow CD10 A-3 Flow CD13 A-5 Flow CD20 A-13 Flow CD117 A-14 FLOW CD138 A-16 Flow CD117 A-1 Flow CD5 A-4 Flow CD19 A-6 Flow CD33 A-7 Flow CD34 A-8 Flow CD45 A-11 Flow CD38 A-12 Flow CD56 A-15 Flow CD41 A-17 Flow CD42b A-18 Flow PR362q A-9 Valliant+CD19+ A-10 Lambda+CD19+ 10/22/2024 10:28 AM [facility] Pathologist Location at [facility] 10/22/2024 10:28 AM [facility] Disclaimer Test performed at [facility], [address] [place] [address], [id number]. *The established laboratory minimum viability is 70%. [...] high complexity clinical testing. 10/22/2024 10:28 AM [facility] Embedded Images 10:28 AM [facility] Pathology/Cytolo gy BONE MARROW SPECIMEN / Unknown 10/21/2024 9:00 AM CDT 10/21/2024 3:37 PM CDT Karsten Guido MD LAB - PATHOLOGY/CYTOLOGY ORDERAB LES Final Result [facility] [address] [place] [address], [facility] [phone] * BONE MARROW BIOPSY (STL) (10/21/2024 9:00 AM CDT) Case Report Bone Marrow Patholog y Report Case: [id number] Authorizing Provider: Karsten Guido MD Collected: 10/21/2024 09:00 AM Ordering Location: [facility] - Received: 10/22/2024 05:00 PM Pathology Lab Pathologist: Nida Navarrete MD Specimens: A) - Bone Marrow Clot B) - Bone Marrow Core 10/23/2024 3:26 PM CDT [facility] Final Diagnosis Bone marrow, aspirate, clot section, and core biopsy: - Hypercellular marrow with trilineage dyspoiesis and no increase in blasts - Ring sideroblasts identified - No evidence of lymphoma or a plasma cell dyscrasia - See description Peripheral blood smear: - Macrocytic anemia - See description 10/23/2024 3:26 PM CDT [facility] at 1526 CDT AP Comment [...] required for further classification. 10/23/2024 3:26 PM CDT [facility] Peripheral Smear Description CBC Data: [...] normal. Platelet morphology: normal. 10/23/2024 3:26 PM [facility] Bone Marrow Aspirate Differential count [...] Control is appropriately reactive. 10/23/2024 3:26 PM [facility] Bone Marrow Core Biopsy and [...] and lambda light chains. 10/23/2024 3:26 PM [facility] Flow Cytometry Summary Concurrent flow cytometry ([id number]) shows no evidence of a monoclonal B-cell population or increase in blasts. 10/23/2024 3:26 PM [facility] Clinical History 79 year old man with macrocytic anemia and elevated serum light chains. 10/23/2024 3:26 PM [facility] Materials Received Received are 22 slides labeled [id number] along with a copy of the outside pathology report. [place] [address]. All original materials are returned to the referring institution, along with a copy of our final report. 10/23/2024 3:26 PM [facility] Pathologist Location at [facility] 10/23/2024 3:26 PM [facility] Disclaimer The performance characteristics of all immunohistochemical and indirect immunofluorescence stains (if any) cited in this report were determined by the Histopathology Laboratory of [facility]. Some of these tests were developed by [...] the attending (teaching) pathologist. 10/23/2024 3:26 PM [facility] Embedded Images 10/23/2024 3:26 PM [facility] Pathology/Cytology BONE MARROW SPECIMEN / Unknown 10/21/2024 9:00 AM CDT 10/22/2024 5:00 PM CDT Miscellaneous samples (specimen) BONE MARROW SPECIMEN / Unknown 10/21/2024 9:00 AM CDT 10/22/2024 5:00 PM CDT us Karsten Guido MD LAB - PATHOLOGY/CYTOLOGY ORDERAB LES Final Result [facility] [address] [place] [address], [facility] [phone] from Last 3 Months Insurance [facility] MEDICARE ADV HMO & PPO
--- OUTSIDE RECORDS SUMMARY | 2024-10-29 12:14 | XMS_ITS ---
Author Organization [employer] [place] ([address]) Address [address] [place] [address] Care Team Providers Care Phthalic Acid Purifier Name Role Phone Carrington Heath MD Primary Care Provider Juana Tay Unavailable [phone] Mignon Carr Unavailable REASON FOR VISIT Chronic [...] lung disease, managed by Dr. Carr and [facility] Pulmonology. Has X-RAYS and CT [...] a day (in the evening) Active Ipratropium [place] 0.06 % 2 spray(s) intranasally 3 times [...] Center [address] [place] [address] 12/23/2023 Juana Arora Hypertrophy of nasal turbinates [...] 12/23/2023 Chronic sinusitis, unspecified (ICD-10 - J32.9) Anrde reports frequent sinus infections, states he feels [...] COPD and interstitial lung disease by his roper operator, Dr. Carr. He is also seen at [facility] for management of ILD. He [...] sinusitis, also had pneumonia in April meeting [facility] criteria for modified PIDD work-up. - PIDD [...] COPD and interstitial lung disease by his roper operator, Dr. Carr. He is also seen at [facility] for management of ILD. He [...] Notes * Andre CHAPARRODOB:1945 (79 yo M)Acc No.[id number]:12/23/2023 Progress Notes Patient: Andre EDDY Provider: Lennie Arora DNP TUBE WASHER-C :1945 A ge:78 Y S ex:Male Date:12/23/2023 Address:[address] [id number] Pcp:Carrington Heath MD Subjective: * Chief Complaints: [...] lung disease, managed by Dr. Carr and [facility] Pulmonology. Has X-RAYS and CT scans completed annually.. * HPI: * Introduction: HPI: Lennie Chaparro, a 78-year-old male with complex past medical history of ILD, rheumatoid arthritis, and COPD who returns in consultation with his roper operator, Dr. Carr, for laboratory review. He is with his for today's visit. Andre has a complex history of COPD and interstitial lung disease, currently managed by Dr. Carr, as well as a team of pulmonologists at [facility]. He has been experiencing nasal [...] Carr, as well as a team at [facility] for management of his interstitial [...] day (in the evening) , Taking Ipratropium [place] 0.06 % Solution 2 spray(s) intranasally 3 [...] COPD and interstitial lung disease by his roper operator, Dr. Carr. He is also seen at [facility] for management of ILD. He [...] W/PT OR RE, G8482 FLU IMMUNIZE ORDER/ADMIN, 94261 HIB, [address]50 Single or Combination * Preventive Medicine: Counseling: Rayray iet a s tolerated. M edication instruction: [...] Management) * Billing Information: * Visit Code: 21019 Office Visit, Est Pt., Level 4. Modifiers: 25 * Procedure Codes: G8427 DOC MEDS VERIFIED W/PT OR RE. G8482 FLU IMMUNIZE ORDER/ADMIN. 58831 NOC PedvaxHIB. 29066 Immunization Administration (one vaccine). * Electronic signature of Juana Arora DNP, TUBE WASHER-C on 10/29/2024 at 12:14 PM CDT Sign off status: Pending * Provider: Lennie Arora DNP TUBE WASHER-C Date: 0 12/23/2023 Generated for Lesley loja/Jairo/Augieitting on: 0 10/29/2024 12:14 PM CDT History and Physical Notes * HPI (History of Present Illness) Category Sub-Category Detail Notes Category Not es *Introduction HPI: Andre Chaparro, a 78-year-old male with complex past medical history of ILD, rheumatoid arthritis, and COPD who returns in consultation with his roper operator, Dr. Carr, for laboratory review. He is with his for today's visit. Andre has a complex history of COPD and interstitial lung disease, currently managed by Dr. Carr, as well as a team of pulmonologists at [facility]. He has been experiencing nasal [...] Carr, as well as a team at [facility] for management of his interstitial [...]
--- OUTSIDE RECORDS SUMMARY | 2024-10-29 12:14 | XMS_ITS | Encounter Summary ---
Author Organization [facility] Address [address] [place] [address] Care Team Providers Care Blueprinting And Photocopy Supervisor Name Role Phone Carrington Heath MD Primary Care Provider [phone] Encounter Details Date Type Department Care Team (Late st Contact Info) Description 10/29/2024 11:30 AM CDT Office Visit [facility] - [place] [address] [place] [address] Gilmar Cassidy MD [address] [place] [address] Chronic anemia (Primary Dx); Elevated serum immunoglobulin free light chains Social History Tobacco Use Types Packs/Day Years [...] on file documented as of this encounter Last Filed Vital Signs Vital Sign Reading Time Taken Comments Blood Pressure 101/61 10/29/2024 11:35 AM CDT Pulse 104 10/29/2024 11:35 AM CDT Temperature 36.8 C (98.2 F) 10/29/2024 11:35 AM CDT Respiratory Rate 15 10/29/2024 11:35 AM CDT Oxygen Saturation 96% 10/29/2024 11:35 AM CDT Inhaled Oxygen Concentration - - Weight 68.7 kg (151 lb 6.4 oz) 10/29/2024 11:35 AM CDT Height - - Body Mass Index 24.44 04/13/2024 11:30 AM 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 documented in this encounter Plan of Treatment Upcoming Encounters Date Type Department Care Team (Late st Contact Info) Description 11/12/2024 4:30 PM CDT Telephone Check Up [facility] - [place] [address] [facility] [address] [place] [address] Gilmar Cassidy MD [address] [facility] [facility] [address] [place] [address] Scheduled Orders Name Type Priority Associated Diagnoses Orde r Schedule MISCELLANEOUS LAB TEST Lab Routine Chronic anemia Elevated serum immunoglobulin free light chains Expected: 10/29/2024, Expires: 10/29/2025 ERYTHROPOIETIN LEVEL Lab Routine Chronic anemia Expected: 10/29/2024, Expires: 10/29/2025 documented as of this encounter Visit Diagnoses Diagnosis Chronic anemia- Primary Anemia, unspecified Elevated serum immunoglobulin free light chains Other nonspecific findings on examination of blood documented in this encounter Care Teams Blueprinting And Photocopy Supervisor Relationship Specialty Start Date End Date Carrington Heath MD [address] [facility] [address] [place] [id number] PCP - General Internal Medicine 04/13/24 documented as of this encounter
--- OUTSIDE RECORDS SUMMARY | 2024-10-29 12:14 | XMS_ITS | Data Portability ---
Author Organization [place] - [facility], Main Office Address [address] [place] [address] Assessment No assessment recorded. Plan of Treatment Reminders Order Date Submit Date Provider Last Modified By Organization Details Last Modified Time Details Appointments None recorded . Lab HbA1c (hemoglo bin A1c), blood 025 09/18/19 [id number] [employer], [address], [address], [place], [address], 5 13:18:28 lipid panel, serum 025 09/18/19 25 [email or web address] [employer], [address], [place], [address], 5 13:18:27 CMP, serum or plasma 025 09/18/19 25 [employer], [address], [address], [place], [address], 5 13:18:27 CBC w/ auto diff 025 09/18/19 25 [employer], [address], [address], [place], [address], 5 13:18:27 Referral None recorded . Procedures None recorded . Surgeries None recorded . Imaging None recorded . Medication Orders None recorded . Patient TargetsNo targets recorded. Patient Instructions Encounter Date Encounter Id Patient Instructions Last Modified By Organization Details Last Modified Time 03/19/2024 [id number] Follow-up examination for coronary artery disease, hypertension, [...] - Recommendations 1. Hematology consult up at [facility] for abnormal immunoprotein is in the blood with elevated kappa light chains Follow Up: 6 Weeks Approximate Date: 04/30/2024 Portions of the record may have been created with voice recognition software. Occasional wrong-word or vmdwl-s-kcan substitutions may have occurred due to the inherent limitations of voice recognition software. Read the chart carefully and recognize, using context, where substitutions have occurred. Not available 03/19/2024 15:57:58 05/20/2024 [id number] Follow-up for coronary artery disease, essential hypertension, hyperlipidemia, rheumatoid arthritis, pulmonary fibrosis all clinically stable. No blood required at this time. Will continue observation follow-up in two months Follow Up: 2 Months Approximate Date: 07/19/2024 Portions of the record may have been created with voice recognition software. Occasional wrong-word or grgkv-w-wtso substitutions may have occurred due to the inherent limitations of voice recognition software. Read the chart carefully and recognize, using context, where substitutions have occurred. Created: Carrington Heath M.D. 05.20.2024 10:57 AM [email or web address] Not available 05/20/2024 11:58:13 09/17/2024 [id number] Follow-up perez ry artery disease, essential hypertension, [...] with voice recognition software. Occasional wrong-word or yaaqt-e-kaiz substitutions may have occurred due to the inherent limitations of voice recognition software. Read the chart carefully and recognize, using context, where substitutions may have occurred. Created: Carrington Heath M.D. 09.17.2024 03:07 PM [email or web address] Not available 09/17/2024 16:07:33 Reason for Referral None Reported. Results Created Date Observation Date Name Description Value Unit Range Abnormal Flag Note LastModifiedBy Organization Detail LastModifiedTime 02/18/20 24 02/25/2024 PROTE IN ELECT ROPHO RESIS AND KAPPA /MORGAN DA LIGHT CHAIN S, SERUM protein, total 6.1 g/dL 6.1-8. 1 Not Available [address], [address], 02/25/2024 23:04:13 02/18/20 24 02/25/2024 PROTE IN ELECT ROPHO RESIS AND KAPPA /MORGAN DA LIGHT CHAIN S, SERUM albumin 4.1 g/dL 3.8-4. 8 Not Available [address], [address], 02/25/2024 23:04:13 02/18/20 24 02/25/2024 PROTE IN ELECT ROPHO RESIS AND KAPPA /MORGAN DA LIGHT CHAIN S, SERUM alpha 1 globulin 0.3 g/dL 0.2-0. 3 Not Available [address], [address], 02/25/2024 23:04:13 02/18/20 24 02/25/2024 PROTE IN ELECT ROPHO RESIS AND KAPPA /MORGAN DA LIGHT CHAIN S, SERUM alpha 2 globulin 0.5 g/dL 0.5-0. 9 Not Available [address], [address], 02/25/2024 23:04:13 02/18/20 24 02/25/2024 PROTE IN ELECT ROPHO RESIS AND KAPPA /MORGAN DA LIGHT CHAIN S, SERUM beta 1 globulin 0.3 g/dL 0.4-0. 6 low Not Available [address], [address], 02/25/2024 23:04:13 02/18/20 24 02/25/2024 PROTE IN ELECT ROPHO RESIS AND KAPPA /MORGAN DA LIGHT CHAIN S, SERUM beta 2 globulin 0.2 g/dL 0.2-0. 5 Not Available [employer] [address], [address], 02/25/2024 23:04:13 02/18/20 24 02/25/2024 PROTE IN ELECT ROPHO RESIS AND KAPPA /MORGAN DA LIGHT CHAIN S, SERUM gamma globulin 0.8 g/dL 0.8-1. 7 Not Available [facility] [address] [address] [place], [address], 02/25/2024 23:04:13 02/18/20 24 02/25/2024 PROTE IN [...] labor atory data avail able. Not Available [address] [address] [place], [address], 02/25/2024 23:04:13 02/18/20 24 02/25/2024 PROTE IN ELECT ROPHO RESIS AND KAPPA /MORGAN DA LIGHT CHAIN S, SERUM kappa 209 mg/dL 176-44 3 Not Available [address] [address] [place], [address], 02/25/2024 23:04:13 02/18/20 24 02/25/2024 PROTE IN ELECT ROPHO RESIS AND KAPPA /MORGAN DA LIGHT CHAIN S, SERUM lambda 91 mg/dL 91-240 Not Available [facility] [address] [address] [place], [address], 02/25/2024 23:04:13 02/18/20 24 02/25/2024 PROTE IN [...] ders, and amylo idosi s. Not Available [employer] [address] [address] [place], [address], 02/25/2024 23:04:13 02/18/20 24 02/25/2024 LD LD 145 U/L 120-25 0 normal Not Available [facility] [address] [place], [address], 02/25/2024 23:04:14 02/18/20 24 02/25/2024 KAPPA /MORGAN DA LIGHT CHAIN , FREE W/RAT IO,RA ND URINE kappa light chain, free, urine 84.35 mg/L <=32.9 0 high Not Available [facility] [address] [address] [place], [address], 02/25/2024 23:04:14 02/18/20 24 02/25/2024 KAPPA /MORGAN DA LIGHT CHAIN , FREE W/RAT IO,RA ND URINE lambda light chain, free, urine 13.61 mg/L <=3.79 high Not Available [address] [address] [place], [address], 02/25/2024 23:04:14 02/18/20 24 02/25/2024 KAPPA /MORGAN DA LIGHT CHAIN , FREE W/RAT IO,RA ND URINE kappa/lambda , free ratio 6.20 <=8.69 If free light chain resul ts do not agree with other clini mirian or labor atory findi ngs, repea t testi ng on a dilut ed sampl e to rule out antig en exces s may be reque sted. Not Available [employer] [facility] [address] [address] [place], [address], 02/25/2024 23:04:14 02/18/20 24 02/25/2024 IMMUN OFIXA TION, URINE jose interpretati on No monoc lonal immun oglob ulin detec case. The suppl ier of the testi ng reage nts for this assay has gilman ed. Detec tion of small monoc lonal prote ins may vary by test syste m. Not Available [address] [address] [place], [address], 02/25/2024 23:04:15 02/18/20 24 02/25/2024 BETA 2 MICRO GLOBU SONU, SERUM beta 2 microglobuli n, serum 2.95 mg/L < or = 2.51 high Not Available [address] [address] [place], [address], 02/25/2024 23:04:15 10/29/1910/29/2024 LIPID PANEL , STAND OTONIEL cholesterol, total 80 mg/dL <200 normal Not Available [facility] [address] [address] [place], [address], 10/29/2024 08:11:12 10/29/1910/29/2024 LIPID PANEL , STAND OTONIEL HDL cholesterol 55 mg/dL > or = 40 normal Not Available [address] [address] [place], [address], 10/29/2024 08:11:12 10/29/1910/29/2024 LIPID PANEL , STAND OTONIEL triglyceride s 45 mg/dL <150 normal Not Available [employer] [facility] [address] [address] [place], [address], 10/29/2024 08:11:12 10/29/1910/29/2024 LIPID PANEL , STAND OTONIEL LDL-choleste rol 12 mg/dL _(mirian c) normal Refer ence range : <100 Meagahn able range <100 mg/dL for prima ry preve ntion ; <70 mg/dL for patie nts with CHD or diabe tic patie nts with > or = 2 CHD risk facto rs. LDL-C is now calcu lated using the Otilia n-Hop kins luz elena acosta n, which is a valid ated novel ileana young than the Fried ted marlonat ion in the estim ation of LDL-C . Otilia manuel SS et al. SANTOS. 2013; 310(1 9): 2061- 2068 (http ://ed ucati on.Qu Dawn Xopik. com/f aq/FA Q164) Not Available [facility] [address] [place], [address], 10/29/2024 08:11:12 10/29/1910/29/2024 LIPID PANEL , STAND OTONIEL chol/HDLC ratio 1.5 (calc ) <5.0 normal Not Available [employer] [facility] [address] [address] [place], [address], 10/29/2024 08:11:12 10/29/1910/29/2024 LIPID PANEL , STAND OTONIEL non HDL cholesterol 25 mg/dL _(mirian c) <130 normal For patie nts with diabe clarke plus 1 major ASCVD risk facto r, treat ing to a non-H DL-C goal of <100 mg/dL (LDL- C of <70 mg/dL ) is consi dered a thera peuti c optio n. Not Available [facility] [address] [address] [place], [address], 10/29/2024 08:11:12 10/29/1910/29/2024 COMPR EHENS MONA METAB OLIC PANEL , PLASM A glucose 157 mg/dL 65-99 high Fasti ng refer ence inter kimberly For someo ne witho ut known diabe clarke, a gluco se value >125 mg/dL indic ates that they may have diabe clarke and this shoul d be confi rmed with a follo w-up test. Not Available [facility] [address] [address] [place], [address], 10/29/2024 08:11:13 10/29/1910/29/2024 COMPR EHENS MONA METAB OLIC PANEL , PLASM A urea nitrogen (BUN) 24 mg/dL 7-25 normal Not Available [address], [address], 10/29/2024 08:11:13 10/29/1910/29/2024 COMPR EHENS MONA METAB OLIC PANEL , PLASM A creatinine 0.87 mg/dL 0.70-1 .28 normal Not Available [address], [address], 10/29/2024 08:11:13 10/29/1910/29/2024 COMPR EHENS MONA METAB OLIC PANEL , PLASM A eGFR 89 mL/mi n/1.7 3m2 > or = 60 normal Not Available [address], [address], 10/29/2024 08:11:13 10/29/1910/29/2024 COMPR EHENS MONA METAB OLIC PANEL , PLASM A BUN/creatini ne ratio SEE NOTE: (calc ) 6-22 Not Repor case: BUN and Creat inine are withi n refer ence range . Not Available [address], [address], 10/29/2024 08:11:13 10/29/1910/29/2024 COMPR EHENS MONA METAB OLIC PANEL , PLASM A sodium 140 mmol/ L 135-14 6 normal Not Available [address], [address], 10/29/2024 08:11:13 10/29/1910/29/2024 COMPR EHENS MONA METAB OLIC PANEL , PLASM A potassium 4.2 mmol/ L 3.4-4. 8 normal Not Available [address], [address], 10/29/2024 08:11:13 10/29/1910/29/2024 COMPR EHENS MONA METAB OLIC PANEL , PLASM A chloride 108 mmol/ L 98-110 normal Not Available [address], [address], 10/29/2024 08:11:13 10/29/1910/29/2024 COMPR EHENS MONA METAB OLIC PANEL , PLASM A carbon dioxide 25 mmol/ L 20-32 normal Not Available [address], [address], 10/29/2024 08:11:13 10/29/1910/29/2024 COMPR EHENS MONA METAB OLIC PANEL , PLASM A calcium 8.3 mg/dL 8.6-10 .3 low Not Available [address], [address], 10/29/2024 08:11:13 10/29/1910/29/2024 COMPR EHENS MONA METAB OLIC PANEL , PLASM A protein, total 6.3 g/dL 6.4-8. 4 low Not Available [address], [address], 10/29/2024 08:11:13 10/29/1910/29/2024 COMPR EHENS MONA METAB OLIC PANEL , PLASM A albumin 4.1 g/dL 3.6-5. 1 normal Not Available [facility] [address], [address], 10/29/2024 08:11:13 10/29/1910/29/2024 COMPR EHENS MONA METAB OLIC PANEL , PLASM A globulin 2.2 g/dL_ (calc ) 2.2-4. 0 normal Not Available [address], [address], 10/29/2024 08:11:13 10/29/1910/29/2024 COMPR EHENS MONA METAB OLIC PANEL , PLASM A albumin/glob ulin ratio 1.9 (calc ) 0.9-2. 3 normal Not Available [address], [address], 10/29/2024 08:11:13 10/29/1910/29/2024 COMPR EHENS MONA METAB OLIC PANEL , PLASM A bilirubin, total 0.9 mg/dL 0.2-1. 2 normal Not Available [address], [address], 10/29/2024 08:11:13 10/29/1910/29/2024 COMPR EHENS MONA METAB OLIC PANEL , PLASM A alkaline phosphatase 42 U/L 35-144 normal Not Available [address], [address], 10/29/2024 08:11:13 10/29/1910/29/2024 COMPR EHENS MONA METAB OLIC PANEL , PLASM A AST 9 U/L 10-35 low Not Available [address], [address], 10/29/2024 08:11:13 10/29/1910/29/2024 COMPR EHENS MONA METAB OLIC PANEL , PLASM A ALT 7 U/L 9-46 low Not Available [address], [address], 10/29/2024 08:11:13 10/29/1910/29/2024 CBC (INCL UDES DIFF/ PLT) white blood cell count 7.1 thous and/u L 3.8-10 .8 normal Not Available [address], [address], 10/29/2024 08:11:14 10/29/1910/29/2024 CBC (INCL UDES DIFF/ PLT) red blood cell count 1.97 jose on/uL 4.20-5 .80 low Not Available [address], [address], 10/29/2024 08:11:14 10/29/1910/29/2024 CBC (INCL UDES DIFF/ PLT) hemoglobin 7.2 g/dL 13.2-1 7.1 low Not Available [facility] [address], [address], 10/29/2024 08:11:14 10/29/1910/29/2024 CBC (INCL UDES DIFF/ PLT) hematocrit 22.9 % 38.5-5 0.0 low Not Available [facility] [address], [address], 10/29/2024 08:11:14 10/29/1910/29/2024 CBC (INCL UDES DIFF/ PLT) MCV 116.2 fL 80.0-1 00.0 high Not Available [address], [address], 10/29/2024 08:11:14 10/29/1910/29/2024 CBC (INCL UDES DIFF/ PLT) MCH 36.5 pg 27.0-3 3.0 high Not Available [address], [address], 10/29/2024 08:11:14 10/29/1910/29/2024 CBC (INCL UDES DIFF/ PLT) MCHC 31.4 g/dL 32.0-3 6.0 low For adult s, a sligh t decre ase in the calcu lated MCHC value (in the range of 30 to 32 g/dL) is most likel y not clini lisa moorei harry t; mary er, it shoul d be inter prete d with cauti on in corre latio n with other red cell tonny eters and the patie nt's clini mirian condi tion. Not Available [facility] [address], [address], 10/29/2024 08:11:14 10/29/1910/29/2024 CBC (INCL UDES DIFF/ PLT) RDW 20.4 % 11.0-1 5.0 high Not Available [address], [address], 10/29/2024 08:11:14 10/29/1910/29/2024 CBC (INCL UDES DIFF/ PLT) platelet count 216 thous and/u L 140-40 0 normal Not Available [address], [address], 10/29/2024 08:11:14 10/29/1910/29/2024 CBC (INCL UDES DIFF/ PLT) MPV 12.9 fL 7.5-12 .5 high Not Available [address], [address], 10/29/2024 08:11:14 10/29/1910/29/2024 CBC (INCL UDES DIFF/ PLT) absolute neutrophils 5495 cells /uL 1500-7 800 normal Not Available [address], [address], 10/29/2024 08:11:14 10/29/1910/29/2024 CBC (INCL UDES DIFF/ PLT) absolute lymphocytes 831 cells /uL 850-39 00 low Not Available [address], [address], 10/29/2024 08:11:14 10/29/1910/29/2024 CBC (INCL UDES DIFF/ PLT) absolute monocytes 533 cells /uL 200-95 0 normal Not Available [address], [address], 10/29/2024 08:11:14 10/29/1910/29/2024 CBC (INCL UDES DIFF/ PLT) absolute eosinophils 220 cells /uL 15-500 normal Not Available [address], [address], 10/29/2024 08:11:14 10/29/1910/29/2024 CBC (INCL UDES DIFF/ PLT) absolute basophils 21 cells /uL 0-200 normal Not Available [address], [address], 10/29/2024 08:11:14 10/29/1910/29/2024 CBC (INCL UDES DIFF/ PLT) neutrophils 77.4 % normal Not Available [address], [address], 10/29/2024 08:11:14 10/29/1910/29/2024 CBC (INCL UDES DIFF/ PLT) lymphocytes 11.7 % normal Not Available [address], [address], 10/29/2024 08:11:14 10/29/1910/29/2024 CBC (INCL UDES DIFF/ PLT) monocytes 7.5 % normal Not Available [address], [address], 10/29/2024 08:11:14 10/29/1910/29/2024 CBC (INCL UDES DIFF/ PLT) eosinophils 3.1 % normal Not Available [address], [address], 10/29/2024 08:11:14 10/29/1910/29/2024 CBC (INCL UDES DIFF/ PLT) basophils 0.3 % normal Not Available [address], [address], 10/29/2024 08:11:14 10/29/1910/29/2024 CBC MORPH OLOGY CBC morphology normal normal Acant hocyt es 1 + Aniso cytos is 2 + Macro cytos is 2 + Ovalo cytes 1 + Not Available [facility] [address] [place], [address], 10/29/2024 08:11:16 10/29/19 25 10/29/2024 HEMOG LOBIN A1C hemoglobin A1C 5.7 %_of_ total _HGB <5.7 high For someo ne witho ut known diabe clarke, a hemog lobin A1c value betwe en 5.7% and 6.4% is consi stent with predi abete s and shoul d be confi rmed with a follo w-up test. For someo ne with known diabe clarke, a value <7% indic ates that their diabe clarke is well contr olled . A1c targe ts shoul d be indiv idual ized based on durat ion of diabe clarke, age, comor bid condi tions , and other consi derat ions. This assay resul t is consi stent with an incre ased risk of diabe clarke. Curre ntly, no conse nsus exist s regar ding use of hemog lobin A1c for diagn osis of diabe clarke for child kimberly. Not Available [facility] [address] [place], [address], 10/29/2024 08:11:16 01/20/20 24 MRI, lumba r spine , w/o contr ast [facility] [address] [address] Patien t Name: ANDRE HUIZAR Access ion #: [id number] Sex: M : 1945 7 Dictat ed By: Anali rodriguez Attend [facility] Physic haley: STEPHANIE HEATH Orderi Physic haley: STEPHANIE HEATH CE Exam Date: [...] ral body height s are mainta ined. Pay Agent ior elemen ts are intact . There [...] ventra l aspect of the Page 1 [facility] [address] [place] [address] Patien t Name: ANDRE HUIZAR Access ion #: [id number] Sex: M : 1945 [facility] #: [id number] Dictat ed By: Anali rodriguez Attend [...] signal , may be seen with extens mona red marrow hyperp lasia/ reconv ersion . [...] at 2023 12:51: 18 PM Page [address] (Imaging) [address] [place], [address], 01/20/2024 17:43:42 05/05/20 24 05/04/2024 XR, knee No observ ation record ed. [email or web address] Not Available 2023 17:04:36 10/23/19 25 10/21/2024 bone marro w aspir ation proce dure (PROC ) No observ ation record ed. [email or web address] [facility] [address], [place], [address], 10/22/2024 14:08:32 Result Notes None recorded. Problems Name Problem SNOMED Code Status Onset Date Resolution Date Notes Provider Name and Address Organization Details Recorded Time Diverticu litis of colon 038879317 Active Not Available [facility] 3 13:33:48 Bronchiec tasis 00579712 Active Not Available [employer] 3 13:33:48 Acute sinusitis 08569470 Active 2021 Not Available [facility] 3 13:33:48 Blood glucose outside reference range 941427050 Active Not Available [facility] 3 13:33:48 Insomnia 270534358 Active Not Available [facility] 3 13:33:48 Asthma 247877932 Active Not Available [facility] 3 13:33:48 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 2017 Not Available [facility] 3 13:33:48 Gastroeso phageal reflux disease 071130370 Active 2021 Not Available [facility] 3 13:33:48 Osteoarth ritis of knee 370013708 Active Not Available [facility] 3 13:33:48 Pure hyperchol esterolem ia 551184154 Active Not Available [facility] 3 13:33:48 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 252380563 Active Not Available [facility] 3 13:33:48 Disorder of prostate 26880346 Active 2021 Not Available [facility] 3 13:33:48 Current tear of medial cartilage AND/OR meniscus of knee Active Not Available [facility] 3 13:33:48 Depressiv e disorder 30102265 Active Not Available [facility] 3 13:33:48 Chronic pain syndrome 005617558 Active 2020 Not Available [facility] 3 13:33:48 Osteoarth ritis 601159283 Active 2021 Not Available [facility] 3 13:33:48 Umbilical hernia 915919864 Active Not Available [facility] 3 13:33:48 Macrocyto sis 060709458 Active 2021 Not Available [facility] 3 13:33:48 Chronic sinusitis 12810954 Active 2021 Not Available [facility] 3 13:33:48 Coronary artery bypass graft occlusion 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 Active Not Available [facility] 3 13:33:48 Polyneuro kiley 00841494 Active Not Available [facility] 3 13:33:48 Chronic recurrent sinusitis 158439646 Active 2021 Not Available [facility] 3 13:33:48 Migraine with aura 1456167 Active Not Available [facility] 3 13:33:48 Anxiety 26492639 Active 2021 Not Available [facility] 3 13:33:48 Disorder of cardiovas cular system 31727115 Completed Not Available [facility] 3 06:03:43 Coronary arteriosc lerosis 32409743 Active Not Available [facility] 3 13:33:48 Essential hypertens ion 55907477 Active 2016 Not Available [facility] 3 13:33:48 Derangeme nt of knee 95853650 Active Not Available [facility] 3 13:33:48 Rheumatoi d arthritis 89810620 Active Not Available [facility] 3 13:33:48 Varicose veins of lower extremity 94989748 Active Not Available [facility] 3 13:33:48 Diabetes mellitus 94776601 Completed Not Available [facility] 3 06:03:44 Maxillary sinusitis 34627544 Active Not Available [facility] 3 13:33:48 Fibrosis of lung 07970432 Active 2022 Not Available [facility] 3 13:33:48 Anemia 391255339 Active 2022 Not Available [facility] 3 13:33:48 Low back strain 514219789 Active 2022 Not Available [facility] 3 13:33:48 Pneumonia 532413743 Active 2022 Carrington Heath MD [address], [address], [place], [address] , [place] [facility] 3 15:22:19 Diarrhea 12545320 Active 2022 Sharla Ortiz CMA null, [place] [facility] 3 17:17:30 Left foot drop 05808442280 9105 Active 2022 Carrington Heath MD [address], [address], [place], [address] , [place] [facility] 3 15:29:07 Low back pain 044901907 Active 2023 Rachna bustamante, [place] [facility] 4 15:21:51 Idiopathi c pulmonary fibrosis 300571056 Active 2023 Carrington Heath MD [address], [address], [place], [address] , [place] [facility] 4 15:42:54 Urinary tract infectiou s disease 94312728 Active 2023 Carrington Heath MD [address], [address], [place], [address] , [place] [facility] 4 16:55:31 Left side sciatica 49976578885 9104 Active 2023 Carrington Heath MD [address], [address], [place], [address] , [place] [facility] 4 15:55:40 Pain of hip region 91964807 Active 2023 Sharla Ortiz CMA null, [place] [facility] [employer] [facility] 4 12:30:10 Serum total protein outside reference range 810769870 Active 2023 Carrington Heath MD [address], [address], [place], [address] , [facility] [employer] [facility] 4 15:34:08 Laborator y test result abnormal 466998389 Active 2023 Rachna Nieto null, [place] [employer] [employer] [facility] 4 16:42:49 COVID-19 860834561 Active 2024 Carrington Heath MD [address], [address], [place], [address] , [employer] [facility] [employer] [facility] 5 11:21:06 Type 2 diabetes mellitus 86976526 Active 2024 Carrington Heath MD [address], [address], [place], [address] , [employer] [facility] [employer] 5 16:00:48 Problem Notes None recorded. Procedures Surgical History Date Name Laterality Status Provider Name and Address Organization Details Recorded Time 4 Medicare Wellness CPT Code, subsequent completed Mariann Elena RN [facility] [employer] [facility] 08/06/2023 14:57:50 3 Medicare Wellness CPT Code, subsequent completed Mariann Elena RN [facility] [employer] [facility] 08/03/2022 15:22:27 Imaging Results None recorded. Procedure Notes None recorded. Medical Equipment None Reported. Allergies Allergen ID Allergen Name Allergen Category Reaction Reaction Severity Criticality Documentation Date Start Date Code Code System Note Provider Name and Address Organization Details Recorded Time 45388 Substance with sulfonami de structure and antibacte rial mechanism of action (substanc e) medicatio n rash Not available Not available 08/01/2022 03095 8003 SNOMED Not Available [facility] 3 06:14:41 21056 Product containin g penicilli n (product) medicatio n rash Not available Not available 08/01/2022 83764 8001 SNOMED Not Available [facility] 3 06:14:41 63889 Keflex medicatio n rash Not available Not available 08/01/202224306 7 RxNorm Not Available [facility] 3 06:14:41 Medications Name Sig Start Date Stop Date Status Note LastModified by Organization Details LastModified Time Prescript ion - Prior Authoriza tion Request active [employer] DENIAL FOR TESTOSTE TABATHA MORALES N Not Available Not Available Not Available [...] twice a day by oral route. active insuranc e approved 10-10-15 to 11-08-18 pharmacy notified [...] A DAY AND 1 TABLET AT BEDTIME 2024 active Not Available Not Available Not Avai lable azelastin e 137 mcg (0.1 %) nasal [...] ular syringe TO BE ADMINIST ERED BY [employer] FOR IMMUNIZA TION 10/22 completed Not Available [...] ular syringe TO BE ADMINIST ERED BY [employer] FOR IMMUNIZA TION 08/02 completed Not Available [...] t Available Vitals Date Recorded Body height Body mass index (BMI) Body weight Heart rate Body temperature Oxygen saturation Oxygen saturation in Arterial blood by Pulse oximetry Inhaled oxygen flow rate Systolic blood pressure Diastolic blood pressure Provider Name and Address Organization Details Last Updated DateTime 5 165.1 cm 25 kg/m2 39672.6 5 g 101 /min 97 [degF] 99 % 99 % 4 L/min 118 mm[Hg] 60 mm[Hg] Grazyna Wellington [employer] 5 15:38:39 Date Recorded Body height Provider Name an d Address Organization Details Last Updated DateTime 02/11/2024 165.1 cm Carrington Heath MD [address] [facility], [facility] [address], [place], [address], [employer] 02/11/2024 16:28:58 Date Recorded Body height Body mass index (BMI) Body weight Heart rate Body temperature Oxygen saturation Oxygen saturation in Arterial blood by Pulse oximetry Inhaled oxygen flow rate Systolic blood pressure Diastolic blood pressure Provider Name and Address Organization Details Last Updated DateTime 4 165.1 cm 25.8 kg/m2 18461.8 2 g 104 /min 97 [degF] 96 % 96 % 3 L/min 118 mm[Hg] 60 mm[Hg] HARIKA Agrawal [employer] 4 15:26:57 Date Recorded Body height Body mass index (BMI) Body weight Heart rate Body temperature Oxygen saturation Oxygen saturation in Arterial blood by Pulse oximetry Inhaled oxygen flow rate Systolic blood pressure Diastolic blood pressure Provider Name and Address Organization Details Last Updated DateTime 4 165.1 cm 25.1 kg/m2 67263.4 5 g 104 /min 97 [degF] 95 % 95 % 4 L/min 116 mm[Hg] 58 mm[Hg] Grazyna Wellington [facility] [employer] [facility] 4 15:54:12 Date Recorded Body height Body weight Heart rate Body temperature Oxygen saturation Oxygen saturation in Arterial blood by Pulse oximetry Inhaled oxygen flow rate Systolic blood pressure Diastolic blood pressure Provider Name and Address Organization Details Last Updated DateTime 4 165.1 cm 29866.7 8 g 98 /min 97 [degF] 97 % 97 % 4 L/min 112 mm[Hg] 60 mm[Hg] HARIKA Agrawal [place] [employer] [facility] [employer] [facility] 4 11:34:45 Social History Question Answer Notes LastModified by Organization Details LastModified Time Tobacco Smoking Status Current Every Day Smoker Not Available [facility] 08/01/2022 05:54:01 Do You Have An Advance Directive? No They Are Working On It [email or web address] Information not available 08/06/2023 Are You Blind Or Do You Have Difficulty Seeing? No [email or web address] Information not available 08/06/2023 Are You Deaf Or Do You Have Serious Difficulty Hearing? Yes [email or web address] Information not available 08/03/2022 What Type Of Diet Are You Following? REGULAR [id number] Information not available 08/01/2022 Have There Been Any Changes To Your Family Or Social Situation? Yes Information not available 08/06/2023 What Is The Fluoride Status Of Your Home? Unknown [email or web address] Information not available 08/03/2022 Are There Any Guns Present In Your Home? Yes [email or web address].[id number] Information not available 08/01/2022 Do You Use Insect Repellent Routinely? Yes MIGRATION.[id number] Information not available 08/01/2022 Where Do You Live? [place]House MIGRATION.[id number] Information not available 08/01/2022 Guns Present In The Home? Yes [email or web address] Information not available 08/06/2023 Are You Able To Care For Yourself? Yes [email or web address] Information not available 08/06/2023 Are You Blind Or Do Yo Have Difficulty Seeing? No [email or web address] Information not available 08/06/2023 Are You Deaf Or Do You Have Serious Difficulty Hearing? Yes Information not available 08/06/2023 Live Alone Of With Others? With Others [email or web address] Information not available 08/06/2023 Do You Have A Medical Power Of Cable Tv Installer? No MIGRATION.0301 [id number] Information not available 08/01/2022 What Was The Date Of Your Most Recent Tobacco Screening? 08/06/2023 [email or web address] Information not available 08/06/2023 Do You Have Any Pets? Yes MIGRATION.0301 [id number] Information not available 08/01/2022 What Is Your Relationship Status? MIGRATION.0301 404253 Information not available 08/01/2022 Do You Use Your Seat Belt Or Car Seat Routinely? Yes MIGRATION.0301 168676 Information not available 08/01/2022 Do You Have Smoke And Carbon Monoxide Detectors In Your Home? Yes MIGRATION.0301 985399 Information not available 08/01/2022 At What Age Did You Start Smoking Tobacco? 18 Has Quit In Between Several Times MIGRATION.0301 279862 Information not available 08/01/2022 How Much Tobacco Do You Smoke? 0.5 PPD MIGRATION.0301 616286 Information not available 08/01/2022 Do You Use Sunscreen Routinely? Yes MIGRATION.0301 930449 Information not available 08/01/2022 Have You Recently Traveled Abroad? No MIGRATION.0301 390060 Information not available 08/01/2022 Do You Have Difficulty Walking Or Climbing Stairs? No MIGRATION.0301 723926 Information not available 08/01/2022 Do You Have Any Dietary Restrictions? No MIGRATION.0301 482701 Information not available 08/01/2022 Sex: Unknown Functional Status Question Answer Note LastModified by Organizat ion Details LastModified Time What is your level of alcohol consumption? None [email or web address] Information not available 08/06/2023 Do you have transportation difficulties? No MIGRATION.493686 7295 Information not available 08/01/2022 Are you able to walk? YESWOREST MIGRATION.066026 8483 Information not available 08/01/2022 Do you have difficulty doing errands alone? No MIGRATION.028010 5551 Information not available 08/01/2022 Are you able to care for yourself? Yes MIGRATION.733079 3626 Information not available 08/01/2022 Do you have difficulty dressing or bathing? No MIGRATION.627905 7945 Information not available 08/01/2022 What is your exercise level? None bad back MIGRATION.157506 9170 Information not available 08/01/2022 Mental Status Question Answer Note LastModified by Organizat ion Details LastModified Time Do you have difficulty concentrating, remembering or making decisions? No MIGRATION.[id number] 6 Information not available 08/01/2022 Family History Nothing Reported Notes:Mother 80 yea rs old Father 85 years old 7 Brothers 2 Living 3 Sisters 2 Living Mother Hx: DM, CVA, HTN Father Hx: ASHD Sister Hx: Infant (1) one has dementia Brother Hx: DM (1) , ASHD (1) , Ca of Kidney (1) , Suicide (2) Infirmities(1) Medical History Condition Response BLINDNESS N NERVE DISEASE N RHEUMATIC FEVER N BLADDER PROBLEMS N KIDNEY STONES N OTHER # 1 N POLIO N [...] ARTERY DISEASE (CAD) Y ADDICTION CONCERNS N ENDOMETRIOSIS N Impotence N USE OF BLOOD THINNERS N SKIN [...] APNEA N CHICKENPOX N INFECTIOUS DISEASE N HEART ARRHYTHMIA N PROSTATE N INSOMNIA Y HIGH CHOLESTEROL / HYPERLIPIDEMIA Y HYPERTHYROIDISM N EYE PROBLEMS N NEUROLOGICAL PROBLEMS N EDEMA N CHRONIC PAIN SYNDROME N HYPOTHYROIDISM N CAROTID BLOCKAGE N CONSTIPATION N BACK / NECK PROBLEMS N HAVE YOU BEEN HOSPITALIZED OR SEEN IN [facility] IN THE PAST YEAR ? N ATHEROSCLEROSIS N BREAST PROBLEMS N DIALYSIS N ECZEMA N OSTEOPOROSIS N ARTHRITIS Y NO SIGNIFICANT PAST MEDICAL HISTORY N APPENDICITIS N DIABETES, TYPE Y BAD TEETH N ENT N HEARTBURN / REFLUX N AUTISM SPECTRUM DISORDER (ASD) N HEPATITIS / LIVER DISEASE N PULMONARY DISEASE N GOUT N SLEEP DISORDER N ALZHEIMER'S DISEASE N Brain Problems N HERPES N DEMENTIA N HEADACHES/MIGRAINES N SEIZURES/EPILEPSY N VASCULAR DISEASE N PACEMAKER N Blood Disorder N DIZZINESS N HEART DISEASE/HEART PROBLEMS Y KIDNEY DISEASE N MULTIPLE SCLEROSIS N CARDIAC ARRHYTHMIA N CANCER: SPECIFY N ANESTHESIA COMPLICATIONS N ATRIAL FIBRILLATION N Gall Stones N PULMONARY EMBOLISM N AUTOIMMUNE DISEASE N Immunizations Vaccine Type Date Status Note Provider Nam e and Address Organization Details Recorded Time influenza, unspecified formulation 2 completed Grazyna Wellington null, [facility] [employer] [facility] [employer] 08/03/2022 15:17:25 influenza, unspecified formulation 3 completed Grazyna bustamante, [facility] [employer] [facility] 04/11/2023 17:23:26 Influenza, adjuvanted, trivalent, PF 4 completed HARIKA Agrawal, [facility] [employer] [facility] 03/16/2024 15:43:54 SARS-COV-2 (COVID-19) vaccine, UNSPECIFIED 1 completed Not Available [facility] 08/01/2022 06:14:18 Influenza, high-dose, trivalent, PF 7 completed Not Available [facility] 08/01/2022 06:14:19 Influenza, high-dose, trivalent, PF 3 completed Not Available [facility] 08/01/2022 06:14:19 COVID-19, mRNA, LNP-S, PF, 30 mcg/0.3 mL dose 2 completed Not Available [facility] 08/01/2022 06:14:19 Influenza, split virus, quadrivalent, preservative 1 completed Not Available [facility] 08/01/2022 06:14:19 COVID-19, mRNA, LNP-S, PF, 30 mcg/0.3 mL dose 1 completed Not Available [facility] 08/01/2022 06:14:19 SARS-COV-2 (COVID-19) vaccine, UNSPECIFIED 1 completed Not Available [facility] 08/01/2022 06:14:19 Pneumococcal conjugate PCV 13 5 completed Not Available [facility] 08/01/2022 06:14:20 Pneumococcal conjugate PCV 13 5 completed Not Available [facility] 08/01/2022 06:14:20 Influenza, high-dose, quadrivalent, PF 0 completed Not Available [facility] 08/01/2022 06:14:20 Influenza, high-dose, trivalent, PF 8 completed Not Available [facility] 08/01/2022 06:14:20 Influenza, high-dose, trivalent, PF 5 completed Not Available [facility] 08/01/2022 06:14:20 Influenza, high-dose, trivalent, PF 4 completed Not Available [facility] 08/01/2022 06:14:20 pneumococcal polysaccharide PPV23 3 completed Not Available [facility] 08/01/2022 06:14:21 Pneumococcal conjugate PCV20, polysaccharide QVY804 conjugate, adjuvant, PF 4 completed HARIKA Agrawal, [place] [facility] Prior Knowledge 05/20/2024 14:02:28 Past Encounters Encounter ID Performer Location Encounter Start Date Encounter Closed Date Diagnosis/Indication Diagnosis SNOMED-CT Code Diagnosis ICD10 Code Diagnosis Note [id number] Carrington Heath MD [facility] Internal [place] [address] [place] [address] [place] [address] 08/02/2020 00:00:00 08/02/2020 16:57:44 [id number] MD [facility] Internal [place] [address] [place] [address] [place] [address] 10/04/2020 00:00:00 10/04/2020 15:26:45 [id number] Carrington Heath MD [facility] Internal Med [place] [address] [place] [address] [place] [address] 12/06/2020 00:00:00 12/06/2020 15:30:15 [id number] Carrington Heath MD [facility] Internal Med [place] [address] [place] [address] [place] [address] 01/31/2021 00:00:00 01/31/2021 14:39:22 [id number] Carrington Heath MD [facility] Internal [facility] [place] [address] [place] [address] [place] [address] 05/30/2021 00:00:00 05/30/2021 16:41:38 [id number] Carrington Haeth MD [facility] Internal Med [place] [address] [place] [address] [place] [address] 08/15/2021 00:00:00 08/15/2021 11:15:19 [id number] Carrington Heath MD [facility] Internal Med [place] [address] [place] [address] [place] [address] 09/26/2021 00:00:00 09/26/2021 16:09:26 [id number] Carrington Heath MD [facility] Internal [facility] [place] [address] [place] [address] [place] [address] 02/02/2022 00:00:00 02/02/2022 16:11:16 [id number] Carrington Heath MD [facility] Internal Med [place] [address] [place] [address] [place] [address] 08/03/2022 14:45:59 08/03/2022 16:02:18 Adult health examination 238843638 Z00.00 Screening for disorder 821526495 Z13.9 Coronary arteriosclerosis 01487852 I25.10 Essential hypertension 56589382 I10 Pure hypercholesterolemia 444199821 E78.00 Type 2 lito betes mellitus without complication 395337826 E11.9 Rheumatoid arthritis 698 06055 M06.9 Fibrosis of lung 0682723 1 J84.10 [id number] Carrington Heath MD [facility] Internal Med [place] [address] [facility] [place] [address] 10/09/2022 14:56:21 12/06/2022 16:50:05 [id number] Carrington Heath MD [facility] Internal Med [place] [address] [facility] [place] [address] 12/07/2022 14:38:56 12/07/2022 15:16:55 Coronary arteriosclerosis 68485624 I25.10 Essential hypertension 52488787 I10 Pure hypercholesterolemia 323250519 E78.00 Type 2 lito betes mellitus without complication 085835991 E11.9 Chronic pain syndrome 37 6653801 G89.4 Bronchiectasis 56713192 J47.9 [id number] Carrington Heath MD [facility] Internal Med [facility] [address] [facility], [facility] [address] [place] [address] 01/10/2023 11:14:58 01/10/2023 11:51:41 Acute sinusitis 84200218 J01.90 [id number] Carrington Heath MD [facility] Internal Med [place] [address] [facility] y , [place] [address] 03/12/2023 14:22:47 03/12/2023 15:07:17 Coronary arteriosclerosis 60930495 I25.10 Essential hypertension 62704761 I10 Pure hypercholesterolemia 708151468 E78.00 Type 2 lito betes mellitus without complication 785355068 E11.9 Fibrosis of lung 7357410 1 J84.10 Disorder of prostate 302 82997 N42.9 [id number] Carrington Heath MD [facility] Internal Med [place] [address] [facility] [place] [address] 04/16/2023 14:53:38 04/16/2023 15:40:18 Pneumonia 616489020 J18.9 Coronary arteriosclerosis 61922317 I25.10 Essential hypertension 22658453 I10 Pure hypercholesterolemia 718195217 E78.00 [id number] Carrington Heath MD [facility] Internal Med [place] [address] [place] [address] [place] [address] 05/14/2023 14:33:43 05/14/2023 15:42:11 Coronary arteriosclerosis 42780331 I25.10 Essential hypertension 09676898 I10 Pure hypercholesterolemia 655465228 E78.00 Fibrosis of lung 0476902 1 J84.10 Left foot drop 435934180 1 47739 M21.241 [id number] Carrington Heath MD [facility] Internal Med [place] [address] [place] [address] [place] [address] 06/07/2023 14:23:07 06/07/2023 15:23:54 Coronary arteriosclerosis 74220378 I25.10 Pure hypercholesterolemia 074277449 E78.00 Rheumatoid arthritis 698 68228 M06.9 Type 2 lito betes mellitus without complication 586917135 E11.9 Asthma 481228959 J45.90 9 [id number] Carrington Heath MD [facility] Internal Med [place] [address] [place] [address] [place] [address] 08/06/2023 14:49:05 08/07/2023 08:40:31 Adult health examination 621085659 Z00.00 Screening for disorder 920739325 Z13.9 Coronary arteriosclerosis 34604411 I25.10 Essential hypertension 65641515 I10 Fibrosis of lung 4238841 1 J84.10 Pure hypercholesterolemia 163346959 E78.00 Type 2 lito betes mellitus without complication 784784003 E11.9 Rheumatoid arthritis 698 03595 M06.9 [id number] Carrington Heath MD 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 Internal Med [place] [address] [place] [address] [place] [address] 12/12/2023 15:13:20 12/12/2023 16:04:22 Left side sciatica 4387500231 50315 M54.32 Coronary arteriosclerosis 34763590 I25.10 Essential hypertension 03714826 I10 Type 2 lito betes mellitus without complication 425622413 E11.9 Pure hypercholesterolemia 104654362 E78.00 Fibrosis of lung 5055516 1 J84.10 [id number] Carrington Heath MD [facility] Internal Med [place] [address] [place] [address] [place] [address] 02/11/2024 15:07:51 02/11/2024 16:29:39 [id number] Carrington Heath MD [facility] Internal Med [place] [address] [place] [address] [place] [address] 03/19/2024 15:15:51 03/19/2024 16:12:28 Coronary arteriosclerosis 62242043 I25.10 Essential hypertension 71633142 I10 Pure hypercholesterolemia 485825013 E78.00 Rheumatoid arthritis 698 77412 M06.9 Idiopathic pulmonary fibrosis 707101638 J84.427 [id number] Carrington Heath MD [facility] Primary [facility] [place] [address] [facility] [address] [place] [address] 04/28/2024 15:28:19 04/28/2024 16:48:46 [id number] Carrington Heath MD [facility] Internal Med [facility] 24 [address] [facility] [address] [place] [address] 05/20/2024 11:25:09 05/20/2024 14:52:39 Coronary arteriosclerosis 69281849 I25.10 Essential hypertension 08108228 I10 Idiopathic pulmonary fibrosis 284739447 J84.112 Pure hypercholesterolemia 213782886 E78.00 Rheumatoid arthritis 698 45040 M06.9 [id number] Carrington Heath MD [facility] Primary [facility] [place] [address] [facility] [address] [place] [address] 09/17/2024 15:21:57 09/17/2024 16:14:45 Coronary arteriosclerosis 90252950 I25.10 Essential hypertension 06442201 I10 Idiopathic pulmonary fibrosis 091024114 J84.112 Pure hypercholesterolemia 630388426 E78.00 Type 2 lito betes mellitus 52336011 E11.9 Health Concerns Section Related Observation LastModified by Organization Detai ls LastModified Time None Recorded Concern Status LastModified by Organization Details LastModified Time None Recorded Advance Directives Directive N: they are working on it Payers Encounter Date Sequence Insurance Name Policy Number Policy Miller Covered Member ID Miller Member ID Guarantor Name 02/11/2024 1 [employer] (MEDICARE REPLACEMENT/A DVANTAGE - PPO) Andre Huizar [id number] Andre Huizar 03/19/2024 1 [employer] (MEDICARE REPLACEMENT/A DVANTAGE - PPO) Andre Huizar [id number] Andre Huizar 04/28/2024 1 [employer] (MEDICARE REPLACEMENT/A DVANTAGE - PPO) Andre Huizar [id number] Andre Huizar 05/20/2024 1 [employer] (MEDICARE REPLACEMENT/A DVANTAGE - PPO) Andre Huizar [id number] Andre Huizar 09/17/2024 1 [employer] (MEDICARE REPLACEMENT/A DVANTAGE - PPO) Andre Huizar [id number] Andre Huizar Notes Date Note Type Note Provider Name and Address Organization Details Recorded Time 03/19/2024 text/html Patient Name: Tien kaur JoannaericDate Of Service: March ( 03.19.2024 ): 1945 [...] and arthralgia Medication Reconciliation: from medication list. Gajieiohsmo78/01/2023: Carotid doppler <50% stenosis 04-10-2023: Echocardiogram left ventricular ejection fraction 65-70%. Right ventricular systolic function normal. The right atrial chamber is mildly enlarged. There is mild mitral valve regurgitation. There is mild tricuspid regurgitation. Pulmonary hypertension estimated at 58 mmHg. 01-20-2024: MRI of the lumbar spine shows multiple decrease in disc height with some mild in dentition on the ventral thecal sac with mftl-jq-hokezdho stenosis noted at multiple levels. No suggestion [...] non healing lesions. The last HAIC was DCCT HAIC: 6.0 Calculated MB mg%. CGM: No. [...] below. Physical activity status unchanged. Followed by [employer]: Yes. Tolerating medications well. Medications currently consistent [...] 13 GC PREVNAR 20 Needed(X) 2020- COVID [employer] Pgutssv6316-83 Czmkuomntbqvwytje8960-1 3 Lap Slrirjxsngupifu9308-04 Umbilical Hyfvbt3992-92 UGXX2805-73 Appendectomy Preventative Testing( ) 02/18/2024 Albumin 4.1 [...] cigarettes per day for 20 years. Quit 1997Drinking Hx: 6 Cups of coffee per day, < 6 cans of soft drinksper day.Exercise: WeeklySexual Hx: Sexually Active Family HistoryMother 80 years oldFather 85 years old7 Brothers 2 Living3 Sisters 2 LivingMother Hx: DM, CVA, HTNFather Hx: ASHDSister Hx: Infant (1) one has dementiaBrother Hx: DM (1) , ASHD (1) , Ca of Kidney (1) , Suicide (2) Infirmities(1) Carrington Heath MD [address] [facility], [facility] [address], [place], [address], [facility] Prior Knowledge 03/19/2024 15:58:12 05/20/2024 text/html Patient Name: Tien [...] Systemic Symptoms:none Medication Reconciliation: from medication list. Ctrcyjwchtn37/01/2023: Carotid doppler <50% stenosis 04-10-2023: Echocardiogram left ventricular ejection fraction 65-70%. Right ventricular systolic function normal. The right atrial chamber is mildly enlarged. There is mild mitral valve regurgitation. There is mild tricuspid regurgitation. Pulmonary hypertension estimated at 58 mmHg. 01-20-2024: MRI of the lumbar spine shows multiple decrease in disc height with some mild in dentition on the ventral thecal sac with dxmk-zz-mdetqqcg stenosis noted at multiple levels. No suggestion [...] below. Physical activity status unchanged. Followed by [employer]: Yes. Tolerating medications well. Medications currently consistent [...] Vaccination and Immunization( ) 2012- PNEUMOVAX( ) 2024-03 INFLUENZA(X) 2014-08 PREVNAR 13 GC PREVNAR 20 Needed(X) 2020- COVID [employer] Inmwnwq8679-96 Vunlqnmvrumalkgii2639-1 3 Lap Adrhwxrffsmevxh1942-36 Umbilical Msswlp7158-23 IIIL0051-49 Appendectomy Preventative Testing( ) 03/09/2024 Optometry( ) [...] Suicide (2) Infirmities(1) Carrington Heath MD [address] [facility], [facility] [address], [place], [address], [place] [facility] 05/20/2024 11:58:28 09/17/2024 text/html Patient Name: Tien [...] Symptoms:generalized fatigue Medication Reconciliation: from medication list. Rxwqgmkhkua82/01/2023: Carotid doppler <50% stenosis 04-10-2023: Echocardiogram left ventricular ejection fraction 65-70%. Right ventricular systolic function normal. The right atrial chamber is mildly enlarged. There is mild mitral valve regurgitation. There is mild tricuspid regurgitation. Pulmonary hypertension estimated at 58 mmHg. 01-20-2024: MRI of the lumbar spine shows multiple decrease in disc height with some mild in dentition on the ventral thecal sac with urwb-qp-zesggrdl stenosis noted at multiple levels. No suggestion [...] PREVNAR 13 GC PREVNAR 20 Needed(X) 2020- [facility] Mtwodou4170-50 Vhpnuusbyeabumhvc2947-8 3 Lap Nwzmyhylctnszxy1683-20 Umbilical Mlbjnt5059-73 WPZI9234-74 Appendectomy Preventative Testing( ) 08/03/2024 Ophthalmology( ) [...] Suicide (2) Infirmities(1) Carrington Heath MD [address] [facility], [facility] [address], [place], [address], [place] [facility] 09/17/2024 16:07:51
--- OUTSIDE RECORDS SUMMARY | 2024-10-29 12:14 | XMS_ITS | Encounter Summary ---
Author Organization [facility] Address [address] [place] [address] Care Team Providers Care Supervisor Braiding Name Role Phone Carrington Heath MD Primary Care Provider [phone] Encounter Details Date Type Department Care Team (Late Contact Info) Description 10/27/2024 Orders Only [facility] [address] [place] [address] Gilmar Cassidy MD [facility] [address] [place] [phone] Social History Tobacco Use Types Packs/Day Years [...] Encounters Date Type Department Care Team (Late Contact Info) Description 11/12/2024 4:30 PM CDT Telephone Check Up [facility] - [address] [place] [address] Gilmar Cassidy MD [address] [place] [phone] documented as of this encounter Procedures Procedure Name Priority Date/Time Associated Diagnosis Comments BONE MARROW ASPIRATION & BIOPSY Routine 10/21/2024 1:03 PM CDT documented in this encounter Results * BONE MARROW ASPIRATION AND BIOPSY (10/21/2024 1:03 PM CDT) Bone marrow us Gilmar Cassidy MD PATH/CYTO ORDERABLES COM Final Result documented in this encounter Visit Diagnoses Not on filedocumented in this encounter Care Teams Supervisor Braiding Relationship Specialty Start Date End Date Carrington Heath MD [address] [facility] [address] [place] [address] PCP - General Internal Medicine 04/13/24 documented as of this encounter
--- OUTSIDE RECORDS SUMMARY | 2024-10-29 12:14 | XMS_ITS | Clinical Summary ---
Author Organization [facility] Alireza Rahman Address [address] [place] [address] Care Team Providers Care Educational/Development Assistant Name Role Phone Carrington Heath MD Primary Care Provider [phone] Allergies Active Allergy Reactions Criticality Noted Date [...] Encounters Date Type Department Care Team Description 10/29/2024 11:30 AM CDT Office Visit [facility] [address] [place] [address] Gilmar Cassidy MD Chronic anemia (Primary Dx); Elevated serum immunoglobulin free light chains 10/27/2024 External Device Data STL ABSTRACTION Provider, Abstract 10/27/2024 Orders Only [facility] [address] [place] [address] Gilmar Cassidy MD 10/21/2024 External Device Data STL ABSTRACTION Provider, Abstract 10/21/2024 External Device Data STL ABSTRACTION Provider, Abstract 10/14/2024 Refill [facility] [address] [place] [address] Gilmar Cassidy MD Anxiety state (Primary Dx) 10/14/2024 Telephone [facility] [address] [place] [address] Gilmar Cassidy MD Anxiety 10/13/2024 2:00 PM CDT Office Visit [facility] [address] [place] [address] Gilmar Cassidy MD Chronic anemia (Primary Dx) [...] 6.4 oz) 10/29/2024 11:35 AM CDT Height 167.6 cm (5' 6) 04/13/2024 11:30 AM CORPORATE COMPLIANCE MANAGER Body Mass Index 24.44 04/13/2024 11:30 AM CORPORATE COMPLIANCE MANAGER Plan of Treatment Upcoming Encounters Date Type Department Care Team (Late st Contact Info) Description 11/12/2024 4:30 PM CDT Telephone Check Up [facility] - [place] [address] [facility] [address] [place] [address] Gilmar Cassidy MD [address] [facility] [address] [place] [address] Health Maintenance Due Date Last Done Comments DIABETES ANNUAL FOOT EXAM 1965 DIABETES ANNUAL RETINAL EXAM 1965 DIABETES MICROALBUMIN ANNUAL SCREEN 1965 LDL CHOLESTEROL ANNUAL 1965 DTAP/TDAP/TD VACCINES (1 - Tdap) 1966 Lung Cancer Screening 1997 ZOSTER VACCINE (1 of 2) 1997 DIABETES HBA1C Q 6 MONTHS 07/31/2018 01/28/2018 RSV VACCINE (60+ or ) (1 - 1-dose 75+ series) 2022 [place] Preventative Visit/Annual Wellness Visit 2024 08/06/2023, 08/03/2022 PNEUMOCOCCAL VACCINE 50+ YEARS Completed 1 07/21/2023, 08/10/2014, 08/01/2014, Additional history exists INFLUENZA VACCINE Completed 03/14/2024, , 03/04/2020, Additional history exists Procedures Procedure Name Priority Date/Time Associated Diagnosis Comments BONE MARROW ASPIRATION & BIOPSY Routine 10/21/2024 1:03 PM CDT IMMUNOFIXATION Routine 09/22/2024 1:27 PM CDT CBC [...] anemia from Last 3 Months Results * BONE MARROW ASPIRATION AND BIOPSY (10/21/2024 1:03 PM CDT) Bone marrow us Gilmar Cassidy MD PATH/CYTO ORDERABLES COM Final Result * VITAMIN B12 AND FOLATE (09/22/2024 1:27 PM CDT) Pathologist [facility] VITAMIN B12 525 200 - 1100 pg/mL [facility] FOLATE, SERUM 8.7 ng/mL [facility] Comment: Reference Range Low: <3.4 Borderline: 3.4-5.4 Normal: >5.4 FASTING:NO FASTING: NO Test Performed at: [facility] [address] [place] [phone] MalinaEugenia George MD Blood 09/22/2024 1:27 PM CDT 09/22/2024 1:28 PM CDT Gilmar Cassidy MD CHEMISTRY ORDERABLES Final Resu lt Performing Organization Address [facility]/ZIP Co de Phone Number [facility] [phone] [facility] [place] [address] [place] [phone] * IMMUNOFIXATION (09/22/2024 1:27 PM CDT) Pathologist [facility] IMMUNOFIXATION INTERP [facility] Comment: Normal pattern. No monoclonal proteins detected. FASTING:NO FASTING: NO Test Performed at: [facility] [address] [place] [phone] MalinaEugenia George MD 09/22/2024 1:27 PM CDT 09/22/2024 1:28 PM CDT Gilmar Cassidy MD CHEMISTRY ORDERABLES Final Resu lt Performing Organization Address [facility]/ZIP Co de Phone Number [facility] [phone] [facility] [address] [place] [phone] * KAPPA/LAMBDA, FREE LIGHT CHAINS (09/22/2024 1:27 PM CDT) [facility] KAPPA FREE LIGHT CHAIN 17.1 3.3 - 19.4 mg/L [facility] [place] LAMBDA FREE LIGHT CHAIN 11.5 5.7 - 26.3 mg/L [facility] [place] KAPPA/LAMBDA LIGHT CHAIN RATIO 1.49 0.26 - 1.65 [facility] [place] Comment: Free kappa/lambda ratio in serum of [...] disorders. FASTING:NO FASTING: NO Test Performed at: [facility] [place] [place] [address] Jona George MD Blood 09/22/2024 1:27 PM CDT 09/22/2024 1:28 PM CDT Gilmar Cassidy MD CHEMISTRY ORDERABLES Final Resu lt [facility] [phone] [facility] [place] [address] * (ABNORMAL) IRON, TIBC, AND PERCENT SATURATION (09/22/2024 1:27 PM CDT) Pathologist [facility] IRON 211(H) 50 - 180 mcg/dL [facility] TIBC 224(L) 250 - 425 mcg/dL (calc) [facility] IRON % SATURATION 94(H) 20 - 48 % (calc) [facility] Comment: FASTING:NO FASTING: NO Test Performed at: [facility] [place] [address] Jona George MD Blood 09/22/2024 1:27 PM CDT 09/22/2024 1:28 PM CDT Gilmar Cassidy MD CHEMISTRY ORDERABLES Final Resu lt [facility] [phone] [facility] [address] [address] * (ABNORMAL) CBC WITH DIFFERENTIAL (09/22/2024 1:27 PM CDT) WBC 8.6 3.8 - 10.8 Thousand/u L [...] Comment: FASTING:NO FASTING: NO Test Performed at: [facility] [address] [place] [address] Jona George MD 09/22/2024 1:27 PM CDT 09/22/2024 1:28 PM CDT Gilmar Cassidy MD HEMATOLOGY ORDERABLES Final Res ult Performing Organization Address [facility] Co de Phone Number [facility] [phone] [facility] [address] [place] [phone] * IMMUNOGLOBULINS IGG IGA IGM (09/22/2024 1:27 PM CDT) Pathologist [facility] IGA 70 70 - 320 mg/dL [facility] IGG 790 600 - 1540 mg/dL [facility] IGM 111 50 - 300 mg/dL [facility] Comment: FASTING:NO FASTING: NO Test Performed at: [facility] [address] [place] [address] Jona George MD Blood 09/22/2024 1:27 PM CDT 09/22/2024 1:28 PM CDT Gilmar Cassidy MD CHEMISTRY ORDERABLES Final Resu lt Performing Organization Address [facility] Co de Phone Number [facility] [phone] [facility] [address] [place] [phone] * (ABNORMAL) PROTEIN ELECTROPHORESIS W/REFLEX,SERUM (09/22/2024 1:27 PM CDT) Pathologist [facility] TOTAL PROTEIN 6.1 6.1 - 8.1 g/dL [facility] [place] ALBUMIN SPE 4.0 3.8 - 4.8 g/dL [facility] [place] ALPHA 1 GLOBULIN SPE 0.3 0.2 - 0.3 g/dL [facility] [place] ALPHA 2 GLOBULIN SPE 0.5 0.5 - 0.9 g/dL [facility] [place] Beta 1 Globulin 0.3(L) 0.4 - 0.6 g/dL [facility] [place] Beta 2 Globulin 0.2 0.2 - 0.5 g/dL [facility] [place] GAMMA GLOBULIN 0.8 0.8 - 1.7 g/dL [facility] [place] ABNORMAL PROTEIN BAND SPE 0.1(H) NONE DETECTED g/dL [facility] [place] SPE INTERP [facility] [place] Comment: Poorly defined band (possible M-spike) migrating in the gamma region. Consider serum immunofixation to rule out a monoclonal protein if clinically indicated. FASTING:NO FASTING: NO Test Performed at: [facility] [address] [place] [address] Jona George MD Blood 09/22/2024 1:27 PM CDT 09/22/2024 1:28 PM CDT Gilmar Cassidy MD CHEMISTRY ORDERABLES Final Resu lt [facility] [phone] [facility] [address] [place] [address] [place] [address] * FERRITIN (09/22/2024 1:27 PM CDT) FERRITIN 250 24 - 380 ng/mL [facility] Comment: Test Performed at: [facility] [place] [address] [facility] [place] [address] Jona George MD Blood 09/22/2024 1:27 PM CDT 09/22/2024 1:28 PM CDT Gilmar Cassidy MD CHEMISTRY ORDERABLES Final Resu lt [facility] [phone] [facility] [address] [place] [address] [place] [address] from Last 3 Months Insurance RX [employer] Medicare Part D [facility] [facility] Care Teams Educational/Development Assistant Relationship Specialty Start Date End Date Carrington Heath MD [address] [facility] [address] [place] [phone] PCP - General Internal Medicine 04/13/24
[2024-10-29 14:17] LABS: Kit Draw Collected
== END 2024-10-29 12:11 | disposition home or self-care (01) ==
LOC: ANHLAB 12:12
PROVIDERS: PCP Internal Medicine; Visit Provider Internal Medicine Hematology & Oncology
DX: D64.9 Anemia, unspecified (principal)
CPT/HCPCS: 36415

== ENCOUNTER 2024-11-03 10:04 | Outpatient (RCR) | payer MEDICARE, SELFPAY ==
[2024-11-03 10:34] LABS: Hematocrit 24.7 % (42.0-52.0); Hemoglobin 7.5 g/dL (14.0-18.0); Mean Corpuscular HGB Conc 30.4 g/dl (32-36); Mean Corpuscular Hemoglobin 35.4 pg (26-34); Mean Corpuscular Volume 116.5 fl (80-100); Platelet Count Result 277 k/mm3 (150-375); Red Blood Count 2.12 M/mm3 (4.6-6.20); White Blood Count 8.4 K/mm3 (4.5-10.0)
[2024-11-03] MEDS: diphenhydrAMINE HCl CAP 25 MG CAPSULE PO (10:50)
[2024-11-03] MEDS: ACETAMINOPHEN 325 MG TABLET 650 MG PO (10:50)
[2024-11-03] MEDS: SODIUM CHLORIDE 0.9% IV 250 ML 30 ML IV CONT (10:52)
[2024-11-03 11:20] VITALS: BP 97/63; PULSE 86; RESP 18; TEMP 36.6; O2SAT 97
[2024-11-03 11:33] VITALS: BP 102/61; PULSE 85; RESP 17; TEMP 36.5; O2SAT 99
[2024-11-03 12:35] VITALS: BP 107/52; PULSE 84; RESP 16; TEMP 36.6; O2SAT 98
[2024-11-03 13:22] VITALS: BP 94/55; PULSE 89; RESP 17; TEMP 36.7; O2SAT 98
[2024-11-04 15:04] LABS: Erythropoietin (EPO). 218.5
== END 2025-02-01 23:59 | disposition home or self-care (01) ==
LOC: ANHCPCTRAN 10:04
PROVIDERS: PCP Internal Medicine; Visit Provider Internal Medicine Hematology & Oncology
DX: D64.9 Anemia, unspecified (principal)
CPT/HCPCS: 36415; 36430; 82668; 85027; 86850; 86900; 86901; 86920; A9270; J7050; P9016

== ENCOUNTER 2024-12-31 11:16 | Emergency (ER) | payer MEDICARE, SELFPAY ==
--- NOTE | ~2024-12-31 | XR_ITS ---
XR hip RT 2V w AP pelvis 12/31/2024 12:57 Indication: Status post fall. Hip pain. Procedure: AP pelvis and 2 views right hip Comparison: No prior studies for comparison. Findings: Mild osteoarthritis of the hips. Pelvic rings intact. There is lower lumbar spondylosis. Th ere is extensive atherosclerosis. No acute fracture or traumatic malalignment. Impression: 1: Mild bilateral symmetric osteoarthritis of the hips. Reviewed, dictated and finalized at location B. Impression: 1: Mild bilateral symmetric osteoarthritis of the hips.
[2024-12-31 11:19] VITALS: BP 115/71; PULSE 84; RESP 18; TEMP 36.7; O2SAT 95
[2024-12-31 12:31] VITALS: BP 106/71; PULSE 94; RESP 23; O2SAT 97
--- NOTE | 2024-12-31 12:54 | ED.FALL ---
HPI - Fall General Chief Complaint: Fall Stated Complaint: glf Time Seen by Provider: 12/31/24 12:09 History of Present Illness HPI Narrative: Patient lost his balance and fell, scraping his right arm on the door hinge, bumping his right hip on the floor, he did not hit his head, he has no pain to his back, just his right hip. Had scheduled appointment for left hip injection today. Related Data Home Medications ?Medication ?Instructions ?Recorded ?Confirmed ?Last Taken ?Type finasteride 5 mg tablet 5 mg PO DAILY 08/01/22 12/03/24 10/20/24 History fluticasone propionate 50 50 mcg intranasal DAILY 08/01/22 12/03/24 10/20/24 History mcg/actuation nasal spray,suspension latanoprost 0.005 % eye drops 1 drp ophthalmic (eye) QHS 08/01/22 12/03/24 10/20/24 History lorazepam 1 mg tablet 1 mg PO DIRECTED 08/01/22 12/03/24 10/21/24 History ramelteon 8 mg tablet 8 mg PO QHS 08/01/22 12/03/24 10/19/24 History simvastatin 20 mg tablet 20 mg PO DAILY 08/01/22 12/03/24 10/12/24 History testosterone cypionate 200 mg/mL 200 mg IM [id number] 08/01/22 12/03/24 10/06/24 History intramuscular oil topiramate 50 mg tablet 50 mg PO BID 08/01/22 12/03/24 10/20/24 History tramadol 50 mg tablet 50 mg PO Q6H PRN Pain 09/11/22 12/03/24 Unknown History fluoxetine 20 mg capsule 40 mg PO DAILY 10/23/22 12/03/24 10/20/24 History tacrolimus 0.1 % topical ointment 1 applic topical BID 04/05/23 12/03/24 Unknown History calcium citrate-vitamin D3 2 tablet PO DAILY 04/09/23 12/03/24 10/16/24 History cetirizine 10 mg tablet (Zyrtec) 10 mg PO DAILY PRN allergy symptoms 11/06/23 12/03/24 10/20/24 History dextromethorphan-guaifenesin 30 2 tablet PO Q12H 11/06/23 12/03/24 10/20/24 History mg-600 mg tablet extended [id number] hr (Mucinex DM) prednisone 5 mg tablet 5 mg PO DIRECTED 11/06/23 12/03/24 10/20/24 History aspirin 81 mg tablet,delayed 81 mg PO DAILY 09/28/24 12/03/24 10/14/24 History release (Adult Low Dose Aspirin) mecobalamin (vitamin B12) 500 mcg 1,000 mcg PO DAILY 09/28/24 12/03/24 10/16/24 History chewable tablet mycophenolate mofetil 500 mg tablet 1,000 mg PO BID 09/28/24 12/03/24 10/20/24 History Allergies Allergy/AdvReac Type Severity Reaction Status Date / Time cephalexin Allergy Mild Hives Verified 12/24/24 09:51 Cephalosporins Allergy Mild RASH Verified 12/24/24 09:51 Sulfa (Sulfonamide Allergy Mild Rash Verified 12/24/24 09:51 Antibiotics) sulfanilamide Allergy Mild Rash Verified 12/24/24 09:51 Penicillins Allergy Unknown STATES WAS Verified 12/24/24 09:51 TOLD NOT TO TAKE PCN DUE TO KEFLEX REACTION Review of Systems Review of Systems: All systems reviewed & are unremarkable except as noted in HPI and below PMFSH Past Medical History Medical History Foot pain, bilateral Chronic sinusitis Diverticulosis Heart attack CAD (coronary artery disease) Anxiety Heart disease Headache Depression Skin cancer Chronic obstructive pulmonary disease ILD (interstitial lung disease) Rheumatoid arthritis Tobacco abuse Surgical History Surgical History H/O knee surgery H/O hemorrhoidectomy Hx of cholecystectomy H/O hernia repair History of quadruple bypass History of appendectomy Family History Family History Mother Diabetes mellitus Glaucoma Cerebrovascular accident Hypertension Heart disease Sibling Diabetes mellitus Cancer Heart disease Hypertension Dementia Acute myocardial infarction Alcoholism Depression Father Acute myocardial infarction Family history of respiratory disorder Malignant neoplasm of prostate Alcoholism Grandparent Cerebrovascular accident Glaucoma Grandparent Cerebrovascular accident Other Family history of cardiovascular disease Family history of malignant neoplasm of kidney Social History Social History Social History: Caffeine-Coffee daily Currently lives at home with his . Surrogate decision maker Aurora Huizar, spouse. Code Status: Full Code. Smoking packs per day: 2.5 Smoking cigarettes per day: 50.0 Years smoked: 50 Smoking pack-years: 125.00 Smoking status: Current every day smoker Tobacco type: cigarettes Second hand tobacco smoke exposure: No Smoking end date: 06/03/18 Alcohol intake: never Substance use: never Substance use type: painkillers Other substance usage details: tramadol Lack of Transportation: No Lack of Food: Never True Current Housing: I Have Housing Concerned About Future Housing: No Difficulty Paying Gas/Electric Bills: No Difficulty Paying for Meds: No Currently Unemployed: No Education: Master's Degree or Higher Difficulty w/ Childcare or Family Care: No Living arrangements: with family Spiritual care concerns: No Exam Narrative: EXAMINATION OF ORGAN SYSTEMS/BODY AREAS: Constitutional: Vital signs per nursing GENERAL:[No acute distress, non-toxic appearing.] HEAD: Normal with no signs of head trauma. EYES: EOMI, conjunctiva normal ENT: Hearing grossly intact LUNGS: Nonlabored breathing. CTAB HEART: [Regular rate and rhythm] ABD: [Soft], [nontender to palpation]; no rib tenderness BACK: No midline tenderness; no rib tenderness EXT: Normal range of motion; large skin tear to R forearm; some tenderness to the R hip SKIN: Skin tear R forearm NEURO: [Alert and oriented x 3. No gross focal sensory or strength deficits.] PSYCH: Normal affect Course Vital Signs Vital signs: Vital Signs Temperature 98.1 F 12/31/24 11:19 Pulse Rate 84 12/31/24 11:19 Respiratory Rate 18 12/31/24 11:19 Blood Pressure 115/71 12/31/24 11:19 Pulse Oximetry 95 12/31/24 11:19 Oxygen Delivery Room Air 12/31/24 11:19 Temperature 98.1 F 12/31/24 11:19 Pulse Rate 94 12/31/24 12:31 Respiratory Rate 23 H 12/31/24 12:31 Blood Pressure 106/71 12/31/24 12:31 Pulse Oximetry 97 12/31/24 12:31 Oxygen Delivery Room Air 12/31/24 11:19 Procedures Laceration Laceration 1: Date: 12/31/24 Site: upper extremity Side (If applicable): right Size (cm): 6 Description: flap Depth: simple, single layer Pre-repair: wound explored, irrigated, deep structures intact and wound margins revised ====== Skin Level ====== Skin layer closed with: steri strips ====== Subcutaneous Layer ====== ====== Muscle Layer ====== ====== Tendon Layer ====== MDM - Fall MDM Narrative Medical decision making narrative: Patient presents here after falling, does have large skin tear, did not hit his head. He does have some pain to his right hip, x-ray thankfully without acute fracture. The wound is cleaned, dressed, he was able to walk to the bathroom, he and family comfortable with outpatient management and strict return precautions Discharge Plan Discharge Clinical Impression: Accident due to mechanical fall without injury, Acute hip pain, Skin tear Patient Disposition: Home Condition: Stable Instructions: Head Injury (ED), Skin Tear (ED) Additional Instructions: Please follow up with your doctor; you can always return for any further issues. Please keep the cut keep clean. Patient Language: Ethiopian Prescriptions: No Action latanoprost 0.005 % drops 1 drp ophthalmic (eye) QHS Rx Instructions: EACH EYE simvastatin 20 mg tablet 20 mg PO DAILY lorazepam 1 mg tablet 1 mg PO DIRECTED Rx Instructions: 1 mg 1/2 tablet x 3 daily and 1 tablet at bedtime testosterone cypionate 200 mg/mL oil 200 mg IM [id number] Rx Instructions: 2 times a month fluticasone propionate 50 mcg/actuation spray,suspension 50 mcg INTRANASAL DAILY finasteride 5 mg tablet 5 mg PO DAILY Patient Comments: .. topiramate 50 mg tablet 50 mg PO BID ramelteon 8 mg tablet 8 mg PO QHS fluoxetine 20 mg capsule 40 mg PO DAILY tacrolimus 0.1 % Ointment 1 applic TOPICAL BID prednisone 5 mg tablet 5 mg PO DIRECTED cetirizine [Zyrtec] 10 mg tablet 10 mg PO DAILY PRN (Reason: allergy symptoms) Mucinex DM 30-600 mg tablet extended release 12 hr 2 tablet PO Q12H mecobalamin (vitamin B12) 500 mcg tablet,chewable 1,000 mcg PO DAILY mycophenolate mofetil 500 mg tablet 1,000 mg PO BID tramadol 50 mg tablet 50 mg PO Q6H PRN (Reason: Pain) aspirin [Adult Low Dose Aspirin] 81 mg tablet,delayed release (DR/EC) 81 mg PO DAILY albuterol sulfate [Ventolin HFA] 90 mcg/actuation HFA aerosol inhaler 1 inh inhalation Q4H PRN (Reason: shortness of breath or wheezing) 30 Days Qty: 8.5 2RF calcium citrate-vitamin D3 500 units/400 mg tablet 2 tablet PO DAILY tiotropium bromide [Spiriva with HandiHaler] 18 mcg capsule, w/inhalation device See Rx Instructions .ROUTE .COMPLEX Qty: 90 3RF Dose Instruction: USE 2 INHALATIONS TO INHALE THE CONTENTS OF 1 CAPSULE DAILY (PUNCTURE CAPSULE USING DEVICE INSTRUCTED) Rx Instructions: USE 2 INHALATIONS TO INHALE THE CONTENTS OF 1 CAPSULE DAILY (PUNCTURE CAPSULE USING DEVICE INSTRUCTED) Follow-up/Referrals: UNKNOWN,DOCTOR [Primary Care Provider] -
--- OUTSIDE RECORDS SUMMARY | 2024-12-31 13:01 | XMS_ITS | Encounter Summary ---
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
--- OUTSIDE RECORDS SUMMARY | 2024-12-31 13:01 | XMS_ITS | Encounter Summary ---
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
--- OUTSIDE RECORDS SUMMARY | 2024-12-31 13:01 | XMS_ITS | Encounter Summary ---
Author Organization [facility] Address [address] [place] [address] Care Team Providers Care Ethics Officer Name Role Phone Carrington Heath MD Primary Care Provider Encounter Details Date Type Department Care Team (Late Contact Info) Description 12/28/2024 Orders Only [facility] [address] [place] [address] Gilmar Cassidy MD [facility] [employer] [address] [place] [address] Myelodysplastic syndrome (CMS/HCC) Social History Tobacco Use Types Packs/Day Years [...] Department Care Team (Late Contact Info) Description 01/14/2025 1:00 PM CDT Office Visit [facility] - [address] [place] [address] Gilmar Cassidy MD [address] [place] [address] documented as of this encounter Visit Diagnoses Diagnosis Myelodysplastic syndrome (CMS/HCC) Myelodysplastic syndrome, unspecified documented in this encounter Care Teams Ethics Officer Relationship Specialty Start Date End Date Carrington Heath MD [address] [facility] [address] [place] [address] PCP - General Internal Medicine 04/13/24 documented as of this encounter
--- OUTSIDE RECORDS SUMMARY | 2024-12-31 13:01 | XMS_ITS | Encounter Summary ---
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
--- OUTSIDE RECORDS SUMMARY | 2024-12-31 13:02 | XMS_ITS | Clinical Summary ---
Author Organization [facility] Address [address] [place] [address] Care Team Providers Care Crop Adjuster Name Role Phone Unavailable Primary Care Provider Unavailabl e Source Comments [facility],non-owned Affiliates and Associated Physician Practices is amultiple site organization consisting of ambulatory clinics and hospital sitesin [place], [place], [place] and [place]. This disclosure is being madepursuant to the Care Everywhere program and may not contain all information available regarding this patient. Last updated 18.[facility] Encounters Date Type Department Care Team Description 10/22/2024 Lab Requisition [facility] - Pathology Lab [facility] [place] [address] Karsten Guido MD Illness, unspecified 10/21/2024 Lab Requisition [facility] - Pathology Lab [facility] [place] [address] Karsten Guido MD Iron deficiency anemia secondary [...] MEDICARE AWV CALENDAR YEAR 2024 INFLUENZA VACCINE (#1) 2025 , 03/20/2022, 03/03/2021, Additional history exists HEPATITIS B [...] AM CDT) Case Report Flow Cytometry Case: [id number] Authorizing Provider: Karsten Guido MD Collected: 10/21/2024 09:00 AM Ordering Location: [facility] - Received: 10/21/2024 03:37 PM Pathology Lab Pathologist: Nida Navarrete MD Specimen: Bone Marrow 10/22/2024 10:28 AM CDT [facility] Final Diagnosis Bone marrow, flow cytometric immunophenotypic analysis: - No evidence of a monoclonal B-cell population or increase in blasts - See interpretation 10/22/2024 10:28 AM CDT [facility] at 1028 CDT Flow Cytometry Interpretation Viability: 80% B-cells: polytypic, kappa:lambda ratio 1.5:1 Blasts: 2.5% of events Numerous erythroid progenitors are present. Plasma cells: no definitive population is identified. A bone marrow aspirate smear prepared from the flow cytometry specimen has been reviewed for research quality assurance specialist purposes. 10/22/2024 10:28 AM [facility] Flow Cytometry Results Differential Result Comment Flow Cell Count /uL 246,000 Total Viability % 80.0 Lymphocytes % 14 Dim CD45 Region % 25 Monocytes % 5 Granulocytes % 55 10/22/2024 10:28 AM [facility] Reason for test Iron deficiency anemia secondary to blood loss (chronic) 280.0 10/22/2024 10:28 AM [facility] Client Specimen ID # [id number] 10/22/2024 10:28 AM [facility] Number of markers 17 were performed. A-2 Flow CD10 A-3 Flow CD13 A-5 Flow CD20 A-13 Flow CD117 A-14 FLOW CD138 A-16 Flow CD117 A-1 Flow CD5 A-4 Flow CD19 A-6 Flow CD33 A-7 Flow CD34 A-8 Flow CD45 A-11 Flow CD38 A-12 Flow CD56 A-15 Flow CD41 A-17 Flow CD42b A-18 Flow YS712e A-9 Landrum+CD19+ A-10 Lambda+CD19+ 10/22/2024 10:28 AM [facility] Pathologist Location at [facility] 10/22/2024 10:28 AM [facility] Disclaimer Test performed at [facility], [address] [place] [address], [id number]. *The established laboratory minimum viability is 70%. [...] high complexity clinical testing. 10/22/2024 10:28 AM [facility] Embedded Images 10:28 AM [facility] Pathology/Cytolo gy BONE MARROW SPECIMEN / Unknown 10/21/2024 9:00 AM CDT 10/21/2024 3:37 PM CDT Karsten Guido MD LAB - PATHOLOGY/CYTOLOGY ORDERAB LES Final Result [facility] [address] [place] [address], [facility] [phone] * BONE MARROW BIOPSY (STL) (10/21/2024 9:00 AM CDT) Case Report Bone Marrow Patholog y Report Case: [id number] Authorizing Provider: Karsten Guido MD Collected: 10/21/2024 09:00 AM Ordering Location: [facility] - Received: 10/22/2024 05:00 [...] - See description 10/23/2024 3:26 PM CDT [facility] at 1526 CDT AP [...] for further classification. 10/23/2024 3:26 PM CDT [facility] Peripheral Smear Description CBC [...] normal. Platelet morphology: normal. 10/23/2024 3:26 PM [facility] Bone Marrow Aspirate Differential count [...] Control is appropriately reactive. 10/23/2024 3:26 PM [facility] Bone Marrow Core Biopsy and [...] and lambda light chains. 10/23/2024 3:26 PM [facility] Flow Cytometry Summary Concurrent flow cytometry ([id number]) shows no evidence of a monoclonal B-cell population or increase in blasts. 10/23/2024 3:26 PM [facility] Clinical History 79 year old man with macrocytic anemia and elevated serum light chains. 10/23/2024 3:26 PM [facility] Materials Received Received are 22 slides labeled [id number] along with a copy of the outside pathology report. [place] [address]. All original materials are returned to the referring institution, along with a copy of our final report. 10/23/2024 3:26 PM [facility] Pathologist Location at [facility] 10/23/2024 3:26 PM [facility] Disclaimer The performance characteristics of all immunohistochemical and indirect immunofluorescence stains (if any) cited in this report were determined by the Histopathology Laboratory of [facility]. Some of these tests were developed by [...] the attending (teaching) pathologist. 10/23/2024 3:26 PM [facility] Embedded Images 10/23/2024 3:26 PM [facility] Pathology/Cytology BONE MARROW SPECIMEN / Unknown 10/21/2024 9:00 AM CDT 10/22/2024 5:00 PM CDT Miscellaneous samples (specimen) BONE MARROW SPECIMEN / Unknown 10/21/2024 9:00 AM CDT 10/22/2024 5:00 PM CDT us Karsten Guido MD LAB - PATHOLOGY/CYTOLOGY ORDERAB LES Final Result [facility] [address] [place] [address], [facility] [phone] from Last 3 Months Insurance [facility] MEDICARE ADV HMO & PPO
--- OUTSIDE RECORDS SUMMARY | 2024-12-31 13:02 | XMS_ITS | Patient Health Record ---
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 Name Role Phone SUSAN CHARLES MD Primary Care Provider Marline Field Unavailable [phone] Javan Cano Unavailable [phone] Allergies Allergen (clinical drug ingredient) Drug/Non Drug Allergy documented on EMR Reaction Allergy Type Onset Date Status Substance with sulfonamide structure and antibacterial mechanism of action (substance) Sulfa Antibiotics Unknown Drug Allergy Active Penicillin Unknown Drug Allergy Active Keflex Unknown Drug Allergy Active Reason For Referral No Information Medications Medication SIG (Take, Route, Frequency, Duration) Notes Start Date End Date Status Finasteride 5 MG 1 tablet Orally Once a day Active traMADol HCl 50 MG 1 tablet as needed O rally every 6 hours PRN Active Topiramate 50 MG 1 tablet Orally BID Active Mycophenolate Mofetil 500 MG 2 tablets Orally Twice a day Active Ubrelvy 100 MG 1 tablet may take se cond dose at least 2 hours after first dose as needed Orally Once a day Active Azelastine HCl 0.1 % 1 puff in each nost ril Nasally Twice a day Active Testosterone Cypionate 200 MG/ML 1 mL Intramuscular Twice per month Active Mucinex DM 30-600 MG 1 tablet as needed Orally every 12 hrs Active Fluticasone Propionate 50 MCG/ACT 1 spray in each nostril Nasally Once a day Active predniSONE 5 MG 1 tablet Orally Once a day, with options to increase to 10mg or 15mg PRN Active FLUoxetine HCl 40 MG 1 capsule Orally On ce a day Active Calcium Citrate + D3 315-6.25 MG-MCG 1 tablet Orally Twice a day Active Simvastatin 20 MG 1 tablet in the even ing Orally Once a day Active Triamcinolone Acetonide 0.1 % 1 application Externally Two times a Week Active Tacrolimus 0.1 % 1 application Filler And Trimmer ally Once a day Active Ventolin HFA 108 (90 Base) MCG/ACT 1 puff as needed Inhalation every 4 hrs Active LORazepam 1 MG 1/2 tablet Orally TI D, and 1 tablet at bedtime Active azaTHIOprine 50 MG as directed Orally BID Active ZyrTEC Allergy 10 MG 1 tablet Orally Once a day Active Vitamin B12 100 MCG as directed Orally Active Rozerem 8 MG 1 tablet at bedtime as needed Orally Once a day Active Vitamin D3 125 MCG (5000 UT) 1 tablet on the tongue and allow to dissolve Orally Once a day Active Ecotrin Low Strength 81 MG 1 tablet Orally Once a day Active Spiriva HandiHaler 18 MCG 1 capsule by i nhaling the contents of the capsule using the HandiHaler device Inhalation Once a day Active Latanoprost 0.005 % 1 drop into affected eye in the evening Ophthalmic Once a day Active Restasis 0.05 % 1 drop into affected eye Ophthalmic Twice a day Active Social History Tobacco Use: Social History Observation Description Date Details (start date - stop date) Former Smoker NA - NA Alcohol Screening Question Answer Notes Alcoholic drink in the past year Yes Frequency Two to four times a month (2 poi nts) Points 2 Interpretation Negative Screening Question Answer Notes Are you a current smoker? former smoker How long has it been since you last smoked? 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) Active confirmed Problem Spinal stenosis, lumbar region with neurogenic claudication (M48.062) Active confirmed Vital Signs Height 66 in 01/30/2024 Weight 153 lbs 01/30/2024 BMI 24.69 kg/m2 01/30/2024 Encounters Encounter Location Date Provider Diagnosis [facility]- [address] [address] 03/31/2024 Marline Toro Sacroiliitis, not elsewhere classified M46.1 [facility]- [address] [address] 01/30/2024 Cano Ahmed Sacroiliitis, not elsewhere classified M46.1 ; Lumbar radiculopathy M54.16 ; Spinal stenosis, lumbar region with neurogenic claudication M48.062 and Localized osteoarthrosis of left hip M16.12 [facility] [address] [place] [address] 02/21/2024 Marline Christopher Lumbar radiculopathy M54.16 and Spinal stenosis, lumbar region with neurogenic claudication M48.062 [facility]- [address] [address] 04/16/2024 Cano Ahmed Lumbar radiculopathy M54.16 ; Sacroiliitis, not elsewhere classified M46.1 and Spinal stenosis, lumbar region with neurogenic claudication M48.062 [facility]- [address] [address] 06/18/2024 Cano Ahmed Lumbar radiculopathy M54.16 ; Spinal stenosis, lumbar region with neurogenic claudication M48.062 ; Sacroiliitis, not elsewhere classified M46.1 and Postherpetic trigeminal neuralgia B02.22 [facility]- [address] [address] 08/11/2024 Marline Christopher Lumbar radiculopathy M54.16 and Spinal stenosis, lumbar region with neurogenic claudication M48.062 [facility] [address] [place] [address] 09/01/2024 Marline Christopher Sacroiliitis, not elsewhere classified M46.1 [facility] [address] [place] [address] 11/12/2024 Cano Ahmed Lumbar radiculopathy M54.16 ; Spinal stenosis, lumbar region with neurogenic claudication M48.062 and Sacroiliitis, not elsewhere classified M46.1 [facility] [address] [place] [address] 03/12/2024 Marline Toro Assessments Encounter Date Diagnosis (ICD Code) Assessment Notes Treatment Notes Treatment Clinical Notes Section Notes 03/31/2024 Sacroiliitis, not elsewhere classified (ICD-10 - M46.1) 01/30/2024 Sacroiliitis, not elsewhere classified (ICD-10 - M46.1) IMPRESSION: 1. Low back pain radiating to the left posterior lower extremity to the ankle. 2. Sacroiliitis on the left. 3. Hip osteoarthritis on the left. 4. lumbar radiculopathy. 5. Lumbar stenosis. 01/30/2024 Lumbar radiculopathy (ICD-10 - M54.16) IMPRESSION: 1. Low back pain radiating to the left posterior lower extremity to the ankle. 2. Sacroiliitis on the left. 3. Hip osteoarthritis on the left. 4. lumbar radiculopathy. 5. Lumbar stenosis. 02/21/2024 Lumbar radiculopathy (ICD-10 - M54.16) 02/21/2024 Spinal stenosis, lumbar region with neurogenic claudication (ICD-10 - M48.062) 04/16/2024 Lumbar radiculopathy (ICD-10 - M54.16) Assessment is unchanged from 01/30/2024 except as denoted below. 04/16/2024 Sacroiliitis, not elsewhere classified (ICD-10 - M46.1) Assessment is unchanged from 01/30/2024 except as denoted below. 06/18/2024 Lumbar radiculopathy (ICD-10 - M54.16) Assessment is unchanged from 04/16/2024 except as denoted below. 06/18/2024 Spinal stenosis, lumbar region with neurogenic claudication (ICD-10 - M48.062) Assessment is unchanged from 04/16/2024 except as denoted below. 08/11/2024 Lumbar radiculopathy (ICD-10 - M54.16) 08/11/2024 Spinal stenosis, lumbar region with neurogenic claudication (ICD-10 - M48.062) 09/01/2024 Sacroiliitis, not elsewhere classified (ICD-10 - M46.1) 11/12/2024 Lumbar radiculopathy (ICD-10 - M54.16) Assessment is unchanged from 06/18/2024 except as denoted below. 11/12/2024 Spinal stenosis, lumbar region with neurogenic claudication (ICD-10 - M48.062) Assessment is unchanged from 06/18/2024 except as denoted below. 01/30/2024 Spinal stenosis, lumbar region with neurogenic claudication (ICD-10 - M48.062) IMPRESSION: 1. Low back pain radiating to the left posterior lower extremity to the ankle. 2. Sacroiliitis on the left. 3. Hip osteoarthritis on the left. 4. lumbar radiculopathy. 5. Lumbar stenosis. 04/16/2024 Spinal stenosis, lumbar region with neurogenic claudication (ICD-10 - M48.062) Assessment is unchanged from 01/30/2024 except as denoted below. 06/18/2024 Sacroiliitis, not elsewhere classified (ICD-10 - M46.1) Assessment is unchanged from 04/16/2024 except as denoted below. 11/12/2024 Sacroiliitis, not elsewhere classified (ICD-10 - M46.1) Assessment is unchanged from 06/18/2024 except as denoted below. 01/30/2024 Localized osteoarthrosis of left hip (ICD-10 - M16.12) IMPRESSION: 1. Low back pain radiating to the left posterior lower extremity to the ankle. 2. Sacroiliitis on the left. 3. Hip osteoarthritis on the left. 4. lumbar radiculopathy. 5. Lumbar stenosis. 06/18/2024 Postherpetic trigeminal neuralgia (ICD-10 - B02.22) Assessment is unchanged from 04/16/2024 except as denoted below. 06/11/2024 Other Notes: Significant time was spent due to complex decision-making as a result of the patient's complicated pain issues. The plan is as follows: Patient will continue exercise therapy regimen. Assessment is unchanged from except as denoted below. 01/30/2024 Other PLAN: 1. We reviewed the patient's most recent MRI of the lumbar spine that shows severe stenosis at multiple levels, in particular at L4-5 and L5-S1. The MRI also shows an unusual marrow signal and we recommend further followup and workup with his primary care physician. The patient acknowledged understanding verbally and is agreeable with this plan. 2. We will order a left S1 diagnostic selective nerve root block injection to target lumbar radiculopathy and diagnose the pain generating source. 3. We will order a diagnostic left sacroiliac joint injection to target posterior hip pain from sacroiliitis. We will order an x-ray of the pelvis in order to rule out tumor, fracture, or dislocation as the cause of the patient's symptoms. 4. The patient may continue his prescription for tramadol from other providers as prescribed. 5. We may consider a referral to physical therapy in the future for low back pain and sacroiliac joint dysfunction. The patient declines at this time stating that he is worried about exacerbating his symptoms as his symptoms began while he was doing exercises in pulmonary rehabilitation. 6. Discussed procedure details, risks, benefits, alternatives and expected outcomes of the above procedures with the patient. The patient expressed understanding. All patient questions were answered to the patient's satisfaction.7. We will not add or change any other medications at this time as the patient is currently tolerating all medications with no significant side effects. 8. We advised the patient to contact the clinic if they develop any new pain or worsening symptoms. 9. The total encounter time for today's visit was 60 minutes, which was spent on preparation for the visit, for example, chart review, and in the activities documented in this note. IMPRESSION: 1. Low back pain radiating to the left posterior lower extremity to the ankle. 2. Sacroiliitis on the left. 3. Hip osteoarthritis on the left. 4. lumbar radiculopathy. 5. Lumbar stenosis. 04/16/2024 Other Notes: Significant time was spent due to complex decision-making as a result of the patient's complicated pain issues. The plan is as follows: Patient will continue exercise therapy regimen. Patient reports doing well after the recent injections. His PCP has referred him to hematology regarding the incidental findings on the MRI-LS. No medication changes at today's visit. Patient to continue any medications as prescribed. Follow-up in 2 months for reassessment of low back pain. Patient advised to contact the clinic if they develop any new or worsening pain symptoms. The total encounter time for today's visit was 20 minutes which was spent on preparation for the visit, e.g. chart review, and in the activities documented in this note. Assessment is unchanged from 01/30/2024 except as denoted below. 06/18/2024 Other Notes: Significant time was spent due to complex decision-making as a result of the patient's complicated pain issues. The plan is as follows: Patient will continue exercise therapy regimen. We will schedule a left L5-S1 Epidural Steroid Injection to target lumbar radiculopathy that radiates to left posterior lower extremity to the ankle. We will schedule a Left sacroiliac injection to target sacroiliitis that is causing posterior hip pain. No medication changes at today's visit. Patient to continue any medications as prescribed. We may consider starting Gabapentin vs. Lyrica for post-herpetic neuralgia of the face if pain symptoms persist. Patient advised to contact the clinic if they develop any new or worsening pain symptoms. The total encounter time for today's visit was 30 minutes which was spent on preparation for the visit, e.g. chart review, and in the activities documented in this note. Assessment is unchanged from 04/16/2024 except as denoted below. 11/12/2024 Other Notes: Significant time was spent due to complex decision-making as a result of the patient's complicated pain issues. The plan is as follows: Patient will continue exercise therapy regimen. We observed severe swelling in the lower extremities, we advised the patient to inform their PCP. We also advised the patient to sit with their legs elevated to help reduce the swelling along with compression socks. We will schedule a Left L5S1 Epidural Steroid Injection to target radiculopathy that radiates to the left leg. Patient has tried and failed conservative treatments and lifestyle modifications without significant improvement of pain symptoms for at least 6 months. We will schedule an L sacroiliac injection to target sacroiliitis that is causing posterior hip pain. The total encounter time for today's visit was 25 minutes which was spent on preparation for the visit, e.g. chart review, and in the activities documented in this note. Please refer back to the HPI and physical exam sections of this note for further details regarding this encounter. Patient advised to contact the clinic if they develop any new or worsening pain symptoms. Assessment is unchanged from 06/18/2024 except as denoted below. Plan Of Treatment Pending Test Test Name Order Date Hips Bilateral with Pelvis 01/30/2024 Next Appt Details Provider Name:Marline peterson, 02/09/2025 11:45:00 AM, [address] [facility], [place], [address], Insurance Providers Payer Name Payer Address Payer Phone Subscriber Number Group Number Insured Name Patient Relationship to Insured Coverage Start Date Coverage End Date [employer] [address] [address] [place] [address] [id number] Andre Huizar Self - patient is the insured 1 Medical (General) History Medical History History ICD Code Lung problems Glaucoma Heart attack COPD Depression Headaches melanoma Surgical History Surgery Date(Month/Year) cataract 2019 hernia repair 2016 hemorrhoidectomy 2006 cholecystectomy 2014 bypass 1996 appendectomy 1963
--- OUTSIDE RECORDS SUMMARY | 2024-12-31 13:02 | XMS_ITS | Encounter Summary ---
Author Organization [facility] Address [address] [place] [address] Care Team Providers Care Release Manager Name Role Phone Unavailable Primary Care Provider Unavailabl e Encounter Details Date Type Department Care Team (Late st Contact Info) Description 10/21/2024 Lab Requisition [facility] - Pathology Lab [address] [place] [address] Karsten Guido MD [address] [address] Iron deficiency anemia secondary to [...] AM CDT) Case Report Flow Cytometry Case: [id number] Authorizing Provider: Karsten Guido MD Collected: 10/21/2024 09:00 AM Ordering Location: [facility] - Received: 10/21/2024 03:37 PM Pathology Lab Pathologist: Nida Navarrete MD Specimen: Bone Marrow 10/22/2024 10:28 AM CDT [facility] Final Diagnosis Bone marrow, flow cytometric immunophenotypic analysis: - No evidence of a monoclonal B-cell population or increase in blasts - See interpretation 10/22/2024 10:28 AM [facility] at 1028 CDT Flow Cytometry Interpretation Viability: 80% B-cells: polytypic, kappa:lambda ratio 1.5:1 Blasts: 2.5% of events Numerous erythroid progenitors are present. Plasma cells: no definitive population is identified. A bone marrow aspirate smear prepared from the flow cytometry specimen has been reviewed for quality assurance monitor final purposes. 10/22/2024 10:28 AM [facility] Flow Cytometry Results Differential Result Comment Flow Cell Count /uL 246,000 Total Viability % 80.0 Lymphocytes % 14 Dim CD45 Region % 25 Monocytes % 5 Granulocytes % 55 10/22/2024 10:28 AM [facility] Reason for test Iron deficiency anemia secondary to blood loss (chronic) 280.0 10/22/2024 10:28 AM [facility] Client Specimen ID # [id number] 10/22/2024 10:28 AM [facility] Number of markers 17 were performed. A-2 Flow CD10 A-3 Flow CD13 A-5 Flow CD20 A-13 Flow CD117 A-14 FLOW CD138 A-16 Flow CD117 A-1 Flow CD5 A-4 Flow CD19 A-6 Flow CD33 A-7 Flow CD34 A-8 Flow CD45 A-11 Flow CD38 A-12 Flow CD56 A-15 Flow CD41 A-17 Flow CD42b A-18 Flow NY026c A-9 Lexa+CD19+ A-10 Lambda+CD19+ 10/22/2024 10:28 AM [facility] Pathologist Location at [facility] 10/22/2024 10:28 AM [facility] Disclaimer Test performed at [facility], [address] [place] [address], [address]. *The established laboratory minimum viability is 70%. [...] complexity clinical testing. 10/22/2024 10:28 AM CDT [facility] Embedded Images 10:28 AM CDT [facility] Pathology/Cytolo gy BONE MARROW SPECIMEN / Unknown 10/21/2024 9:00 AM CDT 10/21/2024 3:37 PM CDT Karsten Guido MD LAB - PATHOLOGY/CYTOLOGY ORDERAB LES Final Result [facility] PATH[facility] LAB [address] [facility] [place] [address], [facility] [phone] documented in this encounter Visit Diagnoses Diagnosis Iron deficiency anemia secondary to blood loss (chronic) documented in this encounter
--- OUTSIDE RECORDS SUMMARY | 2024-12-31 13:02 | XMS_ITS | Clinical Summary ---
Author Organization [facility] Alireza Rahman Address [address] [place] [address] Care Team Providers Care Peer Educator Name Role Phone Carrington Heath MD Primary Care Provider [phone] Allergies Active Allergy Reactions Criticality Noted Date Comments Cephalexin Hives,Rash High 10/06/2008 Penicillins Rash Medium 03/08/2023 Sulfa (Sulfonamide Antibiotics) Rash Medium 10/06/2008 Sulfamethoxazole-Trimet hoprim Other (See Comments) Low 08/16/2023 Lesions on genitals Medications FLUoxetine (PROzac) 20 mg capsule Take 1 Capsule (20 mg) by mouth daily. 90 Capsule 3 10/13/2022 2:35 PM CDT Active aspirin (ECOTRIN EC) 81 mg Tablet, [...] mouth daily at bedtime. 90 Tablet 1 10/10/2024 2:01 PM CDT 5 Active simvastatin (ZOCOR) 20 mg tablet Take 1 Tablet (20 mg) by mouth daily. 90 Tablet 1 5 Active valACYclovir (VALTREX) 1 gram tablet Take 1 Gram by mouth daily. 5 Active LORazepam (ATIVAN) 1 mg tabletIndicati ons:Anxiety state Take 1 tablet by mouth 30 minutes prior to Biopsy. 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 Encounters Date Type Department Care Team Description 12/28/2024 Orders Only [facility] - [place] [address] [place] [id number] Gilmar Cassidy MD Myelodysplastic syndrome (CMS/HCC) 12/24/2024 9:15 AM CDT Office Visit [facility] - [place] [address] [place] [phone] Gilmar Cassidy MD Myelodysplastic syndrome (CMS/HCC) (Primary Dx) 12/24/2024 Orders Only [facility] - [place] [address] [place] [phone] Gilmar Cassidy MD 12/16/2024 External Device Data STL ABSTRACTION Provider, Abstract 12/16/2024 External Device Data STL ABSTRACTION Provider, Abstract 12/14/2024 Orders Only [facility] - [place] [address] [place] [address] Gilmar Cassidy MD Myelodysplastic syndrome (CMS/HCC) 12/02/2024 Orders Only [facility] - [place] [address] [place] [phone] Gilmar Cassidy MD Myelodysplastic syndrome (CMS/HCC) (Primary Dx) 11/17/2024 External Device Data STL ABSTRACTION Provider, Abstract 11/12/2024 4:30 PM CDT Telephone Check Up [facility] - [place] [address] [place] [address] Gilmar Cassidy MD Myelodysplastic syndrome ([facility]/HCC) (Primary Dx) 11/06/2024 Orders Only [facility] - [place] [address] [place] [phone] Scanning, Provider 11/06/2024 Abstract [facility] - [place] [address] [place] [address] Gilmar Cassidy MD 11/04/2024 Abstract [facility] - [place] [address] Gilmar Cassidy MD 11/04/2024 Orders Only [facility] - [place] [address] Gilmar Cassidy MD 11/03/2024 Orders Only [facility] - [place] [address] [place] [phone] Gilmar Cassidy MD 11/02/2024 Orders Only [facility] - [place] [address] Gilmar Cassidy MD Chronic anemia (Primary Dx) 10/29/2024 11:30 AM CDT Office Visit [facility] - [place] [address] Gilmar Cassidy MD Chronic anemia (Primary Dx); Elevated serum immunoglobulin free light chains 10/29/2024 Orders Only [facility] - [place] [address] Gilmar Cassidy MD 10/27/2024 External Device Data STL ABSTRACTION Provider, Abstract 10/27/2024 Orders Only [facility] - [place] [address] Gilmar Cassidy MD 10/21/2024 External Device Data STL ABSTRACTION Provider, Abstract 10/21/2024 External Device Data STL ABSTRACTION Provider, Abstract 10/14/2024 Refill [facility] - [place] [address] [place] [phone] Gilmar Cassidy MD Anxiety state (Primary Dx) 10/14/2024 Telephone [facility] - [place] [address] [place] [phone] Gilmar Cassidy MD Anxiety 10/13/2024 2:00 PM CDT Office Visit [facility] [address] [place] [address] Gilmar Cassidy MD Chronic anemia (Primary Dx) from Last 3 Months Family History Medical [...] Sign Reading Time Taken Comments Blood Pressure 107/63 12/24/2024 9:16 AM CDT Pulse 88 12/24/2024 9:12 AM CDT Temperature 36.8 C (98.3 F) 12/24/2024 9:12 AM CDT Respiratory Rate 15 12/24/2024 9:12 AM CDT Oxygen Saturation 97% 12/24/2024 9:12 AM CDT 4 liters O2 Inhaled Oxygen Concentration - - Weight 65.3 kg (144 lb) 12/24/2024 9:12 AM CDT Height 167.6 cm (5' 6) 04/13/2024 11:30 AM REEL FILM INSPECTOR Body Mass Index 23.24 04/13/2024 11:30 AM REEL FILM INSPECTOR Plan of Treatment Upcoming Encounters Date Type Department Care Team (Late st Contact Info) Description 01/14/2025 1:00 PM CDT Office Visit [facility] - [place] [address] [facility] [facility] [address] [place] [address] Gilmar Cassidy MD [address] [facility] [address] [place] [address] Health Maintenance Due Date Last Done Comments DIABETES ANNUAL FOOT EXAM 1965 DIABETES ANNUAL RETINAL EXAM 1965 DIABETES MICROALBUMIN ANNUAL SCREEN 1965 LDL CHOLESTEROL ANNUAL 1965 DTAP/TDAP/TD VACCINES (1 - Tdap) 1966 ZOSTER VACCINE (1 of 2) 1966 Lung Cancer Screening 1997 RSV VACCINE (60+ or ) (1 - 1-dose 75+ series) 2022 INFLUENZA VACCINE (#1) 2025 , 03/03/2021, 03/04/2020, Additional history exists DIABETES HBA1C Q 6 MONTHS 04/30/2025 10/28/2024, PNEUMOCOCCAL VACCINE 50+ YEARS Completed 1 07/21/2023, 08/10/2014, 08/01/2014, Additional history exists Procedures Procedure Name Priority Date/Time Associated Diagnosis Comments BASIC METABOLIC PANEL Routine 12/24/2024 1:37 PM CDT CBC WITH AUTODIFFERENTIAL Routine 12/24/2024 1:33 PM CDT [facility] HEMAT[facility]IC MALIGNANCY (DNA AND RNA) Routine 11/09/2024 9:35 PM CDT Chronic anemia Elevated serum immunoglobulin free light chains CBC WITH DIFFERENTIAL Routine 11/03/2024 10:46 AM CDT ERYTHROPOIETIN LEVEL Routine 11/02/2024 12:51 PM CDT TYPE AND SCREEN Routine 11/02/2024 12:37 PM CDT HEMOGLOBIN A1C Routine 10/28/2024 4:12 PM CDT CBC WITH DIFFERENTIAL Routine 10/28/2024 4:11 PM CDT BONE MARROW ASPIRATION & BIOPSY Routine 10/21/2024 2:01 PM CDT BONE MARROW ASPIRATION & BIOPSY Routine 10/21/2024 1:03 PM CDT IV SEDATION Routine 10/21/2024 10:14 AM CDT from Last 3 Months Results * BASIC METABOLIC PANEL (12/24/2024 1:37 PM CDT) Blood us Gilmar Cassidy MD CHEMISTRY ORDERABLES Final Resu lt * CBC WITH AUTODIFFERENTIAL (12/24/2024 1:33 PM CDT) Blood us Gilmar Cassidy MD HEMATOLOGY ORDERABLES Final Res ult * [facility] HEMAT[facility] MALIGNANCY (DNA AND RNA) (11/09/2024 9:35 PM CDT) Pathologist [facility] [email or web address] 11/09/2024 9:35 PM CDT [facility] Comment:[facility] link Reason for Study To identify somatic and germline mutations relevant to patient's cancer. 11/09/2024 9:35 PM CDT [facility] Genetic Diseases Assessed Cancer 11/09/2024 9:35 PM CDT [facility] Description of Ranges of DNA Sequences Examined 648 gene panel 11/09/2024 9:35 PM CDT [facility] Overall Interpretation positive 11/09/2024 9:35 PM CDT [facility] xR Result 1 NEGATIVE Negative - This report is being issued to report the results of gene rearrangement and altered splicing analysis from RNA sequencing. No gene rearrangements nor reportable altered splicing events were identified from RNA sequencing. 11/09/2024 9:35 PM CDT [facility] Therapy Count 1 11/09/2024 9:35 PM CDT [facility]: Potential Therapy 1 Gene: 19851^SF3B1^HGAL Variant: p.K700E Match Type: snvIndel Match Type Description: SF3B1 p.K700E Drug Class: Favorable prognosis Tissue: Myelodysplastic Syndrome Evidence Status: Consensus Evidence ID: NCCN KDB Variant: [id number]-rc-xpxatyzu Label: Additional Indicators FDA Approved?: No On label?: No 11/09/2024 9:35 PM CDT [facility] Trial Count 3 11/09/2024 9:35 PM CDT [facility]: Clinical Trial Match 1 Clinical Trial NCT ID: [id number] Clinical Trial Title: [id number] for Patients With Progressive MDS or CMML Clinical Trial URL: https://clinicaltr ials.gov/ct2/show/ [email or web address] Clinical Phase: Phase 1 Clinical Trial Matches: SF3B1 p.K700E mutation Clinical Trial Distance and Location: [address] [place], [place] 11/09/2024 9:35 PM CDT [facility]: Clinical Trial Match 2 Clinical Trial NCT ID: [id number] Clinical Trial Title: Dose Escalation/ Expansion Study of CA-4948 as Monotherapy in Patients With Acute Myelogenous Leukemia (AML) or Myelodysplastic Syndrome (MDS) Clinical Trial URL: https://clinicaltr ials.gov/ct2/show/ [email or web address] Clinical Phase: Phase 1/Phase 2 Clinical Trial Matches: SF3B1 p.K700E mutation Clinical Trial Distance and Location: [address] [place], [place] 11/09/2024 9:35 PM CDT [facility]: Clinical Trial Match 3 Clinical Trial NCT ID: [id number] Clinical Trial Title: A Study of TSC-100 and TSC-101 in AML, ALL and MDS in Patients Undergoing Allogeneic Peripheral Blood Stem Transplantation Clinical Trial URL: https://clinicaltr ials.gov/ct2/show/ XYC81426151 Clinical Phase: Phase 1 Clinical Trial Distance and Location: [address] [place], [place] 11/09/2024 9:35 PM CDT [facility] Blood specimen (specimen) 10/31/2024 10:38 AM CDT Narrative This result has genomic variants that were not included in this document. Gilmar Cassidy MD MOLECULAR ORDERABLES Edited Res ult - Final [facility] [address] [facility] [address] [place] [address], [facility] [address], [address] [place] [address] * CBC WITH DIFFERENTIAL (11/03/2024 10:46 AM CDT) Only the most recent of2 resultswithin the time period is included. Blood us Gilmar Cassidy MD HEMATOLOGY ORDERABLES Final Res ult * ERYTHROPOIETIN LEVEL (11/02/2024 12:51 PM CDT) Blood us Gilmar Cassidy MD CHEMISTRY ORDERABLES Final Resu lt * TYPE AND SCREEN (11/02/2024 12:37 PM CDT) Blood Result [facility] Gilmar Cassidy MD BLOOD BANK ORDERABLES Final Res ult * HEMOGLOBIN A1C (10/28/2024 4:12 PM CDT) Blood Result [facility] us Gilmar Cassidy MD CHEMISTRY ORDERABLES Final Resu lt * BONE MARROW ASPIRATION AND BIOPSY (10/21/2024 2:01 PM CDT) Only the most recent of2 resultswithin the time period is included. Bone marrow us Gilmar Cassidy MD PATH/CYTO ORDERABLES COM Final Result * IV SEDATION (10/21/2024 10:14 AM CDT) Provider Scanning NEUROLOGY ORDERABLES Final Res ult from Last 3 Months Insurance [employer] Medicare Part D [employer] [facility] Care Teams Peer Educator Relationship Specialty Start Date End Date Carrington Heath MD [address] [facility] [address] [place] [address] PCP - General Internal Medicine 04/13/24
--- OUTSIDE RECORDS SUMMARY | 2024-12-31 13:02 | XMS_ITS ---
Author Organization [employer] [place] ([address]) Address [address] [place] [address] Care Team Providers Care Seafood Team Member Name Role Phone Carrington Heath MD Primary Care Provider Juana Tay Unavailable [phone] Mignon Carr Unavailable REASON FOR VISIT Chronic [...] lung disease, managed by Dr. Carr and [facility] Pulmonology. Has X-RAYS and CT [...] a day (in the evening) Active Ipratropium Chesnee 0.06 % 2 spray(s) intranasally 3 times [...] Active Encounters Encounter Location Date Provider Diagnosis [facility] [address] [place] [address] 01/28/2024 Juana Arora Hypertrophy of nasal turbinates [...] COPD and interstitial lung disease by his wind turbine service technician, Dr. Carr. He is also seen at [facility] for management of ILD. He [...] COPD and interstitial lung disease by his wind turbine service technician, Dr. Carr. He is also seen at [facility] for management of ILD. He [...] Notes * Andre CHAPARRODOB:1945 (79 yo M)Acc No.[id number]:01/28/2024 Progress Notes Patient: Andre EDDY Provider: Lennie Arora DNP ADJUNCT COMMUNICATIONS FACULTY MEMBER-C :1945 A ge:78 Y S ex:Male Date:01/28/2024 [id number] Pcp:Carrington Heath MD Subjective: * Chief Complaints: [...] lung disease, managed by Dr. Carr and [facility] Pulmonology. Has X-RAYS and CT scans completed annually.. * HPI: * Introduction: HPI: Lennie Chaparro, a 78-year-old male with complex past medical history of ILD, rheumatoid arthritis, and COPD who returns in consultation with his wind turbine service technician, Dr. Carr, for laboratory review. He is with his for today's visit. Andre has a complex history of COPD and interstitial lung disease, currently managed by Dr. Carr, as well as a team of pulmonologists at [facility]. He has been experiencing nasal [...] Carr, as well as a team at [facility] for management of his interstitial [...] day (in the evening) , Taking Ipratropium Chesnee 0.06 % Solution 2 spray(s) intranasally 3 times a day , Taking Azelastine HCl 137 MCG/SPRAY Solution 2 spray(s) intranasally 2 times a day , Taking Vitamin D3 1250 MCG CAPSULE 1 CAP(S) ORALLY ONCE A WEEK , Notes to Pharmacist: *Please review and pick correct strength-formulation from [employer] options. If intended option is not shown, [...] COPD and interstitial lung disease by his wind turbine service technician, Dr. Carr. He is also seen at [facility] for management of ILD. He [...] W/PT OR RE, G8482 FLU IMMUNIZE ORDER/ADMIN, [address]15[address] HIB, [address] Single or Combination * Preventive Medicine: Counseling: [...] Management) * Billing Information: * Visit Code: 28506 Office Visit, Est Pt., Level 4. Modifiers: 25 * Procedure Codes: G8427 DOC MEDS VERIFIED W/PT OR RE. G8482 FLU IMMUNIZE ORDER/ADMIN. 15554 NOC PedvaxHIB. 80103 Immunization Administration (one vaccine). * Electronic signature of Juana Arora DNP, ADJUNCT COMMUNICATIONS FACULTY MEMBER-C on 12/31/2024 at 01:01 PM CDT Sign off status: Pending * Provider: Lennie Arora DNP ADJUNCT COMMUNICATIONS FACULTY MEMBER-C Date: 01/28/2024 Generated for Lesley loja/Jairo/Mahogany on: 0 12/31/2024 01:01 PM CDT History and Physical Notes * HPI (History of Present Illness) Category Sub-Category Detail Notes Category Not es *Introduction HPI: Andre Chaparro, a 78-year-old male with complex past medical history of ILD, rheumatoid arthritis, and COPD who returns in consultation with his wind turbine service technician, Dr. Carr, for laboratory review. He is with his for today's visit. Andre has a complex history of COPD and interstitial lung disease, currently managed by Dr. Carr, as well as a team of pulmonologists at [facility]. He has been experiencing nasal [...] Carr, as well as a team at [facility] for management of his interstitial [...]
--- OUTSIDE RECORDS SUMMARY | 2024-12-31 13:02 | XMS_ITS | Continuity of Care Document ---
Author Organization [facility] Address [address] [place] [address] Dr [address] [place] [phone] Phone Care Team Providers Care Sleeve Setter Name Role Phone Ryan Cruz Unavailable Unavailable [...] Providers Copied on Encounter Office/outpat ient Visit, [facility], [address], [place], [place], [address], tel:[phone] [facility] No Information 0-201 0 Nancy Davis. [facility] , [address], [place], [place], [facility], [place]. tel:[phone] Office/outpat ient Visit, [facility], [address] [place] [address] [address], [place], [place], [address], tel:[phone] [facility] No Information 6-201 0 Nancy Davis. [facility] [address]el, [address], [place], [place], [facility], [place]. tel:[phone] Referring Provider: Suad Edmond [facility] [address], [place], [facility]. tel:[phone] [facility], [address] [place] [address] [address], [place], [place], [address], [place] tel:[phone] [facility] No Information 6-201 0 Nancy Davis. [facility] [address], [address], [place], [facility], [place]. tel:[phone] Referring Provider: Suad Edmond [facility] [address], [place], [facility]. tel:[phone] [facility], [address] [place] [address] [address], [place], [place], [address], [place] tel:[phone] [facility] No Information Nov-2 3-200 9 [employer] . [address] [facility], [address], [place], [place], [address], [place]. tel:[phone] Referring Provider: Ryan Hogue, [address] [facility] [address], [place], [address]. tel:[phone] ayers Provider: Arabella Wang, [address] [facility], [place], [address]. tel:[phone] [facility], [address], [place], [place], [address], [place] tel:[phone] [facility] No Information Oct-2 2-200 9 Nancy Davis. [address] [facility] , [address], [place], [facility], [place]. tel:[phone] [facility], [address], [place], [place], [address], [place] tel:[phone] [facility] No Information Sep-1 8-200 9 Granados OD Juan M. [address] [facility] , [address], [place], [facility], [place]. tel:[phone] Office/outpat ient Visit, [facility], [address] [place] [address] [address], [place], [place], [address], [place] tel:[phone] [facility] No Information Aug-0 7-200 9 Granados OD Juan M. [address] [facility] , [address], [place], [address], [place]. tel:[phone] [facility], [address] [place] [address] [address], [place], [place], [address], [place] tel:[phone] [facility] No Information Ravi-3 1-200 9 Granados OD Juan M. [address] [facility] , [address], [place], [address], [place]. tel:[phone] Office/outpat ient Visit, [facility], [address], [place], [place], [address], [place] tel:[phone] [facility] No Information 8200 9 Nancy Davis. [address] , [address], [place], [facility], [place]. tel:[phone] Office/outpat ient Visit, [facility], [address], [place], [place], [address], [place] tel:[phone] [facility] No Information 9200 9 Nancy Davis. [address] , [address], [place], [facility], [place]. tel:[phone] Office/outpat ient Visit, [facility], [address], [place], [place], [address], [place] tel:[phone] [facility] No Information 9 Granados OD Juan M. [address] , [address], [place], [facility], [place]. tel:[phone] Referring Provider: Juan M Hogue, [facility] [address], [place], [facility]. tel:[phone] 3862 [facility], [address], [place], [place], [address], [place] tel:[phone] [facility] No Information 200 8 Nancy Davis. [address] , [address], [place], [facility], [place]. tel:[phone] [facility], [address], [place], [place], [address], [place] tel:[phone] [facility] No Information 7200 8 Nancy Davis. [address] [facility] , [address], [place], [facility], [place]. tel:[phone] Referring Provider: Ryan Hogue, [address], [place], [address]. tel:[phone] Office/outpat ient Visit, [facility], [address] [place] [address] [address], [place], [place], [address], [place] tel:[phone] [facility] No Information Dec-2 3-200 8 Doisy Edward. [address] [facility] , [address], [place], [facility], [place]. tel:[phone] [facility], [address] [place] [address] [address], [place], [place], [address], [place] tel:[phone] [facility] No Information Jun-2 1-200 8 Doi Edward. [address] , [address], [place], [facility], . tel:[phone] Office/outpat ient Visit, [facility], [address] [place] [address] [address], [place], [place], [address], [place] tel:[phone] [facility] No Information Nov-1 0-200 7 Granados OD Juan M. [address] , [address], [place], [address], [place]. tel:[phone] Office/outpat ient Visit, [facility], [address] [place] [address] [address], [place], [place], [address], [place] tel:[phone] [facility] No Information Oct-2 9-200 7 [facility]. [address] [facility], [address], [place], [place], [address], [place]. tel:[phone] Office/outpat ient Visit, [facility], [address] [place] [address] [address], [place], [place], [address], [place] tel:[phone] [facility] No Information Oct-2 7-200 7 Granados OD Juan M. [address] , [address], [place], [address], [place]. tel:[phone] [facility], [address], [place], [place], [address], [place] tel:[phone] [facility] No Information 3200 7 [employer] . [address] [facility], [address], [place], [place], [address], [place]. tel:[phone] Referring Provider: Ryan Hogue, [address] [place] [address] [address], [place], [address]. tel:[phone] ayers Provider: Arabella Wang, [address] [facility], [place], [address]. tel:[phone] [facility], [address], [place], [place], [address], [place] tel:[phone] [facility] No Information 7 Nancy Davis. [address] [place] [address] , [address], [place], [address], [place]. tel:[phone] Referring Provider: Ryan Hogue [facility] [address], [place], [address]. tel:[phone] Family History Family Member Type Diagnosis Age At Onset No Information Payers Payer name Insurance type Covered democrat ID Authoriza tion(s) No Information Social History [...]
--- OUTSIDE RECORDS SUMMARY | 2024-12-31 13:02 | XMS_ITS | Encounter Summary ---
Author Organization [facility] Address [address] [place] [address] Care Team Providers Care Sales And Marketing Engineer Name Role Phone Unavailable Primary Care Provider Unavailabl e Encounter Details Date Type Department Care Team (Late st Contact Info) Description 10/22/2024 Lab Requisition [facility] - Pathology Lab [address] [place] [address] Karsten Guido MD [address] [address] Illness, unspecified Social History Tobacco [...] Report Bone Marrow Patholog y Report Case: [id number] Authorizing Provider: Karsten Guido MD Collected: 10/21/2024 09:00 AM Ordering Location: [facility] - Received: 10/22/2024 05:00 PM [...] anemia - See description 10/23/2024 3:26 PM [facility] at 1526 CDT AP [...] required for further classification. 10/23/2024 3:26 PM [facility] Peripheral Smear Description CBC [...] normal. Platelet morphology: normal. 10/23/2024 3:26 PM [facility] Bone Marrow Aspirate Differential [...] Control is appropriately reactive. 10/23/2024 3:26 PM [facility] Bone Marrow Core Biopsy [...] and lambda light chains. 10/23/2024 3:26 PM [facility] Flow Cytometry Summary Concurrent flow cytometry ([id number]) shows no evidence of a monoclonal B-cell population or increase in blasts. 10/23/2024 3:26 PM [facility] Clinical History 79 year old man with macrocytic anemia and elevated serum light chains. 10/23/2024 3:26 PM [facility] Materials Received Received are 22 slides labeled [id number] along with a copy of the outside pathology report. [place] [address]. All original materials are returned to the referring institution, along with a copy of our final report. 10/23/2024 3:26 PM [facility] Pathologist Location at [facility] 10/23/2024 3:26 PM [facility] Disclaimer The performance characteristics of all immunohistochemical and indirect immunofluorescence stains (if any) cited in this report were determined by the Histopathology [facility] of [facility]. Some of these tests were developed [...] attending (teaching) pathologist. 10/23/2024 3:26 PM CDT [facility] Embedded Images 10/23/2024 3:26 PM CDT [facility] Pathology/Cytology BONE MARROW SPECIMEN / Unknown 10/21/2024 9:00 AM CDT 10/22/2024 5:00 PM CDT Miscellaneous samples (specimen) BONE MARROW SPECIMEN / Unknown 10/21/2024 9:00 AM CDT 10/22/2024 5:00 PM CDT us Karsten Guido MD LAB - PATHOLOGY/CYTOLOGY ORDERAB LES Final Result [facility] [address] [facility] [place] [address], [facility] [phone] documented in this encounter Visit Diagnoses Diagnosis Illness, unspecified documented in this encounter
--- OUTSIDE RECORDS SUMMARY | 2024-12-31 13:03 | XMS_ITS | Patient Health Record ---
Author Organization [facility] Address [address] [place] [address] Support Name Relationship Address Phone KARON CHAPARRO Emergency Contact Unknown VENU CHAPARRO Guarantor Unknown [phone] Reason For Referral No Information Medications Medication SIG (Take, Route, Frequency, Duration) Notes Start Date End Date Status Restasis 0.05 % Ophthalmic Act wendy Clarithromycin 250 MG Oral Active predniSONE 20 MG Oral Act wendy levoFLOXacin 750 MG Oral Active Clarithromycin 500 MG Oral Active Ciprofloxacin HCl 500 MG Oral Active predniSONE 1 MG Oral Acti ve Finasteride 5 MG Oral Act wendy Hydroxychloroquine Sulfate 200 MG Oral Active Diphenoxylate-Atropine 2.5-0.025 MG Oral Active Tacrolimus 0.1 % External Act wendy Mupirocin 2% External Active Testosterone Cypionate 200 MG/ML Intramuscular Active Topiramate 50 MG Oral Act wendy Flowflex COVID-19 Ag Home Test In Vitro *Reorder from [employer] for eRx and Interaction Alerts* Active Ramelteon 8 MG Oral Activ e methylPREDNISolone 4 MG Oral Active Simvastatin 20 MG Oral Ac tive traMADol HCl 50 MG Oral A ctive LORazepam 1 MG Oral Activ e Spiriva HandiHaler 18 MCG Inhalation Active Doxycycline Monohydrate 100 MG Oral Active Cefdinir 300 MG Oral Acti ve ProAir HFA 108 (90 Base) MCG/ACT Inhalation Active predniSONE 2.5 MG Oral Ac tive levoFLOXacin 500 MG Oral Active FLUoxetine HCl 40 MG Oral Active Latanoprost 0.005 % Ophthalmic Active Doxycycline Hyclate 100 MG Oral Active Ipratropium [place] 0.06 % Nasal Active Azelastine HCl 137 MCG/SPRAY Nasal Active Alendronate Sodium 70 MG Oral Active metroNIDAZOLE 500 MG Oral Active FLUoxetine HCl 20 MG Oral Active Cholecalciferol 1.25 MG (713[address] UT) Oral Active Fluticasone Propionate Diskus 50 MCG/ACT Inhalation *Reorder from [employer] for eRx and Interaction Alerts* Active Baclofen 10 MG Oral Activ e Plan Of Treatment No Information Insurance Providers Payer Name Payer Address Payer Phone Subscriber Number Group Number Insured Name Patient Relationship to Insured Coverage Start Date Coverage End Date [employer] Medicare Replacemen t/Advantag e - Ppo [address] [address] [place] [address] [id number] VENU CHAPARRO Self - patient is the insured
--- OUTSIDE RECORDS SUMMARY | 2024-12-31 13:03 | XMS_ITS | Patient Health Record ---
Author Organization [employer] [place] ([address]) Address [address] [place] [address] Care Team Providers Care Custom Framing Specialist Name Role Phone Carrington Heath MD Primary Care Provider Juana Tay Unavailable [phone] Mignon Carr Unavailable Unavailable Allergies Allergen (clinical drug ingredient) Drug/Non Drug Allergy documented on EMR Reaction Allergy Type Onset Date Status cephalexin Cephalexin hives Drug Allergy Activ e penicillin G Penicillin G Potassium rash Drug Allergy Active sulfamethoxazole / trimethoprim Sulfamethoxazole- Trimethoprim other reaction Drug Allergy Active Results Component Value Reference Range Notes H. INFLUENZAE TYPE B AB Reviewed date:05/07/2024 01:10:49 PM Interpretation:Abnormal Performing Lab:[facility], [facility],, [address] [place], [address] Carolyn Velazquez MD,PhD,KARINA Notes/Report: NON-FASTING HAEMOPHILUS INFLUENZA [...] times a day; Duration: 30 days Active FINASTERIDE 5 mg 1 tab(s) orally once a day Active VITAMIN D3 1250 mcg 1 cap(s) orally once a week; Duration: 56 days Active Azelastine HCl 137 MCG/SPRAY 2 spray(s) intranasally 2 times a day; Duration: 30 days Active Spiriva HandiHaler 18 MCG 1 cap(s) inhaled once a day Active Vitamin D3 1250 MCG 1 CAP(S) ORALLY ONCE A WEEK; Duration: 56 DAYS *Please review and pick correct strength-formula tion from CX options. If intended option is not shown, [...] times a day; Duration: 90 days Active PREDNISONE 1 mg 1 [...] Status Risk Notes Problem Vitamin D deficiency (01744164) Vitamin D deficiency, unspecified (E55.9) Active confirmed Problem Allergic rhinitis caused by pollen (disorder) (40770958) Allergic rhinitis due to pollen (J30.1) Active confirmed Problem Chronic rhinitis (80406707) Chronic rhinitis (J31.0) Active confirmed Problem Chronic sinusitis (05373634) Chronic sinusitis, unspecified (J32.9) Active confirmed Problem Hypertrophy of nasal turbinates (94016754) Hypertrophy of nasal turbinates (J34.3) Active confirmed Problem Chronic obstructive pulmonary disease (81111944) Chronic obstructive pulmonary disease, unspecified (J44.9) Active confirmed Problem Allergic rhinitis caused by animal hair and dander (130960655898792 ) Allergic rhinitis due to animal (cat) (dog) hair and dander (J30.81) Active confirmed Problem Chronic sinusitis (11958331) Other chronic sinusitis (J32.8) Active confirmed Vital Signs Oximetry 97 % 03/02/2024 Repeat HR: 94 Blood pressure diastolic 56 mm Hg 03/02/2024 Rep eat HR: 94 Height 66 in 03/02/2024 Repeat HR: 94 Blood pressure systolic 110 mm Hg 03/02/2024 Repe at HR: 94 Weight 155.2 lbs 03/02/2024 Repeat HR: 94 BMI 25.05 kg/m2 03/02/2024 Repeat HR: 94 Encounters Encounter Location Date Provider Diagnosis [facility] [address] [place] [address] 03/02/2024 Juana Arora Chronic sinusitis, unspecified J32.9 ; Vitamin D deficiency, unspecified E55.9 ; Allergic rhinitis due to pollen J30.1 ; Allergic rhinitis due to animal (cat) (dog) hair and dander J30.81 ; Chronic obstructive pulmonary disease, unspecified J44.9 and Encounter for immunization Z23 [facility] [address] [place] [phone] 07/01/2024 Juana Arora Assessments Encounter Date Diagnosis (ICD Code) Assessment Notes Treatment Notes Treatment Clinical Notes Section Notes 03/02/2024 Vitamin D deficiency, unspecified (ICD-10 - [...] COPD and interstitial lung disease by his adoption counselor, Dr. Carr. He is also seen at [facility] for management of ILD. He reports [...] for immunization (ICD-10 - Z23) See above 01/28/2024 Other 03/02/2024 Other Plan Of Treatment Pending Test Test Name Order Date HAEMOPHILUS INFLUENZAE B ANTIBODY, IGG 0 03/02/2024 Insurance Providers Payer Name Payer Address Payer Phone Subscriber Number Group Number Insured Name Patient Relationship to Insured Coverage Start Date Coverage End Date [employer] Medicare [address] [address] [place] [address] [id number] Andre Huizar Self - patient is the insured Medical (General) History Medical History History ICD Code COPD ILD Rheumatoid Arthiritis Glaucoma Surgical History Surgery Date(Month/Year) appendectomy 1963 quadruple bypass surgery 1977 gallbladder removed hemorrhoid surgery 2009 Hospitalization History Reason Date(Month/Year) garyumlargo 04/09/23 infection 2018
--- OUTSIDE RECORDS SUMMARY | 2024-12-31 13:03 | XMS_ITS | Encounter Summary ---
Author Organization [facility] Address [address] [place] [address] Care Team Providers Care Gill Box Tender Name Role Phone Carrington Heath MD Primary Care Provider Encounter Details Date Type Department Care Team (Late st Contact Info) Description 01/31/2018 Orders Only [facility] Health Information Management [address] [place] [id number] Scanning, Provider Social History Tobacco Use Types Packs/Day Years Used Date Smoking Tobacco: Former Cigarettes 0.8 52 0 12/31/1965 - 12/31/2017 Smokeless Tobacco: Never Alcohol Use Standard Drinks/Week Comments No 0 (1 standard drink = 0.6 oz pur e alcohol) Sex and Gender Information Value Date Recorded Sex Assigned at Not on file 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 Gender Identity Not on file Sexual Orientation Not on file documented as of this encounter Plan of Treatment Not on file documented as of this encounter Procedures Procedure Name Priority Date/Time Associated Diagnosis Comments CARDIOLOGY DOCUMENT SCAN 01/31/2018 documented in this encounter Results * Cardiology Document Scan (01/31/2018) Anatomical Region Laterality Modality Other us Provider Scanning CV CARDIAC SERVICES PROCEDURES Final Result documented in this encounter Visit Diagnoses Not on filedocumented in this encounter Care Teams Gill Box Tender Relationship Specialty Start Date End Date Carrington Heath MD PCP - General 08/31/16 documented as of this encounter
--- OUTSIDE RECORDS SUMMARY | 2024-12-31 13:03 | XMS_ITS ---
Author Organization [facility] Address [address] [place] [address] Care Team Providers Care Operations Program Manager Name Role Phone SUSAN CHARLES MD Primary Care Provider Marline Field Unavailable [phone] Allergies Allergen (clinical drug ingredient) Drug/Non Drug [...] hrs Active Tacrolimus 0.1 % 1 application Pie Maker ally Once a day Active Triamcinolone Acetonide [...] Active Encounters Encounter Location Date Provider Diagnosis [facility] [address] 12/08/2024 Marline Toro Plan Of Treatment Next Appt Details Provider Name:Marline peterson, 02/09/2025 11:45:00 AM, [address] [place] [address], [phone], Progress Notes * Andre CHAPARRODOB:1945 (79 yo M)Acc No.[id number]:12/08/2024 Injection Patient: Andre EDDY Provider: Lennie Toro MD :1945 A ge:79 Y S ex:Male Date:12/08/2024 Address:[address] [place], [place] [id number] Pcp:SUSAN CHARLES MD Subjective: * Chief Complaints: [...] Electronic signature of Marline Toro MD on 12/31/2024 at 01:03 PM CDT Sign off status: Pending * Provider: Lennie Toro MD Date: 12/08/2024 Generated for Lesley loja/Jairo/Mahogany on: 12/31/2024 01:03 PM CDT
--- OUTSIDE RECORDS SUMMARY | 2024-12-31 13:03 | XMS_ITS | Encounter Summary ---
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
--- OUTSIDE RECORDS SUMMARY | 2024-12-31 13:04 | XMS_ITS ---
Author Organization [employer] [place] ([address]) Address [address] [place] [address] Care Team Providers Care Car Knocker Name Role Phone Carrington Heath MD Primary Care Provider Juana Tay Unavailable [phone] Mignon Carr Unavailable REASON FOR VISIT Chronic [...] lung disease, managed by Dr. Carr and [facility] Pulmonology. Has X-RAYS and CT scans completed [...] a day (in the evening) Active Ipratropium [place] 0.06 % 2 spray(s) intranasally 3 times [...] Active Encounters Encounter Location Date Provider Diagnosis [facility] [address] [place] [address] 12/23/2023 Juana Arora Hypertrophy of nasal turbinates [...] COPD and interstitial lung disease by his dairy scientist, Dr. Carr. He is also seen at [facility] for management of ILD. He reports having [...] COPD and interstitial lung disease by his dairy scientist, Dr. Carr. He is also seen at [facility] for management of ILD. He reports having [...] Notes * Andre CHAPARRODOB:1945 (79 yo M)Acc No.[id number]:12/23/2023 Progress Notes Patient: Andre EDDY Provider: Lennie Arora DNP FALSEWORK BUILDER-C :1945 A ge:78 Y S ex:Male Date:12/23/2023 [address] [id number] Pcp:Carrington Heath MD Subjective: * Chief Complaints: [...] lung disease, managed by Dr. Carr and [facility] Pulmonology. Has X-RAYS and CT scans completed annually.. * HPI: * Introduction: HPI: Lennie Chaparro, a 78-year-old male with complex past medical history of ILD, rheumatoid arthritis, and COPD who returns in consultation with his dairy scientist, Dr. Carr, for laboratory review. He is with his for today's visit. Andre has a complex history of COPD and interstitial lung disease, currently managed by Dr. Carr, as well as a team of pulmonologists at [facility]. He has been experiencing nasal congestion, drainage [...] Carr, as well as a team at [facility] for management of his interstitial lung disease. [...] day (in the evening) , Taking Ipratropium [place] 0.06 % Solution 2 spray(s) intranasally 3 [...] COPD and interstitial lung disease by his dairy scientist, Dr. Carr. He is also seen at [facility] for management of ILD. He reports having [...] W/PT OR RE, G8482 FLU IMMUNIZE ORDER/ADMIN, 12057 HIB, 6[address] Single or Combination * Preventive Medicine: Counseling: [...] Management) * Billing Information: * Visit Code: 19303 Office Visit, Est Pt., Level 4. Modifiers: 25 * Procedure Codes: G8427 DOC MEDS VERIFIED W/PT OR RE. G8482 FLU IMMUNIZE ORDER/ADMIN. 83296 NOC PedvaxHIB. 99274 Immunization Administration (one vaccine). * Electronic signature of Juana Arora DNP, FALSEWORK BUILDER-C on 12/31/2024 at 01:03 PM CDT Sign off status: Pending * Provider: Lennie Arora DNP FALSEWORK BUILDER-C Date: 12/23/2023 Generated for Lesley loja/Jairo/Mahogany on: 12/31/2024 01:03 PM CDT History and Physical Notes * HPI (History of Present Illness) Category Sub-Category Detail Notes Category Not es *Introduction HPI: Andre Chaparro, a 78-year-old male with complex past medical history of ILD, rheumatoid arthritis, and COPD who returns in consultation with his dairy scientist, Dr. Carr, for laboratory review. He is with his for today's visit. Andre has a complex history of COPD and interstitial lung disease, currently managed by Dr. Carr, as well as a team of pulmonologists at [facility]. He has been experiencing nasal congestion, drainage [...] Carr, as well as a team at [facility] for management of his interstitial lung disease. [...]
--- OUTSIDE RECORDS SUMMARY | 2024-12-31 13:04 | XMS_ITS | Clinical Summary ---
Author Organization [facility] [address] Address [address] [place] [address] Care Team Providers Care Floating Labor Gang Supervisor Name Role Phone Carrington Heath MD [...] a day 01/23/20 21 Active blood-glucose meter [facility] Accu-Chek Guide Glucose Meter ACCUCHEK METER TO TEST BLOOD SUGARS DAILY Active lancets [facility] Accu-Chek Softclix Lancets USE TO TEST BLOOD [...] (VIGAMOX) 0.5 % ophthalmic solution Active carboxymethyl-g xm-rzti51-CZ (Refresh Optive Jaime-3, PF,) 0.5-1-0.5 % dropperette [...] 200 MG IN 24 HOURS Active zoledronic fvla-gajmgcvW-v ater (zoledronic acid) 5 mg/100 mL piggyback Active mycophenolate mofetil (CELLCEPT) 500 mg tablet Take 2 tablets (1,000 mg total) by mouth 2 (two) times a day 10/02/19 24 Active metroNIDAZOLE (FLAGYL) 500 mg tablet TAKE 1 TABLET 3 TIMES A DAY BY ORAL ROUTE. 12/12/19 24 Active valACYclovir (VALTREX) 1 gram tablet Take by mouth daily 06/22/19 25 Active topiramate (TOPAMAX) 50 mg tabletIndicatio ns:Migraine with aura and without status migrainosus, not intractable TAKE 1 TABLET TWICE DAILY 180 tablet 3 10/29/19 25 Active Active Problems Problem Noted Date [...] of which was symptomatic leaves with supplemental eptx-uaw-dgvxyod acetaminophen. I have renewed his topiramate 50 mg b.i.d., and I will plan on seeing him back on a yearly or as needed basis. Chronic midline low back pain 08/15/2019 Coronary artery disease invo lving [place] coronary artery of [place] heart without angina pectoris 08/13/2018 Hyperlipidemia associated with type 2 diabetes m jenniferitus 08/13/2018 Lumbar stenosis with neurogenic claudication 02/2018 Overview (01/09/2018): Added automatically from request for surgery [id number] Right carotid bruit 08/31/2016 Overview (10/26/2016): Right [...] Encounters Date Type Department Care Team Description 10/30/2024 Telephone [facility] Pulmonary [facility] Advanced Medicine [address]th [place] [address] [place] [address] Surekha Uribe CMA 10/29/2024 Telephone [facility] Pulmonary [facility] Advanced Medicine 8th [place] [address] [place] [address] Ana Calhoun, HU 10/28/2024 Telephone [facility] Pulmonary [facility] Advanced Medicine 8th [place] [address] [place] [address] Ana Calhoun, HU from Last 3 Months Surgical History Surgery [...] Cole Prostate cancer Father Cole Diabetes Mother [place] Hypertension Mother [place] Stroke Mother [place] Cancer Sister 1 Jacki Dementia Sister 2 Bad water Sister 3 Relation Name Status Comments Brother 1 Brother 2 Roby Brother 3 Brother 4 Brother 5 Abran Brother 6 Brother 7 Gaetano V Alive Brother 8 Jose [place] Alive Father Cole Mother [place] Sister 1 Jacki Sister 2 Sister 3 [...] on file 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 Gender Identity Not on file Sexual Orientation Not on file Obstetrics History Last Filed Vital Signs Vital Sign Reading Time Taken Comments Blood Pressure 98/50 08/17/2024 2:12 PM CDT Pulse 82 08/17/2024 2:12 PM CDT Temperature 36.8 C (98.2 F) 05/04/2024 2:31 PM BLOWER AND COMPRESSOR ASSEMBLER Respiratory Rate 18 05/04/2024 2:31 PM BLOWER AND COMPRESSOR ASSEMBLER Oxygen Saturation 97% 08/17/2024 2:12 PM CDT [...] A1C 07/31/2018 01/28/2018 Lipid Panel 09/12/2023 09/11/2022, 0402/2022, 04/04/2020, Additional history exists eGFR 08/28/2024 08/29/2023, 01/28/2018 Influenza Vaccine (#1) 2025 4, 04/02/2023, 03/20/2022, Additional history exists Pneumococcal vaccine 65+ Completed 015, 08/01/2014, 04/17/2013 Procedures Procedure Name Priority Date/Time Associated Diagnosis [...] ORDERABLES Final R esult Performing Organization Address City/[facility]/ZIP Co de Phone Number [facility] One [facility] Department [place] [address] * Lipid panel (09/11/2022) SCRIBED Cholesterol, Total 85 <200 [facility] SCRIBED HDL 52 >40 [facility] SCRIBED LDL 20 <100 [facility] SCRIBED Triglycerides 51 <150 [facility] Blood Rob Poe MD LAB BLOOD ORDERABLES Tori l Result Performing Organization Address [facility] Co de Phone Number [facility] * (ABNORMAL) Hemoglobin A1c (01/28/2018 4:36 PM CDT) Hgb A1C 6.2(H) 4.0 - 5.6 % [facility] Estimated Average Glucose 131 mg/dL [facility] Comment: The ADA recommends reporting an estimated Average Glucose (eAG) with all Hemoglobin A1c results using the equation derived from a study of 507 normal and diabetic adults. Minority populations were underrepresented and children were not included. (Diabetes Care 31:1209-9937, 2008). The eAG is not equivalent to a fasting glucose. Blood specimen (specimen) 01/28/2018 4:36 PM CDT 01/28/2018 4:36 PM CDT Narrative [facility] - 01/28/2018 5:09 PM CDT Sadaf Marques NP LAB BLOOD ORDERABLES Fin al Result Performing Organization Address City/[facility]/ZIP Co de Phone Number [facility] [address] Department [place] [address] from Last 3 Months or Most Recently Relevant to Health Maintenance Insurance [employer] CHOICE MEDICARE PPO HU[employer] CHOICE MEDICARE PPO HU[employer] CHOICE MEDICARE PPO Care Teams Floating Labor Gang Supervisor Relationship Specialty Start Date End Date Carrington Heath MD PCP - General 08/31/16
--- OUTSIDE RECORDS SUMMARY | 2024-12-31 13:04 | XMS_ITS | Referral Summary ---
Author Organization [facility] [address] Address [address] [place] [address] Care Team Providers Care Dictating Machine Typist Name Role Phone Carrington Heath MD Primary Care Provider Encounters Date Type Department Care Team Description 10/30/2024 Telephone [facility] Pulmonary [address] [facility] Advanced Medicine [address]th [place] [address] [place] [address] Surekha Uribe CMA 10/29/2024 Telephone [facility] Pulmonary [address] [facility] Advanced Medicine [address]th [place] [address] [place] [address] Ana Calhoun, HU 10/28/2024 Telephone [facility] Pulmonary [address] [facility] Advanced Medicine [address]th [place] [address] [place] [address] Ana Calhoun, RN from Last 3 Months Allergies Active Allergy Reactions Criticality Noted Date Comments Cephalexin Rash Medium 10/06/2008 Penicillins Rash Medium 03/08/2023 Sulfa (Sulfonamide Antibiotics) Rash Medium 0511/2008 Sulfamethoxazole-Trimethoprim Other (See comments) Low 08/16/2023 Medications [...] a day 01/23/20 21 Active blood-glucose meter [facility] Accu-Chek Guide Glucose Meter ACCUCHEK METER TO TEST BLOOD SUGARS DAILY Active lancets [facility] Accu-Chek Softclix Lancets USE TO TEST BLOOD [...] (VIGAMOX) 0.5 % ophthalmic solution Active carboxymethyl-g pk-svfi18-ES (Refresh Optive Jaime-3, PF,) 0.5-1-0.5 % dropperette [...] 200 MG IN 24 HOURS Active zoledronic molj-kgnckcrH-p ater (zoledronic acid) 5 mg/100 mL piggyback [...] of which was symptomatic leaves with supplemental xzml-lsp-ccxoffq acetaminophen. I have renewed his topiramate 50 mg b.i.d., and I will plan on seeing him back on a yearly or as needed basis. 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 Gender Identity Not on file Sexual Orientation Not on file Last Filed Vital Signs Vital Sign Reading Time Taken Comments Blood Pressure 98/50 08/17/2024 2:12 PM CDT Pulse 82 08/17/2024 2:12 PM CDT Temperature 36.8 C (98.2 F) 05/04/2024 2:31 PM MEAT WASHER Respiratory Rate 18 05/04/2024 2:31 PM MEAT WASHER Oxygen Saturation 97% 08/17/2024 2:12 PM CDT [...] ORDERABLES Final R esult Performing Organization Address City/[facility]/ZIP Co de Phone Number [facility] Department [place] [address] * Lipid panel (09/11/2022) SCRIBED Cholesterol, Total 85 <200 [facility] SCRIBED HDL 52 >40 [facility] SCRIBED LDL 20 <100 [facility] SCRIBED Triglycerides 51 <150 [facility] Blood Historical Provider LAB BLOOD ORDERABLES Tori l Result Performing Organization Address [facility] Co de Phone Number [facility] * (ABNORMAL) Hemoglobin A1c (01/28/2018 4:36 PM CDT) Hgb A1C 6.2(H) 4.0 - 5.6 % [facility] Estimated Average Glucose 131 mg/dL [facility] Comment: The ADA recommends reporting an estimated Average Glucose (eAG) with all Hemoglobin A1c results using the equation derived from a study of 507 normal and diabetic adults. Minority populations were underrepresented and children were not included. (Diabetes Care 31:2079-7553, 2008). The eAG is not equivalent to a fasting glucose. Blood specimen (specimen) 01/28/2018 4:36 PM CDT 01/28/2018 4:36 PM CDT Narrative [facility] - 01/28/2018 5:09 PM CDT Sadaf Marques NP LAB BLOOD ORDERABLES Fin al Result Performing Organization Address [facility]/ZIP Co de Phone Number [facility] [address] Department [place] [address] from Last 3 Months or Most Recently Relevant to Health Maintenance Insurance HUMANA CHOICE MEDICARE PPO HU[employer] CHOICE MEDICARE PPO Care Teams Dictating Machine Typist Relationship Specialty Start Date End Date Carrington Heath MD [facility] - General 08/31/16
--- OUTSIDE RECORDS SUMMARY | 2024-12-31 13:04 | XMS_ITS | Clinical Summary ---
Author Organization [facility] Address [address] [place] [address] Care Team Providers Care Antique Collector Name Role Phone Unavailable Primary Care Provider Unavailabl e Social History Tobacco Use Types Packs/Day Years Used Date Smoking Tobacco: Never Assessed Sex and Gender Information Value Date Recorded Sex Assigned at Not on file Legal Sex Male 7:47 PM CDT Gender Identity Not on file Sexual Orientation Not on file Plan of Treatment Health Maintenance Due Date Last Done Comments Hepatitis C 1965 DTaP, Tdap and Td Vaccines ( 1 - Tdap) 1966 Pneumococcal Vaccine: 50+ Ye ars (1 of 1 - PCV) 1997 Zoster Vaccines (1 of 2) 1997 RSV Immunization or 60+ Years (1 - 1-dose 75+ series) 2022 COVID-19 Vaccine ( - 2023-2 5 season) 2024 Meningococcal B Vaccine Aged Out No l onger eligible based on patient's age to complete this topic Meningococcal Vaccine Aged Out No mady ras eligible based on patient's age to complete this topic RSV Immunizations Under 20 Months Aged Out No longer eligible based on patient's age to complete this topic
[2024-12-31] MEDS: TETANUS,DIPHTHERIA,AC PERTUSSIS ADULT (0.5 ML) BOOSTRIX IM (13:43)
== END 2024-12-31 14:00 | disposition home or self-care (01) ==
PROVIDERS: Emergency Provider Emergency Medicine
DX: S79.911A Unspecified injury of right hip, initial encounter (principal); S51.811A Laceration without foreign body of right forearm, initial encounter; Z23 Encounter for immunization; I25.2 Old myocardial infarction; I25.10 Atherosclerotic heart disease of native coronary artery without angina pectoris; I51.9 Heart disease, unspecified; J32.9 Chronic sinusitis, unspecified; J44.9 Chronic obstructive pulmonary disease, unspecified; J84.9 Interstitial pulmonary disease, unspecified; M06.9 Rheumatoid arthritis, unspecified; F32.A Depression, unspecified; F41.9 Anxiety disorder, unspecified; Z95.1 Presence of aortocoronary bypass graft; Z85.828 Personal history of other malignant neoplasm of skin; Z87.891 Personal history of nicotine dependence; Z90.49 Acquired absence of other specified parts of digestive tract; W01.198A Fall on same level from slipping, tripping and stumbling with subsequent striking against other object, initial encounter
CPT/HCPCS: 12002; 73502; 90471; 90715; 99283

== ENCOUNTER 2025-02-26 12:50 | Outpatient (CLI) | payer MEDICARE, SELFPAY ==
--- OUTSIDE RECORDS SUMMARY | 2023-11-18 12:30 | XMS_ITS ---
Author Organization [employer] [facility] [place] ([address]) Address [address] [place] [address] Care Team Providers Care Insurance Sales Professional Name Role Phone Carrington Heath MD Primary Care Provider Juana Tay Unavailable [phone] Mignon Carr Unavailable Unavailable Medications Medication SIG (Take, Route, Frequency, Duration) Notes Start Date End Date Status VITAMIN D3 1250 mcg 1 cap(s) orally once a week; Duration: 56 days Active IPRATROPIUM NASAL 42 mcg/inh 2 spray(s) intranasally 3 times a day; Duration: 90 days Active SIMVASTATIN 20 mg 1 tab(s) orally once a day (in the evening) Active AZELASTINE NASAL 137 mcg/inh 2 spray(s) intranasally 2 times a day; Duration: 30 days Active TOPIRAMATE 50 mg 1 cap(s) orally twice a day Not-Taking FLUOXETINE 40 mg 1 cap(s) orally once a day Active PREDNISONE 1 mg 1 tab(s) orally once a day 1 tablet on M,W,F Active ROZEREM 8 mg 1 tab(s) orally once a day (at bedtime) Active LORAZEPAM 1 mg 1 tab(s) orally 3 times a day 1/2 tablet 3x daily and 1 tablet at bedtime Active HYDROXYCHLOROQUINE 200 mg 1 tab(s) orally twice a day Active TOPIRAMATE 50 mg 1 tab(s) orally 2 times a day Active TRAMADOL 50 mg 1 tab(s) orally every 6 hours Active MUCINEX DM 30 mg-600 mg 2 tablets orally daily Active ALENDRONATE 70 mg 1 tab(s) orally once a week Active FINASTERIDE 5 mg 1 tab(s) orally once a day Active RESTASIS 0.05% 1 gtt in each affected eye twice a day Active LATANOPROST OPHTHALMIC 0.005% 1 gtt in each eye once a day (in the evening) Active NURTEC ODT 75 mg 1 tab(s) orally once Active ASPIRIN 81 mg 1 cap(s) orally every 24 hours Active TESTOSTERONE CYPIONATE cypionate 200 mg/mL as directed intramuscularly twice monthly Active TRIAMCINOLONE TOPICAL 0.1% 1 andria applied topically 2 times a day Active ZYRTEC 10 mg 1 tab(s) orally once a day Active TACROLIMUS TOPICAL 0.1% 1 andria applied topically 2 times a day Active FLUTICASONE NASAL 50 mcg/inh 1 spray(s) in each nostril once a day Active ALBUTEROL (EQV-VENTOLIN HFA) 90 mcg/inh 2 puff(s) inhaled every 6 hours Active SPIRIVA HANDIHALER 18 mcg 1 cap(s) inhaled once a day Active OXYGEN CONCENTRATOR 3 LITER Active Encounters Encounter Location Date Provider Diagnosis [facility] [address] [facility] [address] [place] [address] 11/18/2023 Juana Arora Plan Of Treatment No Information Progress Notes * Andre CHAPARRODOB:1945 (79 yo M)Acc No.[id number]:11/18/2023 Progress Notes Patient: Andre EDDY Provider: Lennie Arora DNP [employer] :1945 A ge:78 Y S ex:Male Date:11/18/2023 Address:[address] [id number] Pcp:Carrington Heath MD Subjective: * Chief Complaints: * * Medical History: * Medications: T aking OXYGEN CONCENTRATOR 3 LITER , Taking SPIRIVA HANDIHALER 18 mcg capsule 1 cap(s) inhaled once a day , Taking ALBUTEROL (EQV-VENTOLIN HFA) 90 mcg/inh aerosol 2 puff(s) inhaled every 6 hours , Taking FLUTICASONE NASAL 50 mcg/inh spray 1 spray(s) in each nostril once a day , Taking ZYRTEC 10 mg tablet 1 tab(s) orally once a day , Taking TRIAMCINOLONE TOPICAL 0.1% cream 1 andria applied topically 2 times a day , Taking TACROLIMUS TOPICAL 0.1% ointment 1 andria applied topically 2 times a day , Taking LATANOPROST OPHTHALMIC 0.005% solution 1 gtt in each eye once a day (in the evening) , Taking RESTASIS 0.05% emulsion 1 gtt in each affected eye twice a day , Taking ASPIRIN 81 mg capsule 1 cap(s) orally every 24 hours , Taking NURTEC ODT 75 mg tablet, disintegrating 1 tab(s) orally once , Taking TESTOSTERONE CYPIONATE cypionate 200 mg/mL solution as directed intramuscularly twice monthly , Taking MUCINEX DM 30 mg-600 mg tablet, extended release 2 tablets orally daily , Taking FINASTERIDE 5 mg tablet 1 tab(s) orally once a day , Taking ALENDRONATE 70 mg tablet 1 tab(s) orally once a week , Taking TRAMADOL 50 mg tablet 1 tab(s) orally every 6 hours , Taking TOPIRAMATE 50 mg tablet 1 tab(s) orally 2 times a day , Taking HYDROXYCHLOROQUINE 200 mg tablet 1 tab(s) orally twice a day , Taking PREDNISONE 1 mg tablet 1 tab(s) orally once a day , Notes to Pharmacist: 1 tablet on M,W,F, Taking FLUOXETINE 40 mg capsule 1 cap(s) orally once a day , Taking LORAZEPAM 1 mg tablet 1 tab(s) orally 3 times a day , Notes to Pharmacist: 1/2 tablet 3x daily and 1 tablet at bedtime, Taking ROZEREM 8 mg tablet 1 tab(s) orally once a day (at bedtime) , Taking SIMVASTATIN 20 mg tablet 1 tab(s) orally once a day (in the evening) , Taking IPRATROPIUM NASAL 42 mcg/inh spray 2 spray(s) intranasally 3 times a day , Taking AZELASTINE NASAL 137 mcg/inh spray 2 spray(s) intranasally 2 times a day , Taking VITAMIN D3 1250 mcg capsule 1 cap(s) orally once a week , Not-Taking/PRN TOPIRAMATE 50 mg capsule, extended release 1 cap(s) orally twice a day Objective: * Vitals: Assessment: Plan: * Treatment: * Billing Information: * Visit Code: * Procedure Codes: * Electronic signature of Juana Arora DNP, [employer] on 02/26/2025 at 12:54 PM CDT Sign off status: Pending * Provider: ODALIS SpearsP-C Date: 0 11/18/2023 Generated for Lesley Bennett on: 0 02/26/2025 12:54 PM CDT
--- OUTSIDE RECORDS SUMMARY | 2023-12-23 12:30 | XMS_ITS ---
Author Organization [employer] [facility] ([address]) Address [address] [place] [address] Care Team Providers Care Customer Accounts Advisor Name Role Phone Carrington Heath MD Primary Care Provider Juana Tay Unavailable [phone] Mignon Carr Unavailable REASON FOR VISIT Chronic upper airway symptoms concerning for uncontrolled atopic disease, nasal congestion and drainage that occurs year-round. Taking Zyrtec and Flonase daily. ImmunoCaps ordered that showed positive cat, dog, tree and grass. Total IgE 474., Frequent sinus infections, requires antibiotic use 4-5 times per year. S/p sinus surgery [place] [address] Zuniga, has not been seen in the past year. Modified PIDD work-up ordered that showed low vitamin D, inadequate protection to S. pneumo and haemophilus influenzae, in need of boosters., History of interstitial lung disease, managed by Dr. Carr and [facility] Pulmonology. Has X-RAYS and CT scans completed annually. Medications Medication SIG (Take, Route, Frequency, Duration) Notes Start Date End Date Status ROZEREM 8 mg 1 tab(s) orally once a day (at bedtime) Active VITAMIN D3 1250 mcg 1 cap(s) orally once a week; Duration: 56 days Active SIMVASTATIN 20 mg 1 tab(s) orally once a day (in the evening) Active IPRATROPIUM NASAL 42 mcg/inh 2 spray(s) intranasally 3 times a day; Duration: 90 days Active TOPIRAMATE 50 mg 1 cap(s) orally twice a day Not-Taking FLUOXETINE 40 mg 1 cap(s) orally once a day Active LORAZEPAM 1 mg 1 tab(s) orally 3 times a day 1/2 tablet 3x daily and 1 tablet at bedtime Active TOPIRAMATE 50 mg 1 tab(s) orally 2 times a day Active HYDROXYCHLOROQUINE 200 mg 1 tab(s) orally twice a day Active PREDNISONE 1 mg 1 tab(s) orally once a day 1 tablet on M,W,F Active TESTOSTERONE CYPIONATE cypionate 200 mg/mL as directed intramuscularly twice monthly Active TRAMADOL 50 mg 1 tab(s) orally every 6 hours Active MUCINEX DM 30 mg-600 mg 2 tablets orally daily Active FINASTERIDE 5 mg 1 tab(s) orally once a day Active ALENDRONATE 70 mg 1 tab(s) orally once a week Active RESTASIS 0.05% 1 gtt in each affected eye twice a day Active ASPIRIN 81 mg 1 cap(s) orally every 24 hours Active NURTEC ODT 75 mg 1 tab(s) orally once Active TACROLIMUS TOPICAL 0.1% 1 andria applied topically 2 times a day Active LATANOPROST OPHTHALMIC 0.005% 1 gtt in each eye once a day (in the evening) Active AZELASTINE NASAL 137 mcg/inh 2 spray(s) intranasally 2 times a day; Duration: 30 days Active VITAMIN D3 1250 mcg 1 cap(s) orally once a week Active FLUTICASONE NASAL 50 mcg/inh 1 spray(s) in each nostril once a day Active ZYRTEC 10 mg 1 tab(s) orally once a day Active TRIAMCINOLONE TOPICAL 0.1% 1 andria applied topically 2 times a day Active SPIRIVA HANDIHALER 18 mcg 1 cap(s) inhaled once a day Active ALBUTEROL (EQV-VENTOLIN HFA) 90 mcg/inh 2 puff(s) inhaled every 6 hours Active Azelastine HCl 137 MCG/SPRAY 2 spray(s) intranasally 2 times a day; Duration: 30 days Active Vitamin D3 1250 MCG 1 CAP(S) ORALLY ONCE A WEEK; Duration: 56 DAYS *Please review and pick correct strength-formul ation from Medispan options. If intended option is not shown, discontinue and re-order from Quick Search* Active OXYGEN CONCENTRATOR 3 LITER Active Rozerem 8 MG 1 tab(s) orally once a day (at bedtime) Active Simvastatin 20 MG 1 tab(s) orally once a day (in the evening) Active Ipratropium Ocate 0.06 % 2 spray(s) intranasally 3 times a day; Duration: 90 days Active Topiramate ER 50 MG 1 cap(s) orally twice a day Not-Taking LORazepam 1 MG 1 tab(s) orally 3 times a day 1/2 tablet 3x daily and 1 tablet at bedtime Active predniSONE 1 MG 1 tab(s) orally once a day 1 tablet on M,W,F Active FLUoxetine HCl 40 MG 1 cap(s) orally onc e a day Active traMADol HCl 50 MG 1 tab(s) orally every 6 hours Active Topiramate 50 MG 1 tab(s) orally 2 times a day Active Hydroxychloroquine Sulfate 200 MG 1 tab(s) orally twice a day Active Aspirin 81 MG 1 cap(s) orally every 24 hours Active Testosterone Cypionate 200 MG/ML as directed intramuscularly twice monthly Active Mucinex DM 30-600 MG 2 tablets orally daily Active Finasteride 5 MG 1 tab(s) orally once a day Active Alendronate Sodium 70 MG 1 tab(s) orally once a week Active Triamcinolone Acetonide 0.1 % 1 andria applied topically 2 times a day Active Tacrolimus 0.1 % 1 andria applied topically 2 times a day Active Latanoprost 0.005 % 1 gtt in each eye once a day (in the evening) Active Restasis 0.05 % 1 gtt in each affected eye twice a day Active ZyrTEC Allergy 10 MG 1 tab(s) orally onc e a day Active Spiriva HandiHaler 18 MCG 1 cap(s) inhaled once a day Active Fluticasone Propionate 50 MCG/ACT 1 spray(s) in each nostril once a day Active Encounters Encounter Location Date Provider Diagnosis [facility] [address] [place] [address] 12/23/2023 Juana Arora Hypertrophy of nasal turbinates J34.3 ; Chronic rhinitis J31.0 ; Chronic sinusitis, unspecified J32.9 ; Vitamin D deficiency, unspecified E55.9 ; Chronic obstructive pulmonary disease, unspecified J44.9 and Encounter for immunization Z23 Assessments Encounter Date Diagnosis (ICD Code) Assessment Notes Treatment Notes Treatment Clinical Notes Section Notes 12/23/2023 Hypertrophy of nasal turbinates (ICD-10 - J34.3) Andre endorses upper airway symptoms concerning for uncontrolled atopic disease. Endorses worse symptoms during the Summer, however symptoms persist throughout the year. He has one dog at home. - Andre is on various medications that will block skin testing, some of which will be difficult to hold. Aeroallergen ImmunoCaps ordered last visit that showed elevated levels to cat, dog, tree and weed. Total IgE 474. - Due to Andre's lung function, he is not an ideal candidate for SCIT. Due to this, continue Zyrtec and Flonase, also discussed increasing Astelin to BID. Trialed ipratropium bromide last visit, which Andre reports he discontinued due to shortness of breath. No issues since stopping the medication. - Consider follow-up with Dr. Zuniga, ENT, who Andre has not seen in the last year. - Modified PIDD work-up ordered, see plans below 12/23/2023 Chronic rhinitis (ICD-10 - J31.0) See plan above 12/23/2023 Chronic sinusitis, unspecified (ICD-10 - J32.9) Andre reports frequent sinus infections, states he feels he is always sick. He has required 4-5 courses of oral antibiotics in the past 12 months for sinusitis, also had pneumonia in April meeting JMF criteria for modified PIDD work-up. - PIDD work-up showed inadequate protection to streptococcal pneumoniae and haemophilus influenzae. Recommend booster with Pneumovax and HiB booster. Andre does not want both immunizations at the same visit. HiB booster given today, he will return next week for Pneumovax. Will repeat titers 4-6 weeks after Pneumovax administration. - Andre also has a history of sinus surgery, performed by Dr. Zuniga in 2021. Records requested last visit, not obtained yet 12/23/2023 Vitamin D deficiency, unspecified (ICD-10 - E55.9) Work-up shows low vitamin D, started supplementation with 50,000 IU/week x 8 weeks per prior TE. To be followed with 5,000 IU/day x 4 weeks, will then repeat vitamin D level 12/23/2023 Chronic obstructive pulmonary disease, unspecified (ICD-10 - J44.9) Andre has been diagnosed with COPD and interstitial lung disease by his store coordinator, Dr. Carr. He is also seen at [facility] for management of ILD. He reports having annual PFTs, CT scans and chest X-RAYs completed. Dr. Carr referred him here for allergy evaluation, see plan above. - Andre is wearing 3 L of oxygen for today's visit, reports he had pneumonia in April and has been on oxygen at all times since then. - Continue close management by his various pulmonologists 12/23/2023 Encounter for immunization (ICD-10 - Z23) 12/23/2023 Other Plan Of Treatment Medication Medication Name Sig Start Date Stop Date Notes AZELASTINE NASAL 137 mcg/inh 2 spray(s) intranasally 2 times a day; Duration: 30 days VITAMIN D3 1250 mcg 1 cap(s) orally once a week FLUTICASONE NASAL 50 mcg/inh 1 spray(s) in each nostril once a day ZYRTEC 10 mg 1 tab(s) orally once a day SPIRIVA HANDIHALER 18 mcg 1 cap(s) inhaled once a day ALBUTEROL (EQV-VENTOLIN HFA) 90 mcg/inh 2 puff(s) inhaled every 6 hours OXYGEN CONCENTRATOR 3 LITER Treatment Notes Assessment Notes Hypertrophy of nasal turbinates Andre endorses upper airway symptoms concerning for uncontrolled atopic disease. Endorses worse symptoms during the Summer, however symptoms persist throughout the year. He has one dog at home. - Andre is on various medications that will block skin testing, some of which will be difficult to hold. Aeroallergen ImmunoCaps ordered last visit that showed elevated levels to cat, dog, tree and weed. Total IgE 474. - Due to Andre's lung function, he is not an ideal candidate for SCIT. Due to this, continue Zyrtec and Flonase, also discussed increasing Astelin to BID. Trialed ipratropium bromide last visit, which Andre reports he discontinued due to shortness of breath. No issues since stopping the medication. - Consider follow-up with Dr. Zuniga, ENT, who Andre has not seen in the last year. - Modified PIDD work-up ordered, see plans below Chronic rhinitis See plan above Chronic sinusitis, unspecified Andre reports frequent sinus infections, states he feels he is always sick. He has required 4-5 courses of oral antibiotics in the past 12 months for sinusitis, also had pneumonia in April meeting F criteria for modified PIDD work-up. - PIDD work-up showed inadequate protection to streptococcal pneumoniae and haemophilus influenzae. Recommend booster with Pneumovax and HiB booster. Andre does not want both immunizations at the same visit. HiB booster given today, he will return next week for Pneumovax. Will repeat titers 4-6 weeks after Pneumovax administration. - Andre also has a history of sinus surgery, performed by Dr. Zuniga in 2021. Records requested last visit, not obtained yet Vitamin D deficiency, unspecified Work-u p shows low vitamin D, started supplementation with 50,000 IU/week x 8 weeks per prior TE. To be followed with 5,000 IU/day x 4 weeks, will then repeat vitamin D level Chronic obstructive pulmonar y disease, unspecified Andre has been diagnosed with COPD and interstitial lung disease by his store coordinator, Dr. Carr. He is also seen at [facility] for management of ILD. He reports having annual PFTs, CT scans and chest X-RAYs completed. Dr. Carr referred him here for allergy evaluation, see plan above. - Andre is wearing 3 L of oxygen for today's visit, reports he had pneumonia in April and has been on oxygen at all times since then. - Continue close management by his various pulmonologists Next Appt Details Follow Up: 3 Months, Reason: Evaluation and Management Progress Notes * Andre CHAPARRODOB:1945 (79 yo M)Acc No.[id number]:12/23/2023 Progress Notes Patient: Andre EDDY Provider: Lennie Arora DNP [employer] :1945 A ge:78 Y S ex:Male Date:12/23/2023 [address] [id number] Pcp:Carrington Heath MD Subjective: * Chief Complaints: * 1 . Chronic upper airway symptoms concerning for uncontrolled atopic disease, nasal congestion and drainage that occurs year-round. Taking Zyrtec and Flonase daily. ImmunoCaps ordered that showed positive cat, dog, tree and grass. Total IgE 474.. 2. Frequent sinus infections, requires antibiotic use 4-5 times per year. S/p sinus surgery in [address] Zuniga, has not been seen in the past year. Modified PIDD work-up ordered that showed low vitamin D, inadequate protection to S. pneumo and haemophilus influenzae, in need of boosters.. 3. History of interstitial lung disease, managed by Dr. Carr and [facility] Pulmonology. Has X-RAYS and CT scans completed annually.. * HPI: * Introduction: HPI: Lennie Chaparro, a 78-year-old male with complex past medical history of ILD, rheumatoid arthritis, and COPD who returns in consultation with his store coordinator, Dr. Carr, for laboratory review. He is with his for today's visit. Andre has a complex history of COPD and interstitial lung disease, currently managed by Dr. Carr, as well as a team of pulmonologists at [facility]. He has been experiencing nasal congestion, drainage and frequent sinus infections that have worsened in the past several years. Due to this, Dr. Carr referred him here. He reports Summer is his worst season, however symptoms occur year-round. He has one dog at home. Andre was hospitalized due to pneumonia in April, had his carpets cleaned the day before he got sick, which made Andre concerned that allergies contributed to his illness. He currently takes Zyrtec and Flonase daily. Aeroallergen ImmunoCaps ordered that showed positive levels to tree, grass, cat and dog. Total IgE was 474. Andre also endorses frequent sinus infections, takes 4-5 courses of antibiotics each year. He is established with Dr. Zuniga, ENT, however has not been seen in the last year. He had sinus surgery completed in 2021, however unsure what all was done during the surgery. No records to review. Modified PIDD work-up ordered last visit that showed inadequate protection to streptococcal pneumoniae and haemophilus influenzae. Also with low vitamin D. Lennie henderson is closely monitored by pulmonology, followed by Dr. Carr, as well as a team at [facility] for management of his interstitial lung disease. Reports having annual PFTs, CT scans and chest X-RAYs completed. He currently takes Spiriva daily, also on 3 L of supplemental oxygen at all times. He has an albuterol inhaler, but uses this rarely. Today, he reports no fevers, chills, night sweats or other constitutional symptoms. * ROS: A LLERGY: Positive p er the HPI and history, otherwise unremarkable.?runny nose Y es. s cratchy throat Y es. i tchy eyes Y es. e ar fullness?Yes. s inus congestion Y es. S PECIAL SENSES: Positve for n one. c ataracts N o. g laucoma?Yes. l oss of hearing Y es. i tching in ears N o. r inging in ears N o.?loss of balance N o. l oss of smell N o. d ry eyes Y es. e xcessive tearing N o. i tching eyes N o. l oss of taste N o. c onjunctivitis N o.?ear infections N o. C ONSTITUTIONAL: weight gain N o. l oss of appetite N o. f ever?No. w eakness Y es. w eight loss Y es. f atigue Y es. n ight sweats?No. P ositive for n one. E NT: cold N o. c ough N o. e pistaxis N o. h earing loss Y es. c hange in voice N o. s ore throat N o. r inging in ears?No. s inus pain Y es. P ositive p er the HPI and history, otherwise unremarkable. R ESPIRATORY: shortness of breath N o. c hest pain N o. c hest congestion N o. c ough N o. P ositive p er the HPI and history, otherwise unremakable. O PHTHALMOLOGY: diminished vision N o. e ye irritation Y es. d rainage from eyes N o. b lurring of vision N o. s easonal eye sx Y es. P ositive for p er the HPI and history, otherwise unremarkable. s ensitivity to light Y es. discharge N o. w atering N o. s welling of the eyelids N o. r edness?Yes. E NDOCRINOLOGY: fatigue Y es. p olydipsia N o. p olyuria N o. w eight loss Y es. s leep disturbance Y es. c old intolerance Y es. h eat intolerance Y es. d iabetes N o. P ositive for n one. C ARDIOLOGY: chest pain N o. p alpitations N o. l eg edema?Yes. d izziness N o. s hortness of breath Y es. P ositive for n one.? G ASTROENTEROLOGY: dysphagia N o. a bdominal pain Y es. n ausea?No. v omiting N o. c onstipation Y es. d iarrhea N o. b lood in stool?No. i ndigestion Y es. h emorrhoids Y es. P ositive for n one. ? U ROLOGY: difficulty urinating N o. b lood in urine N o. f requent urination N o. u rinary incontinence N o. r ecurrent UTI N o. P ositive for n one. D ERMATOLOGY: rash N o. m ole N o. l umps N o. d ry or sensitive skin Y es. h saloni (urticaria) N o. a cne N o. s kin cancer N o. P ositive for p er the HPI and history, otherwise unremakable. N EUROLOGY: headache N o. t ingling numbness Y es. s eizures N o. i nsomnia Y es. m whitney loss N o. d izziness N o. g ait abnormality N o. P ositive for n one. H EMATOLOGY/LYMPH: Positive for n one. M USCULOSKELETAL: joint swelling Y es. j oint pain Y es. l eg cramps Y es. j oint stiffness Y es. s ciatica N o. o steoporosis N o. f racture N o. c arpal tunnel N o. g out N o. P ositive for n one. ? P SYCHOLOGY: high stress level Y es. d epression Y es. s leep disturbances Y es. s uicidal ideation N o. e ating disorder N o. m ental or physical abuse N o. a nxiety Y es. P ositive for n one. M AILYN REPRODUCTIVE: difficulty with erection Y es. d iminished sexual drive?Yes. p enile discharge N o. i nfertility N o. A ll other review of systems per the HPI and history, otherwise unremarkable. * Medical History: * Medications: T aking [...] 1 cap(s) orally once a week , Taking Spiriva HandiHaler 18 MCG Capsule 1 cap(s) inhaled once a day , Taking Fluticasone Propionate 50 MCG/ACT Suspension 1 spray(s) in each nostril once a day , Taking ZyrTEC Allergy 10 MG Tablet 1 tab(s) orally once a day , Taking Triamcinolone Acetonide 0.1 % Cream 1 andria applied topically 2 times a day , Taking Tacrolimus 0.1 % Ointment 1 andria applied topically 2 times a day , Taking Latanoprost 0.005 % Solution 1 gtt in each eye once a day (in the evening) , Taking Restasis 0.05 % Emulsion 1 gtt in each affected eye twice a day , Taking Aspirin 81 MG Capsule 1 cap(s) orally every 24 hours , Taking Testosterone Cypionate 200 MG/ML Solution as directed intramuscularly twice monthly , Taking Mucinex DM 30-600 MG Tablet Extended Release 12 Hour 2 tablets orally daily , Taking Finasteride 5 MG Tablet 1 tab(s) orally once a day , Taking Alendronate Sodium 70 MG Tablet 1 tab(s) orally once a week , Taking traMADol HCl 50 MG Tablet 1 tab(s) orally every 6 hours , Taking Topiramate 50 MG Tablet 1 tab(s) orally 2 times a day , Taking Hydroxychloroquine Sulfate 200 MG Tablet 1 tab(s) orally twice a day , Taking predniSONE 1 MG Tablet 1 tab(s) orally once a day , Notes to Pharmacist: 1 tablet on M,W,F, Taking FLUoxetine HCl 40 MG Capsule 1 cap(s) orally once a day , Taking LORazepam 1 MG Tablet 1 tab(s) orally 3 times a day , Notes to Pharmacist: 1/2 tablet 3x daily and 1 tablet at bedtime, Taking Rozerem 8 MG Tablet 1 tab(s) orally once a day (at bedtime) , Taking Simvastatin 20 MG Tablet 1 tab(s) orally once a day (in the evening) , Taking Ipratropium Ocate 0.06 % Solution 2 spray(s) intranasally 3 times a day , Taking Azelastine HCl 137 MCG/SPRAY Solution 2 spray(s) intranasally 2 times a day , Taking Vitamin D3 1250 MCG CAPSULE 1 CAP(S) ORALLY ONCE A WEEK , Notes to Pharmacist: *Please review and pick correct strength-formulation from Medispan options. If intended option is not shown, discontinue and re-order from Quick Search*, Not-Taking/PRN TOPIRAMATE 50 mg capsule, extended release 1 cap(s) orally twice a day , Not-Taking/PRN Topiramate ER 50 MG Capsule Extended Release 24 Hour 1 cap(s) orally twice a day Objective: * Vitals: * Examination: G eneral examination: General appearance: p leasant, well-developed, well-nourished, male, in no apparent distress, speaking in full sentences, wearing a nasal cannula.? HEENT: p upils equal, round, and reactive to light and accommodation, conjunctiva are normal bilaterally. Oral cavity: n ormal, no lesions. Breasts : n ot performed. Heart: R RR, S1-S2, no murmurs, no rubs, no gallops. Lungs: c lear to auscultation in all lung jackson, no wheezes or crackles. Neurologic exam: u nremarkable. Back: n ormal. Extremities: n ormal ROM, no clubbing, no cyanosis, no edema. Genitalia: n ot performed. Assessment: * Assessment: 1. H ypertrophy of nasal turbinates - J34.3 (Primary) 2 . C hronic rhinitis - J31.0 3 . C hronic sinusitis, unspecified - J32.9 4 . V itamin D deficiency, unspecified - E55.9 5 . C hronic obstructive pulmonary disease, unspecified - J44.9 6 . E ncounter for immunization - Z23 Plan: * Treatment: 2. C hronic rhinitis Notes: See plan above 3. C hronic sinusitis, unspecified Notes: Andre reports frequent sinus infections, states he feels he is always sick. He has required 4-5 courses of oral antibiotics in the past 12 months for sinusitis, also had pneumonia in April meeting JMF criteria for modified PIDD work-up. - PIDD work-up showed inadequate protection to streptococcal pneumoniae and haemophilus influenzae. Recommend booster with Pneumovax and HiB booster. Andre does not want both immunizations at the same visit. HiB booster given today, he will return next week for Pneumovax. Will repeat titers 4-6 weeks after Pneumovax administration. - Andre also has a history of sinus surgery, performed by Dr. Zuniga in 2021. Records requested last visit, not obtained yet 4. V itamin D deficiency, unspecified Continue VITAMIN D3 capsule, 1250 mcg, 1 cap(s), orally, once a week. Notes: Work-up shows low vitamin D, started supplementation with 50,000 IU/week x 8 weeks per prior TE. To be followed with 5,000 IU/day x 4 weeks, will then repeat vitamin D level 5. C hronic obstructive pulmonary disease, unspecified Continue OXYGEN CONCENTRATOR 3 LITER; C ontinue SPIRIVA HANDIHALER capsule, 18 mcg, 1 cap(s), inhaled, once a day; C ontinue ALBUTEROL (EQV-VENTOLIN HFA) aerosol, 90 mcg/inh, 2 puff(s), inhaled, every 6 hours. Notes: Andre has been diagnosed with COPD and interstitial lung disease by his store coordinator, Dr. Carr. He is also seen at [facility] for management of ILD. He reports having annual PFTs, CT scans and chest X-RAYs completed. Dr. Carr referred him here for allergy evaluation, see plan above. - Andre is wearing 3 L of oxygen for today's visit, reports he had pneumonia in April and has been on oxygen at all times since then. - Continue close management by his various pulmonologists * Procedure Codes: G 8427 DOC MEDS VERIFIED W/PT OR RE, G8482 FLU IMMUNIZE ORDER/ADMIN, 69113 HIB, 00261 Single or Combination * Preventive Medicine: Counseling: D iet a s tolerated. M edication instruction: W atch for side effects of prescribed medications, Nasal steroid/antihistamine instruction: avoid septum. E ducation: G ENERAL EDUCATION: Our staff spent an additional 30 minutes in direct contact with the patient educating them on their current diagnoses and proper treatment and prevention of symptoms and the proper use of medications. P atient education material sent to portal? Y es * Follow Up: 3 Months (Reason: Evaluation and Management) * Billing Information: * Visit Code: 64809 Office Visit, Est Pt., Level 4. Modifiers: 25 * Procedure Codes: G8427 DOC MEDS VERIFIED W/PT OR RE. G8482 FLU IMMUNIZE ORDER/ADMIN. 44418 NOC PedvaxHIB. 24328 Immunization Administration (one vaccine). * Electronic signature of Juana Arora DNP, [employer] on 02/26/2025 at 12:54 PM CDT Sign off status: Pending * Provider: Lennie Arora DNP [employer] Date: 0 12/23/2023 Generated for Lesley loja/Jairo/Mahogany on: 0 02/26/2025 12:54 PM CDT History and Physical Notes * HPI (History of Present Illness) Category Sub-Category Detail Notes Category Not es *Introduction HPI: Andre Chaparro, a 78-year-old male with complex past medical history of ILD, rheumatoid arthritis, and COPD who returns in consultation with his store coordinator, Dr. Carr, for laboratory review. He is with his for today's visit. Andre has a complex history of COPD and interstitial lung disease, currently managed by Dr. Carr, as well as a team of pulmonologists at [facility]. He has been experiencing nasal congestion, drainage and frequent sinus infections that have worsened in the past several years. Due to this, Dr. Carr referred him here. He reports Summer is his worst season, however symptoms occur year-round. He has one dog at home. Andre was hospitalized due to pneumonia in April, had his carpets cleaned the day before he got sick, which made Andre concerned that allergies contributed to his illness. He currently takes Zyrtec and Flonase daily. Aeroallergen ImmunoCaps ordered that showed positive levels to tree, grass, cat and dog. Total IgE was 474. Andre also endorses frequent sinus infections, takes 4-5 courses of antibiotics each year. He is established with Dr. Zuniga, ENT, however has not been seen in the last year. He had sinus surgery completed in 2021, however unsure what all was done during the surgery. No records to review. Modified PIDD work-up ordered last visit that showed inadequate protection to streptococcal pneumoniae and haemophilus influenzae. Also with low vitamin D.Andre is closely monitored by pulmonology, followed by Dr. Carr, as well as a team at [facility] for management of his interstitial lung disease. Reports having annual PFTs, CT scans and chest X-RAYs completed. He currently takes Spiriva daily, also on 3 L of supplemental oxygen at all times. He has an albuterol inhaler, but uses this rarely. Today, he reports no fevers, chills, night sweats or other constitutional symptoms Examination Category Sub-Category Detail Notes Category Not es General examination HEENT: pupils equal , round, and reactive to light and accommodation, conjunctiva are normal bilaterally Heart: RRR, S1-S2, no murmu rs, no rubs, no gallops Lungs: clear to auscultatio n in all lung jackson, no wheezes or crackles Extremities: normal ROM, no clubb ing, no cyanosis, no edema General appearance: pleasant, well-devel oped, well-nourished, male, in no apparent distress, speaking in full sentences, wearing a nasal cannula Neurologic exam: unremarkable Oral cavity: normal, no lesions Breasts : not performed Back: normal Genitalia: not performed
--- OUTSIDE RECORDS SUMMARY | 2024-01-28 12:30 | XMS_ITS ---
Author Organization [facility] ([address]) Address [address] [place] [address] Care Team Providers Care Cylinder Devalver Name Role Phone Carrington Heath MD Primary Care Provider Juana Tay Unavailable [phone] Mignon Carr Unavailable REASON FOR VISIT Chronic [...] lung disease, managed by Dr. Carr and [facility] Pulmonology. Has X-RAYS and CT scans completed annually. Medications Medication SIG (Take, Route, Frequency, Duration) Notes Start Date End Date Status ALBUTEROL (EQV-VENTOLIN HFA) 90 mcg/inh 2 puff(s) inhaled every 6 hours Active FLUTICASONE NASAL 50 mcg/inh 1 spray(s) in each nostril once a day Active ZYRTEC 10 mg 1 tab(s) orally once a day Active AZELASTINE NASAL 137 mcg/inh 2 spray(s) intranasally 2 times a day; Duration: 30 days Active VITAMIN D3 1250 mcg 1 cap(s) orally once a week Active Vitamin D3 1250 MCG 1 CAP(S) ORALLY ONCE A WEEK; Duration: 56 DAYS *Please review and pick correct strength-formul ation from Medispan options. If intended option is not shown, discontinue and re-order from Quick Search* Active OXYGEN CONCENTRATOR 3 LITER Active SPIRIVA HANDIHALER 18 mcg 1 cap(s) inhaled once a day Active Topiramate ER 50 MG 1 cap(s) orally twice a day Not-Taking Azelastine HCl 137 MCG/SPRAY 2 spray(s) intranasally 2 times a day; Duration: 30 days Active FLUoxetine HCl 40 MG 1 cap(s) orally onc e a day Active LORazepam 1 MG 1 tab(s) orally 3 times a day 1/2 tablet 3x daily and 1 tablet at bedtime Active Rozerem 8 MG 1 tab(s) orally once a day (at bedtime) Active Simvastatin 20 MG 1 tab(s) orally once a day (in the evening) Active Ipratropium [place] 0.06 % 2 spray(s) intranasally 3 times a day; Duration: 90 days Active Topiramate 50 MG 1 tab(s) orally 2 times a day Active Hydroxychloroquine Sulfate 200 MG 1 tab(s) orally twice a day Active predniSONE 1 MG 1 tab(s) orally once a day 1 tablet on M,W, Active Alendronate Sodium 70 MG 1 tab(s) orally once a week Active traMADol HCl 50 MG 1 tab(s) orally every 6 hours Active Restasis 0.05 % 1 gtt in each affected eye twice a day Active Aspirin 81 MG 1 cap(s) orally every 24 hours Active Testosterone Cypionate 200 MG/ML as directed intramuscularly twice monthly Active Mucinex DM 30-600 MG 2 tablets orally daily Active Finasteride 5 MG 1 tab(s) orally once a day Active Triamcinolone Acetonide 0.1 % 1 andria applied topically 2 times a day Active Tacrolimus 0.1 % 1 andria applied topically 2 times a day Active Latanoprost 0.005 % 1 gtt in each eye once a day (in the evening) Active Fluticasone Propionate 50 MCG/ACT 1 spray(s) in each nostril once a day Active ZyrTEC Allergy 10 MG 1 tab(s) orally onc e a day Active SIMVASTATIN 20 mg 1 tab(s) orally once a day (in the evening) Active IPRATROPIUM NASAL 42 mcg/inh 2 spray(s) intranasally 3 times a day; Duration: 90 days Active TOPIRAMATE 50 mg 1 cap(s) orally twice a day Not-Taking VITAMIN D3 1250 mcg 1 cap(s) orally once a week; Duration: 56 days Active Spiriva HandiHaler 18 MCG 1 cap(s) inhaled once a day Active HYDROXYCHLOROQUINE 200 mg 1 tab(s) orally twice a day Active PREDNISONE 1 mg 1 tab(s) orally once a day 1 tablet on M,W,F Active FLUOXETINE 40 mg 1 cap(s) orally once a day Active LORAZEPAM 1 mg 1 tab(s) orally 3 times a day 1/2 tablet 3x daily and 1 tablet at bedtime Active ROZEREM 8 mg 1 tab(s) orally once a day (at bedtime) Active TRAMADOL 50 mg 1 tab(s) orally every 6 hours Active TOPIRAMATE 50 mg 1 tab(s) orally 2 times a day Active MUCINEX DM 30 mg-600 mg 2 tablets orally daily Active FINASTERIDE 5 mg 1 tab(s) orally once a day Active ALENDRONATE 70 mg 1 tab(s) orally once a week Active LATANOPROST OPHTHALMIC 0.005% 1 gtt in each eye once a day (in the evening) Active RESTASIS 0.05% 1 gtt in each affected eye twice a day Active ASPIRIN 81 mg 1 cap(s) orally every 24 hours Active NURTEC ODT 75 mg 1 tab(s) orally once Active TESTOSTERONE CYPIONATE cypionate 200 mg/mL as directed intramuscularly twice monthly Active TRIAMCINOLONE TOPICAL 0.1% 1 andria applied topically 2 times a day Active TACROLIMUS TOPICAL 0.1% 1 andria applied topically 2 times a day Active Encounters Encounter Location Date Provider Diagnosis [facility] [address] [place] [address] 01/28/2024 Juana Arora Hypertrophy of nasal turbinates J34.3 ; Chronic rhinitis J31.0 ; Chronic sinusitis, unspecified J32.9 ; Vitamin D deficiency, unspecified E55.9 ; Chronic obstructive pulmonary disease, unspecified J44.9 and Encounter for immunization Z23 Assessments Encounter Date Diagnosis (ICD Code) Assessment Notes Treatment Notes Treatment Clinical Notes Section Notes 01/28/2024 Hypertrophy of nasal turbinates (ICD-10 - J34.3) [...] Modified PIDD work-up ordered, see plans below 01/28/2024 Chronic rhinitis (ICD-10 - J31.0) See plan above 01/28/2024 Chronic sinusitis, unspecified (ICD-10 - J32.9) Andre [...] Records requested last visit, not obtained yet 01/28/2024 Vitamin D deficiency, unspecified (ICD-10 - E55.9) Work-up shows low vitamin D, started supplementation with 50,000 IU/week x 8 weeks per prior TE. To be followed with 5,000 IU/day x 4 weeks, will then repeat vitamin D level 01/28/2024 Chronic obstructive pulmonary disease, unspecified (ICD-10 - J44.9) Andre has been diagnosed with COPD and interstitial lung disease by his managed services sales consultant, Dr. Carr. He is also seen at [facility] for management of ILD. He reports having annual PFTs, CT scans and chest X-RAYs completed. Dr. Carr referred him here for allergy evaluation, see plan above. - Andre is wearing 3 L of oxygen for today's visit, reports he had pneumonia in April and has been on oxygen at all times since then. - Continue close management by his various pulmonologists 01/28/2024 Encounter for immunization (ICD-10 - Z23) 01/28/2024 Other Plan Of Treatment Medication Medication Name Sig Start Date Stop Date Notes ALBUTEROL (EQV-VENTOLIN HFA) 90 mcg/inh 2 puff(s) inhaled every 6 hours FLUTICASONE NASAL 50 mcg/inh 1 spray(s) in each nostril once a day ZYRTEC 10 mg 1 tab(s) orally once a day AZELASTINE NASAL 137 mcg/inh 2 spray(s) intranasally 2 times a day; Duration: 30 days VITAMIN D3 1250 mcg 1 cap(s) orally once a week OXYGEN CONCENTRATOR 3 LITER SPIRIVA HANDIHALER 18 mcg 1 cap(s) inhaled once a day Treatment Notes Assessment Notes Hypertrophy of nasal [...] COPD and interstitial lung disease by his managed services sales consultant, Dr. Carr. He is also seen at [facility] for management of ILD. He reports [...] Notes * Andre CHAPARRODOB:1945 (79 yo M)Acc No.[id number]:01/28/2024 Progress Notes Patient: Andre EDDY Provider: Lennie Arora DNP RADIATION / CHEMISTRY TECHNICIAN-C :1945 A ge:78 Y S ex:Male Date:01/28/2024 [address] [id number] Pcp:Carrington Heath MD Subjective: * Chief Complaints: [...] lung disease, managed by Dr. Carr and [facility] Pulmonology. Has X-RAYS and CT scans completed annually.. * HPI: * Introduction: HPI: Lennie Chaparro, a 78-year-old male with complex past medical history of ILD, rheumatoid arthritis, and COPD who returns in consultation with his managed services sales consultant, Dr. Carr, for laboratory review. He is with his for today's visit. Andre has a complex history of COPD and interstitial lung disease, currently managed by Dr. Carr, as well as a team of pulmonologists at [facility]. He has been experiencing nasal congestion, [...] Carr, as well as a team at [facility] for management of his interstitial lung [...] * Medical History: * Medications: T aking TRIAMCINOLONE TOPICAL 0.1% cream 1 andria applied [...] intranasally 3 times a day , Taking VITAMIN D3 [...] day (in the evening) , Taking Ipratropium [place] 0.06 % Solution 2 spray(s) intranasally 3 times a day , Taking Azelastine HCl 137 MCG/SPRAY Solution 2 spray(s) intranasally 2 times a day , Taking Vitamin D3 1250 MCG CAPSULE 1 CAP(S) ORALLY ONCE A WEEK , Notes to Pharmacist: *Please review and pick correct strength-formulation from SpoonRocketspan options. If intended option is not shown, discontinue and re-order from Quick Search*, Taking OXYGEN CONCENTRATOR 3 LITER , Taking SPIRIVA HANDIHALER 18 mcg capsule 1 cap(s) inhaled once a day , Taking ALBUTEROL (EQV-VENTOLIN HFA) 90 mcg/inh aerosol 2 puff(s) inhaled every 6 hours , Taking FLUTICASONE NASAL 50 mcg/inh spray 1 spray(s) in each nostril once a day , Taking ZYRTEC 10 mg tablet 1 tab(s) orally once a day , Taking AZELASTINE NASAL 137 mcg/inh spray 2 spray(s) intranasally 2 times a day , Taking VITAMIN D3 1250 mcg capsule 1 cap(s) orally once a week , Not- Taking/PRN TOPIRAMATE 50 mg capsule, extended release 1 [...] COPD and interstitial lung disease by his managed services sales consultant, Dr. Carr. He is also seen at [facility] for management of ILD. He reports [...] W/PT OR RE, G8482 FLU IMMUNIZE ORDER/ADMIN, 48089 HIB, [address]276 Single or Combination * Preventive Medicine: Counseling: [...] Management) * Billing Information: * Visit Code: 73682 Office Visit, Est Pt., Level 4. Modifiers: 25 * Procedure Codes: G8427 DOC MEDS VERIFIED W/PT OR RE. G8482 FLU IMMUNIZE ORDER/ADMIN. 46049 NOC PedvaxHIB. 59957 Immunization Administration (one vaccine). * Electronic signature of Juana Arora DNP, RADIATION / CHEMISTRY TECHNICIAN-C on 02/26/2025 at 12:52 PM CDT Sign off status: Pending * Provider: Lennie Arora DNP RADIATION / CHEMISTRY TECHNICIAN-C Date: 0 01/28/2024 Generated for Lesley loja/Jairo/Mahogany on: 0 02/26/2025 12:52 PM CDT History and Physical Notes * HPI (History of Present Illness) Category Sub-Category Detail Notes Category Not es *Introduction HPI: Andre Chaparro, a 78-year-old male with complex past medical history of ILD, rheumatoid arthritis, and COPD who returns in consultation with his managed services sales consultant, Dr. Carr, for laboratory review. He is with his for today's visit. Andre has a complex history of COPD and interstitial lung disease, currently managed by Dr. Carr, as well as a team of pulmonologists at [facility]. He has been experiencing nasal congestion, drainage and frequent sinus infections that have worsened in the past several years. Due to this, Dr. Carr referred him here. He reports Summer is his worst season, however symptoms occur year-round. He has one dog at home. nAdre was hospitalized due to pneumonia in April, [...] Carr, as well as a team at [facility] for management of his interstitial lung [...]
--- OUTSIDE RECORDS SUMMARY | 2024-12-08 05:45 | XMS_ITS ---
Author Organization [facility] Address [address] [place] [address] Care Team Providers Care Hairspring Setter Name Role Phone SUSAN CHARLES MD Primary Care Provider Marline Field Unavailable [phone] Allergies Allergen (clinical drug ingredient) Drug/Non Drug Allergy documented on EMR Reaction Allergy Type Onset Date Status Substance with sulfonamide structure and antibacterial mechanism of action (substance) Sulfa Antibiotics Unknown Drug Allergy Active Penicillin Unknown Drug Allergy Active Keflex Unknown Drug Allergy Active REASON FOR VISIT Left Lumbar Five Sacral One Epidural Steroid Injection Medications Medication SIG (Take, Route, Frequency, Duration) Notes Start Date End Date Status LORazepam 1 MG 1/2 tablet Orally TI D, and 1 tablet at bedtime Active Simvastatin 20 MG 1 tablet in the even ing Orally Once a day Active Ecotrin Low Strength 81 MG 1 tablet Orally Once a day Active Rozerem 8 MG 1 tablet at bedtime as needed Orally Once a day Active ZyrTEC Allergy 10 MG 1 tablet Orally Once a day Active FLUoxetine HCl 40 MG 1 capsule Orally On ce a day Active predniSONE 5 MG 1 tablet Orally Once a day, with options to increase to 10mg or 15mg PRN Active Fluticasone Propionate 50 MCG/ACT 1 spray in each nostril Nasally Once a day Active Mycophenolate Mofetil 500 MG 2 tablets Orally Twice a day Active Topiramate 50 MG 1 tablet Orally BID Active traMADol HCl 50 MG 1 tablet as needed O rally every 6 hours PRN Active Finasteride 5 MG 1 tablet Orally Once a day Active Mucinex DM 30-600 MG 1 tablet as needed Orally every 12 hrs Active Testosterone Cypionate 200 MG/ML 1 mL Intramuscular Twice per month Active Azelastine HCl 0.1 % 1 puff in each nost ril Nasally Twice a day Active Ubrelvy 100 MG 1 tablet may take se cond dose at least 2 hours after first dose as needed Orally Once a day Active Restasis 0.05 % 1 drop into affected eye Ophthalmic Twice a day Active Latanoprost 0.005 % 1 drop into affected eye in the evening Ophthalmic Once a day Active Spiriva HandiHaler 18 MCG 1 capsule by i nhaling the contents of the capsule using the HandiHaler device Inhalation Once a day Active Ventolin HFA 108 (90 Base) MCG/ACT 1 puff as needed Inhalation every 4 hrs Active Tacrolimus 0.1 % 1 application Director Of Payroll ally Once a day Active Triamcinolone Acetonide 0.1 % 1 application Externally Two times a Week Active Calcium Citrate + D3 315-6.25 MG-MCG 1 tablet Orally Twice a day Active Vitamin D3 125 MCG (5000 UT) 1 tablet on the tongue and allow to dissolve Orally Once a day Active Vitamin B12 100 MCG as directed Orally Active azaTHIOprine 50 MG as directed Orally BID Active Encounters Encounter Location Date Provider Diagnosis [facility] [address] 12/08/2024 Marline Toro Plan Of Treatment No Information Progress Notes * Andre CHAPARRODOB:1945 (79 yo M)Acc No.[id number]:12/08/2024 Injection Patient: Andre EDDY Provider: Lennie Toro MD :1945 A ge:79 Y S ex:Male Date:12/08/2024 Address:[address] [place], [place] [id number] Pcp:SUSAN CHARLES MD Subjective: * Chief Complaints: * 1 . Left Lumbar Five Sacral One Epidural Steroid Injection. * Medical History: L evelyn problems, Glaucoma, Heart attack, COPD, Depression, Headaches, Melanoma. * Medications: T aking azaTHIOprine 50 MG Tablet as directed Orally BID , Taking Vitamin B12 100 MCG Tablet as directed Orally , Taking Vitamin D3 125 MCG (5000 UT) Tablet Disintegrating 1 tablet on the tongue and allow to dissolve Orally Once a day , Taking Calcium Citrate + D3 315-6.25 MG-MCG Tablet 1 tablet Orally Twice a day , Taking Triamcinolone Acetonide 0.1 % Cream 1 application Externally Two times a Week , Taking Tacrolimus 0.1 % Ointment 1 application Externally Once a day , Taking Ventolin HFA 108 (90 Base) MCG/ACT Aerosol Solution 1 puff as needed Inhalation every 4 hrs , Taking Spiriva HandiHaler 18 MCG Capsule 1 capsule by inhaling the contents of the capsule using the HandiHaler device Inhalation Once a day , Taking Latanoprost 0.005 % Solution 1 drop into affected eye in the evening Ophthalmic Once a day , Taking Restasis 0.05 % Emulsion 1 drop into affected eye Ophthalmic Twice a day , Taking Ubrelvy 100 MG Tablet 1 tablet may take second dose at least 2 hours after first dose as needed Orally Once a day , Taking Azelastine HCl 0.1 % Solution 1 puff in each nostril Nasally Twice a day , Taking Testosterone Cypionate 200 MG/ML Solution 1 mL Intramuscular Twice per month , Taking Mucinex DM 30-600 MG Tablet Extended Release 12 Hour 1 tablet as needed Orally every 12 hrs , Taking Finasteride 5 MG Tablet 1 tablet Orally Once a day , Taking traMADol HCl 50 MG Tablet 1 tablet as needed Orally every 6 hours PRN , Taking Topiramate 50 MG Tablet 1 tablet Orally BID , Taking Mycophenolate Mofetil 500 MG Tablet 2 tablets Orally Twice a day , Taking Fluticasone Propionate 50 MCG/ACT Suspension 1 spray in each nostril Nasally Once a day , Taking predniSONE 5 MG Tablet 1 tablet Orally Once a day, with options to increase to 10mg or 15mg PRN , Taking FLUoxetine HCl 40 MG Capsule 1 capsule Orally Once a day , Taking LORazepam 1 MG Tablet 1/2 tablet Orally TID, and 1 tablet at bedtime , Taking ZyrTEC Allergy 10 MG Tablet 1 tablet Orally Once a day , Taking Rozerem 8 MG Tablet 1 tablet at bedtime as needed Orally Once a day , Taking Ecotrin Low Strength 81 MG Tablet Delayed Release 1 tablet Orally Once a day , Taking Simvastatin 20 MG Tablet 1 tablet in the evening Orally Once a day * Allergies: K eflex, Sulfa Antibiotics, Penicillin. Objective: * Vitals: Assessment: Plan: * Treatment: * * Electronic signature of Marline Toro MD on 02/26/2025 at 12:54 PM CDT Sign off status: Pending * Provider: Lennie Toro MD Date: 0 12/08/2024 Generated for Lesley loja/Jairo/Mahogany on: 0 02/26/2025 12:54 PM CDT
--- OUTSIDE RECORDS SUMMARY | 2024-12-31 06:00 | XMS_ITS ---
Author Organization [facility] Address [address] [place] [address] Care Team Providers Care Laboratory Geneticist Name Role Phone SUSAN CHARLES MD Primary Care Provider Marline Field Unavailable [phone] Allergies Allergen (clinical drug ingredient) Drug/Non Drug [...] Duration) Notes Start Date End Date Status Simvastatin 20 MG 1 tablet in the even ing Orally Once a day Active azaTHIOprine 50 MG as directed Orally BID Active Vitamin B12 100 MCG as directed Orally Active Rozerem 8 MG 1 tablet at bedtime as needed Orally Once a day Active Ecotrin Low Strength 81 MG 1 tablet Orally Once a day Active LORazepam 1 MG 1/2 tablet Orally TI D, and 1 tablet at bedtime Active ZyrTEC Allergy 10 MG 1 tablet Orally Once a day Active predniSONE 5 MG 1 tablet Orally Once a day, with options to increase to 10mg or 15mg PRN Active FLUoxetine HCl 40 MG 1 capsule Orally On ce a day Active Fluticasone Propionate 50 MCG/ACT 1 spray in each nostril Nasally Once a day Active Finasteride 5 MG 1 tablet Orally Once a day Active traMADol HCl 50 MG 1 tablet as needed O rally every 6 hours PRN Active Topiramate 50 MG 1 tablet Orally BID Active Mycophenolate Mofetil 500 MG 2 tablets Orally Twice a day Active Mucinex DM 30-600 MG 1 tablet as needed Orally every 12 hrs Active Ubrelvy 100 MG 1 tablet may take se cond dose at least 2 hours after first dose as needed Orally Once a day Active Azelastine HCl 0.1 % 1 puff in each nost ril Nasally Twice a day Active Testosterone Cypionate 200 MG/ML 1 mL Intramuscular Twice per month Active Restasis 0.05 % 1 drop into affected eye Ophthalmic Twice a day Active Latanoprost 0.005 % 1 drop into affected eye in the evening Ophthalmic Once a day Active Calcium Citrate + D3 315-6.25 MG-MCG 1 tablet Orally Twice a day Active Triamcinolone Acetonide 0.1 % 1 application Externally Two times a Week Active Tacrolimus 0.1 % 1 application Nurse First Aid ally Once a day Active Ventolin HFA 108 (90 Base) MCG/ACT 1 puff as needed Inhalation every 4 hrs Active Spiriva HandiHaler 18 MCG 1 capsule by i nhaling the contents of the capsule using the HandiHaler device Inhalation Once a day Active Vitamin D3 125 MCG (5000 UT) 1 tablet on the tongue and allow to dissolve Orally Once a day Active Encounters Encounter Location Date Provider Diagnosis [facility] [address] [place] [address] 12/31/2024 Marline Toro Plan Of Treatment No Information Progress Notes * Andre CHAPARRODOB:1945 (79 yo M)Acc No.[id number]:12/31/2024 Injection Patient: Andre EDDY Provider: Lennie Toro MD :1945 A ge:79 Y S ex:Male Date:12/31/2024 Address:[address] [place] [address] Pcp:USSAN CHARLES MD Subjective: * Chief Complaints: * 1 . Left Lumbar Five Sacral One Epidural Steroid Injection. * HPI: C omplaints: PROCEDURE: 1. Facet joint injection at L5-S1 on the Left. 2. Fluoroscopic imaging for needle placement. 3. Radiographic interpretation: Lumbar Spine. DIAGNOSIS: MEDICATION USED: 1. Facet joint local anesthetic: 1-2cc bupivacaine 0.5% per joint. 2. Epidural local anesthetic: 2-3 cc lidocaine 1% as needed for skin infiltration 3. Steroid: 80mg Depomedrol (methylprednisolone) for all joints injected. 4. Contrast agent: Omnipaque-300 3 cc. SUBJECTIVE: This patient presents today for a left L5-S1 facet joint injection. PROCEDURE DESCRIPTION: Informed consent for the procedure was obtained and the patient signed the procedure consent form. The patient was given sufficient time to ask questions related to the procedure and to discuss expectations and the overall plan of treatment. The patient was brought into the procedure room and placed in the appropriate position for the procedure as noted above. Betadine (or alcohol if the patient carried an iodine allergy history) was used to prepare the skin over the appropriate location for the injection and sterile drapes were applied. Strict aseptic technique was followed during the procedure. The patient was brought into the procedure room and placed in the appropriate position for the procedure above. An initial RADIOLOGIC EXAMINATION, of the facet JOINTS; LESS THAN THREE VIEWS was performed with a c-arm fluoroscope. The initial survey found moderate degenerative changes noted through the FACET joint. A 22 Ga spinal needle was used for the procedure. This was advanced from a lateral position and angled into the joint under oblique fluoroscopic views used to sharpen joint margins. Once needle placement was confirmed within the joint, the arthrogram was performed and reported below. Then the patient received the steroid and local anesthetic as noted for each joint injected above after careful aspiration for blood. The patient had no ill effects from the procedure. Vital signs were monitored and found to be stable throughout. The patient was taken to and watched in the recovery area for an appropriate period of time and then released to home in the care of a responsible adult once discharge criteria were met and discharge planning/subsequent appointments were made. FLUOROSCOPIC IMAGING FINDINGS: An initial survey of the spine in the area noted was performed with the C-arm fluoroscope. The following were noted: 1. moderate degenerative changes of the lumbosacral spine. JOINT ARTHROGRAM: 1. Contrast was seen to spread evenly within the joint COMPLICATIONS: NONE RESULTS: ___% pain relief achieved PLAN: 1. Follow post procedure instructions and complete post procedure diary. 2. Continue on present medications. 3. Follow up by telephone in a few days and return for follow up appointment within several weeks to check on response to the injection or to repeat the injection and to make any necessary medication adjustment and determine subsequent treatment steps. * Medical History: L evelyn problems, Glaucoma, [...] of Marline Toro MD on 02/26/2025 at 12:53 PM CDT Sign off status: Pending * Provider: Lennie Toro MD Date: 12/31/2024 Generated for Lesley loja/Jairo/Mahogany on: 0 02/26/2025 12:53 PM CDT History and Physical Notes * HPI (History of Present Illness) Category Sub-Category Detail Notes Category Not es Complaints PROCEDURE: 1. Facet joint injection at L5-S1 on the Left. 2. Fluoroscopic imaging for needle placement. 3. Radiographic interpretation: Lumbar Spine. DIAGNOSIS: MEDICATION USED: 1. Facet joint local anesthetic: 1-2cc bupivacaine 0.5% per joint. 2. Epidural local anesthetic: 2-3 cc lidocaine 1% as needed for skin infiltration 3. Steroid: 80mg Depomedrol (methylprednisolone) for all joints injected. 4. Contrast agent: Omnipaque-300 3 cc. SUBJECTIVE: This patient presents today for a left L5-S1 facet joint injection. PROCEDURE DESCRIPTION: Informed consent for the procedure was obtained and the patient signed the procedure consent form. The patient was given sufficient time to ask questions related to the procedure and to discuss expectations and the overall plan of treatment. The patient was brought into the procedure room and placed in the appropriate position for the procedure as noted above. Betadine (or alcohol if the patient carried an iodine allergy history) was used to prepare the skin over the appropriate location for the injection and sterile drapes were applied. Strict aseptic technique was followed during the procedure. The patient was brought into the procedure room and placed in the appropriate position for the procedure above. An initial RADIOLOGIC EXAMINATION, of the facet JOINTS; LESS THAN THREE VIEWS was performed with a c-arm fluoroscope. The initial survey found moderate degenerative changes noted through the FACET joint. A 22 Ga spinal needle was used for the procedure. This was advanced from a lateral position and angled into the joint under oblique fluoroscopic views used to sharpen joint margins. Once needle placement was confirmed within the joint, the arthrogram was performed and reported below. Then the patient received the steroid and local anesthetic as noted for each joint injected above after careful aspiration for blood. The patient had no ill effects from the procedure. Vital signs were monitored and found to be stable throughout. The patient was taken to and watched in the recovery area for an appropriate period of time and then released to home in the care of a responsible adult once discharge criteria were met and discharge planning/subsequent appointments were made. FLUOROSCOPIC IMAGING FINDINGS: An initial survey of the spine in the area noted was performed with the C-arm fluoroscope. The following were noted: 1. moderate degenerative changes of the lumbosacral spine. JOINT ARTHROGRAM: 1. Contrast was seen to spread evenly within the joint COMPLICATIONS: NONE RESULTS: ___% pain relief achieved PLAN: 1. Follow post procedure instructions and complete post procedure diary. 2. Continue on present medications. 3. Follow up by telephone in a few days and return for follow up appointment within several weeks to check on response to the injection or to repeat the injection and to make any necessary medication adjustment and determine subsequent treatment steps.
--- OUTSIDE RECORDS SUMMARY | 2024-12-31 06:00 | XMS_ITS ---
Author Organization [facility] Address [address] [place] [address] Care Team Providers Care Air Pollution Specialist Name Role Phone MELVIN MURILLO, SUSAN Primary Care Provider Marline Field [phone] REASON FOR VISIT L SI-Tx Encounters Encounter Location Date Provider Diagnosis [facility] [address] 12/31/2024 Marline Toro Plan Of Treatment No Information Progress Notes * Andre CHAPARRODOB:1945 (79 yo M)Acc No.[id number]:12/31/2024 Injection Patient: Andre EDDY Provider: Lennie Toro MD :1945 A ge:79 Y S ex:Male Date:12/31/2024 Address:[address] [place], [place] [id number] Pcp:SUSAN CHARLES MD Subjective: * Chief Complaints: * Medical History: Objective: Assessment: Plan: * Treatment: * * Electronic signature of Marline Toro MD on 02/26/2025 at 12:53 PM CDT Sign off status: Pending * Provider: Lennie Toro MD Date: 12/31/2024 Generated for Printi ng/Faxing/eTransmitting on: 02/26/2025 12:53 PM CDT
--- OUTSIDE RECORDS SUMMARY | 2025-02-09 06:45 | XMS_ITS ---
Author Organization [facility] Address [address] [place] [address] Care Team Providers Care Floor Technician Name Role Phone SUSAN CHARLES MD Primary Care Provider Marline Field Unavailable [phone] Allergies Allergen (clinical drug ingredient) Drug/Non Drug Allergy documented on EMR Reaction Allergy Type Onset Date Status Penicillin Unknown Drug Allergy Active Keflex Unknown Drug Allergy Active Substance with sulfonamide structure and antibacterial mechanism of action (substance) Sulfa Antibiotics Unknown Drug Allergy Active REASON FOR VISIT Left Sacroiliac Joint Injection Encounters Encounter Location Date Provider Diagnosis [facility] [address] 02/09/2025 Marline Toro Plan Of Treatment No Information Progress Notes * Andre CHAPARRODOB:1945 (79 yo M)Acc No.[id number]:02/09/2025 Injection Patient: Andre EDDY Provider: Lennie Toro MD :1945 A ge:79 Y S ex:Male Date:02/09/2025 Address:[address] [place] [address] [place] [address] Pcp:SUSAN CHARLES MD Subjective: * Chief Complaints: * 1 . Left Sacroiliac Joint Injection. * Medical History: L evelyn problems, Glaucoma, Heart attack, COPD, Depression, Headaches, Melanoma. * Allergies: K eflex, Sulfa Antibiotics, Penicillin. Objective: * Vitals: Assessment: Plan: * Treatment: * * Electronic signature of Marline Toro MD on 02/26/2025 at 12:53 PM CDT Sign off status: Pending * Provider: Lennie Toro MD Date: 0 02/09/2025 Generated for Lesley loja/Jairo/Mahogany on: 0 02/26/2025 12:53 PM CDT
--- OUTSIDE RECORDS SUMMARY | 2025-02-26 12:53 | XMS_ITS | Encounter Summary ---
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
--- OUTSIDE RECORDS SUMMARY | 2025-02-26 12:53 | XMS_ITS | Encounter Summary ---
Author Organization [facility] Address [address] [place] [address] Phone Care Team Providers Care Warehouse Distribution Specialist Name Role Phone Carrington Heath MD Primary Care Provider Encounter Details Date Type Department Care Team (Latest Contact Info) Description 09/27/2023 Orders Only [facility] Scanning, Provider Social History Tobacco Use Types Packs/Day Years Used Date Smoking Tobacco: Former Cigarettes 0.5 52 0 12/31/1965 - 12/31/2017 Smokeless Tobacco: Never Alcohol Use Standard Drinks/Week Comments No 0 (1 standard drink = 0.6 oz pur e alcohol) Sex and Gender Information Value Date Recorded Sex Assigned at Not on file 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
--- OUTSIDE RECORDS SUMMARY | 2025-02-26 12:53 | XMS_ITS | Encounter Summary ---
Author Organization 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
--- OUTSIDE RECORDS SUMMARY | 2025-02-26 12:53 | XMS_ITS | Patient Health Record ---
Author Organization [facility] Address [address] [place] [address] Care Team Providers Care Oyster Tonger Name Role Phone SUSAN CHARLES MD Primary Care Provider Marline Field Unavailable [phone] Javan Cano Unavailable [phone] Allergies Allergen (clinical drug ingredient) Drug/Non Drug [...] Week Active Tacrolimus 0.1 % 1 application Whirley Operator ally Once a day Active Ventolin HFA [...] W/U Status Risk Notes Problem Solitary sacroiliitis (797725315) Sacroiliitis, not elsewhere classified (M46.1) Active confirmed Problem Lumbar radiculopathy (589043145) Lumbar radiculopathy (M54.16) Active confirmed Problem Post-herpetic trigeminal neuralgia (88440143) 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) Active confirmed Problem Neurogenic claudication (675987971) Spinal stenosis, lumbar region with neurogenic claudication (M48.062) Active confirmed Encounters Encounter Location Date Provider Diagnosis [facility]- [address] [address] 03/31/2024 Marline Toro Sacroiliitis, not elsewhere classified M46.1 [facility]- [address] [address] 04/16/2024 Cano Ahmed Lumbar radiculopathy M54.16 ; Sacroiliitis, not elsewhere classified M46.1 and Spinal stenosis, lumbar region with neurogenic claudication M48.062 [facility]- [address] [address] 06/18/2024 Cano Ahmed Lumbar radiculopathy M54.16 ; Spinal stenosis, lumbar region with neurogenic claudication M48.062 ; Sacroiliitis, not elsewhere classified M46.1 and Postherpetic trigeminal neuralgia B02.22 [facility]- [address] [address] 08/11/2024 Marline Toro Lumbar radiculopathy M54.16 and Spinal stenosis, lumbar region with neurogenic claudication M48.062 [facility]-[address] [address] 09/01/2024 Marline Toro Sacroiliitis, not elsewhere classified M46.1 [facility]-[address] [address] 11/12/2024 Cano Ahmed Lumbar radiculopathy M54.16 ; Spinal stenosis, lumbar region with neurogenic claudication M48.062 and Sacroiliitis, not elsewhere classified M46.1 [facility] [address] [place] [address] 03/12/2024 Marline Toro Assessments Encounter Date Diagnosis (ICD Code) Assessment Notes Treatment Notes Treatment Clinical Notes Section Notes 03/31/2024 Sacroiliitis, not elsewhere classified (ICD-10 - M46.1) 04/16/2024 Lumbar radiculopathy (ICD-10 - M54.16) Assessment [...] unchanged from 06/18/2024 except as denoted below. 04/16/2024 Spinal stenosis, lumbar region with neurogenic claudication (ICD-10 - M48.062) Assessment is unchanged from 01/30/2024 except as denoted below. 06/18/2024 Sacroiliitis, not elsewhere classified (ICD-10 - M46.1) Assessment is unchanged from 04/16/2024 except as denoted below. 11/12/2024 Sacroiliitis, not elsewhere classified (ICD-10 - M46.1) Assessment is unchanged from 06/18/2024 except as denoted below. 06/18/2024 Postherpetic trigeminal neuralgia (ICD-10 - B02.22) Assessment is unchanged from 04/16/2024 except as denoted below. 06/11/2024 Other Notes: Significant time was spent due to complex decision-making as a result of the patient's complicated pain issues. The plan is as follows: Patient will continue exercise therapy regimen. Assessment is unchanged from except as denoted below. 04/16/2024 Other Notes: Significant time was spent [...] Order Date Hips Bilateral with Pelvis 01/30/2024 Insurance Providers Payer Name Payer Address Payer Phone Subscriber Number Group Number Insured Name Patient Relationship to Insured Coverage Start Date Coverage End Date [employer] [address] [address] [place] [address] [id number] Andre Huizar Self - patient is the insured 1 Medical (General) History Medical History History ICD Code Lung problems Glaucoma Heart attack COPD Depression Headaches melanoma Surgical History Surgery Date(Month/Year) cataract 2019 hernia repair 2016 hemorrhoidectomy 2007 cholecystectomy 2015 bypass 1997 appendectomy 1963
--- OUTSIDE RECORDS SUMMARY | 2025-02-26 12:53 | XMS_ITS | Encounter Summary ---
Author Organization [facility] [employer] Address [address] [place] [address] Care Team Providers Care Order Picker Name Role Phone Carrington Heath MD Primary Care Provider [phone] Encounter Details Date Type Department Care Team (Late Contact Info) Description 02/22/2025 Orders Only [facility] Oncology and Hematology [address] [place] [address] Gilmar Cassidy MD [facility] [address] [place] [address] Myelodysplastic syndrome (CMS/HCC) Social History Tobacco [...] Department Care Team (Late Contact Info) Description 03/11/2025 2:00 PM CDT Office Visit [facility] Oncology and Hematology - [address] [place] [address] Gilmar Cassidy MD [address] [facility] [address] [place] [address] documented as of this encounter Procedures Procedure Name Priority Date/Time Associated Diagnosis Comments BASIC METABOLIC PANEL Routine 02/18/2025 11:36 AM CDT CBC WITH AUTODIFFERENTIAL Routine 2024 11:29 AM CDT documented in this encounter Results * BASIC METABOLIC PANEL (02/18/2025 11:36 AM CDT) Blood us Gilmar Cassidy MD CHEMISTRY ORDERABLES Final Resu lt * CBC WITH AUTODIFFERENTIAL (02/18/2025 11:29 AM CDT) Blood us Gilmar Cassidy MD HEMATOLOGY ORDERABLES Final Res ult documented in this encounter Visit Diagnoses Diagnosis Myelodysplastic syndrome (CMS/HCC) Myelodysplastic syndrome, unspecified documented in this encounter Care Teams Order Picker Relationship Specialty Start Date End Date Carrington Heath MD [address] [facility] [address] [place] [id number] PCP - General Internal Medicine 04/13/24 documented as of this encounter
--- OUTSIDE RECORDS SUMMARY | 2025-02-26 12:54 | XMS_ITS | Clinical Summary ---
Author Organization [facility] [employer] Address [address] [place] [address] Care Team Providers Care Bleach Packer Name Role Phone Unavailable Primary Care Provider Unavailabl e Source Comments [facility],non-owned Affiliates and Associated Physician Practices is amultiple site organization consisting of ambulatory clinics and hospital sitesin [place], [place], [place] and [place]. This disclosure is being madepursuant to the Care Everywhere program and may not contain all information available regarding this patient. Last updated 18.[facility] [employer] Social History Tobacco Use Types Packs/Day Years [...] yrs (1 - 1-dose 75+ series) 2022 DEPRESSION SCREENING 2024 MEDICARE AWV CALENDAR YEAR 2024 COVID-19 VACCINE ( - 2024- season) 2025 09/11/2021, 02/14/2021 INFLUENZA VACCINE (#1) 2025 3, 03/20/2022, 03/03/2021, Additional history exists HEPATITIS B [...] patient's age to complete this topic Insurance [facility] MEDICARE ADV HMO & PPO
--- OUTSIDE RECORDS SUMMARY | 2025-02-26 12:54 | XMS_ITS | Encounter Summary ---
Author Organization [facility] Address [address] [place] [address] Care Team Providers Care Molding Press Operator Name Role Phone Unavailable Primary Care Provider Unavailabl e Encounter Details Date Type Department Care Team (Late st Contact Info) Description 10/22/2024 Lab Requisition [facility] - Pathology Lab [address] [place] [address] Karsten Guido MD [address] [address] Illness, unspecified Social History Tobacco [...] Report Bone Marrow Patholog y Report Case: [id number] Authorizing Provider: Karsten Guido MD Collected: 10/21/2024 09:00 AM Ordering Location: [facility] - Received: 10/22/2024 05:00 [...] anemia - See description 10/23/2024 3:26 PM [facility] at 1526 CDT AP [...] required for further classification. 10/23/2024 3:26 PM [facility] Peripheral Smear Description CBC [...] normal. Platelet morphology: normal. 10/23/2024 3:26 PM [facility] Bone Marrow Aspirate Differential [...] Control is appropriately reactive. 10/23/2024 3:26 PM [facility] Bone Marrow Core Biopsy [...] and lambda light chains. 10/23/2024 3:26 PM [facility] Flow Cytometry Summary Concurrent flow cytometry ([id number]) shows no evidence of a monoclonal B-cell population or increase in blasts. 10/23/2024 3:26 PM [facility] Clinical History 79 year old man with macrocytic anemia and elevated serum light chains. 10/23/2024 3:26 PM [facility] Materials Received Received are 22 slides labeled [id number] along with a copy of the outside pathology report. [place] [address]. All original materials are returned to the referring institution, along with a copy of our final report. 10/23/2024 3:26 PM [facility] Pathologist Location at [facility] [address] 10/23/2024 3:26 PM [facility] Disclaimer The performance characteristics of all immunohistochemical and indirect immunofluorescence stains (if any) cited in this report were determined by the Histopathology Laboratory of [facility]. Some of these tests were developed [...] pathologist. 10/23/2024 3:26 PM CDT [facility] Embedded Images 10/23/2024 3:26 PM CDT [facility] Pathology/Cytology BONE MARROW SPECIMEN / Unknown 10/21/2024 9:00 AM CDT 10/22/2024 5:00 PM CDT Miscellaneous samples (specimen) BONE MARROW SPECIMEN / Unknown 10/21/2024 9:00 AM CDT 10/22/2024 5:00 PM CDT us Karsten Guido MD LAB - PATHOLOGY/CYTOLOGY ORDERAB LES Final Result [facility] [address] [facility] [place] [address], [facility] [phone] documented in this encounter Visit Diagnoses Diagnosis Illness, unspecified documented in this encounter
--- OUTSIDE RECORDS SUMMARY | 2025-02-26 12:54 | XMS_ITS | Clinical Summary ---
Author Organization [facility] [address] Address [address] [place] [address] Care Team Providers Care Director Of Market Analysis Name Role Phone Carrington Heath MD Primary [...] a day 01/23/20 21 Active blood-glucose meter [facility] Accu-Chek Guide Glucose Meter ACCUCHEK METER TO TEST BLOOD SUGARS DAILY Active lancets [facility] Accu-Chek Softclix Lancets USE TO TEST BLOOD [...] (VIGAMOX) 0.5 % ophthalmic solution Active carboxymethyl-g ev-bwmd55-AZ (Refresh Optive Jaime-3, PF,) 0.5-1-0.5 % dropperette [...] 200 MG IN 24 HOURS Active zoledronic qgag-ieegxsjE-g ater (zoledronic acid) 5 mg/100 mL piggyback [...] of which was symptomatic leaves with supplemental jugw-nhw-grqlnwx acetaminophen. I have renewed his topiramate 50 mg b.i.d., and I will plan on seeing him back on a yearly or as needed basis. Chronic midline low back pain 08/15/2019 Coronary artery disease invo lving kasaan coronary artery of kasaan heart without angina pectoris 08/13/2018 Hyperlipidemia associated with type 2 diabetes m jenniferitus 08/13/2018 Lumbar stenosis with neurogenic claudication 02/2018 Overview (01/09/2018): Added automatically from request for surgery [id number] Right carotid bruit 08/31/2016 Overview (10/26/2016): Right [...] Current smoker 08/08/2015 09/19/2021 Overview (09/06/2016): Smoker Surgical History Surgery Date Site/Laterality Comments CHOLECYSTECTOMY APPENDECTOMY HEMORROIDECTOMY CORONARY ARTERY BYPASS GRAFT 1996 - 06/02/1997 HERNIA REPAIR CATARACT EXTRACTION 2020 Medical History Medical History Date Comments COPD (chronic obstructive pulmonary disease) Lumbar stenosis Chronic interstitial lung disease (HCC) Bronchiectasis Rheumatoid arthritis (HCC) CAD (coronary artery disease) Dyslipidemia Myocardial infarct, old Diabetes mellitus diet controlle d Glaucoma Anxiety Skin cancer Migraine Cataract surgery Depression Heart disease Emphysema of lung COPD Autoimmune disease R.A. 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 Gender Identity Not on file Sexual Orientation Not on file Obstetrics History Last Filed Vital Signs Vital Sign Reading Time Taken Comments Blood Pressure 98/50 08/17/2024 2:12 PM CDT Pulse 82 08/17/2024 2:12 PM CDT Temperature 36.8 C (98.2 F) 05/04/2024 2:31 PM HEEL SLICKER Respiratory Rate 18 05/04/2024 2:31 PM HEEL SLICKER Oxygen Saturation 97% 08/17/2024 2:12 PM CDT [...] LAB BLOOD ORDERABLES Final R esult [facility] Department [place] [address] * Lipid panel (09/11/2022) SCRIBED Cholesterol, Total 85 <200 [facility] SCRIBED HDL 52 >40 [facility] SCRIBED LDL 20 <100 [facility] SCRIBED Triglycerides 51 <150 [facility] Blood Historical Provider LAB BLOOD ORDERABLES Tori stack Result Performing Organization Address [facility] Co de Phone Number [facility] * (ABNORMAL) Hemoglobin A1c (01/28/2018 4:36 PM CDT) Hgb A1C 6.2(H) 4.0 - 5.6 % [facility] Estimated Average Glucose 131 mg/dL [facility] Comment: The ADA recommends reporting an estimated Average Glucose (eAG) with all Hemoglobin A1c results using the equation derived from a study of 507 normal and diabetic adults. Minority populations were underrepresented and children were not included. (Diabetes Care 31:0280-6327, 2007). The eAG is not equivalent to a fasting glucose. Blood specimen (specimen) 01/28/2018 4:36 PM CDT 01/28/2018 4:36 PM CDT Narrative [facility] - 01/28/2018 5:09 PM CDT Sadaf Marques NP LAB BLOOD ORDERABLES Enoch al Result Performing Organization Address [facility] Co de Phone Number [facility] [address] Department [place] [address] from Last 3 Months or Most Recently Relevant to Health Maintenance Insurance [employer] MEDICARE PPO Care Teams Director Of Market Analysis Relationship Specialty Start Date End Date Carrington Heath MD PCP - General 08/31/16
--- OUTSIDE RECORDS SUMMARY | 2025-02-26 12:54 | XMS_ITS | Clinical Summary ---
Author Organization [facility] [employer] Address [address] [place] [address] Care Team Providers Care Refrigeration Person Name Role Phone Carrington Heath MD Primary Care Provider [phone] Allergies Active Allergy Reactions Criticality Noted Date [...] prior to Biopsy. 1 Tablet 5 Active simvastatin (ZOCOR) 20 mg tablet Take 1 Tablet (20 mg) by mouth daily at bedtime. 90 Tablet 1 01/05/2025 9:10 AM CDT 5 Active Active Problems Problem Noted Date Diagnosed Date Chronic anemia 04/13/2024 Elevated serum immunoglobulin free light chains 04/13/2024 Encounters Date Type Department Care Team Description 02/22/2025 Orders Only [facility] Oncology and Hematology - [address] [place] [address] Gilmar Cassidy MD Myelodysplastic syndrome ([facility]/HCC) 02/18/2025 2:30 PM CDT Office Visit [facility] Oncology and Hematology - [address] [place] [address] Gilmar Cassidy MD Myelodysplastic syndrome ([facility]/HCC) (Primary Dx) 02/16/2025 External Device Data STL ABSTRACTION Provider, Abstract 02/16/2025 External Device Data STL ABSTRACTION Provider, Abstract 02/08/2025 Orders Only [facility] Oncology and Hematology - [address] [place] [address] Gilmar Cassidy MD Myelodysplastic syndrome ([facility]/HCC) 01/25/2025 Orders Only [facility] Oncology and Hematology - [address] [place] [address] Gilmar Cassidy MD Myelodysplastic syndrome ([facility]/HCC) 01/22/2025 Orders Only [facility] Oncology and Hematology - [place] [address] [place] [address] Gilmar Cassidy MD 01/21/2025 2:00 PM CDT Office Visit [facility] Oncology and Hematology - [address] [place] [address] Gilmar Cassidy MD Myelodysplastic syndrome ([facility]/HCC) (Primary Dx) 01/20/2025 External Device Data STL ABSTRACTION Provider, Abstract 01/19/2025 External Device Data STL ABSTRACTION Provider, Abstract 01/11/2025 Orders Only [facility] Oncology and Hematology - [address] [place] [address] Gilmar Cassidy MD Myelodysplastic syndrome ([facility]/HCC) 01/06/2025 External Device Data STL ABSTRACTION Provider, Abstract 12/28/2024 Orders Only [facility] Oncology and Hematology - [address] [place] [address] Gilmar Cassidy MD Myelodysplastic syndrome (CMS/HCC) 12/24/2024 9:15 AM CDT Office Visit [facility] Oncology and Hematology - [address] [place] [address] Gilmar Cassidy MD Myelodysplastic syndrome (CMS/HCC) (Primary Dx) 12/24/2024 Orders Only [facility] Oncology and Hematology - [address] [place] [address] Gilmar Cassidy MD 12/16/2024 External Device Data STL ABSTRACTION Provider, Abstract 12/16/2024 External Device Data STL ABSTRACTION Provider, Abstract 12/14/2024 Orders Only [facility] Oncology and Hematology - [address] [place] [address] Gilmar Cassidy MD Myelodysplastic syndrome (CMS/HCC) 12/02/2024 Orders Only [facility] Oncology and Hematology - [address] [place] [address] Gilmar Cassidy MD Myelodysplastic syndrome (CMS/HCC) (Primary Dx) from Last 3 Months Family [...] Sign Reading Time Taken Comments Blood Pressure 93/65 02/18/2025 2:27 PM CDT Pulse 100 02/18/2025 2:26 PM CDT Temperature 36.5 C (97.7 F) 02/18/2025 2:26 PM CDT Respiratory Rate 16 02/18/2025 2:26 PM CDT 4 liters o2 Oxygen Saturation 96% 02/18/2025 2:26 PM CDT Inhaled Oxygen Concentration - - Weight 61 kg (134 lb 6.4 oz) 02/18/2025 2:26 PM CDT Height 167.6 cm (5' 6) 04/13/2024 11:3 0 AM TV PRODUCTION ASSISTANT Body Mass Index 21.69 04/13/2024 11:30 AM TV PRODUCTION ASSISTANT Plan of Treatment Upcoming Encounters Date Type Department Care Team (Late st Contact Info) Description 03/11/2025 2:00 PM CDT Office Visit [facility] Oncology and Hematology - [place] [address] [facility] [address] [place] [address] Gilmar Cassidy MD [address] [facility] [address] [place] [address] Health Maintenance Due Date Last Done Comments DIABETES ANNUAL FOOT EXAM 1965 DIABETES ANNUAL RETINAL EXAM 1965 DIABETES MICROALBUMIN ANNUAL SCREEN 1965 LDL CHOLESTEROL ANNUAL 1965 ZOSTER VACCINE (1 of 2) 1966 Lung Cancer Screening 1997 RSV VACCINE (60+ or ) (1 - 1-dose 75+ series) 2022 INFLUENZA VACCINE (#1) 2025 , 03/03/2021, 03/04/2020, Additional history exists COVID-19 Vaccine (6 - Pfizer risk season) 2025 02/19/2024, 02/22/2023, 03/29/2022, Additional history exists DIABETES HBA1C Q 6 MONTHS 04/30/2025 10/28/2024, DTAP/TDAP/TD VACCINES (2 - T d or Tdap) 12/31/2034 12/31/2024 PNEUMOCOCCAL VACCINE 50+ YEARS Completed 1 07/21/2023, 08/08/2023, 08/10/2014, Additional history exists Procedures Procedure Name Priority Date/Time Associated Diagnosis Comments BASIC METABOLIC PANEL Routine 02/18/2025 11:36 AM CDT CBC WITH AUTODIFFERENTIAL Routine 2024 11:29 AM CDT BASIC METABOLIC PANEL Routine 01/21/2025 7:34 AM CDT CBC WITH AUTODIFFERENTIAL Routine 2024 7:31 AM CDT BASIC METABOLIC PANEL Routine 12/24/2024 1:37 PM CDT CBC WITH AUTODIFFERENTIAL Routine 2024 1:33 PM CDT HEMOGLOBIN A1C Routine 10/28/2024 4:12 PM CDT from Last 3 Months or Most Recently Relevant to Health Maintenance Results * BASIC METABOLIC PANEL (02/18/2025 11:36 AM CDT) Only the most recent of3 resultswithin the time period is included. Blood us Gilmar Cassidy MD CHEMISTRY ORDERABLES Final Resu lt * CBC WITH AUTODIFFERENTIAL (02/18/2025 11:29 AM CDT) Only the most recent of3 resultswithin the time period is included. Blood us Gilmar Cassidy MD HEMATOLOGY ORDERABLES Final Res ult * HEMOGLOBIN A1C (10/28/2024 4:12 PM CDT) Blood us Gilmar Cassidy MD CHEMISTRY ORDERABLES Final Resu lt from Last 3 Months or Most Recently Relevant to Health Maintenance Insurance [employer] Partager Medicare Part D [employer] O [facility] Care Teams Refrigeration Person Relationship Specialty Start Date End Date Carrington Heath MD [address] [place] [address] [address] [place] [address] PCP - General Internal Medicine 04/13/24
--- OUTSIDE RECORDS SUMMARY | 2025-02-26 12:54 | XMS_ITS | Clinical Summary ---
Author Organization [facility] Address [address] [place] [address] Care Team Providers Care Video Game Creator Name Role Phone Unavailable Primary Care Provider [...] COVID-19 Vaccine ( - 2023-2 5 season) 2025 Meningococcal B Vaccine Aged Out No l onger eligible based on patient's age to complete this topic Meningococcal Vaccine Aged Out No mady ras eligible based on patient's age to complete this topic RSV Immunizations Under 20 Months Aged Out No longer eligible based on patient's age to complete this topic
--- OUTSIDE RECORDS SUMMARY | 2025-02-26 12:54 | XMS_ITS | Encounter Summary ---
Author Organization [facility] Address [address] [place] [address] Care Team Providers Care Punchboard Filling Machine Operator Name Role Phone Unavailable Primary Care Provider Unavailabl e Encounter Details Date Type Department Care Team (Late st Contact Info) Description 10/21/2024 Lab Requisition [facility] - Pathology Lab [address] [place] [address] Karsten Guido MD [address] [address] Iron deficiency anemia secondary to [...] AM CDT) Case Report Flow Cytometry Case: [id number] Authorizing Provider: Karsten Guido MD Collected: 10/21/2024 09:00 AM Ordering Location: [facility] - Received: 10/21/2024 03:37 PM Pathology Lab Pathologist: Nida Navarrete MD Specimen: Bone Marrow 10/22/2024 10:28 AM CDT [facility] Final Diagnosis Bone marrow, flow cytometric immunophenotypic analysis: - No evidence of a monoclonal B-cell population or increase in blasts - See interpretation 10/22/2024 10:[address] [facility] at 1028 CDT Flow Cytometry Interpretation Viability: 80% B-cells: polytypic, kappa:lambda ratio 1.5:1 Blasts: 2.5% of events Numerous erythroid progenitors are present. Plasma cells: no definitive population is identified. A bone marrow aspirate smear prepared from the flow cytometry specimen has been reviewed for water quality control engineer purposes. 10/22/2024 10:[address] [facility] Flow Cytometry Results Differential Result Comment Flow Cell Count /uL 246,000 Total Viability % 80.0 Lymphocytes % 14 Dim CD45 Region % 25 Monocytes % 5 Granulocytes % 55 10/22/2024 10:[address] [facility] Reason for test Iron deficiency anemia secondary to blood loss (chronic) 280.0 10/22/2024 10:[address] [facility] Client Specimen ID # [id number] 10/22/2024 10:[address] [facility] Number of markers 17 were performed. A-2 Flow CD10 A-3 Flow CD13 A-5 Flow CD20 A-13 Flow CD117 A-14 FLOW CD138 A-16 Flow CD117 A-1 Flow CD5 A-4 Flow CD19 A-6 Flow CD33 A-7 Flow CD34 A-8 Flow CD45 A-11 Flow CD38 A-12 Flow CD56 A-15 Flow CD41 A-17 Flow CD42b A-18 Flow [id number] A-9 [place]+CD19+ A-10 Lambda+CD19+ 10/22/2024 10:[address] [facility] Pathologist Location at [facility] 10/22/2024 10:[address] [facility] Disclaimer Test performed at [facility], [address] [place] [address], [id number]. *The established laboratory minimum viability is 70%. [...] complexity clinical testing. 10/22/2024 10:28 AM CDT [facility] Embedded Images 10:28 AM CDT [facility] Pathology/Cytolo gy BONE MARROW SPECIMEN / Unknown 10/21/2024 9:00 AM CDT 10/21/2024 3:37 PM CDT Karsten Guido MD LAB - PATHOLOGY/CYTOLOGY ORDERAB LES Final Result [facility] [address] [facility] [place] [address], [facility] [phone] documented in this encounter Visit Diagnoses Diagnosis Iron deficiency anemia secondary to blood loss (chronic) documented in this encounter
--- OUTSIDE RECORDS SUMMARY | 2025-02-26 12:54 | XMS_ITS | Encounter Summary ---
Author Organization 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
--- OUTSIDE RECORDS SUMMARY | 2025-02-26 12:54 | XMS_ITS | Patient Health Record ---
Author Organization [employer] [facility] [employer] [place] ([address]) Address [address] [place] [address] Care Team Providers Care Rn Charge Name Role Phone Carrington Heath MD Primary Care Provider Juana Tay Unavailable [phone] Mignon Carr Unavailable Unavailable Allergies Allergen (clinical [...] 01:10:49 PM Interpretation:Abnormal Performing Lab:[facility], [facility],, [address] [place], [phone] Carolyn Velazquez MD,PhD,KARINA Notes/Report: NON-FASTING HAEMOPHILUS INFLUENZA [...] review and pick correct strength-formula tion from [employer] options. 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) Active confirmed Problem Chronic obstructive pulmonary disease (97381694) Chronic obstructive pulmonary disease, unspecified (J44.9) Active confirmed Problem Allergic rhinitis caused by animal hair and dander (262178730017259 ) Allergic rhinitis due to animal (cat) (dog) hair and dander (J30.81) Active confirmed Problem Chronic sinusitis (19994751) Other chronic sinusitis (J32.8) Active confirmed Vital [...] 94 Encounters Encounter Location Date Provider Diagnosis [facility] [address] [place] [phone] 03/02/2024 Juana Arora Chronic sinusitis, unspecified J32.9 ; Vitamin D deficiency, unspecified E55.9 ; Allergic rhinitis due to pollen J30.1 ; Allergic rhinitis due to animal (cat) (dog) hair and dander J30.81 ; Chronic obstructive pulmonary disease, unspecified J44.9 and Encounter for immunization Z23 [facility] [address] [place] [phone] 07/01/2024 Juana Arora Assessments Encounter Date Diagnosis [...] rhinitis due to pollen (ICD-10 - J30.1) Ander endorses upper airway symptoms concerning for uncontrolled [...] COPD and interstitial lung disease by his grocery checker, Dr. Carr. He is also seen at [facility] for management of ILD. He reports [...] for immunization (ICD-10 - Z23) See above 03/02/2024 Other Plan Of Treatment Pending Test Test Name Order Date HAEMOPHILUS INFLUENZAE B ANTIBODY, IGG 0 03/02/2024 Insurance Providers Payer Name Payer Address Payer Phone Subscriber Number Group Number Insured Name Patient Relationship to Insured Coverage Start Date Coverage End Date [employer] [address] [address] [place] [address] [id number] Andre Huizar Self - patient is the insured Medical (General) History Medical History History ICD Code COPD ILD Rheumatoid Arthiritis Glaucoma Surgical History Surgery Date(Month/Year) appendectomy 1963 quadruple bypass surgery 1976 gallbladder removed hemorrhoid surgery 2009 Hospitalization History Reason Date(Month/Year) [facility] 04/09/23 infection 2018
--- OUTSIDE RECORDS SUMMARY | 2025-02-26 12:54 | XMS_ITS | Encounter Summary ---
Author Organization [facility] Healthcare Address [address] [place] [address] Care Team Providers Care Single Ending Machine Operator Name Role Phone Carrington Heath MD Primary Care Provider Encounter Details Date Type Department Care Team (Late st Contact Info) Description 01/31/[address] [facility] Health Information Management [address] [place] [id number] Scanning, Provider Social History Tobacco Use Types Packs/Day Years Used Date Smoking Tobacco: Former Cigarettes 0.8 52 0 12/31/1965 - 12/31/2017 Smokeless Tobacco: Never Alcohol Use Standard Drinks/Week Comments No 0 (1 standard drink = 0.6 oz pur e alcohol) Sex and Gender Information Value Date Recorded Sex Assigned at Not on file Legal Sex Male 9:04 PM [employer] Gender Identity Not on file Sexual Orientation [...] on filedocumented in this encounter Care Teams Single Ending Machine Operator Relationship Specialty Start Date End Date Carrington Heath MD PCP - General 08/31/16 documented as of this encounter
--- OUTSIDE RECORDS SUMMARY | 2025-02-26 12:54 | XMS_ITS | Patient Health Record ---
Author Organization [facility] [employer] Address [address] [facility] [[email or web address] [address] [place] [address] Support Name Relationship Address Phone KARON CHAPARRO Emergency Contact Unknown VENU CHAPARRO Guarantor Unknown [phone] Reason For Referral No Information Medications Medication SIG (Take, Route, Frequency, Duration) Notes Start Date End Date Status Restasis 0.05 % Emulsion Ophthalmic Active Clarithromycin 250 MG Tablet Oral Active predniSONE 20 MG Tablet Oral Active levoFLOXacin 750 MG Tablet Oral Active Clarithromycin 500 MG Tablet Oral Active Ciprofloxacin HCl 500 MG Tablet Oral Active predniSONE 1 MG Tablet Oral Active Finasteride 5 MG Tablet Oral Active Hydroxychloroquine Sulfate 200 MG Tablet Oral Active Diphenoxylate-Atropine 2.5-0.025 MG Tablet Oral Active Tacrolimus 0.1 % Ointment External Active Mupirocin 2% Ointment External Active Testosterone Cypionate 200 MG/ML Solution Intramuscular Active Topiramate 50 MG Tablet Oral Active Flowflex COVID-19 Ag Home Test Kit In Vitro *Reorder from [employer] for eRx and Interaction Alerts* Active Ramelteon 8 MG Tablet Oral Active methylPREDNISolone 4 MG Tablet Therapy Pack Oral Active Simvastatin 20 MG Tablet Oral Active traMADol HCl 50 MG Tablet Oral Active LORazepam 1 MG Tablet Oral Active Spiriva HandiHaler 18 MCG Capsule Inhalation Active Doxycycline Monohydrate 100 MG Tablet Oral Active Cefdinir 300 MG Capsule Oral Active ProAir HFA 108 (90 Base) MCG/ACT Aerosol Solution Inhalation Act wendy predniSONE 2.5 MG Tablet Oral Active levoFLOXacin 500 MG Tablet Oral Active FLUoxetine HCl 40 MG Capsule Oral Active Latanoprost 0.005 % Solution Ophthalmic Active Doxycycline Hyclate 100 MG Capsule Oral Active Ipratropium [place] 0.06 % Solution Nasal Active Azelastine HCl 137 MCG/SPRAY Solution Nasal Active Alendronate Sodium 70 MG Tablet Oral Active metroNIDAZOLE 500 MG Tablet Oral Active FLUoxetine HCl 20 MG Capsule Oral Active Cholecalciferol 1.25 MG (13731 UT) Capsule Oral Active Fluticasone Propionate Diskus 50 MCG/ACT Aerosol Powder Breath Activated Inhalation *Reorder from [employer] for eRx and Interaction Alerts* Active Baclofen 10 MG Tablet Oral Active Social History Social History Additional Details Category Social Info Options Details Migrated Social History Migrated Social History Tobacco Years: Former smoker 07/19/2023 Plan Of Treatment No Information Insurance Providers Payer Name Payer Address Payer Phone Subscriber Number Group Number Insured Name Patient Relationship to Insured Coverage Start Date Coverage End Date [employer] Medicare Replacemen t/Advant[employer] e - Ppo [address] [address] [place] [address] [id number] VENU CHAPARRO Self - patient is the insured
== END 2025-02-26 12:51 | disposition home or self-care (01) ==
LOC: ANHAUDASC 12:50
PROVIDERS: PCP Internal Medicine; Visit Provider Otolaryngology
DX: H90.3 Sensorineural hearing loss, bilateral (principal)
CPT/HCPCS: 92557; 92567